=== PATIENT | female | born 1960 | race Caucasian/White ===

== ENCOUNTER → 2018-11-14 | Outpatient (CLI) | payer MEDICARE, SELFPAY ==
[2014-05-18 09:37] VITALS: BMI 26.0
[2018-11-14 17:36] LABS: Erythrocyte Sedimentation Rate 23 mm/hr (0-30)
[2018-11-14 17:40] LABS: Hematocrit 38.8 % (37-47); Hemoglobin 12.6 g/dl (12.0-15.0); Mean Corp Hgb Conc 32.5 g/gl (32-36); Mean Corpuscular Hgb 28.6 pg (27.0-32.0); Mean Platelet Vol. 11.6 fl (6.2-12.0); Platelet Count 171 K/mm3 (150-450); RBC Distribution Width CV 13.4 % (11.6-14.6); RBC Distribution Width SD 41.8 fl (35.1-43.9); Red Blood Count 4.41 M/mm3 (4.2-5.4); White Blood Count 7.2 K/mm3 (4.4-11.0)
[2018-11-14 17:45] LABS: Scan Indicated on CBC? Y/N NO
[2018-11-14 18:01] LABS: Anion Gap 8 (5-15); BUN 15 mg/dL (7-18); BUN/Creat Ratio 14.2 RATIO (10-20); Calcium,Total 8.2 mg/dL (8.5-10.1); Chloride 102 mmol/L (98-107); Creatinine, Serum 1.06 mg/dL (0.55-1.02); EST Glomerular Filtration Rate 56 mL/min (>60); Est Glom Filt Rate - Afr Amer 68 mL/min (>60); Glucose 94 mg/dL (74-106); Magnesium 2.6 mg/dL (1.6-2.6); Potassium 4.4 mmol/L (3.5-5.1); Sodium Level 141 mmol/L (136-145); Thyroid Stim Hormone (TSH) 2.21 uIU/mL (0.358-3.74)
== END | disposition home or self-care (01) ==
PROVIDERS: Family Provider Family Medicine; PCP Family Medicine; Referring Provider Family Medicine; Visit Provider Family Medicine
DX: R51 Headache (principal); E03.9 Hypothyroidism, unspecified; E20.9 Hypoparathyroidism, unspecified; K21.9 Gastro-esophageal reflux disease without esophagitis; G50.0 Trigeminal neuralgia
CPT/HCPCS: 36415; 80048; 82306; 83735; 84443; 85027; 85652; 86140

== ENCOUNTER → 2018-11-26 | Outpatient (CLI) | payer MEDICARE, SELFPAY ==
--- NOTE | 2018-11-26 18:15 | MRI_ITS ---
HISTORY: Tongue deviation, severe left facial pain. EXAM/TECHNIQUE: MR Brain and MR IAC WO/W Contrast: 14 cc Dotarem administered intravenously. Multiplanar, multisequence. 1.5 [place]. COMPARISON: CTA head and neck 03/18/14. MRI brain 04/24/14. FINDINGS: # of images incl. paperwork: 424 MRI brain: No acute infarct, hemorrhage, or mass. Chronic FLAIR/T2 hyperintensities in the cerebral white matter pattern most compatible with chronic microangiopathic changes, more numerous compared to the prior MRI. No abnormal enhancement. Major flow voids preserved. No acute osseous abnormality. Paranasal sinuses patent. No hydrocephalus or midline shift. Brain volume is normal for age. MRI IACs: Similar to the previous studies, is tortuosity of the intracranial vertebral arteries and basilar artery; the right vertebral artery courses to the right of midline, and the left vertebral artery loops up into the left CP angle, mildly displacing cephalad the proximal cisternal segments of the left seventh and eighth cranial nerves. Otherwise the 7th and 8th cranial nerve complexes are unremarkable bilaterally. The visualized portions of the 5th cranial nerves are unremarkable. No mass or abnormal enhancement. Normal signal and contour of the internal auditory canals, cochlea, and vestibular apparatus bilaterally. No fluid in the middle ears or mastoid air cells. External auditory canals unremarkable. IMPRESSION: No acute findings on the MRI brain. Slight interval progression of chronic FLAIR/T2 hyperintensities in the cerebral white matter compared to 04/24/14, most likely sequela of chronic microangiopathic change. No acute findings on the MRI IAC. Tortuosity of the intracranial vertebral arteries and basilar artery, described above, with the left left vertebral artery looping up into the left CP angle, mildly displacing cephalad the proximal cisternal segments of the left seventh and eighth cranial nerves. If the patient has symptoms correlating to the left 7th or 8th cranial nerves this may be the etiology. at 0822 Reported and signed by: Steve Enriquez MD Electronically Signed: Steve Enriquez, at 8:21 EDT Tel , Service support , HISTORY: Tongue deviation, severe left facial pain. EXAM/TECHNIQUE: MR Brain and MR IAC WO/W Contrast: 14 cc Dotarem administered intravenously. Multiplanar, multisequence. 1.5 [place]. COMPARISON: CTA head and neck 03/18/14. MRI brain 04/24/14. FINDINGS: # of images incl. paperwork: 424 MRI brain: No acute infarct, hemorrhage, or mass. Chronic FLAIR/T2 hyperintensities in the cerebral white matter pattern most compatible with chronic microangiopathic changes, more numerous compared to the prior MRI. No abnormal enhancement. Major flow voids preserved. No acute osseous abnormality. Paranasal sinuses patent. No hydrocephalus or midline shift. Brain volume is normal for age. MRI IACs: Similar to the previous studies, is tortuosity of the intracranial vertebral arteries and basilar artery; the right vertebral artery courses to the right of midline, and the left vertebral artery loops up into the left CP angle, mildly displacing cephalad the proximal cisternal segments of the left seventh and eighth cranial nerves. Otherwise the 7th and 8th cranial nerve complexes are unremarkable bilaterally. The visualized portions of the 5th cranial nerves are unremarkable. No mass or abnormal enhancement. Normal signal and contour of the internal auditory canals, cochlea, and vestibular apparatus bilaterally. No fluid in the middle ears or mastoid air cells. External auditory canals unremarkable. MRI/Brain W/WO Contrast
== END | disposition home or self-care (01) ==
LOC: MRI 17:19
PROVIDERS: Family Provider Family Medicine; PCP Family Medicine; Referring Provider Family Medicine; Visit Provider Family Medicine
DX: K14.8 Other diseases of tongue (principal)
CPT/HCPCS: 70553; A9585

== ENCOUNTER → 2018-12-16 16:53 | Outpatient (CLI) | payer MEDICARE, SELFPAY ==
[2014-05-18 09:37] VITALS: BMI 26.0
--- NOTE | 2018-12-16 16:59 | RAD_ITS ---
STUDY: X-RAY - CERVICAL SPINE REASON FOR EXAM: Female, 58 years old. Pain TECHNIQUE: 6 view(s) of the cervical spine were obtained. COMPARISON: None FINDINGS: There is no evidence of fracture or dislocation in the cervical spine. The dens is intact. The vertebral body heights and disc spaces are well-maintained. DISH type osteophytes are present from C1 through C7 with fusion from C4 through C6. The prevertebral soft tissues are unremarkable. There is no radiodense foreign body. RAD/Cerv Spine 4 or 5 Views IMPRESSION: No fracture or dislocation in the cervical spine. [facility]-type osteophytosis described above. Electronically Signed: Gomez Mcknight, at 21:47 EDT Tel , Service support ,
--- NOTE | 2018-12-16 16:59 | RAD_ITS ---
STUDY: X-RAY - LUMBAR SPINE REASON FOR EXAM: Female, 58 years old. Urinary frequency. TECHNIQUE: 5 view(s) of the lumbar spine were obtained including oblique views. COMPARISON: None FINDINGS: Normal lumbar lordosis. There is a mild dextroscoliosis of the lumbar spine. There is a normal alignment of the vertebrae. There is multilevel endplate spondylosis of the lumbar vertebrae. There is multi-level degenerative disc disease with multi-level disc space narrowing. Facet joint osteoarthritis. Phleboliths are seen in the pelvis. RAD/L/S Spine Min 4 Views IMPRESSION: Degenerative changes of the spine, as detailed above. Electronically Signed: Jace Stoner, at 15:49 EDT , Service support ,
[2018-12-16 17:52] LABS: Color, Urine Yellow (Yellow); Glucose, Dipstick Normal (Normal); Ketone-Dipstick Negative (Negative); Leukocyte Esterase-Dipstick Negative /ul (Negative); Nitrite-Dipstick Negative (Negative); Occult Blood-Urine Negative /ul (Negative); Protein-Dipstick Negative (Negative); Specific Gravity, Urine 1.015 (1.002-1.030); Urine Bilirubin Dipstick Negative (Negative); Urine Clarity Clear (Clear); Urine Urobilinogen Normal (Normal)
[2018-12-16 18:08] LABS: Erythrocyte Sedimentation Rate 15 mm/hr (0-30)
[2018-12-16 18:13] LABS: Anion Gap 7 (5-15); BUN 14 mg/dL (7-18); BUN/Creat Ratio 12.7 RATIO (10-20); Calcium,Total 8.4 mg/dL (8.5-10.1); Chloride 104 mmol/L (98-107); EST Glomerular Filtration Rate 54 mL/min (>60); Est Glom Filt Rate - Afr Amer 65 mL/min (>60); Glucose 88 mg/dL (74-106); Potassium 3.9 mmol/L (3.5-5.1); Rheumatoid Factor < 10.0 IU/mL (<15); Sodium Level 142 mmol/L (136-145)
[2018-12-16 18:21] LABS: PTHIN 7.2 pg/mL (18.4-80.1)
[2018-12-16 18:37] LABS: Vitamin B12 409 pg/mL (211-911)
[2018-12-19 14:14] LABS: ANTINUCLEAR ANTIBODIES DIRECT Negative (Negative)
== END ==
PROVIDERS: Family Provider Family Medicine; PCP Family Medicine; Referring Provider Family Medicine; Visit Provider Family Medicine
DX: R79.82 Elevated C-reactive protein (CRP) (principal); N28.9 Disorder of kidney and ureter, unspecified; G50.8 Other disorders of trigeminal nerve; R35.0 Frequency of micturition; E20.9 Hypoparathyroidism, unspecified; M54.2 Cervicalgia
CPT/HCPCS: 72050; 72110; 80048; 81002; 82330; 82607; 83970; 85652; 86038; 86140; 86431

== ENCOUNTER → 2019-01-31 | Outpatient (CLI) | payer MEDICARE, SELFPAY ==
[2014-05-18 09:37] VITALS: BMI 26.0
--- NOTE | 2019-01-31 17:30 | MRI_ITS ---
STUDY: MRI CERVICAL SPINE WITHOUT CONTRAST REASON FOR EXAM: Female, 58 years old. Headache for years TECHNIQUE: Standardized fat and water weighted pulse sequences were obtained in the sagittal and axial planes. COMPARISON: None FINDINGS: There is cerebellar tonsillar ectopia with the tonsils descending 4 mm below the foramen magnum. Craniocervical junction is intact and aligned. There are degenerative changes at the atlantoodontoid articulation. There is grade 1 degenerative anterolisthesis of C6 on C7, less than 2 mm. Marrow is normal with superimposed expected age-related discogenic change. There is multilevel ventral bridging and near bridging osteophyte formation. Paraspinous soft tissues are normal. C2-C3 has patent canal and foramina. C3-C4 has mild spondylotic cord compression. There is severe left foraminal stenosis with patent). C4-C5 has focal left central disc and facet osteophytes with mild canal stenosis without cord compression. Foramina are patent bilaterally. C5-C6 has patent canal and foramina. C6-C7 has mild cord compression secondary to ventral disc endplate osteophyte. There is mild left foraminal stenosis with patent right foramen. C7-T1 has patent canal and foramina. Spinal cord is normal in size and signal with minor flattening at the compressing C6-C7 level. MRI/Spine Cervical (Routine) IMPRESSION: 1. Mild spondylotic C6-C7 cord compression. 2. Cerebellar tonsillar ectopia. Electronically Signed: Meliton Sprague, at 18:30 EDT Tel , Service support ,
== END | disposition home or self-care (01) ==
LOC: MRI 16:43
PROVIDERS: Family Provider Family Medicine; PCP Family Medicine; Referring Provider Family Medicine; Visit Provider Family Medicine
DX: M54.2 Cervicalgia (principal)
CPT/HCPCS: 72141

== ENCOUNTER 2019-02-07 15:30 | Outpatient (RCR) | payer MEDICARE, SELFPAY ==
--- NOTE | 2019-01-22 11:04 | HP.PTEVAL_ITS ---
Patient's Visit Information BHAVNA PATEL is a 58 year old F referred to Physical Therapy by Robson Guido MD with a diagnosis of OA NECK, H/A. Date of Evaluation: 01/22/19 Physical Therapist: Jenny Melgoza PT, Cert MDT - Visit Plan Frequency: 2-3x /Week Duration: 4-6 Weeks Plan: FURTHER ASSESSMENT. CERVICAL ISOMETRICS. MODALITIES NEEDED. POSTURE CORRECTION/STRENGTHENING, INSTRUCTION IN APPROPRIATE BODY MECHANICS AND ACTIVITY MODIFICATIONS. ARABELLA UE ROM, STRETCHING AND STRENGTHENING. HEP INSTRUCTION. - Subjective Findings: Work/Leisure: RETIRED. Disability: HYPOPARATHYROIDISM - HAS TO TAKE HIGH DOSES OF CALCIUM - MUSCLES LOCK UP WHEN CALCIUM GOES LOW. Present symptoms: HEAD PAIN - EITHER RIGHT OR LEFT HEAD PAIN. RINGING IN THE EARS. NO NECK PAIN. PATIENT DENIES ARABELLA UE PAIN, NUMBNESS AND TINGLING. Present since: 2013. THE PAIN GOES AWAY AND THEN COMES BACK. CAME BACK ABOUT 6 MONTHS AGO. GOOD DAYS AND BAD DAYS. Pain Scale: Worst - 9/10 Least - 3/10. Currently: 3/10 ON LEFT SIDE OF HEAD. AWHILE AGO IT WAS ON THE RIGHT. WORSENING. Commenced as a result of: NO APPARENT REASON. Symptoms at onset: RIGHT OR LEFT SIDE OF HEAD. Worse: ? Better: LYING DOWN WITH ICE PACK AND DARK ROOM, HEAT ON NECK HELPS SOMETIMES TOO. MOVING HEAD AROUND AND CRACKING NECK - SOMETIMES. Disturbed sleep: YES. Previous history/Previous treatment: DECEMBER 2018 NEUROLOGY CONSULT, MEDICATION (GABAPENTIN). NO CHIROPRACTOR. DECEMBER 2018 - TWO INJECTIONS IN THE BACK OF HER HEAD - HELPED FOR A COUPLE DAYS. Dizziness: YES - INTERMITTENT - COMES WITH HEADACHES. Tinnitis: YES - CHRONIC FOR YEARS. N ausea: NO. Shortness of Breath: NO. Difficulty Swollowing: YES - CHRONIC FOR YEARS. Gait: NORMAL. Accidents: NO. Unexplained weight loss: NO. Imaging: *NO NECK MRI*. RECENT NECK X-RAY - DISH type osteophytes are present from C1 through C7 with fusion from C4. through C6. RECENT LOW BACK X-RAY: FINDINGS: Normal lumbar lordosis. There is a mild dextroscoliosis of the lumbar. spine. There is a normal alignment of the vertebrae. There is multilevel endplate spondylosis of the lumbar vertebrae. There is. multi-level degenerative disc disease with multi-level disc space. narrowing. Facet joint osteoarthritis. Phleboliths are seen in the pelvis. PMH/Recent major surgery: HYPOPARATHYROIDISM. - Objective Sitting Posture/Standing Posture: POOR. Active Correction of posture: NE. Other Observations: INDEP GAIT INTO PT. INTERMITTENT EPISODES OF SPIKES IN HEAD PAIN WALKING INTO PT, SITTING IN PT AND WITH EXAM. NOT REPRODUCIBLE CONSISTANTLY. Motor deficit: ARABELLA UE'S GROSSLY 4/5 WITH MMT'ING. Sensory deficit: NO. ARABELLA UE LIGHT TOUCH SENSATION INTACT AND SYMMETRICAL. ROM deficit: APPROX 20% DECREASED ARABELLA SHOULDER ELEVATION. OTHERWISE ARABELLA UE ROM WFL. Reflexes: NT. Dural Signs: NEGATIVE. Cervical Mvmt Loss: Flex: MOD. Pro: NIL. Ext: JESUS. Ret: JESUS. RSB: JESUS. LSB: JESUS. R Rot: MOD. L Rot: MOD. Postural strength: POOR. Palpation: INCREASED MUSCLE TONE THROUGHOUT ARABELLA NECK MUSCULATURE. PATIENT IS VERY TENDER WITH VERY LIGHT TOUCH OF THE UPPER CERVICAL SPINE REGION. - Goals Goal 1:: DECREASE C/O HEAD PAIN. Goal Time Frame: 4-6 Weeks Goal 2:: IMPROVE LIFTING, READING, SLEEP, ADL AND RECREATIONAL FUNCTION Goal Time Frame: 4-6 Weeks Goal 3:: INSTRUCT IN PROPHYLAXIS Goal Time Frame: 4-6 Weeks - Rehabilitation Potential Rehabilitation Potential: Fair - Anticipated Interventions Patient/Client Instruction: Educate patient on: Condition, Plan of Care, Risk Factors, Benefits of Fitness Program For the Purpose of:: To improve self management Therapeutic Exercise to Include: Strength training, Body mechanics, Postural training, Flexibilty training, Active ROM, Scapular Strength/Stabilization For the Purpose of:: To decrease pain, To increase ROM, To improve muscle performance and motor function, To increase tolerance to activity/condition/position, To improve ability of physical actions for home/community/work/leisure Manual Therapy Techniques to Include: Soft tissue mobilization For the Purpose of:: To decrease pain, To decrease swelling/inflammation, To improve nutrient delivery to tissue Cryotherapy (ice pack, ice massage): Yes Thermo therapy (hot pack): Yes Ultrasound (thermal/non thermal): Yes For the Purpose of:: To decrease pain, To decrease swelling/inflammation, To improve nutrient delivery to tissue Thank you for the opportunity to evaluate your patient. For Medicare and Medicare HMO plans, please review the plan of care and approve it. It will need to be FAXED BACK to us at [phone] for Medicare purposes. For Medicare only, by signing this I certify the plan of care. Please let me know if there are questions or concerns regarding this plan of care. Physician Signature: Date:
--- NOTE | 2019-02-11 15:01 | HP.PT.NRP ---
HP - Discharge Summary (1) - Patient Information BHAVNA PATEL was seen in my office for initial evaluation on 01/22/19. The following Plan of Care was established for this patient: Initial Frequency: 2-3x /Week Initial Duration: 4-6 Weeks - Anticipated Interventions Patient/Client Instruction: Educate patient on: Condition, Plan of Care, Risk Factors, Benefits of Fitness Program For the Purpose of:: To improve self management Therapeutic Exercise to Include: Strength training, Body mechanics, Postural training, Flexibilty training, Active ROM, Scapular Strength/Stabilization For the Purpose of:: To decrease pain, To increase ROM, To improve muscle performance and motor function, To increase tolerance to activity/condition/position, To improve ability of physical actions for home/community/work/leisure Manual Therapy Techniques to Include: Soft tissue mobilization For the Purpose of:: To decrease pain, To decrease swelling/inflammation, To improve nutrient delivery to tissue Cryotherapy (ice pack, ice massage): Yes Thermo therapy (hot pack): Yes Ultrasound (thermal/non thermal): Yes For the Purpose of:: To decrease pain, To decrease swelling/inflammation, To improve nutrient delivery to tissue This patient was last seen in our office . Pertinent comments regarding their Physical therapy will appear below: DISCHARGE PENDING OUTCOME OF CONSULT AT [facility] PER SISTER'S REQUEST. At this point I will be discontinuing this patient from physical therapy. I would be happy to see this patient again in the future if found appropriate by the physician. Thank you! Jenny Melgoza, PT, Cert MDT
== END 2019-02-07 19:00 | disposition home or self-care (01) ==
LOC: PT 15:30
PROVIDERS: Family Provider Family Medicine; PCP Family Medicine; Visit Provider Family Medicine
DX: M19.90 Unspecified osteoarthritis, unspecified site (principal); R51 Headache
CPT/HCPCS: 97140; 97162; 97530

== ENCOUNTER → 2019-06-05 | Outpatient (CLI) | payer MEDICARE, SELFPAY ==
[2014-05-18 09:37] VITALS: BMI 26.0
== END | disposition home or self-care (01) ==
LOC: LABSPEC 15:47
PROVIDERS: Family Provider Family Medicine; PCP Family Medicine; Referring Provider Otolaryngology Otolaryngology/Facial Plastic Surgery; Visit Provider Otolaryngology Otolaryngology/Facial Plastic Surgery
DX: H92.10 Otorrhea, unspecified ear (principal)
CPT/HCPCS: 87070; 87075; 87205

== ENCOUNTER → 2019-06-26 15:37 | Outpatient (CLI) | payer MEDICARE, SELFPAY ==
[2014-05-18 09:37] VITALS: BMI 26.0
== END ==
PROVIDERS: Family Provider Family Medicine; PCP Family Medicine; Referring Provider Otolaryngology Otolaryngology/Facial Plastic Surgery; Visit Provider Otolaryngology Otolaryngology/Facial Plastic Surgery
DX: H92.10 Otorrhea, unspecified ear (principal)
CPT/HCPCS: 87070; 87075; 87205

== ENCOUNTER → 2019-10-21 11:43 | Outpatient (CLI) | payer MEDICARE, SELFPAY ==
[2014-05-18 09:37] VITALS: BMI 26.0
--- NOTE | 2019-10-21 11:46 | RAD_ITS ---
STUDY: X-RAY - SOFT TISSUE NECK REASON FOR EXAM: Female, 59 years old. BILAT SUPERIOR SHOULDER/DISTAL NECK SWELLING, NO PAIN TECHNIQUE: 2 view(s) of the neck were obtained. COMPARISON: None. FINDINGS: Normal visualized nasopharynx, oropharynx, hypopharynx. Normal epiglottis. Normal visualized subglottic tracheal air column. Normal prevertebral soft tissue structures. Advanced degenerative disease with large osteophyte formation noted throughout the cervical spine. The soft tissue structures are unremarkable. RAD/Neck for Soft Tissue IMPRESSION: Advanced degenerative disease as described. Patent airway with no soft tissue swelling. Electronically Signed: Sera Wright MD at 0:31 EDT , Service support ,
[2019-10-21 15:53] LABS: CRP 5.22 mg/L (0.0-3.0); Thyroid Stim Hormone (TSH) 1.54 uIU/mL (0.358-3.74)
[2019-10-21 15:58] LABS: Absolute Lymphocyte Count 2.35 X10^3/uL (0.83-4.51); Absolute Neutrophil Count 3.9 X10^3/uL (2.0-7.7); Basophil# 0.09 X10^3/uL; Basophil% 1.1 % (0-1); Eosinophil# 0.73 X10^3/uL; Eosinophils% 9.3 % (0-5); Hematocrit 41.9 % (37-47); Hemoglobin 13.3 g/dL (12.0-15.0); Lymphocyte # 2.35 X10^3/ul (4.0); Lymphocyte % 29.9 % (19-41); Mean Corp Hgb Conc 31.7 g/dL (32-36); Mean Corpuscular Hgb 28.9 pg (27.0-32.0); Mean Corpuscular Volume 91.1 fL (81-99); Mean Platelet Vol. 12.4 fl (6.2-12.0); Monocyte# 0.77 X10^3/uL; Monocyte% 9.8 % (0-10); NRBC Flagged by Analyzer 0 % (0-5); Neutrophil # 3.88 X10^3/uL (2.7-7.7); Neutrophil % 49.4 % (47-70); Platelet Count 140 K/mm3 (150-450); RBC Distribution Width CV 13.1 % (11.6-14.6); RBC Distribution Width SD 42.7 fl (35.1-43.9); White Blood Count 7.9 K/mm3 (4.4-11.0)
[2019-10-21 16:01] LABS: Erythrocyte Sedimentation Rate 12 mm/hr (0-30)
== END ==
PROVIDERS: PCP Family Medicine; Referring Provider Family Medicine; Visit Provider Family Medicine
DX: E20.9 Hypoparathyroidism, unspecified (principal); R22.1 Localized swelling, mass and lump, neck
CPT/HCPCS: 36415; 70360; 84443; 85025; 85652; 86140

== ENCOUNTER → 2019-11-13 08:34 | Outpatient (CLI) | payer MEDICARE, SELFPAY ==
--- NOTE | 2019-11-13 08:38 | US_ITS ---
STUDY: SUPERFICIAL ULTRASOUND - CERVICAL REGION BILATERALLY REASON FOR EXAM: Female, 59 years old. BILATERAL NECK SWELLING TECHNIQUE: A superficial ultrasound was performed with real-time and static wick-scale imaging. COMPARISON: None. FINDINGS: There is an 8 mm x 9 mm x 4 mm benign-appearing right cervical lymph node. There is a 7 mm x 10 mm x 5 mm benign-appearing lymph node in the left cervical region. US/Head/Neck Soft Tissue IMPRESSION: Small bilateral benign-appearing cervical lymph nodes. Electronically Signed: Jace Stoner, at 10:47 EDT , Service support ,
== END ==
PROVIDERS: PCP Family Medicine; Referring Provider Family Medicine; Visit Provider Family Medicine
DX: R22.1 Localized swelling, mass and lump, neck (principal)
CPT/HCPCS: 76536

== ENCOUNTER → 2020-01-29 17:27 | Outpatient (CLI) | payer MEDICARE, SELFPAY ==
[2014-05-18 09:37] VITALS: BMI 26.0
== END ==
PROVIDERS: PCP Family Medicine; Referring Provider Family Medicine; Visit Provider Family Medicine
DX: R19.7 Diarrhea, unspecified (principal)
CPT/HCPCS: 82274; 83630; 87177; 87209; 87493

== ENCOUNTER → 2020-02-09 10:37 | Outpatient (CLI) | payer MEDICARE, SELFPAY ==
--- NOTE | 2020-02-09 10:42 | US_ITS ---
STUDY: ABDOMINAL ULTRASOUND - RIGHT UPPER QUADRANT REASON FOR VISIT: Female, 60 years old ELEVATED LFT''S TECHNIQUE: Ultrasound evaluation of the right upper quadrant was performed with real-time and static wick-scale imaging. TECHNICAL QUALITY: Adequate. COMPARISON: None. FINDINGS: Liver: The liver measures 11.9 cm. There is normal echogenicity of the liver. The bile ducts are within normal limits. There is hepatic color flow. The direction of portal flow is hepatopetal. There is no demonstrated mass lesion. Gallbladder: There is evidence of a contracted stone filled gallbladder. The gallbladder wall measures 6.0 mm. There is a negative sonographic Garcia''s sign. There is no pericholecystic fluid. There are no gallstones. Common Bile Duct (C.B.D.): The common bile duct measures 11 mm. Pancreas: Normal size of the head, body and tail of the pancreas. There is increased echogenicity of the pancreas. There is no demonstrated pancreatic mass or cyst. Right Kidney: Normal size of the right kidney. The right kidney measures 9.7 cm x 4.4 cm x 4.0 cm. Normal renal cortex. The right cortex measures 1.1 cm. There is no demonstrated renal mass or cyst. There is no right hydronephrosis. US/Abdomen Limited IMPRESSION: Contracted stone filled gallbladder. Electronically Signed: Jace Stoner, at 13:18 EDT , Service support ,
== END ==
PROVIDERS: PCP Family Medicine; Referring Provider Family Medicine; Visit Provider Family Medicine
DX: R19.7 Diarrhea, unspecified (principal)
CPT/HCPCS: 76705

== ENCOUNTER → 2020-02-12 11:39 | Outpatient (CLI) | payer MEDICARE, SELFPAY ==
[2014-05-18 09:37] VITALS: BMI 26.0
== END ==
PROVIDERS: PCP Family Medicine; Referring Provider Family Medicine; Visit Provider Family Medicine
DX: R19.7 Diarrhea, unspecified (principal)
CPT/HCPCS: 87506

== ENCOUNTER → 2020-02-20 08:13 | Outpatient (CLI) | payer MEDICARE, SELFPAY ==
[2020-02-17 13:37] VITALS: BMI 26.0
--- NOTE | 2020-02-20 08:14 | CT_ITS ---
STUDY: CT ABDOMEN AND PELVIS WITH CONTRAST REASON FOR EXAM: Female, 60 years old. RLQ PAIN . RADIATION DOSAGE (If Supplied By Facility): CTDIvol = ( 12.52 ) mGy, DLP = ( 737.30 ) mGycm TECHNIQUE: Transaxial images were obtained from the dome of the diaphragm to the symphysis pubis with oral contrast. Oral and amp; IV READII-CAT and amp; 100ML ISOVUE 300 was administered. Sagittal and coronal images were reconstructed. Individualized dose optimization techniques were used for this CT. COMPARISON: None. FINDINGS: Calcified granuloma in the lateral peripheral aspect of the right lower lobe. Increased linear markings in the lingular segment of the left upper lobe suggestive of linear atelectasis and/or scarring. Minimal thickening of the posterior aspect of the pericardium. There is decreased attenuation of the liver consistent with steatosis. Scattered small cysts are seen in the liver. The common bile duct measures 1 cm in transverse dimension. Questionable gallstones. Normal spleen. Normal pancreas. Normal bilateral adrenal glands. Normal right kidney. Normal left kidney. There is a small hiatal hernia. Normal small intestine. There is a 1.9 cm x 1.9 cm filling defect in the proximal descending colon. Also evidence of a filling defect in the cecum. This most likely represents fecal material although a mass lesion cannot be excluded. The appendix is visualized and appears normal. Normal abdominal aorta. Normal inferior vena cava. Normal retroperitoneum. Normal urinary bladder. There is a 2.8 cm x 3.6 cm cyst in the right ovary. There is a small umbilical hernia containing fat. There are diffuse degenerative changes of the visualized lumbar spine. Scoliosis. CT/Abdomen/Pelvis WITH Contrast IMPRESSION: 2.8 cm x 3.6 cm cyst in the right ovary. Questionable fecal material in the cecum and ascending colon versus a mass. Correlation with the colonoscopy is recommended. Findings suggestive of small cysts in the right lobe of the liver. Electronically Signed: Jace Stoner, at 12:33 EDT , Service support ,
[2020-02-20 08:36] LABS: CREATININE FINGERSTICK 0.8 mg/dL (0.55-1.02); EGFR FINGERSTICK > 60.0000 mL/min (>60)
== END ==
PROVIDERS: PCP Family Medicine; Referring Provider Surgery; Visit Provider Surgery
DX: R10.9 Unspecified abdominal pain (principal); R19.7 Diarrhea, unspecified
CPT/HCPCS: 74177; 87493; Q9967

== ENCOUNTER → 2020-03-02 09:47 | Outpatient (CLI) | payer MEDICARE, SELFPAY ==
[2020-02-17 13:37] VITALS: BMI 26.0
[2020-03-02 12:16] LABS: Hematocrit 38.5 % (37-47); Mean Corp Hgb Conc 31.2 g/dL (32-36); Mean Corpuscular Hgb 29.6 pg (27.0-32.0); Mean Corpuscular Volume 95.1 fL (81-99); Mean Platelet Vol. 11.9 fl (6.2-12.0); Platelet Count 130 K/mm3 (150-450); RBC Distribution Width CV 13.3 % (11.6-14.6); RBC Distribution Width SD 45.6 fl (35.1-43.9); Red Blood Count 4.05 M/mm3 (4.2-5.4); White Blood Count 6.6 K/mm3 (4.4-11.0)
[2020-03-02 12:33] LABS: Anion Gap 3 (5-15); BUN 19 mg/dL (7-18); BUN/Creat Ratio 18.1 RATIO (10-20); Calcium,Total 8.5 mg/dL (8.5-10.1); Chloride 102 mmol/L (98-107); Creatinine, Serum 1.05 mg/dL (0.55-1.02); EST Glomerular Filtration Rate 57 mL/min (>60); Est Glom Filt Rate - Afr Amer 69 mL/min (>60); Glucose 81 mg/dL (74-106); Potassium 4.5 mmol/L (3.5-5.1); Sodium Level 139 mmol/L (136-145)
== END ==
PROVIDERS: PCP Family Medicine; Referring Provider Family Medicine; Visit Provider Family Medicine
DX: N28.9 Disorder of kidney and ureter, unspecified (principal); D69.6 Thrombocytopenia, unspecified
CPT/HCPCS: 36415; 80048; 85027

== ENCOUNTER 2020-03-05 07:21 | Day surgery (SDC) | payer MEDICARE, SELFPAY ==
[2020-02-17 13:37] VITALS: BMI 26.0
[2020-03-05] VITALS (7 sets, daily range): BP systolic 100–110; BP diastolic 61–73; PULSE 70–90; RESP 16–18; TEMP 36.7–37.2; O2SAT 99–100; BMI 28.8
--- NOTE | 2020-03-05 | COLBX_PTH ---
PATIENT: BHAVNA PATEL I LOC: EN U#:[id number] AGE/SX: 60/F ROOM: RE03/05/[address]: Dr. Cong Bellamy MD : 1960 BED: DIS: 03/05/2020 SPEC #: [id number] RECD: 03/05/20 13:17 STATUS: LEVY NAIMA #: [id number] TRUE: 03/05/20 00:[address]: Cong Bellamy DEPT: SURGICAL PATHOLOGY RECD BY: Aric Koch ENTERED: 03/08/20 08:36 SP TYPE: COLON BX JESSICA DR: Dr. Angelo Guido MD Tissues: COLON BIOPSY Procedures: Surgery Specimen Level IV HEADER OPERATION: Colonoscopy (MAC) PRE-OP DIAGNOSIS: Abnormal CT scan TISSUE SUBMITTED: Random colonic biopsy MICROSCOPIC DIAGNOSIS Colon, random biopsy: Non-specific microscopic colitis with focal crypt abscess. AM:gaye 03/09/20 COMMENT The findings may represent lymphocytic colitis. Trichrome stain with matched control does not contain a thickened basal plate. Case has been reviewed in consultation with Dr. Sweeney who concurs with the above diagnosis. IDC:[email or web address] MICROSCOPIC DESCRIPTION Slides are reviewed. GROSS DESCRIPTION Received in fixative is one container labeled with the patient's name and designated random colon biopsy. The specimen consists of multiple irregular fragments of light willson soft tissue that in aggregate measure 1.5 x 0.5 x 0.1 cm. The specimen is totally submitted in one cassette. / TORO:gaye 03/08/20 TC:3 CPT: 65744,70662
--- NOTE | 2020-03-05 07:24 | H&P.OPEN ---
History of Present Illness Date of Admission: 03/05/20 The patient is a 60 year old F who was originally referred to me due to diarrhea and right abdominal pain. I ordered a CT scan which showed a possible cecal mass. Patient is here for colonoscopy to evaluate this area. Past Medical/Surgical History - Planned Operation Planned Operative Procedure/s: COLONOSCOPY Date of Operative Procedure: 03/05/20 Permit Signed: Yes S.O.S: No Is This Patient Having a Total Joint: No - Previous Hospitalizations/Surgeries HX Hospitalizations: No HX of Surgeries: LEEP Any Problems With Anesthesia: No You/Your Family Experience Fever (Hyperthermia) With Anes: No Cholinesterase deficiency: No - Cardiovascular Hx Chest Pain within Last 2 months: No Hx of Irregular Heartbeat and/or Afib: No Hx Heart Attack: No Hx Congestive Heart Failure: No Hx Rheumatic Fever: No Hx Hypertension: Yes - YRS AGO, NO MEDS PRESENTLY Hx Internal Defibrillator: No Hx Pacemaker: No Hx Cardiac Catheterization: No Hx Cardiac Surgery/Stents/Etc.: No Hx Stress Test: No HX Edema: No Hx Pain in Legs when Walking/Leg Cramps: No - Respiratory Chronic Cough: No HX of Shortness of Breath: No Hoarseness: No Hx Chronic Obstructive Pulmonary Disease (COPD): No Hx Asthma: No Hx Emphysema: No Hx Sleep Apnea: No Hx Oxygen Use at Home: No Hx Respiratory Tract Infection/Cold (presently): No Do You Snore Loudly (louder than talking or can be heard): No Do You Often Feel Tired/ Fatigued/ Sleepy Dring Daytime?: No Has Anyone Observed You Stop Breathing During Sleep?: No Result (for STOP score): Negative Hx Smoking: Yes Smoking Status: Never smoker - Gastrointestinal Hx Gastroesophageal Reflux: Yes Controlled With Meds: No - UNABLE TO TAKE MEDS Hx Gastrointestinal Disorders: No Hx Gastrointestinal Bleed: No Hx Ulcer: No Hx Hiatal Hernia: No Difficulty Chewing/Swallowing: No Recent Onset of Swallowing Problems: No Special diet followed at home: No Hx Unplanned Weight Loss of 20#: No HX Unplanned Weight Gain of 20#: No - Neurological Hx Seizures: No HX Syncope/Blackout Spells/Unconsciousness: No Hx CVA/Stroke: No Hx Transient Ischemic Attacks (TIA): No Hx Multiple Sclerosis: No Hx Parkinson's Disease: No Hx Head/Neck Injury: No Hx Headaches: Yes - SINUS Hx Back Injury/Pain: Yes Recent Onset of Speech Difficulty: No Restless Legs: No Does patient have nerve stimulator: No - Blood Disorder Hx Leukemia: No Bleeding Tendencies: No Hx Deep Vein Thrombosis: No Hx High Cholesterol: No Blood Transmitted Disease: No Hx Hepatitis: No Hx Cirrhosis: No Hx Anemia: No Hx Blood Disorders: No - Reproduction : No Is Patient Lactating: No Hx Hysterectomy: No Hx Tubal Ligation: No Are You Post Menopause: Yes - Genitourinary Hx Renal Disease: No - Musculoskeletal Hx Arthritis: Yes Hx Rheumatoid Arthritis: No Hx Gout: No Recent Onset of an Orthopedic Problem: No - Endocrine Hx Diabetes: No Thyroid Disease: Yes - ON MED Hx Steroid Therapy: No - Psycho/Social Hx Substance Use: No Hx Alcohol Use: No Hx Anxiety: Yes Hx Depression: Yes Mental Illness: No Hx Dementia: No - Miscellaneous Hx Cancer: No Recent Exposure to Contagious Disease: No Active MRSA: No Hx of C-Diff: No Any Loose Teeth: Yes - FULL SET DENTURES Allergies famotidine Allergy (Intermediate, Verified 02/27/20 11:17) depletes calcium omeprazole Allergy (Intermediate, Verified 02/27/20 11:17) diarrhea sulfamethoxazole [From Bactrim] Allergy (Verified 02/27/20 11:17) Rash trimethoprim [From Bactrim] Allergy (Verified 02/27/20 11:17) Rash - Discharge Is Pt Admitted From a [facility], or a [facility]: No Who Could Help: [facility] After D/C, Where Do you Plan to Go: Return Home - Physical Exam Vitals/I&O's: Body Mass Index (BMI) 26.0 General: Alert, Oriented x3 Lungs: Normal air movement Cardiovascular: Regular rate Abdomen: Soft, Non Tender, Non-Distended Laboratory Results 02/27/20 16:30: COVID-19 (DONALD) Not Detected Assessment/Plan 60-year-old female with possible cecal mass on CT scan 1. I explained endoscopy in detail to the patient. I explained the risks including but not limited to stroke or heart attack with anesthesia, perforation of the GI tract, bleeding, infection. I explained that any of these could necessitate further emergency surgery. The patient understands and all questions were answered sufficiently. The patient wishes to proceed with procedure. We discussed the current risks associated with COVID-19. While it is understood that there is a community spread of COVID-19, the risk of stewart COVID-19 while at [facility] ([facility]) is very low; however, the risk cannot be completely mitigated because of the community spread of the disease. We discussed in detail the risk of exposure to and/or potential harm posed by the COVID-19 virus with having a surgery/procedure at this time versus the risk of delaying the surgery/procedure. It is not possible to know either the risk of delaying the surgery or procedure or chance of getting an infection with perfect accuracy, but a joint decision was made to proceed at this time with the scheduled surgery/procedure as indicated on the consent form. Patient was notified that we will need to comply with any screening or testing [facility] wishes to perform or that surgery may be delayed for any positive results. Cong Bellamy MD Pager: [facility] [address] [place] [address] [address] [place] [address] Office: Surgery Risks - Colonoscopy Risks Include but are not Limited To: Risks include but are not limited to: Bleeding, perforation requiring further surgery, inability to complete colonoscopy requiring barium enema.
[2020-03-05] MEDS: Lactated Ringers 1,000 ML 100 ML IV (07:56)
--- NOTE | 2020-03-05 10:02 | OP.CCLET_ITS ---
03/05/2020 Robson Guido [address] [place] [address] Re : Colonoscopy procedure for Loly Fuentes Dear Dr. Guido This procedure was performed on Thursday, March 05, 2020. My impressions and recommendations are as follows: Impressions : - The entire examined colon is normal on direct and retroflexion views. - Biopsies were taken with a cold forceps from the entire colon for evaluation of microscopic colitis. Recommendations : - Discharge patient to home. - Resume previous diet. - Continue present medications. - Await pathology results. - Repeat colonoscopy in 10 years for surveillance based on pathology results. - Return to my office in 1 week. My findings are described in the full procedure note, which is enclosed. If I can be of further assistance, please feel free to contact me at Doctor phone number(s): , Work: . Sincerely, Cong Bellamy MD 03/05/2020 10:02:19 AM This report has been signed electronically.
--- NOTE | 2020-03-05 10:02 | OP.COLON_ITS ---
Patient Name: Loly Fuentes Procedure Date: 03/05/2020 9:10 AM Date of : 1960 Age: 60 Procedure: Colonoscopy Indications: Abnormal CT of the GI tract Providers: Cong Bellamy MD Referring MD: Robson Guido Medicines: Monitored Anesthesia Care Patient Profile: This is a 60 year old female. Refer to note in patient chart for documentation of history and physical. Last Colonoscopy: none. The patient's first colonoscopy is today. Complications: No immediate complications. Estimated blood loss: Minimal. Procedure: Pre-Anesthesia Assessment: - Prior to the procedure, a History and Physical was performed, and patient medications and allergies were reviewed. The patient's tolerance of previous anesthesia was also reviewed. The risks and benefits of the procedure and the sedation options and risks were discussed with the patient. All questions were answered, and informed consent was obtained. Prior Anticoagulants: The patient has taken no previous anticoagulant or antiplatelet agents. After reviewing the risks and benefits, the patient was deemed in satisfactory condition to undergo the procedure. After I obtained informed consent, the scope was passed under direct vision. Throughout the procedure, the patient's blood pressure, pulse, and oxygen saturations were monitored continuously. The colonoscope was introduced through the anus and advanced to the cecum, identified by appendiceal orifice and ileocecal valve. The colonoscopy was performed without difficulty. The patient tolerated the procedure well. The quality of the bowel preparation was good. Scope In: 9:18:26 AM Scope Withdrawal Time 0 hours 11 minutes 32 seconds Scope Out: 9:51:34 AM Total Procedure Duration Time 0 hours 33 minutes 8 seconds Findings: The entire examined colon appeared normal on direct and retroflexion views. Biopsies for histology were taken with a cold forceps from the entire colon for evaluation of microscopic colitis. Impression: - The entire examined colon is normal on direct and retroflexion views. - Biopsies were taken with a cold forceps from the entire colon for evaluation of microscopic colitis. Recommendation: - Discharge patient to home. - Resume previous diet. - Continue present medications. - Await pathology results. - Repeat colonoscopy in 10 years for surveillance based on pathology results. - Return to my office in 1 week. Procedure Code(s): --- Professional --- 55865, Colonoscopy, flexible; with biopsy, single or multiple Diagnosis Code(s): --- Professional --- R93.3, Abnormal findings on diagnostic imaging of other parts of digestive tract CPT copyright 2017 [employer]. All rights reserved. The codes documented in this report are preliminary and upon drill doctor review may be revised to meet current compliance requirements. Cong Bellamy MD 03/05/2020 10:02:19 AM This report has been signed electronically. Number of Addenda: 0 Note Initiated On: 03/05/2020 9:10 AM
== END 2020-03-05 10:45 | disposition home or self-care (01) ==
LOC: EN 07:22 → AC 07:22
PROVIDERS: Anesthesiology; PCP Family Medicine; Referring Provider Family Medicine; Visit Provider Surgery
PROC: 0DJD8ZZ Inspection of Lower Intestinal Tract, Via Natural or Artificial Opening Endoscopic (ICD-10-PCS; CPT 45378; principal; 2020-03-05 08:40)
DX: K52.9 Noninfective gastroenteritis and colitis, unspecified (principal); Z11.59 Encounter for screening for other viral diseases; K21.9 Gastro-esophageal reflux disease without esophagitis; E07.9 Disorder of thyroid, unspecified; F41.9 Anxiety disorder, unspecified; F32.9 Major depressive disorder, single episode, unspecified; Z79.899 Other long term (current) drug therapy; Z79.82 Long term (current) use of aspirin; R94.8 Abnormal results of function studies of other organs and systems
CPT/HCPCS: 45380; 87635; 88305; 94799; J7120; J2405; U0003

== ENCOUNTER → 2020-03-22 16:34 | Outpatient (CLI) | payer MEDICARE, SELFPAY ==
[2020-03-05 07:44] VITALS: BMI 28.8
[2020-03-24 16:08] LABS: Endomysial Antibody IgA Negative (Negative)
[2020-03-24 20:45] LABS: Immunoglobulin A 267 mg/dL (87-352); t-Transglutaminase IgA <2 U/mL (0-3)
== END ==
PROVIDERS: PCP Family Medicine; Referring Provider Family Medicine; Visit Provider Internal Medicine Gastroenterology
DX: R19.7 Diarrhea, unspecified (principal)
CPT/HCPCS: 36415; 82784; 83516; 86140; 86255

== ENCOUNTER → 2020-06-21 12:13 | Outpatient (CLI) | payer MEDICARE, SELFPAY ==
[2020-03-05 07:44] VITALS: BMI 28.8
--- NOTE | 2020-06-21 12:16 | RAD_ITS ---
HISTORY: Allergic rhinitis. 3 views of the face and its paranasal sinuses. Comparison study is a CT scan of the paranasal sinuses from November 13, 2013. Findings: I cannot perceived the right lamina papyracea fracture that is seen on the CT scan from over 6 years ago. There does appear to be less aeration within the left mastoid air cells. This is similar to the CT with sclerosis in the inferior aspect of the left mastoid air cells that was present previously. Previously there is fluid layering dependently within the right maxillary sinus. I cannot identify that disease on the current study. RAD/Sinuses min 3 Views IMPRESSION: No acute disease perceived. at [id number] Reported and signed by: David De La Cruz MD Electronically Signed: David De La Cruz MD at 22:43 EST Tel , Service support ,
== END ==
PROVIDERS: PCP Family Medicine; Referring Provider Family Medicine; Visit Provider Family Medicine
DX: J30.9 Allergic rhinitis, unspecified (principal)
CPT/HCPCS: 70220

== ENCOUNTER → 2020-09-22 15:24 | Outpatient (CLI) | payer MEDICARE, SELFPAY ==
[2020-03-05 07:44] VITALS: BMI 28.8
[2020-09-27 18:04] LABS: HPV Reflexed? NOT INDICATED
== END ==
PROVIDERS: PCP Family Medicine; Visit Provider Nurse Practitioner Adult Health
DX: Z01.419 Encounter for gynecological examination (general) (routine) without abnormal findings (principal)
CPT/HCPCS: 88175; G0145

== ENCOUNTER → 2020-12-22 14:51 | Outpatient (CLI) | payer MEDICARE, SELFPAY ==
[2020-03-05 07:44] VITALS: BMI 28.8
[2020-12-22 17:47] LABS: Hematocrit 37.1 % (37-47); Hemoglobin 11.7 g/dL (12.0-15.0); Mean Corp Hgb Conc 31.5 g/dL (32-36); Mean Corpuscular Hgb 29.4 pg (27.0-32.0); Mean Corpuscular Volume 93.2 fL (81-99); Mean Platelet Vol. 11.6 fl (6.2-12.0); Platelet Count 180 K/mm3 (150-450); RBC Distribution Width SD 47.3 fl (35.1-43.9); Red Blood Count 3.98 M/mm3 (4.2-5.4); White Blood Count 8.3 K/mm3 (4.4-11.0)
[2020-12-22 18:00] LABS: Erythrocyte Sedimentation Rate 15 mm/hr (0-30)
[2020-12-22 18:14] LABS: Vitamin D,25 Hydroxy 62.5 ng/mL
[2020-12-22 18:41] LABS: AST(SGOT) 19 U/L (15-37); Alanine Aminotransfer ALT/SGPT 29 U/L (13-56); Albumin, Serum 3.6 g/dL (3.2-5.0); Alkaline Phosphatase 93 U/L (45-117); Anion Gap 8 (5-15); BUN 17 mg/dL (7-18); BUN/Creat Ratio 13.3 RATIO (10-20); Calcium,Total 8.3 mg/dL (8.5-10.1); Chloride 101 mmol/L (98-107); Cholesterol 289 mg/dL (200); Creatinine, Serum 1.28 mg/dL (0.55-1.02); EST Glomerular Filtration Rate 45 mL/min (>60); Est Glom Filt Rate - Afr Amer 55 mL/min (>60); Globulin 3.6 g/dL (2.2-4.2); Glucose 95 mg/dL (74-106); High Density Lipoprotein 67 mg/dL; Potassium 3.9 mmol/L (3.5-5.1); Protein, Total 7.2 g/dL (6.4-8.2); Sodium Level 139 mmol/L (136-145); Triglycerides 213 mg/dL; Very Low Density Lipoprotein 43 mg/dL (5-40)
== END ==
PROVIDERS: PCP Family Medicine; Referring Provider Family Medicine; Visit Provider Family Medicine
DX: E03.9 Hypothyroidism, unspecified (principal); M79.7 Fibromyalgia; K52.9 Noninfective gastroenteritis and colitis, unspecified; I10 Essential (primary) hypertension; E20.9 Hypoparathyroidism, unspecified
CPT/HCPCS: 36415; 80053; 80061; 82306; 84443; 85027; 85652; 86140

== ENCOUNTER → 2021-02-24 08:33 | Outpatient (CLI) | payer MEDICARE, SELFPAY ==
[2020-03-05 07:44] VITALS: BMI 28.8
[2021-02-24 10:27] LABS: AST(SGOT) 16 U/L (15-37); Alanine Aminotransfer ALT/SGPT 28 U/L (13-56); Albumin, Serum 3.7 g/dL (3.2-5.0); Alkaline Phosphatase 78 U/L (45-117); Anion Gap 3 (5-15); BUN 14 mg/dL (7-18); BUN/Creat Ratio 14.9 RATIO (10-20); Calcium,Total 7.6 mg/dL (8.5-10.1); Chloride 105 mmol/L (98-107); Cholesterol 194 mg/dL (200); Creatinine, Serum 0.94 mg/dL (0.55-1.02); EST Glomerular Filtration Rate 65 mL/min (>60); Est Glom Filt Rate - Afr Amer 78 mL/min (>60); Globulin 3.7 g/dL (2.2-4.2); Glucose 90 mg/dL (74-106); High Density Lipoprotein 75 mg/dL; Potassium 3.7 mmol/L (3.5-5.1); Protein, Total 7.4 g/dL (6.4-8.2); Sodium Level 140 mmol/L (136-145); Triglycerides 108 mg/dL; Very Low Density Lipoprotein 22 mg/dL (5-40)
== END ==
PROVIDERS: PCP Family Medicine; Referring Provider Family Medicine; Visit Provider Family Medicine
DX: E78.5 Hyperlipidemia, unspecified (principal)
CPT/HCPCS: 36415; 80053; 80061

== ENCOUNTER → 2021-03-07 08:35 | Outpatient (CLI) | payer MEDICARE, SELFPAY ==
[2020-03-05 07:44] VITALS: BMI 28.8
[2021-03-07 10:28] LABS: Vitamin D,25 Hydroxy 67.7 ng/mL
[2021-03-07 10:41] LABS: PTHIN 6.9 pg/mL (18.4-80.1)
== END ==
PROVIDERS: PCP Family Medicine; Referring Provider Family Medicine; Visit Provider Family Medicine
DX: E83.51 Hypocalcemia (principal)
CPT/HCPCS: 36415; 82306; 82330; 83970

== ENCOUNTER → 2021-05-26 11:15 | Outpatient (CLI) | payer MEDICARE, SELFPAY ==
--- NOTE | 2021-05-26 11:18 | RAD_ITS ---
STUDY: X-RAY - LUMBAR SPINE REASON FOR EXAM: Female, 61 years old. Radiating low back pain TECHNIQUE: 5 view(s) of the lumbar spine were obtained. COMPARISON: 12/16/2018 FINDINGS: Normal lumbar lordosis. There is a stable mild dextroscoliosis of the lumbar spine. There is a normal alignment of the vertebrae in the lateral view. There is multilevel endplate spondylosis of the lumbar vertebrae. There is multi-level degenerative disc disease with multi-level disc space narrowing. There is no demonstrated fracture. Stable phleboliths in the pelvis RAD/L/S Spine Min 4 Views IMPRESSION: Degenerative changes of the spine, as detailed above. No acute findings or significant interval change, stable dextroscoliosis Electronically Signed: Kristopher Balderrama MD at 10:31 EDT , Service support ,
== END ==
PROVIDERS: PCP Family Medicine; Referring Provider Family Medicine; Visit Provider Family Medicine
DX: M54.9 Dorsalgia, unspecified (principal)
CPT/HCPCS: 72110

== ENCOUNTER → 2021-12-19 | Outpatient (CLI) | payer MEDICARE, SELFPAY ==
--- NOTE | 2021-12-19 12:45 | RAD_ITS ---
STUDY: X-RAY CHEST REASON FOR EXAM: Female, 61 years old. COUGH TECHNIQUE: PA and lateral views of the chest. COMPARISON: None. FINDINGS: Calcified granulomas. There is no demonstrated pleural abnormality. Normal size heart. Normal mediastinum and delio. Normal visualized pulmonary arteries. There is atherosclerotic tortuosity of the aortic arch and descending thoracic aorta. There are degenerative changes of the visualized thoracic spine. Normal visualized ribs, clavicles, and shoulders. There is no demonstrated abnormality of the visualized soft tissue structures of the upper abdomen. RAD/Chest PA and Lateral IMPRESSION: Calcified granulomas. Electronically Signed: Jace Stoner MD at 13:10 EDT ,
== END | disposition home or self-care (01) ==
PROVIDERS: PCP Family Medicine; Referring Provider Family Medicine; Visit Provider Family Medicine
DX: R05.9 Cough, unspecified (principal)
CPT/HCPCS: 71046; 87635; U0003; U0005

== ENCOUNTER 2022-09-19 12:00 | Outpatient (RCR) | payer MEDICARE, SELFPAY ==
--- NOTE | 2022-08-22 13:00 | HP.PTEVAL_ITS ---
Patient's Visit Information BHAVNA PATEL is a 62 year old F referred to Physical Therapy by Dr. Robson Guido MD with a diagnosis of Lumbar DDD, Mild Scoliosis, Pain in left SI Area. Date of Evaluation: 08/22/22 Physical Therapist: Beryl Hermosillo DPT - Visit Plan Frequency: 2x /Week Duration: 4 Weeks Plan: Focus on core strength/stabilization- functional mobility and pain mgmt. HEP Given IE: Posture, scapular retractions, TA contraction, hip adduction with ball sitting - Subjective Patient reports that she has left sided back pain that has been going on for a few months. Insidious onset- The pain is on the left hand side of the lumbar paraspinals. It does not radiate. Describes the pain as constant- and dull/annoying. Nothing changes it- nothing makes it better or worse. Worst: 12/13. She hasn't had any falls and doesn't feel like her legs will buckle. She went to see the MD who told her that he thought it was more muscular than her DDD. He took x-rays last summer and told her that she had the start of DDD. She sits 90% of the time in her recliner and sits sideways. She does all of her own ADL's with the exception of driving. She does the housework and it bothers her she does not cook. She has no N/T in her toes. She takes Naproxen for pain. Sleep: not disturbed all the time- due to being a right side sleeper. She has not had any trauma or back pain previously. No change or loss of bowel/bladder. PMHx: HTN, hypoparathyroidism Meds: Dicyclomine, lisinopril, duloxetine, levothyroxine, - Objective Posture: poor- significant FH, RS- only corrects with tactile cues but does not maintain. Gait: poor posture- good arm swing- little trunk rotation. HR/TR: able with UE A. SLS: weight shift but unable to SLS due to balance deficit. Sensation: WNL to gross touch bilateral. ROM: Lumbar: Flexion: pain with hands to knees extn: neutral Rot and SB: dec by 50% with pain, Hip/Knee/Ankle: WFL Strength: Core: fair minus, Hip: flexion: 4/5, Abd: 4/5 Add: 4/5, IR/ER: 4-/5 all with discomfort, Knee: 4+/5 no pain, Ankle: WFL. Flex: HS: severe, Gastroc: severe - Special Tests L/S Slump test left side: Negative L/S Slump test right side: Negative L/S Left Straight Leg Raise: Positive L/S Right Straight Leg Raise: Positive R Hip MARIBELL - Intraarticular Pathology: Negative R Hip FADDIR - Labrum: Negative L Hip MARIBELL - Intraarticular Pathology: Negative L Hip FADDIR - Labrum: Negative - Balance/Special Test Scores Oswestry Low Back Score: 9 - Goals Goal 1:: Patient will be I with HEP and progression Goal Time Frame: 4-6 Weeks Goal 2:: Patient will maintain proper posture t/o tx session to demo increased core s/s Goal Time Frame: 4-6 Weeks Goal 3:: Patient will report no more than 2/10 pain for 1 week Goal Time Frame: 4-6 Weeks Goal 4:: Patient will report 80% improvement Goal Time Frame: 4-6 Weeks - Rehabilitation Potential Physical Therapy Diagnosis: Patient presents with hypomobility- she has decreased pain free ROM, LE and core strength/stabilization, flex and muscular endurance leading to abnormal gait and increased pain with ADL's. Rehabilitation Potential: Fair - Anticipated Interventions Patient/Client Instruction: Educate patient on: Benefits of Fitness Program Therapeutic Exercise to Include: Strength training, Endurance training, Balance training, Coordination, Agility training, Body mechanics, Postural training, Flexibilty training, Gait and locomotor training, Neuromotor development, Dynamic Lumbar Stabilization, Scapular Strength/Stabilization For the Purpose of:: To improve muscle performance and motor function TENS: Yes Cryotherapy (ice pack, ice massage): Yes Thermo therapy (hot pack): Yes Ultrasound (thermal/non thermal): Yes Thank you for the opportunity to evaluate your patient. For Medicare and Medicare HMO plans, please review the plan of care and approve it. It will need to be FAXED BACK to us at [phone] for Medicare purposes. For Medicare only, by signing this I certify the plan of care. Please let me know if there are questions or concerns regarding this plan of c are. Physician Signature: Date:
--- NOTE | 2022-09-19 12:44 | HP.PTDCSUM ---
It has been my pleasure to treat BHAVNA PATEL referred by Dr. Robson Guido MD, with the diagnosis of Lumbar DDD, Mild Scoliosis, Pain in left SI Area for a total of 7 visit(s). Discharge Date: Please see the following information for a summary of their discharge status. Subjective: Patient reports no pain at all- she is moving more and she is not sitting for long periods of time anymore. l sdhouler Pain Intensity (Out of 10): 0 % Improvement: 100 Objective/Function: Posture: fair throughout. Gait: no deviation noted HR/TR: able with UE A. SLS: 10 sec Sensation: WNL to gross touch bilateral. ROM: Lumbar: WFL in all planes Hip/Knee/Ankle: WFL Strength: Core: fair minus, Hip: flexion: 4+/5, Abd: 4+/5 Add: 4+/5, IR/ER: 4/5, Knee: 4+/5 no pain, Ankle: WFL. Flex: HS: mod, Gastroc: mod Goal 1:: Patient will be I with HEP and progression Goal Progress: Goal Met Goal 2:: Patient will maintain proper posture t/o tx session to demo increased core s/s Goal Progress: Goal Met Goal 3:: Patient will report no more than 2/10 pain for 1 week Goal Progress: Goal Met Goal 4:: Patient will report 80% improvement Goal Progress: Goal Met Plan: 09/19/22: Discharge to I HEP. Focus on core strength/stabilization- functional mobility and pain mgmt If there are questions or concerns regarding this patient's physical therapy, please feel free to call me at [phone]. Thank you for the referral of this patient. Sincerely, Beryl Hermosillo, DPT Balance/Gait/Functional tests - Balance/Special Test Scores Oswestry Low Back Score: 9
== END 2022-09-19 19:00 | disposition home or self-care (01) ==
LOC: PT 12:00
PROVIDERS: PCP Family Medicine; Referring Provider Family Medicine; Visit Provider Family Medicine
DX: M51.36 Other intervertebral disc degeneration, lumbar region (principal); M41.9 Scoliosis, unspecified; M53.3 Sacrococcygeal disorders, not elsewhere classified
CPT/HCPCS: 97110; 97162; 97164

== ENCOUNTER → 2023-06-20 | Outpatient (CLI) | payer MEDICARE, SELFPAY ==
[2023-06-20 12:38] LABS: Absolute Lymphocyte Count 2.03 X10^3/uL (0.83-4.51); Absolute Neutrophil Count 4.6 X10^3/uL (2.0-7.7); Basophil% 1.3 % (0-1); Eosinophil# 0.43 X10^3/uL; Eosinophils% 5.4 % (0-5); Hematocrit 38.1 % (37-47); Hemoglobin 11.8 g/dL (12.0-15.0); Lymphocyte # 2.03 X10^3/ul (0.83-4.51); Lymphocyte % 25.4 % (19-41); Mean Corpuscular Hgb 28.2 pg (27.0-32.0); Mean Corpuscular Volume 90.9 fL (81-99); Monocyte# 0.74 X10^3/uL; Monocyte% 9.3 % (0-10); NRBC Flagged by Analyzer 0 % (0-5); Neutrophil # 4.63 X10^3/uL (2.7-7.7); Platelet Count 179 K/mm3 (150-450); RBC Distribution Width CV 13.8 % (11.6-14.6); RBC Distribution Width SD 45.2 fl (35.1-43.9); Red Blood Count 4.19 M/mm3 (4.2-5.4)
[2023-06-21 14:09] LABS: Deamidated Gliadin IgA 9 units (0-19); Deamidated Gliadin IgG 3 units (0-19); Endomysial Antibody IgA Negative (Negative); Immunoglobulin A 281 mg/dL (87-352); t-Transglutaminase IgA <2 U/mL (0-3)
[2023-06-23 11:08] LABS: Beef 0.29 kU/L (Class 0/I); Chocolate <0.10 kU/L (Class 0); Codfish <0.10 kU/L (Class 0); Corn 0.18 kU/L (Class 0/I); Egg, Whole <0.10 kU/L (Class 0); Milk (Cow) 0.27 kU/L (Class 0/I); Mussels <0.10 kU/L (Class 0); Peanut 0.18 kU/L (Class 0/I); Pork <0.10 kU/L (Class 0); Salmon <0.10 kU/L (Class 0); Shrimp <0.10 kU/L (Class 0); Soybean <0.10 kU/L (Class 0); Tuna <0.10 kU/L (Class 0); Wheat 0.11 kU/L (Class 0/I)
== END | disposition home or self-care (01) ==
LOC: MFPLAB 10:41
PROVIDERS: PCP Family Medicine; Visit Provider Family Medicine
DX: R19.7 Diarrhea, unspecified (principal); J30.9 Allergic rhinitis, unspecified
CPT/HCPCS: 36415; 82784; 83516; 85025; 86003; 86005; 86255

== ENCOUNTER → 2023-06-21 | Outpatient (CLI) | payer MEDICARE, SELFPAY | END | disposition home or self-care (01) | PROVIDERS: PCP Family Medicine; Visit Provider Family Medicine | DX: R19.7 Diarrhea, unspecified (principal) | CPT/HCPCS: 82274; 87177; 87209; 87493 ==

== ENCOUNTER → 2023-07-12 | Outpatient (CLI) | payer MEDICARE, SELFPAY ==
[2023-07-19 21:07] LABS: Pancreatic Elastase, Fecal 183 (>200)
== END | disposition home or self-care (01) ==
LOC: LABSPEC 09:59
PROVIDERS: PCP Family Medicine; Visit Provider Family Medicine
DX: R19.7 Diarrhea, unspecified (principal)
CPT/HCPCS: 82653

== ENCOUNTER → 2023-07-16 | Outpatient (CLI) | payer MEDICARE, SELFPAY ==
[2023-07-16 15:36] LABS: Absolute Lymphocyte Count 2.24 X10^3/uL (0.83-4.51); Absolute Neutrophil Count 4.7 X10^3/uL (2.0-7.7); Basophil# 0.07 X10^3/uL; Basophil% 0.9 % (0-1); Eosinophil# 0.36 X10^3/uL; Eosinophils% 4.4 % (0-5); Hematocrit 37.5 % (37-47); Hemoglobin 11.8 g/dL (12.0-15.0); Lymphocyte # 2.24 X10^3/ul (0.83-4.51); Lymphocyte % 27.7 % (19-41); Mean Corp Hgb Conc 31.5 g/dL (32-36); Mean Corpuscular Hgb 28.3 pg (27.0-32.0); Mean Corpuscular Volume 89.9 fL (81-99); Mean Platelet Vol. 11.9 fl (6.2-12.0); Monocyte# 0.69 X10^3/uL; Monocyte% 8.5 % (0-10); NRBC Flagged by Analyzer 0 % (0-5); Neutrophil % 58.1 % (47-70); Platelet Count 154 K/mm3 (150-450); RBC Distribution Width CV 13.7 % (11.6-14.6); RBC Distribution Width SD 44.9 fl (35.1-43.9); Red Blood Count 4.17 M/mm3 (4.2-5.4); White Blood Count 8.1 K/mm3 (4.4-11.0)
[2023-07-16 16:04] LABS: Vitamin D,25 Hydroxy 69.6 ng/mL
[2023-07-16 16:09] LABS: ALB/GLOB Ratio 1.1 RATIO (0.9-2.4); AST(SGOT) 35 U/L (15-37); Alanine Aminotransfer ALT/SGPT 39 U/L (13-56); Albumin, Serum 3.7 g/dL (3.2-5.0); Alkaline Phosphatase 88 U/L (45-117); Anion Gap 5 (5-15); BUN 19 mg/dL (7-18); BUN/Creat Ratio 12.3 RATIO (10-20); Calcium,Total 12.5 mg/dL (8.5-10.1); Chloride 98 mmol/L (98-107); Creatinine, Serum 1.55 mg/dL (0.55-1.02); EST Glomerular Filtration Rate 36 mL/min (>60); Est Glom Filt Rate - Afr Amer 43 mL/min (>60); Globulin 3.4 g/dL (2.2-4.2); Glucose 107 mg/dL (74-106); Magnesium 1.9 mg/dL (1.6-2.6); Phosphorus 3.6 mg/dL (2.5-4.9); Potassium 3.4 mmol/L (3.5-5.1); Protein, Total 7.1 g/dL (6.4-8.2); Sodium Level 141 mmol/L (136-145); Thyroid Stim Hormone (TSH) 2.38 uIU/mL (0.358-3.74)
== END | disposition home or self-care (01) ==
LOC: MFPLAB 13:37
PROVIDERS: PCP Family Medicine; Visit Provider Family Medicine
DX: R19.7 Diarrhea, unspecified (principal); E83.51 Hypocalcemia
CPT/HCPCS: 36415; 80053; 82306; 83735; 84100; 84443; 85025

== ENCOUNTER 2023-07-17 14:57 | Inpatient (IN) | payer MEDICARE, SELFPAY ==
[2023-07-17 14:58] VITALS: BP 170/99; PULSE 108; RESP 16; TEMP 36; O2SAT 95; BMI 31.2
[2023-07-17 15:34] LABS: Absolute Lymphocyte Count 2.57 X10^3/uL (0.83-4.51); Absolute Neutrophil Count 5.1 X10^3/uL (2.0-7.7); Basophil# 0.06 X10^3/uL; Basophil% 0.7 % (0-1); Eosinophil# 0.39 X10^3/uL; Eosinophils% 4.4 % (0-5); Hematocrit 35.1 % (37-47); Hemoglobin 11.4 g/dL (12.0-15.0); Lymphocyte # 2.57 X10^3/ul (0.83-4.51); Mean Corp Hgb Conc 32.5 g/dL (32-36); Mean Corpuscular Hgb 28.6 pg (27.0-32.0); Mean Platelet Vol. 11.8 fl (6.2-12.0); Monocyte# 0.75 X10^3/uL; Monocyte% 8.5 % (0-10); NRBC Flagged by Analyzer 0 % (0-5); Neutrophil # 5.06 X10^3/uL (2.7-7.7); Neutrophil % 56.9 % (47-70); Platelet Count 150 K/mm3 (150-450); RBC Distribution Width CV 13.3 % (11.6-14.6); RBC Distribution Width SD 43.3 fl (35.1-43.9); Red Blood Count 3.99 M/mm3 (4.2-5.4); White Blood Count 8.9 K/mm3 (4.4-11.0)
[2023-07-17 15:40] LABS: Ionized Calcium 5.82 mg/dL (4.36-5.20)
[2023-07-17 16:03] LABS: AST(SGOT) 71 U/L (15-37); Alanine Aminotransfer ALT/SGPT 105 U/L (13-56); Albumin, Serum 3.6 g/dL (3.2-5.0); Alkaline Phosphatase 105 U/L (45-117); Anion Gap 5 (5-15); BUN 19 mg/dL (7-18); BUN/Creat Ratio 13.8 RATIO (10-20); Calcium,Total 12.2 mg/dL (8.5-10.1); Chloride 96 mmol/L (98-107); Creatinine, Serum 1.38 mg/dL (0.55-1.02); EST Glomerular Filtration Rate 41 mL/min (>60); Est Glom Filt Rate - Afr Amer 50 mL/min (>60); Estimated Creatinine Clearance 29.97 ml/min; Globulin 3.7 g/dL (2.2-4.2); Glucose 97 mg/dL (74-106); Magnesium 1.7 mg/dL (1.6-2.6); Potassium 2.9 mmol/L (3.5-5.1); Protein, Total 7.3 g/dL (6.4-8.2); Sodium Level 139 mmol/L (136-145); Thyroid Stim Hormone (TSH) 2.76 uIU/mL (0.358-3.74)
--- NOTE | 2023-07-17 16:59 | EDS_ITS ---
HPI History of Present Illness Chief Complaint: Abn Labs Informant: patient and family Narrative Narrative: Patient presents with high calcium levels. Most of the history actually comes through her sister who is a much better informant. This patient has been having diarrhea for about 6 months. It is not known why. I find out that she has a history of hypoparathyroidism since childhood. She is normally on calcium supplementation. This was increased a few weeks ago. But she is always had very low calcium levels. Over the last week to 2 weeks she has been getting tingling around her lips numbness and tingling in her extremities some aching in her arms and legs and she feels a little unsteady. This prompted them to see their physician. Blood work was done yesterday that showed high calcium levels. Since she is very symptomatic and has blood levels that are elevated she was referred in here. She has no recent head injury fall or trauma. No bony injuries. No history of cancers or tumors. No prior surgery. No neck surgery. She does have a history related problems also. [facility] Medical History Abdominal pain Arthritis Cholelithiasis Depression with anxiety Diarrhea GERD (gastroesophageal reflux disease) Hypoparathyroidism Home Medications multivitamin with folic acid 400 mcg tablet 1 tab PO DAILY 05/18/14 [History Last Taken Unknown] vitamin E (dl, acetate) 180 mg (400 unit) capsule 400 units PO DAILY 05/18/14 [History Last Taken Unknown] Calcitriol 25 mcg PO BID 02/17/20 [History Last Taken Unknown] duloxetine 30 mg capsule,delayed release sprinkle 30 mg PO DAILY 02/17/20 [History Last Taken 03/05/20 05:30] levothyroxine 75 mcg capsule 75 mcg PO DAILY 02/17/20 [History Last Taken 03/05/20 05:30] magnesium 250 mg tablet 250 mg PO BID 02/17/20 [History Last Taken Unknown] omega-3 fatty acids-fish oil 300 mg-500 mg capsule (Fish Oil) 1 cap PO DAILY 02/17/20 [History Last Taken Unknown] potassium citrate 10 mEq (1,080 mg) tablet,extended release 1,080 mg PO DAILY 02/17/20 [History Last Taken Unknown] calcium carbonate 500 mg-vitamin D3 15 mcg (600 unit) tablet 1 ea PO BID 02/27/20 [History Last Taken Unknown] atorvastatin 20 mg tablet 20 mg PO DAILY 07/17/23 [History Last Taken Unknown] dicyclomine 10 mg capsule 10 mg PO .before meals 07/17/23 [History Last Taken Unknown] duloxetine 30 mg capsule,delayed release 30 mg PO DAILY 07/17/23 [History Last Taken Unknown] duloxetine 60 mg capsule,delayed release 60 mg PO DAILY 07/17/23 [History Last Taken Unknown] magnesium gluconate 12.5 mg magnesium (250 mg) tablet 250 mg PO Q12H 07/17/23 [History Last Taken Unknown] Allergy/AdvReac Type Severity Reaction Status Date / Time famotidine Allergy Intermediate depletes Verified 07/17/23 15:01 calcium omeprazole Allergy Intermediate diarrhea Verified 07/17/23 15:01 sulfamethoxazole Allergy Rash Verified 07/17/23 15:01 [From Bactrim] trimethoprim [From Bactrim] Allergy Rash Verified 07/17/23 15:01 Family History Mother Arthritis Brother Cancer Diabetes Heart disease Father Diabetes Heart disease Hypertension High cholesterol Uncle Diabetes Grandfather Cancer skin cancer Surgical History History Bilateral Cataract Surgery Social History Smoking Status: Never smoker alcohol intake: never substance use type: does not use ROS ROS ED ROS Narrative A complete review of systems was performed and is negative except as documented in the history of present illness. Some specific details below. Constitutional: No recent fevers or chills. No rigors. Patient has not generally felt ill. But she does feel overall weak. EYE: No discharge, visual complaints, or pain. ENT: No difficulty swallowing. No swelling. She does have tingling around her lips. CV: No chest pain, pressure or aching. No palpitations or irregular beats. Patient has not been presyncopal or syncopal. She feels as though she may fall down but this is more due to an overall unsteadiness and not syncope. Respiratory: No trouble breathing. No cough. GI: No abdominal pain. No nausea vomiting but she does have chronic soft diarrhea. No blood in stool. : No frequency dysuria or hematuria. Musculoskeletal: No recent trauma. No pains. No swelling. Skin: No rash. Nondiaphoretic. Neuro: Tingling in both legs and around her lips. And overall sense of weakness and an overall sense of just unsteadiness. She also feels as though her muscles are just weak. Please see history of present illness also. Endocrine: No polyuria or polydipsia. EXAM Physical Exam Narrative Exam Narrative: CONSTITUTIONAL: Patient is nontoxic in appearance. The patient looks comfortable. Work of breathing looks normal. HEENT: No notable trauma. Mucous membranes mildly dry. EYES: No conjunctival injection. No proptosis. No pain with range of motion. No pallor. NECK: No meningismus. No JVD. CARDIOVASCULAR: Regular rate. Regular rhythm. No notable murmur. No JVD. RESPIRATORY: No respiratory distress. Breathing is unlabored. No wheezes. No rales. GASTROINTESTINAL: Not distended. Bowel sounds are normal. No tenderness. No guarding. No rebound. No palpable mass. No bruit. GENITOURINARY: No tenderness over the bladder. No CVA tenderness. MUSCULOSKELETAL: Atraumatic. NEUROLOGICAL: Patient is alert and oriented. No focal deficit noted. NIH stroke scale is 0. Overall strength seems intact. But when I have her move and sit up she just does feel a little bit off balance. But I am not getting any focal deficit. SKIN: No noted rashes. No diaphoresis. No vesicles noted. No notable pallor. PSYCHIATRIC: Patient is calm. Mood is appropriate. Const Vital Signs: 07/17/23 14:58 07/17/23 17:00 Temperature 96.8 F L 98.1 F Temperature Source Temporal Oral Pulse Rate 108 H 93 Respiratory Rate 16 10 L Blood Pressure 170/99 H 154/80 H Blood Pressure Mean 122 104 Pulse Ox 95 94 Oxygen Delivery Method Room Air Room Air MDM MDM MDM Narrative Medical decision making narrative: Patient CBC shows mild anemia at 11.4 which I do not believe is the cause of her symptoms. Electrolytes showed mild elevation of creatinine but it is really at her baseline. But her potassium is low 0.9 and this will be replaced orally. Her calcium is significantly elevated at 12.2. Ionized calcium level was ordered and has just come back elevated 5.8 to Patient's liver function test show no marked abnormalities and her albumin is normal. Patient's TSH is normal at 2.76. Since magnesium is normal at 1.7. With the patient's significant symptoms, sense of weakness tingling and unsteadiness I do think she should come in as this is significantly symptomatic hypercalcemia and hypokalemia. I will initiate IV fluids and potassium replacement at this time. Hospitalist was contacted. Lab Data Attestation: I reviewed the patient's lab results. Labs: Laboratory Results - last 24 hr 07/17/23 07/17/23 15:20 15:36 WBC 8.9 RBC 3.99 L Hgb 11.4 L Hct 35.1 L MCV 88.0 MCH 28.6 MCHC 32.5 RDW Std Deviation 43.3 RDW Coeff of Elsie 13.3 Plt Count 150 MPV 11.8 Immature Gran % (Auto) 0.500 Neut % (Auto) 56.9 Lymph % (Auto) 29.0 [place] % (Auto) 8.5 Eos % (Auto) 4.4 Baso % (Auto) 0.7 Absolute Neuts (auto) 5.1 Absolute Lymphs (auto) 2.57 Nucleated RBC % 0 Sodium 139 Potassium 2.9 L Chloride 96 L Carbon Dioxide 38.0 H Anion Gap 5 BUN 19 H Creatinine 1.38 H Estim Creat Clear Calc 29.97 Est GFR (MDRD) Af Amer 50 L Est GFR (MDRD) Non-Af 41 L BUN/Creatinine Ratio 13.8 Glucose 97 Calcium 12.2 H Ionized Calcium 5.82 H Magnesium 1.7 Total Bilirubin 0.40 AST 71 H ALT 105 H Alkaline Phosphatase 105 Total Protein 7.3 Albumin 3.6 Globulin 3.7 Albumin/Globulin Ratio 1.0 TSH 2.76 Management Discussion w/another healthcare provider: Hospitalist Discharge Plan Triage Chief Complaint: Abn Labs ED Provider: Alan Whittaker Dx/Rx/DC Orders Clinical Impression: Paresthesias, Generalized weakness, Acute hypokalemia, Hypercalcemia Prescriptions: No Action duloxetine 30 mg capsule, delayed rel sprinkle 30 mg PO DAILY levothyroxine 75 mcg capsule 75 mcg capsule 75 mcg PO DAILY omega-3 fatty acids-fish oil 300 mg-500 mg capsule 300-500 mg capsule 1 cap PO DAILY potassium citrate 10 mEq (1,080 mg) tablet extended release 1,080 mg PO DAILY magnesium 250 mg tablet 250 mg PO BID vitamin E (dl, acetate) 400 UNITS capsule 400 units PO DAILY multivitamin with folic acid 1 TABLET tablet 1 tab PO DAILY Calcitriol 25 MCG tablet 25 mcg PO BID calcium carbonate-vitamin D3 1 EACH tablet 1 ea PO BID atorvastatin 20 mg tablet 20 mg PO DAILY dicyclomine 10 mg capsule 10 mg PO .before meals duloxetine 30 mg capsule,delayed release(DR/EC) 30 mg PO DAILY duloxetine 60 mg capsule,delayed release(DR/EC) 60 mg PO DAILY magnesium gluconate 12.5 mg magne- sium (250 mg) tablet 250 mg PO Q12H Patient Comments: TAKE 1 TABLET BY MOUTH TWICE DAILY Primary Care Provider: Robson Guido Referrals: Robson Guido MD [Primary Care Provider] - Disposition Disposition: Acute Care Hospital [facility]
[2023-07-17 17:00] VITALS: BP 154/80; PULSE 93; RESP 10; TEMP 36.7; O2SAT 94
--- NOTE | 2023-07-17 17:17 | NURSING ---
PCU [facility] HYPERCALCEMIA, HYPOKALEMIA
[2023-07-17] MEDS: Potassium Chloride Oral Tablet 20 MEQ 40 MEQ PO (17:21)
[2023-07-17] MEDS: 0.9% Normal Saline (1000mL) 1,000 ML 999 ML IV (17:21)
[2023-07-17 17:22] VITALS: BP 147/74; PULSE 92; RESP 14; TEMP 36.4; O2SAT 98
--- NOTE | 2023-07-17 17:37 | HP.PCM.HOS_ITS ---
HPI - General General Date of Admission: 07/17/23 Date of Service: 07/17/23 Chief Complaint: Worsening weakness and tiredness w/ elevated Ca HPI Narrative BHAVNA PATEL, is a 63 F w/ hx of ?hypoparathyroidism, GERD, depression, hypothyroidism who presented to [facility] 07/17/2023 at the urging of her primary care physician due to elevated calcium. In the ED creatinine 1.38 and was 1.55 yesterday, potassium 2.9, and serum calcium 12.2 down slightly from 12.5 yesterday. Patient had blood pressure 170/99 with heart rate of 108. She has been feeling weak and somewhat unsteady for 1 to 2 weeks prompting her PCP to get the lab work and given that she is symptomatic hospitalist contacted for admission. Patient evaluated bedside with family present. Reportedly patient has been having increasing weakness and unsteadi ness as well as tingling around her lips that started gradually 2 weeks ago and has progressed. She also has been having diarrhea for 6 months and is undergoing outpatient workup for that. Patient has no focal weakness or other focal deficits and reports weakness is bilateral, also feels quite tired. Additionally after she has bowel movements she will have some right-sided abdominal discomfort that will resolve and then recur intermittently after eating but has no other focal complaints. Endorses that her calcium was increased in May by an operations mgr that she sees but was unable to relay the name. Has consistently had hypocalcemia in the past and patient and family very confused as to how she can now have hypercalcemia. [facility] Medical History (Updated 07/17/23 @ 17:[address] Esperanza Kate MD) Abdominal pain Arthritis Cholelithiasis Depression with anxiety Diarrhea GERD (gastroesophageal reflux disease) Hypoparathyroidism Home Medications multivitamin with folic acid 400 mcg tablet 1 tab PO DAILY SUPPLEMENT 05/18/14 [History Last Taken Unknown] vitamin E (dl, acetate) 180 mg (400 unit) capsule 400 units PO DAILY SUPPLEMENT 05/18/14 [History Last Taken Unknown] omega-3 fatty acids-fish oil 300 mg-500 mg capsule (Fish Oil) 1 cap PO DAILY SUPPLEMENT 02/17/20 [History Last Taken Unknown] potassium citrate 10 mEq (1,080 mg) tablet,extended release 1,080 mg PO DAILY SUPPLEMENT 02/17/20 [History Last Taken Unknown] calcium carbonate 500 mg-vitamin D3 15 mcg (600 unit) tablet 1 ea PO BID SUPPLEMENT 02/27/20 [History Last Taken Unknown] atorvastatin 20 mg tablet 20 mg PO DAILY CHOLESTEROL 07/17/23 [History Last Taken Unknown] biotin 10,000 mcg capsule 10,000 mcg PO DAILY SUPPLEMENT 07/17/23 [History Last Taken 07/17/23] calcitriol 0.25 mcg capsule 0.25 mcg PO TID DIARRHEA 07/17/23 [History Last Taken Unknown] dicyclomine 10 mg capsule 10 mg PO TIDCM IRRITABLE BOWELS 07/17/23 [History Last Taken Unknown] diphenoxylate-atropine 2.5 mg-0.025 mg tablet 2 tab PO 4X/DAY DIARRHEA 07/17/23 [History Last Taken Unknown] duloxetine 30 mg capsule,delayed release 30 mg PO DAILY DEPRESSION 07/17/23 [History Last Taken Unknown] duloxetine 60 mg capsule,delayed release 60 mg PO DAILY DEPRESSION 07/17/23 [History Last Taken Unknown] levothyroxine 75 mcg tablet 75 mcg PO DAILY THYROID 07/17/23 [History Last Taken Unknown] levothyroxine 75 mcg tablet 75 mcg PO MOTUWETH THYROID 07/17/23 [History Last Taken 07/17/23] levothyroxine 75 mcg tablet 112.5 mcg PO FRSA THYROID 07/17/23 [History Last Taken 07/14/23] levothyroxine 75 mcg tablet 150 mcg PO WADE THYROID 07/17/23 [History Last Taken 07/15/23] lisinopril 30 mg tablet 30 mg PO DAILY BLOOD PRESSURE 07/17/23 [History Last Taken 07/17/23] magnesium 250 mg tablet 250 mg PO BID SUPPLEMENT 07/17/23 [History Last Taken 07/17/23] magnesium gluconate 12.5 mg magnesium (250 mg) tablet 250 mg PO BID SUPPLEMENT 07/17/23 [History Last Taken Unknown] Allergy/AdvReac Type Severity Reaction Status Date / Time famotidine Allergy Intermediate depletes Verified 07/17/23 15:01 calcium omeprazole Allergy Intermediate diarrhea Verified 07/17/23 15:01 sulfamethoxazole Allergy Rash Verified 07/17/23 15:01 [From Bactrim] trimethoprim [From Bactrim] Allergy Rash Verified 07/17/23 15:01 Family History Mother Arthritis Brother Cancer Diabetes Heart disease Father Diabetes Heart disease Hypertension High cholesterol Uncle Diabetes Grandfather Cancer skin cancer Surgical History History Bilateral Cataract Surgery Social History Smoking Status: Former smoker alcohol intake: never substance use type: does not use ROS ROS Narrative General: Denies fever/chills HENT: Did have headaches but they resolved, denies sore throat, does feel mouth is somewhat dry EYES: Denies changes in vision Resp: Denies cough, denies shortness of breath Cardiac: Denies chest pain GI: Chronic diarrhea without blood in stool, some chronic right-sided abdominal pain : Denies changes in urination Extremity: Denies swelling MSK: Generalized weakness Neuro: Numbness and tingling around mouth Heme: Denies any bleeding or bruising Skin: Denies rashes Psychiatric: No complaints voiced Vital Signs Vital Signs Vital Signs: 07/17/23 14:58 07/17/23 17:00 07/17/23 17:08 Temperature 96.8 F L 98.1 F Temperature Source Temporal Oral Pulse Rate 108 H 93 Respiratory Rate 16 10 L Respiratory Effort Normal Non-Labored Respiratory Pattern Normal Blood Pressure 170/99 H 154/80 H Blood Pressure Mean 122 104 Pulse Ox 95 94 Oxygen Delivery Method Room Air Room Air 07/17/23 17:22 Temperature 97.6 F L Temperature Source Pulse Rate 92 Respiratory Rate 14 Respiratory Effort Respiratory Pattern Blood Pressure 147/74 H Blood Pressure Mean 98 Pulse Ox 98 Oxygen Delivery Method Weight Weight: 72.575 kg Body Mass Index (BMI) 31.2 Physical Exam Narrative General: Alert, no apparent distress HEENT: Atraumatic, normocephalic Eyes: Anicteric, normal conjunctiva, extraocular movements grossly intact Neck: Supple Respiratory: Clear to auscultation bilaterally, normal respiratory effort Cardiovascular: Regular rate and rhythm GI: Soft, nondistended, diffusely mildly tender without rebound, guarding, rigidity Extremities: No edema Musculoskeletal: Moving all extremities Neuro: No overt focal neurological deficits, brisk reflexes, no sustained clonus, strength 5 out of 5 in upper and lower extremities Skin: No rashes appreciated Psych: Cooperative Results Lab / Micro Data 07/17/23 15:20 07/17/23 15:20 Labs: Laboratory Results - last 24 hr 07/17/23 15:20: WBC 8.9, RBC 3.99 L, Hgb 11.4 L, Hct 35.1 L, MCV 88.0, MCH 28.6, MCHC 32.5, RDW Std Deviation 43.3, RDW Coeff of Elsie 13.3, Plt Count 150, MPV 11.8, Immature Gran % (Auto) 0.500, Neut % (Auto) 56.9, Lymph % (Auto) 29.0, Smith % (Auto) 8.5, Eos % (Auto) 4.4, Baso % (Auto) 0.7, Absolute Neuts (auto) 5.1, Absolute Lymphs (auto) 2.57, Nucleated RBC % 0, Sodium 139, Potassium 2.9 L , Chloride 96 L, Carbon Dioxide 38.0 H, Anion Gap 5, BUN 19 H, Creatinine 1.38 H , Estim Creat Clear Calc 29.97, Est GFR (MDRD) Af Amer 50 L, Est GFR (MDRD) Non- Af 41 L, BUN/Creatinine Ratio 13.8, Glucose 97, Calcium 12.2 H, Magnesium 1.7, Total Bilirubin 0.40, AST 71 H, ALT 105 H, Alkaline Phosphatase 105, Total Protein 7.3, Albumin 3.6, Globulin 3.7, Albumin/Globulin Ratio 1.0, TSH 2.76 07/17/23 15:36: Ionized Calcium 5.82 H Assessment & Plan Assessment/Plan (1) Generalized weakness: (2) Hypercalcemia: (3) Paresthesias: (4) Acute hypokalemia: (5) GERD (gastroesophageal reflux disease): (6) Depression with anxiety: (7) Diarrhea: (8) CKD (chronic kidney disease): PLAN: Plan # Hypercalcemia -12.5 yesterday down to 12.2 -Unclear etiology but patient is on calcium supplementation, will hold this -Check PTH and PTHrP -Vitamin D 25 yesterday 69.6, mag 1.7 on the low end of normal, Phos 3.6 y esterday -Will hydrate and recheck and hold supplementation, has chronic history of significant hypocalcemia so hesitant to treat aggressively with bisphosphonate if not necessary however if not coming down adequately we will need to give dose -She has a previous chest x-ray with calcified granulomas, will need to keep sarcoid in differential, will check 1, 25 vitamin D -TSH WNL -Will check urine calcium # Hypokalemia -Will replace and recheck # Chronic diarrhea -Unclear etiology -Reportedly recently occult negative -Is being worked up on outpatient basis with stool studies pending -Will need outpatient colonoscopy as well as patient has never had one -Suspect some of her abd discomfort is related to her hypercalcemia, non toxic appearing with no peritoneal signs -Continue home dicyclomine at this time # CKD stage IIIb -Yesterday 1.55 however down to 1.38 today, no value since 2020 so difficult to assess baseline -Will be getting hydration given her hypercalcemia #GERD -Continue PPI # Elevated liver enzymes -Unclear etiology, were normal yesterday, will trend if not improving will need further workup -Will hold atorvastatin at this time # Depression -Continue Cymbalta # ITMO -Continue CPAP #Hypothyroidism -Continue Synthroid #DVT ppx: Lovenox subcu Esperanza Kate MD Charges/Coding Visit Charges Inpatient E&M: 66149 Init Hosp L2
[2023-07-17 18:33] VITALS: BP 143/93; PULSE 94; RESP 15; O2SAT 93
[2023-07-17 19:24] LABS: PTHIN < 6.3 pg/mL (18.4-80.1)
[2023-07-17 19:50] VITALS: BMI 31.4
[2023-07-17] MEDS: Magnesium Sulfate 2 GM in Dextrose 5%-Water (100mL Bag) 100 ML IV (20:45)
[2023-07-17] MEDS: 0.9% Normal Saline (1000mL) 1,000 ML 75 ML IV (20:45)
[2023-07-17 20:46] VITALS: BP 124/76; PULSE 80; RESP 16; TEMP 36.7; O2SAT 94
[2023-07-17 22:04] LABS: AST(SGOT) 52 U/L (15-37); Alanine Aminotransfer ALT/SGPT 86 U/L (13-56); Albumin, Serum 3.2 g/dL (3.2-5.0); Alkaline Phosphatase 91 U/L (45-117); Anion Gap 2 (5-15); BUN 18 mg/dL (7-18); BUN/Creat Ratio 13.4 RATIO (10-20); Calcium,Total 11.4 mg/dL (8.5-10.1); Chloride 99 mmol/L (98-107); Creatinine, Serum 1.34 mg/dL (0.55-1.02); EST Glomerular Filtration Rate 42 mL/min (>60); Est Glom Filt Rate - Afr Amer 51 mL/min (>60); Estimated Creatinine Clearance 30.87 ml/min; Globulin 3.2 g/dL (2.2-4.2); Glucose 123 mg/dL (74-106); Potassium 2.9 mmol/L (3.5-5.1); Protein, Total 6.4 g/dL (6.4-8.2); Sodium Level 139 mmol/L (136-145)
[2023-07-17 23:28] LABS: Ionized Calcium Order ORDER TUBE
[2023-07-17] MEDS: Potassium Chloride Oral Soln 20 MEQ/15 ML UDC 40 MEQ PO (23:31)
[2023-07-18 03:41] VITALS: BP 126/78; PULSE 88; RESP 15; TEMP 36.6; O2SAT 92
[2023-07-18 04:56] LABS: Urea Nitrogen, Urine 380 mg/dL (NO RANGE EST.); Urine Chloride 23 mmol/L (Not Establ.); Urine Sodium 29 mmol/L (Not Establ.)
[2023-07-18] MEDS: Levothyroxine 75 MCG Tablet PO (05:10)
[2023-07-18 05:48] LABS: Calcium, Urine (Random) > 30.0 mg/dL (Not Estab.)
--- NOTE | 2023-07-18 07:39 | PCM.PN.HOSP ---
Reason for Visit Reason for Visit: Weakness/fatigue/elevated calcium level Subjective Subjective Mrs. Fuentes is a 63-year-old white female who presents emergency department which prehospital on 07/17/2023 at the request of her primary care physician due to hypercalcemia. She evidently had been feeling weak and somewhat unsteady for 1 to 2 weeks prompting her primary care physician to get lab work. She also reported some tingling around her lips that started gradually about 2 weeks ago as well and has slowly progressed. She indicated she been having diarrhea for 6 months and had been undergoing outpatient workup for that. She had no focal weakness or deficits but generalized weakness was noted bilaterally. She also reports considerable fatigue. She did confirm that she had an elevated calcium level in May that was done by an fabric stretcher but she was unsure of her fabric stretcher name. Evidently she had consistently low calcium levels in the past so the finding of hypercalcemia is very unexpected. Vital signs demonstrated mild tachycardia at 108 and elevated BP at 170 however her serum creatinine emergency department was 1.38 down from 1.55 the day previous, her potassium was 2.9 and her serum calcium is 12.2 down slightly from the day previous at which time it was 12.5. Given her significant electrolyte abnormalities she was admitted to the telemetry floor for monitoring and replacement along with further workup. Stating that her legs are still weak. No significant abdominal pain right now. She has had 3 stools since she was admitted that were diarrhea in nature. He does not recall having a colonoscopy earlier being notified that she may have lymphocytic colitis and has never been on any treatment for this. Patient sister reports that recently her fabric stretcher increased her calcium dose to 3 tablets daily. Unclear why. I have no documented history of hypocalcemia on any lab work we have had here. Objective Data Objective Data Vital Signs: Vital Signs Temp Pulse Resp BP Pulse Ox O2 Del Method O2 Flow Rate 97.9 F 88 15 126/78 H 92 Nasal Cannula 2 07/18/23 03:41 07/18/23 03:41 07/18/23 03:41 07/18/23 03:41 07/18/23 03:41 07/18/23 03:42 07/18/23 03:42 Oxygen Flow Rate (L/min) 2 Oxygen Delivery Method Nasal Cannula Weight: 73 kg Body Mass Index (BMI) 31.4 Intake & Output: Intake and Output for Last 24 Hours 07/16/23 07/17/23 07/18/23 23:59 23:59 23:59 Intake Total 1104 / 1104 Balance 1104 / 1104 Lab / Micro Data 07/18/23 07:40 07/18/23 07:40 Labs: Laboratory Results - last 24 hr 07/17/23 15:20: WBC 8.9, RBC 3.99 L, Hgb 11.4 L, Hct 35.1 L, MCV 88.0, MCH 28.6, MCHC 32.5, RDW Std Deviation 43.3, RDW Coeff of Elsie 13.3, Plt Count 150, MPV 11.8, Immature Gran % (Auto) 0.500, Neut % (Auto) 56.9, Lymph % (Auto) 29.0, [place] % (Auto) 8.5, Eos % (Auto) 4.4, Baso % (Auto) 0.7, Absolute Neuts (auto) 5.1, Absolute Lymphs (auto) 2.57, Nucleated RBC % 0, Sodium 139, Potassium 2.9 L, Chloride 96 L, Carbon Dioxide 38.0 H, Anion Gap 5, BUN 19 H, Creatinine 1.38 H, Estim Creat Clear Calc 29.97, Est GFR (MDRD) Af Amer 50 L, Est GFR (MDRD) Non-Af 41 L, BUN/Creatinine Ratio 13.8, Glucose 97, Calcium 12.2 H, Magnesium 1.7, Total Bilirubin 0.40, AST 71 H, ALT 105 H, Alkaline Phosphatase 105, Total Protein 7.3, Albumin 3.6, Globulin 3.7, Albumin/Globulin Ratio 1.0, TSH 2.76, PTH Intact < 6.3 L 07/17/23 15:36: Ionized Calcium 5.82 H 07/17/23 21:30: Sodium 139, Potassium 2.9 L, Chloride 99, Carbon Dioxide 38.0 H, Anion Gap 2 L, BUN 18, Creatinine 1.34 H, Estim Creat Clear Calc 30.87, Est GFR (MDRD) Af Amer 51 L, Est GFR (MDRD) Non-Af 42 L, BUN/Creatinine Ratio 13.4, Glucose 123 H, Calcium 11.4 H, Total Bilirubin 0.30, AST 52 H, ALT 86 H, Alkaline Phosphatase 91, Total Protein 6.4, Albumin 3.2, Globulin 3.2, Albumin/Globulin Ratio 1.0 07/17/23 22:45: Ur Random Sodium 29, Ur Random Calcium > 30.0, Urine Creatinine 65.50, Urine Potassium 18.0, Urine Chloride 23, Urine Urea Nitrogen 380 Physical Exam Const alert, oriented x3, no apparent distress and well nourished Constitutional Narrative: Obese, upper middle-aged, white female, appears older than stated age, sister at bedside HEENT head/scalp atraumatic and moist oral mucous membranes HEENT Narrative: Mallampati is Head and Scalp: normocephalic Resp normal respiratory effort, no retractions, no use of accessory muscles and clear to auscultation bilaterally Auscultation: Negative for rales, rhonchi or wheezes Cardio regular rate, regular rhythm, S1 normal heart sound, S2 normal heart sound, no murmurs, no rub, no gallops and no clicks GI soft to palpation and non-distended GI Narrative: Mild diffuse tenderness, bowel sounds are slightly hyperactive Extremity no clubbing, cyanosis or edema Extremity Narrative: Pedal pulses are 2+ Neuro oriented x3, moves all extremities and no focal motor deficits Psych Psych Narrative: Affect is slightly flat, eye contact is good, mood seems stable Assessment & Plan Assessment/Plan (1) Hypercalcemia: (2) Acute hypokalemia: (3) Generalized weakness: (4) Paresthesias: (5) CKD (chronic kidney disease): PLAN: Plan Hypercalcemia -12.2 on admission and ionized calcium was 5.82--> repeat calcium last evening was down to 11.4 -Calcium has now normalized with cessation of calcium supplementation and IV fluids -Discontinue IV fluids -Intact PTH is appropriately suppressed at less than 6.3 -TSH is within normal limits -Vitamin D25 is 69.6 and vitamin 1, 25 is pending -PTH RP is pending -Urine calcium is unremarkable -Suspect this is iatrogenic -Stop oral calcium carbonate supplementation and calcitriol Hypokalemia -Replaced on admission -Repeat is pending Debility/generalized weakness -PT/OT consult pending -Case management/social work following for discharge planning needs Chronic diarrhea -Etiology is unclear and outpatient workup is ongoing -Patient did have colonoscopy back in 2019 with biopsies consistent with lymphocytic colitis -Will start colestipol 1 g twice daily -check enteric panel -Check lactoferrin -Check C. difficile -Patient reports she recently had an Hemoccult negative stool however on 06/21/2023 her Hemoccult stool was positive -Hemoglobin has dropped 2 g since admission -Consult GI-discussed case with Dr. Aleman -Suspect some of her abdominal discomfort is related to her hypercalcemia as abdominal exam is benign -Continue home dicyclomine -Patient had recent colonoscopy in [address] of the GI tract done by Dr. Bellamy at which time the entire colon was examined and no significant abnormalities were identified on gross examination, no polyps were identified, biopsy was done to rule out microscopic colitis Acute on chronic anemia -Hemoccult positive -Start Protonix IV twice daily -GI consultation -No obvious signs of edel blood loss -Check iron studies -Check reticulocyte count -Transfuse for precipitous drop or hemoglobin less than 7 CKD stage IIIb -Serum creatinine appears to be stable -Discontinue IV fluids -a.m. labs pending GERD -Continue PPI but use IV due to anemia TIMO -Continue home CPAP Hypothyroidism -TSH pending -Continue home Synthroid Depression -Continue home Cymbalta Obesity -BMI 31.4 -Complicates treatment, prognosis, outcomes -Recommend weight loss DVT prophylaxis -Hold subcu Lovenox due to Hemoccult positive stool and drop in hemoglobin -SCDs CODE STATUS -Full code Charges/Coding Visit Charges Inpatient E&M: 95378 [facility] Hosp L3
[2023-07-18 08:10] LABS: Absolute Lymphocyte Count 1.87 X10^3/uL (0.83-4.51); Absolute Neutrophil Count 4.1 X10^3/uL (2.0-7.7); Basophil# 0.06 X10^3/uL; Basophil% 0.8 % (0-1); Eosinophil# 0.46 X10^3/uL; Eosinophils% 6.3 % (0-5); Hematocrit 32.3 % (37-47); Hemoglobin 9.8 g/dL (12.0-15.0); Lymphocyte # 1.87 X10^3/ul (0.83-4.51); Lymphocyte % 25.6 % (19-41); Mean Corp Hgb Conc 30.3 g/dL (32-36); Mean Corpuscular Hgb 27.8 pg (27.0-32.0); Mean Corpuscular Volume 91.8 fL (81-99); Mean Platelet Vol. 12.1 fl (6.2-12.0); Monocyte# 0.78 X10^3/uL; Monocyte% 10.7 % (0-10); NRBC Flagged by Analyzer 0 % (0-5); Neutrophil % 56.2 % (47-70); Platelet Count 124 K/mm3 (150-450); RBC Distribution Width CV 13.6 % (11.6-14.6); RBC Distribution Width SD 45.3 fl (35.1-43.9); Red Blood Count 3.52 M/mm3 (4.2-5.4); White Blood Count 7.3 K/mm3 (4.4-11.0)
[2023-07-18 08:28] LABS: ALB/GLOB Ratio 0.9 RATIO (0.9-2.4); AST(SGOT) 36 U/L (15-37); Alanine Aminotransfer ALT/SGPT 71 U/L (13-56); Albumin, Serum 2.9 g/dL (3.2-5.0); Alkaline Phosphatase 83 U/L (45-117); Anion Gap 1 (5-15); BUN 16 mg/dL (7-18); BUN/Creat Ratio 12.1 RATIO (10-20); Calcium,Total 10.1 mg/dL (8.5-10.1); Chloride 107 mmol/L (98-107); Creatinine, Serum 1.32 mg/dL (0.55-1.02); EST Glomerular Filtration Rate 43 mL/min (>60); Est Glom Filt Rate - Afr Amer 52 mL/min (>60); Estimated Creatinine Clearance 31.33 ml/min; Globulin 3.2 g/dL (2.2-4.2); Glucose 94 mg/dL (74-106); Potassium 3.6 mmol/L (3.5-5.1); Protein, Total 6.1 g/dL (6.4-8.2); Sodium Level 141 mmol/L (136-145)
[2023-07-18 09:15] VITALS: BP 126/93; PULSE 95; RESP 14; TEMP 36.8; O2SAT 98
[2023-07-18] MEDS: 0.9% Normal Saline (1000mL) 1,000 ML 75 ML IV (09:26)
[2023-07-18] MEDS: Dicyclomine 10 MG Capsule PO ×3 (09:26→17:00)
[2023-07-18] MEDS: DULoxetine Hcl 30 MG Capsule PO (09:27)
[2023-07-18] MEDS: DULoxetine Hcl 60 MG Capsule PO (09:27)
[2023-07-18] MEDS: Enoxaparin 40 MG/0.4 ML Syringe SC (09:28)
[2023-07-18] MEDS: Colestipol 1 GM TABLET PO ×2 (09:35→21:03)
[2023-07-18] MEDS: Pantoprazole Sodium 40 MG in 0.9% Normal Saline (100mL MB+) 100 ML 330 MG IV ×2 (12:36→21:04)
--- NOTE | 2023-07-18 12:50 | CASEMGMT ---
RN CM Face to Face with patient for initial transition planning/care coordination assessment. RN CM introduced self and role at [facility]. Patient lying in bed, alert and oriented. Patient willing to participate in assessment and is able to answer all questions appropriately. Care providers, pharmacy, and demographics verified. Patient wishes to discharge home, denies need for home health at this time. Patient states she has no further needs or concerns at this time. CM to follow for discharge planning needs that may arise. PCP: Lata Specialists: none [facility] Insurance: [facility] Prescription Benefit: yes Living Will/HPOA: none LNOK: ARABELLA adams Living Arrangements: Patient lives with sister and ARABELLA in a single story home with 3 steps and railing to enter the home. Patient states she is independent at home. Transportation: , ARABELLA DME/HHC: Patient has raised toilet, cane, walker, and cpap at home. No previous HHC or SNF. Disposition Plan: Patient to discharge home with family support and follow-up plans in place. Samantha TSE, RN, CM
[2023-07-18] MEDS: Acetaminophen 500 MG Tablet 1000 MG PO (15:06)
[2023-07-18 15:09] VITALS: BP 166/99; PULSE 88; RESP 15; TEMP 36.8; O2SAT 98
--- NOTE | 2023-07-18 16:20 | EX.PCM.CON.G ---
HPI Consult Data Date of Consult: 07/18/23 HPI Narrative Reason for Consultation: diarrhea and anemia HPI Narrative: BHAVNA PATEL, is a 63 F who presents for evaluation of hypercalcemia by her PCP. She was discovered to have a calcium level of 11.4. She also has been having diarrhea for about 6 months. 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 Schmitt in 2019. She has never seen a quality control tech. She has never had testing for inflammatory bowel disease. She has a history of hypoparathyroidism since childhood. She is normally on calcium supplementation. This was increased a few weeks ago. But she is always had very low calcium levels. Over the last week to 2 weeks she has been getting tingling around her lips numbness and tingling in her extremities some aching in her arms and legs and she feels a little unsteady. This prompted them to see their physician. Blood work was done yesterday that showed high calcium levels. Since she is very symptomatic and has blood levels that are elevated she was referred in here. She has no recent head injury fall or trauma. No bony injuries. No history of cancers or tumors. No prior surgery. No neck surgery. Her calcium level is down to 10. I was called to see her due to decreasing hemoglobin from 13-10 and history of Hemoccult positive stools. I was also called to see her due to her diarrhea that she has been having on a daily basis. [facility] Medical History (Updated 07/18/23 @ 16:[address] Canales Friend, DO) Abdominal pain Anxiety Arthritis Asthma Chest pain Cholelithiasis CPAP (continuous positive airway pressure) dependence Depression Depression with anxiety Diarrhea Former smoker GERD (gastroesophageal reflux disease) History of claustrophobia Hypertension Hyperthyroidism Hypoparathyroidism Migraines Home Medications multivitamin with folic acid 400 mcg tablet 1 tab PO DAILY SUPPLEMENT 05/18/14 [History Last Taken 07/16/23] vitamin E (dl, acetate) 180 mg (400 unit) capsule 400 units PO DAILY SUPPLEMENT 05/18/14 [History Last Taken 07/16/23] omega-3 fatty acids-fish oil 300 mg-500 mg capsule (Fish Oil) 1 cap PO DAILY SUPPLEMENT 02/17/20 [History Last Taken 07/16/23] potassium citrate 10 mEq (1,080 mg) tablet,extended release 1,080 mg PO DAILY SUPPLEMENT 02/17/20 [History Last Taken Unknown] calcium carbonate 500 mg-vitamin D3 15 mcg (600 unit) tablet 1 ea PO BID SUPPLEMENT 02/27/20 [History Last Taken 07/16/23] atorvastatin 20 mg tablet 20 mg PO DAILY CHOLESTEROL 07/17/23 [History Last Taken 07/16/23] biotin 10,000 mcg capsule 10,000 mcg PO DAILY SUPPLEMENT 07/17/23 [History Last Taken 07/16/23] calcitriol 0.25 mcg capsule 0.25 mcg PO TID DIARRHEA 07/17/23 [History Last Taken 07/16/23] dicyclomine 10 mg capsule 10 mg PO TIDCM IRRITABLE BOWELS 07/17/23 [History Last Taken 07/16/23] diphenoxylate-atropine 2.5 mg-0.025 mg tablet 2 tab PO 4X/DAY DIARRHEA 07/17/23 [History Last Taken Unknown] duloxetine 30 mg capsule,delayed release 30 mg PO DAILY DEPRESSION 07/17/23 [History Last Taken 07/16/23] duloxetine 60 mg capsule,delayed release 60 mg PO DAILY DEPRESSION 07/17/23 [History Last Taken 07/16/23] levothyroxine 75 mcg tablet 75 mcg PO MOTUWETH THYROID 07/17/23 [History Last Taken 07/16/23] levothyroxine 75 mcg tablet 112.5 mcg PO FRSA THYROID 07/17/23 [History Last Taken 07/14/23] levothyroxine 75 mcg tablet 150 mcg PO WADE THYROID 07/17/23 [History Last Taken 07/15/23] lisinopril 30 mg tablet 30 mg PO DAILY BLOOD PRESSURE 07/17/23 [History Last Taken 07/16/23] magnesium 250 mg tablet 250 mg PO BID SUPPLEMENT 07/17/23 [History Last Taken 07/16/23] magnesium gluconate 12.5 mg magnesium (250 mg) tablet 250 mg PO BID SUPPLEMENT 07/17/23 [History Last Taken Unknown] Allergy/AdvReac Type Severity Reaction Status Date / Time famotidine Allergy Intermediate depletes Verified 07/17/23 15:01 calcium omeprazole Allergy Intermediate diarrhea Verified 07/17/23 15:01 sulfamethoxazole Allergy Rash Verified 07/17/23 15:01 [From Bactrim] trimethoprim [From Bactrim] Allergy Rash Verified 07/17/23 15:01 Family History Mother Arthritis Brother Cancer Diabetes Heart disease Father Diabetes Heart disease Hypertension High cholesterol Uncle Diabetes Grandfather Cancer skin cancer Surgical History History Bilateral Cataract Surgery Social History Smoking Status: Former smoker alcohol intake: never substance use type: does not use ROS ROS Narrative General: Denies fever/chills HENT: Did have headaches but they resolved, denies sore throat, does feel mouth is somewhat dry EYES: Denies changes in vision Resp: Denies cough, denies shortness of breath Cardiac: Denies chest pain GI: Chronic diarrhea without blood in stool, some chronic right-sided abdominal pain : Denies changes in urination Extremity: Denies swelling MSK: Generalized weakness Neuro: Numbness and tingling around mouth Heme: Denies any bleeding or bruising Skin: Denies rashes Psychiatric: No complaints voiced Physical Exam Narrative General: Alert, no apparent distress HEENT: Atraumatic, normocephalic Eyes: Anicteric, normal conjunctiva, extraocular movements grossly intact Neck: Supple Respiratory: Clear to auscultation bilaterally, normal respiratory effort Cardiovascular: Regular rate and rhythm GI: Soft, nondistended, diffusely mildly tender without rebound, guarding, rigidity Extremities: No edema Musculoskeletal: Moving all extremities Neuro: No overt focal neurological deficits, brisk reflexes, no sustained clonus, strength 5 out of 5 in upper and lower extremities Skin: No rashes appreciated Psych: Cooperative Lab / Micro Data 07/18/23 16:13 07/18/23 07:40 Labs: Laboratory Results - last 24 hr 07/17/23 15:20: PTH Intact < 6.3 L 07/17/23 21:30: Sodium 139, Potassium 2.9 L, Chloride 99, Carbon Dioxide 38.0 H, Anion Gap 2 L, BUN 18, Creatinine 1.34 H, Estim Creat Clear Calc 30.87, Est GFR (MDRD) Af Amer 51 L, Est GFR (MDRD) Non-Af 42 L, BUN/Creatinine Ratio 13.4, Glucose 123 H, Calcium 11.4 H, Total Bilirubin 0.30, AST 52 H, ALT 86 H, Alkaline Phosphatase 91, Total Protein 6.4, Albumin 3.2, Globulin 3.2, Albumin/Globulin Ratio 1.0 07/17/23 22:45: Ur Random Sodium 29, Ur Random Calcium > 30.0, Urine Creatinine 65.50, Urine Potassium 18.0, Urine Chloride 23, Urine Urea Nitrogen 380 07/18/23 07:40: WBC 7.3, RBC 3.52 L, Hgb 9.8 L, Hct 32.3 L, MCV 91.8, MCH 27.8, MCHC 30.3 L D, RDW Std Deviation 45.3 H, RDW Coeff of Elsie 13.6, Plt Count 124 L, MPV 12.1 H, Immature Gran % (Auto) 0.400, Neut % (Auto) 56.2, Lymph % (Auto) 25.6, [place] % (Auto) 10.7 H, Eos % (Auto) 6.3 H, Baso % (Auto) 0.8, Absolute Neuts (auto) 4.1, Absolute Lymphs (auto) 1.87, Nucleated RBC % 0, Sodium 141, Potassium 3.6, Chloride 107, Carbon Dioxide 33.0 H, Anion Gap 1 L, BUN 16, Creatinine 1.32 H, Estim Creat Clear Calc 31.33, Est GFR (MDRD) Af Amer 52 L, Est GFR (MDRD) Non-Af 43 L, BUN/Creatinine Ratio 12.1, Glucose 94, Calcium 10.1, Total Bilirubin 0.30, AST 36, ALT 71 H, Alkaline Phosphatase 83, Total Protein 6.1 L, Albumin 2.9 L, Globulin 3.2, Albumin/Globulin Ratio 0.9 Micro: Microbiology 07/18/23 15:27 Stool Stool Lactoferrin - Final Assessment & Plan Assessment/Plan (1) Generalized weakness: (2) Hypercalcemia: (3) Paresthesias: (4) Acute hypokalemia: (5) GERD (gastroesophageal reflux disease): QUALIFIERS: Esophagitis presence: without esophagitis Qualified Code(s): K21.9 - Gastro-esophageal reflux disease without esophagitis (6) Depression with anxiety: (7) Diarrhea: QUALIFIERS: Diarrhea type: functional diarrhea Qualified Code(s): K59.1 - Functional diarrhea (8) CKD (chronic kidney disease): QUALIFIERS: Chronic kidney disease stage: stage 2 (mild) Qualified Code(s): N18.2 - Chronic kidney disease, stage 2 (mild) PLAN: Plan 63-year-old presents with paresthesias and intermittent dizziness secondary to symptomatic hypercalcemia. She also has diarrhea and a history of microscopic colitis. Hypercalcemia - calcium is at 10. She is responding very well to hydration -Unclear etiology but likely is secondary to calcium supplementation -PTH and PTHrP is pending -Vitamin D 25 yesterday 69.6, mag 1.7 on the low end of normal, Phos 3.6 yesterday -She has a previous chest x-ray with calcified granulomas, will need to keep sarcoid in differential, 1, 25 vitamin D is pending. Also recommend to check QuantiFERON gold. - urine calcium is pending Hypokalemia -Will replace and recheck Chronic diarrhea -Microscopic colitis with focal cryptitis -She should be evaluated for inflammatory bowel disease. Inflammatory bowel disease-like histologic features such as cryptitis and crypt abscesses are?seen in 30?40% of patients with microscopic colitis.? I will check [facility] IBD panel, ANCA, IVANNA, ESR, CRP, celiac panel , LDH, QuantiFERON gold, acute hepatitis panel for workup for IBD. She should undergo an upper and lower endoscopy to evaluate upper lower GI tract. Elevated liver enzymes -Likely secondary to underlying inflammation associated with hypercalcemia. I will suspect that her CPK would be mildly elevated with the hypercalcemia plus or minus aldolase level. Level also will be secondary to steatohepatitis. Recommend to check IVANNA, antiliver muscle kidney antibody, antimitochondrial antibody, anti-smooth muscle antibody.
[2023-07-18 16:32] LABS: Ferritin 43 ng/mL (8-252); Iron 30 ug/dL (50-170); Iron Binding Capacity,Total 245 ug/dL (250-450); PERCENT IRON SATURATION 12.2 % (15.0-55.0)
[2023-07-18 16:35] LABS: Platelet Count 127 K/mm3 (150-450); RET-HE 33.2 pg (30-35)
[2023-07-18] MEDS: Bisacodyl 5 MG Tablet 20 MG PO (17:00)
[2023-07-18 17:28] LABS: Erythrocyte Sedimentation Rate 18 mm/hr (0-30)
[2023-07-18 17:31] LABS: CPK Total, Creatine Kinase 54 U/L (26-192); CRP 8.33 mg/L (0.0-3.0)
[2023-07-18] MEDS: Polyethylene Glycol 3350 BOWEL PREP PO (18:35)
[2023-07-18 19:36] LABS: Internal QC Validated? YES +Cl - CLEAR BKGD; Pregnancy, Urine Negative Negative
[2023-07-18 20:50] VITALS: BP 146/75; PULSE 72; RESP 16; TEMP 36.4; O2SAT 99
[2023-07-19] VITALS (7 sets, daily range): BP systolic 130–172; BP diastolic 68–99; PULSE 72–89; RESP 16; TEMP 36.1–37.1; O2SAT 94–99; BMI 31.4
[2023-07-19] MEDS: Acetaminophen 325 MG Tablet 650 MG PO (03:33)
--- NOTE | 2023-07-19 05:55 | EKG12_ITS ---
Test Reason : PRE-OP Blood Pressure : / mmHG Vent. Rate : 089 BPM Atrial Rate : 089 BPM P-R Int : 210 ms QRS Dur : 084 ms QT Int : 364 ms P-R-T Axes : 050 007 052 degrees QTc Int : 442 ms Sinus rhythm with 1st degree A-V block Otherwise normal ECG When compared with ECG of 02-SEP-2012 14:58, No significant change was found Confirmed by SUKHJINDER DEL TORO, SHELLY ([id number]), science editor PAN MELGAR ([id number]) on 07/23/2023 12:48:37 PM Referred By: Confirmed By:WILLIAMS SLAUGHTER MD
[2023-07-19 06:37] LABS: Absolute Lymphocyte Count 1.69 X10^3/uL (0.83-4.51); Absolute Neutrophil Count 4.3 X10^3/uL (2.0-7.7); Basophil# 0.05 X10^3/uL; Basophil% 0.7 % (0-1); Eosinophil# 0.44 X10^3/uL; Eosinophils% 6.2 % (0-5); Hematocrit 33.2 % (37-47); Hemoglobin 10.2 g/dL (12.0-15.0); Lymphocyte # 1.69 X10^3/ul (0.83-4.51); Lymphocyte % 23.7 % (19-41); Mean Corp Hgb Conc 30.7 g/dL (32-36); Mean Corpuscular Hgb 28.2 pg (27.0-32.0); Mean Corpuscular Volume 91.7 fL (81-99); Mean Platelet Vol. 12.1 fl (6.2-12.0); Monocyte# 0.61 X10^3/uL; Monocyte% 8.6 % (0-10); NRBC Flagged by Analyzer 0 % (0-5); Neutrophil % 60.4 % (47-70); Platelet Count 128 K/mm3 (150-450); RBC Distribution Width CV 13.6 % (11.6-14.6); RBC Distribution Width SD 45.5 fl (35.1-43.9); Red Blood Count 3.62 M/mm3 (4.2-5.4); White Blood Count 7.1 K/mm3 (4.4-11.0)
[2023-07-19 07:11] LABS: Anion Gap 6 (5-15); BUN 13 mg/dL (7-18); BUN/Creat Ratio 11.2 RATIO (10-20); Chloride 109 mmol/L (98-107); Creatinine, Serum 1.16 mg/dL (0.55-1.02); EST Glomerular Filtration Rate 50 mL/min (>60); Est Glom Filt Rate - Afr Amer 61 mL/min (>60); Estimated Creatinine Clearance 35.66 ml/min; Glucose 86 mg/dL (74-106); Potassium 3.2 mmol/L (3.5-5.1); Sodium Level 143 mmol/L (136-145)
[2023-07-19 07:35] LABS: Thyroid Stim Hormone (TSH) 3.01 uIU/mL (0.358-3.74)
[2023-07-19 07:37] LABS: Ionized Calcium 5.38 mg/dL (4.36-5.20)
[2023-07-19] MEDS: Pantoprazole Sodium 40 MG in 0.9% Normal Saline (100mL MB+) 100 ML 330 MG IV (08:59)
[2023-07-19] MEDS: 0.9% Saline Lock 10 ML Syringe IV (09:03)
[2023-07-19] MEDS: Lactated Ringers 1,000 ML 15 ML IV (11:29)
--- NOTE | 2023-07-19 12:25 | COLBX_PTH ---
PATIENT: BHAVNA PATEL I LOC: [facility] U#:[id number] AGE/SX: 63/F ROOM: [facility] RE07/17/[address]: Dr. Nerissa Nelson DO : 1960 BED: 1 DIS: 07/19/2023 SPEC #: [id number] RECD: 07/19/23 13:29 STATUS: LEVY REEstefany #: [id number] TRUE: 07/19/23 12:[address]: Parker Aleman DEPT: SURGICAL PATHOLOGY RECD BY: Raiza Felder ENTERED: 07/19/23 13:53 SP TYPE: COLON BX OTHR DR: MD Dr. Nerissa Thomas DO Dr. Paige Pierce, MD Tissues: A - Duodenum, NOS B - COLON BIOPSY Procedures: Trichrome (control) Special Stain Group II Surgery Specimen Level IV Comments: @ Ordering doctor for SUIV edited from to @ by VANDANA at 07/19/23 1556 @ Submitting doctor edited from to @ by RGOOD at 07/19/23 1556 HEADER OPERATION: Colonoscopy with biopsy, EGD with biopsy PRE-OP DIAGNOSIS: Chronic diarrhea TISSUE SUBMITTED: A - Duodenum biopsy, B - Random colon biopsy MICROSCOPIC DIAGNOSIS A. Duodenum, biopsy: No pathologic change. B. Colon, random biopsy: Collagenous colitis. See comment. AM:gaye 07/20/2023 COMMENT B. Trichrome stain with matched control was used in the evaluation of this case. MICROSCOPIC DESCRIPTION Slides are reviewed. GROSS DESCRIPTION A - Received in fixative is one container labeled with the patient's name and designated duodenum biopsy. The specimen consists of multiple irregular fragments of light willson soft tissue that in aggregate measure 1.0 x 0.4 x 0.1 cm. The specimen is totally submitted in one cassette. B - Received in fixative is one container labeled with the patient's name and designated random colon biopsy. The specimen consists of multiple irregular fragments of light willson soft tissue that in aggregate measure 1.2 x 0.4 x 0.1 cm. The specimen is totally submitted in one cassette. / TORO:gaye 07/19/2023 TC:3 CPT: 65048 x2, 25087
[2023-07-19] MEDS: Potassium Chloride Oral Tablet 20 MEQ 60 MEQ PO (14:17)
[2023-07-19] MEDS: Dicyclomine 10 MG Capsule PO (14:17)
[2023-07-19] MEDS: DULoxetine Hcl 60 MG Capsule PO (14:18)
[2023-07-19] MEDS: DULoxetine Hcl 30 MG Capsule PO (14:18)
--- NOTE | 2023-07-19 15:28 | PCM.DC.SUM ---
Providers Date of Admission: 07/17/23 Date of Discharge: 07/19/23 Primary Care Physician: Dr. Robson Guido MD Consultations 07/18/23 11:29 Consult: Gastroenterology Routine Consulting Provider: [facility] Reason for Consult: guiac + stool and anemia EMERGENT Consult: No MD Notified: Yes Date Notified: 07/18/23 Time Notified: 11:34 Method of Notification: Text Reason For Visit: HYPERCALCEMIA SYMPTOMATIC Diagnosis Discharge Diagnosis (1) Generalized weakness: Status: Acute Code(s): R53.1 - Weakness (2) Hypercalcemia: Status: Acute Code(s): E83.52 - Hypercalcemia (3) Paresthesias: Status: Acute Code(s): R20.2 - Paresthesia of skin (4) Acute hypokalemia: Status: Acute Code(s): E87.6 - Hypokalemia (5) GERD (gastroesophageal reflux disease): Status: Acute Code(s): K21.9 - Gastro-esophageal reflux disease without esophagitis Qualifiers: Esophagitis presence: without esophagitis Qualified Code(s): K21.9 - Gastro-esophageal reflux disease without esophagitis (6) Depression with anxiety: Status: Acute Code(s): F41.8 - Other specified anxiety disorders (7) Diarrhea: Status: Acute Code(s): R19.7 - Diarrhea, unspecified Qualifiers: Diarrhea type: functional diarrhea Qualified Code(s): K59.1 - Functional diarrhea (8) CKD (chronic kidney disease): Status: Chronic Code(s): N18.9 - Chronic kidney disease, unspecified Qualifiers: Chronic kidney disease stage: stage 2 (mild) Qualified Code(s): N18.2 - Chronic kidney disease, stage 2 (mild) Plan Hypercalcemia -12.2 on admission and ionized calcium was 5.82--> repeat calcium last evening was down to 11.4 -Calcium has now normalized with cessation of calcium supplementation and IV fluids -Discontinue IV fluids -Intact PTH is appropriately suppressed at less than 6.3 -TSH is within normal limits -Vitamin D25 is 69.6 and vitamin 1, 25 is pending -PTH RP is pending -Urine calcium is unremarkable -Suspect this is iatrogenic -Stop oral calcium carbonate supplementation and calcitriol Hypokalemia -Replaced on admission -Repeat is pending Debility/generalized weakness -PT/OT consult pending -Case management/social work following for discharge planning needs Chronic diarrhea -Etiology is unclear and outpatient workup is ongoing -Patient did have colonoscopy back in 2019 with biopsies consistent with lymphocytic colitis -Will start colestipol 1 g twice daily -check enteric panel -Check lactoferrin -Check C. difficile -Patient reports she recently had an Hemoccult negative stool however on 06/21/2023 her Hemoccult stool was positive -Hemoglobin has dropped 2 g since admission -Consult GI-discussed case with Dr. Aleman -Suspect some of her abdominal discomfort is related to her hypercalcemia as abdominal exam is benign -Continue home dicyclomine -Patient had recent colonoscopy in [address] of the GI tract done by Dr. Bellamy at which time the entire colon was examined and no significant abnormalities were identified on gross examination, no polyps were identified, biopsy was done to rule out microscopic colitis Acute on chronic anemia -Hemoccult positive -Start Protonix IV twice daily -GI consultation -No obvious signs of edel blood loss -Check iron studies -Check reticulocyte count -Transfuse for precipitous drop or hemoglobin less than 7 CKD stage IIIb -Serum creatinine appears to be stable -Discontinue IV fluids -a.m. labs pending GERD -Continue PPI but use IV due to anemia TIMO -Continue home CPAP Hypothyroidism -TSH pending -Continue home Synthroid Depression -Continue home Cymbalta Obesity -BMI 31.4 -Complicates treatment, prognosis, outcomes -Recommend weight loss DVT prophylaxis -Hold subcu Lovenox due to Hemoccult positive stool and drop in hemoglobin -SCDs CODE STATUS -Full code Medications at Discharge Home Medications multivitamin with folic acid 400 mcg tablet 1 tab PO DAILY SUPPLEMENT 05/18/14 vitamin E (dl, acetate) 180 mg (400 unit) capsule 400 units PO DAILY SUPPLEMENT 05/18/14 omega-3 fatty acids-fish oil 300 mg-500 mg capsule (Fish Oil) 1 cap PO DAILY SUPPLEMENT 02/17/20 potassium citrate 10 mEq (1,080 mg) tablet,extended release 1,080 mg PO DAILY SUPPLEMENT 02/17/20 calcium carbonate 500 mg-vitamin D3 15 mcg (600 unit) tablet 1 ea PO BID SUPPLEMENT 02/27/20 atorvastatin 20 mg tablet 20 mg PO DAILY CHOLESTEROL 07/17/23 biotin 10,000 mcg capsule 10,000 mcg PO DAILY SUPPLEMENT 07/17/23 dicyclomine 10 mg capsule 10 mg PO TIDCM IRRITABLE BOWELS 07/17/23 diphenoxylate-atropine 2.5 mg-0.025 mg tablet 2 tab PO 4X/DAY DIARRHEA 07/17/23 duloxetine 30 mg capsule,delayed release 30 mg PO DAILY DEPRESSION 07/17/23 duloxetine 60 mg capsule,delayed release 60 mg PO DAILY DEPRESSION 07/17/23 levothyroxine 75 mcg tablet 75 mcg PO MOTUWETH THYROID 07/17/23 levothyroxine 75 mcg tablet 112.5 mcg PO FRSA THYROID 07/17/23 levothyroxine 75 mcg tablet 150 mcg PO WADE THYROID 07/17/23 lisinopril 30 mg tablet 30 mg PO DAILY BLOOD PRESSURE 07/17/23 magnesium 250 mg tablet 250 mg PO BID SUPPLEMENT 07/17/23 magnesium gluconate 12.5 mg magnesium (250 mg) tablet 250 mg PO BID SUPPLEMENT 07/17/23 colestipol 1 gram tablet 1 g PO BID #60 tabs 07/19/23 potassium chloride 20 mEq tablet,extended release 20 meq PO DAILY #30 tabs 07/19/23 Hospital Course Operations None Procedures Colonoscopy and EGD Summary of Care Provided Minutes Spent on Discharge: 38 Hospital Course: Mrs. Fuentes is a 63-year-old white female who presented to the emergency department at [facility] on 07/17/2023 at the request of her primary care physician due to hypercalcemia. She evidently had been feeling weak and somewhat unsteady for 1 to 2 weeks prompting her primary care physician to get lab work. She also reported some tingling around her lips that started gradually about 2 weeks ago as well and has slowly progressed. She indicated she been having diarrhea for 6 months and had been undergoing outpatient workup for that. She had no focal weakness or deficits but generalized weakness was noted bilaterally. She also reports considerable fatigue. She did confirm that she had an elevated calcium level in May that was done by an assistant brand manager but she was unsure of her assistant brand manager name. Evidently, she had consistently low calcium levels in the past so the finding of hypercalcemia is very unexpected. She had been taking trial off for her bowel holes and then 3 tablets of calcium supplementation daily as well as a multivitamin daily. Vital signs demonstrated mild tachycardia at 108 and elevated BP at 170 however her serum creatinine emergency department was 1.38 down from 1.55 the day previous, her potassium was 2.9 and her serum calcium is 12.2 down slightly from the day previous at which time it was 12.5. Given her significant electrolyte abnormalities she was admitted to the telemetry floor for monitoring and replacement along with further workup. For hypercalcemia her home calcium supplementation and calcitriol were held and she was treated with IV hydration. Her elevated calcium levels slowly normalized and her ionized calcium was trending down at the time of discharge. Total calcium level at the time of discharge was 9.0 with a normal albumin. As far as her history of hypocalcemia goes, I reviewed all of our data and I see no low calcium levels or low ionized calcium levels previously and I am unclear at which point she was diagnosed with this however at this time it seems as if her hypercalcemia was likely iatrogenic. I have asked her to hold her calcium supplementation and calcitriol at the time of discharge and to follow-up with her primary care physician for a basic metabolic profile and an ionized calcium level to be performed in the next 5 to 7 days. She was noted to have a 2 g hemoglobin drop during her hospital course and with her ongoing diarrhea stool studies were obtained. She was noted to have a previous positive Gastroccult on 06/21/2023. Stool lactoferrin and C. difficile were negative. She had previous negative enteric panel. I did review her records and she was found of a colonoscopy done in [address] Liz Richardson at which time biopsies were taken and biopsies were suggestive of microscopic colitis. With her recent Hemoccult positive stool and her drop in hemoglobin I consulted gastroenterology and EGD and colonoscopy were performed. Per discussion with Dr. Aelman her scopes were overall unremarkable. Biopsies were taken and he suggested we continue the colestipol that I started the day prior for her ongoing diarrhea and previous biopsy showing microscopic colitis. He will follow-up with her in the next 3 months and she was encouraged to make a phone call tomorrow to set up an appointment for that timeframe. Again I also recommended she follow-up with her primary care physician within the next week and obtain a basic metabolic profile and ionized calcium within the next 5 to 7 days. I discussed this both with her and her sister and [id number] with whom she lives. With regards to her weakness, she was seen by physical and Occupational Therapy and did quite well with no recommendations for further care required. She was discharged home in stable condition on 07/19/2023. A prescription for colestipol 1 g twice daily and potassium 20 mill equivalents daily was sent to local pharmacy. Discharge diagnoses: Hypercalcemia-appears iatrogenic Hypokalemia-acute on chronic Generalized weakness Chronic diarrhea Biopsy previously consistent with microscopic colitis Acute on chronic anemia CKD stage IIIb GERD TIMO Hypothyroidism Depression Obesity Physical Exam Const alert, oriented x3, no apparent distress, healthy appearing and well nourished Constitutional Narrative: Obese, upper middle-aged, white female, appears older than stated age, sister and [id number] at the bedside, patient has just returned from endoscopy suite and waiting for food General Appearance: cooperative, comfortable, well kempt and well developed Orientation / Consciousness: awake, oriented to person, oriented to place and oriented to time Exam Limitations: no limitations Nutritional Appearance: obese HEENT normocephalic, head/scalp atraumatic, hearing grossly normal bilaterally and moist oral mucous membranes HEENT Narrative: Mallampati 3, no thrush Eyes PERRL and EOMs intact bilaterally Eyes Narrative: Very mild conjunctiva pallor, no scleral icterus Neck no lymphadenopathy and supple Neck Narrative: Trachea midline, no thigh regiment Resp normal respiratory effort, no retractions, no use of accessory muscles and clear to auscultation bilaterally Auscultation: Negative for rales, rhonchi or wheezes Cardio regular rate, regular rhythm, S1 normal heart sound, S2 normal heart sound, no murmurs, no rub, no gallops and no clicks GI normal to inspection, nondistended, normoactive bowel sounds and soft to palpation GI Narrative: Mild diffuse tenderness status post colonoscopy with no edel pain or peritoneal signs Extremity no clubbing, cyanosis or edema Extremity Narrative: Pedal pulses are 2+ Skin no rashes or lesions noted, no wounds, skin turgor normal and no jaundice Neuro oriented x3, CN's II-XII intact bilaterally, moves all extremities and no focal motor deficits Neuro Narrative: Patient ambulated 500 feet with physical therapy showing no issues Speech: speech normal Psych affect normal Psych Narrative: Eye contact is good, mood is stable Weight / BMI Weight Weight: 73 kg Body Mass Index (BMI) 31.4 ABG / Lab / Microbiology Data 07/19/23 05:45 07/19/23 05:45 Laboratory: Laboratory Results - last 24 hr 07/17/23 22:45: Urine Test Negative 07/18/23 07:40: Iron 30 L, TIBC 245 L, Iron Saturation 12.2 L, Ferritin 43, Total Creatine Kinase 54, C-React Prot Ext Range 8.33 H 07/18/23 16:13: Hgb 10.0 L, ESR 18, Retic Count 1.90 H, Immature Retic Fraction 15.10, Retic Hgb Equivalent 33.2 07/19/23 05:45: WBC 7.1, RBC 3.62 L, Hgb 10.2 L, Hct 33.2 L, MCV 91.7, MCH 28.2, MCHC 30.7 L, RDW Std Deviation 45.5 H, RDW Coeff of Elsie 13.6, Plt Count 128 L, MPV 12.1 H, Immature Gran % (Auto) 0.400, Neut % (Auto) 60.4, Lymph % (Auto) 23.7, [place] % (Auto) 8.6, Eos % (Auto) 6.2 H, Baso % (Auto) 0.7, Absolute Neuts (auto) 4.3, Absolute Lymphs (auto) 1.69, Nucleated RBC % 0, Sodium 143, Potassium 3.2 L, Chloride 109 H, Carbon Dioxide 28.0, Anion Gap 6, BUN 13, Creatinine 1.16 H, Estim Creat Clear Calc 35.66, Est GFR (MDRD) Af Amer 61, Est GFR (MDRD) Non-Af 50 L, BUN/Creatinine Ratio 11.2, Glucose 86, Calcium 9.0, TSH 3.01 07/19/23 07:34: Ionized Calcium 5.38 H Microbiology: Microbiology 07/18/23 15:27 Stool Stool Lactoferrin - Final 07/18/23 15:27 Stool C. difficile DNA Amplification - Final D/C Instructions Discharge Diet: Low fat / Low cholesterol Discharge Activity: Return to Normal Activity Meaningful Use Info Meaningful Use Diagnoses (Choose all that apply): None applicable Discharge Plan Admission Admit Date/Time: 07/17/23 17:37 Primary Reason for Your Visit: Generalized weakness Attending Provider: Nerissa Nelson Primary Care Provider: Robson Guido Consulting Providers: Esperanza Kate Instructions Additional Instructions / Restrictions: 1. Please call your primary care office and request that a basic metabolic profile and ionized calcium be done in 5 to 7 days to recheck your potassium and calcium level 2. Hold calcitriol and calcium supplement until you hear from your primary care doctor 3. Please call Dr. Aleman's office from gastroenterology to schedule a follow-up appointment to be seen within the next 3 months as hospital follow-up for your diarrhea. Biopsies were taken during your colonoscopy and EGD while you were hospitalized. Discharge Orders/Prescriptions Prescriptions: New colestipol 1 gram Tablet 1 g PO BID Qty: 60 3RF potassium chloride 20 mEq tablet extended release 20 meq PO DAILY Qty: 30 0RF Continued omega-3 fatty acids-fish oil 300 mg-500 mg capsule 300-500 mg capsule 1 cap PO DAILY potassium citrate 10 mEq (1,080 mg) tablet extended release 1,080 mg PO DAILY Patient Comments: PT IS SUPPOSED TO BE ON THIS BUT HAS NOT BEEN TAKING ( OF 07-17-23) vitamin E (dl, acetate) 400 UNITS capsule 400 units PO DAILY multivitamin with folic acid 1 TABLET tablet 1 tab PO DAILY atorvastatin 20 mg tablet 20 mg PO DAILY dicyclomine 10 mg capsule 10 mg PO TIDCM duloxetine 30 mg capsule,delayed release(DR/EC) 30 mg PO DAILY Patient Comments: TAKE ONE 30MG CAPSULE AND ONE 60MG CAPSULE TOGETHER ONCE DAILY FOR A TOTAL DAILY DOSE OF 90MG duloxetine 60 mg capsule,delayed release(DR/EC) 60 mg PO DAILY Patient Comments: TAKE ONE 30MG CAPSULE AND ONE 60MG CAPSULE TOGETHER ONCE DAILY FOR A TOTAL DAILY DOSE OF 90MG magnesium gluconate 12.5 mg magne- sium (250 mg) tablet 250 mg PO BID diphenoxylate-atropine 2.5-0.025 mg tablet 2 tab PO 4X/DAY biotin 10,000 mcg capsule 10,000 mcg PO DAILY lisinopril 30 mg tablet 30 mg PO DAILY levothyroxine 75 mcg tablet 75 mcg PO MOTUWETH levothyroxine 75 mcg tablet 112.5 mcg PO FRSA levothyroxine 75 mcg tablet 150 mcg PO WADE magnesium 250 mg tablet 250 mg PO BID Held calcium carbonate-vitamin D3 1 EACH tablet 1 ea PO BID Hold Instructions: Hold until instructed to reinitiate by one of your doctors Discontinued calcitriol 0.25 mcg capsule 0.25 mcg PO TID Referrals / Follow Up: Robson Guido MD [Primary Care Provider] - Within 1 Week Parker Aleman DO [Med Staff - Active Staff] - See Referral Note (Call tomorrow to schedule an appointment to be seen in 3 months for hospital follow-up) Disposition Disposition (needs filled in before D/C Order can be placed): Home, Self Care Charges/Coding Visit Charges Inpatient E&M: 64168 Disch Hosp >30min
--- NOTE | 2023-07-19 16:09 | CASEMGMT ---
Patient has order for discharge. RN CM in to discuss needs at discharge. Patient denies needs at discharge. Patient had no further questions or concerns at this time.
--- NOTE | 2023-07-19 16:46 | OP.EGD_ITS ---
Patient Name: Loly Fuentes Procedure Date: 07/19/2023 12:39 PM Date of : 1960 Age: 63 Procedure: Upper GI endoscopy Indications: Epigastric abdominal pain, Iron deficiency anemia Providers: Parker Aleman DO Medicines: Monitored Anesthesia Care Patient Profile: This is a 63 year old female. Refer to note in patient chart for documentation of history and physical. Patient has symptoms. Complications: No immediate complications. Procedure: Pre-Anesthesia Assessment: - Prior to the procedure, a History and Physical was performed, and patient medications and allergies were reviewed. The patient is competent. The risks and benefits of the procedure and the sedation options and risks were discussed with the patient. All questions were answered and informed consent was obtained. Patient identification and proposed procedure were verified by the physician in the pre-procedure area. Mental Status Examination: alert and oriented. Airway Examination: normal oropharyngeal airway and neck mobility. Respiratory Examination: clear to auscultation. CV Examination: normal. Prophylactic Antibiotics: The patient does not require prophylactic antibiotics. Prior Anticoagulants: The patient has taken no anticoagulant or antiplatelet agents. ASA Grade Assessment: III - A patient with severe systemic disease. After reviewing the risks and benefits, the patient was deemed in satisfactory condition to undergo the procedure. The anesthesia plan was to use monitored anesthesia care (MAC). Immediately prior to administration of medications, the patient was re-assessed for adequacy to receive sedatives. The heart rate, respiratory rate, oxygen saturations, blood pressure, adequacy of pulmonary ventilation, and response to care were monitored throughout the procedure. The physical status of the patient was re-assessed after the procedure. After obtaining informed consent, the endoscope was passed under direct vision. Throughout the procedure, the patient's blood pressure, pulse, and oxygen saturations were monitored continuously. The pediatric colonoscope was introduced through the mouth, and advanced to the second part of duodenum. The upper GI endoscopy was accomplished without difficulty. The patient tolerated the procedure well. Scope In: 12:48:31 PM Scope Out: 12:52:19 PM Total Procedure Duration Time 0 hours 3 minutes 48 seconds Findings: The examined esophagus was normal. A hiatal hernia was present. Patchy moderately erythematous mucosa without bleeding was found in the gastric body. Biopsies were taken with a cold forceps for histology. Verification of patient identification for the specimen was done. Biopsies were taken with a cold forceps for Helicobacter pylori testing. Verification of patient identification for the specimen was done. Estimated blood loss was minimal. No gross lesions were noted in the first portion of the duodenum. Biopsies were taken with a cold forceps for histology. No biopsies or other specimens were collected for this exam. Impression: - Normal esophagus. - Hiatal hernia. - Erythematous mucosa in the gastric body. Biopsied. - No gross lesions in the first portion of the duodenum. Biopsied. No specimens collected. Recommendation: - Return patient to [facility] for [facility] care. - Advance diet as tolerated. - Continue present medications. - Await pathology results. Procedure Code(s): --- Professional --- 06235, Esophagogastroduodenoscopy, flexible, transoral; with biopsy, single or multiple CPT copyright 2021 [employer]. All rights reserved. The codes documented in this report are preliminary and upon radiology supervisor review may be revised to meet current compliance requirements. Parker Aleman DO 07/19/2023 4:46:08 PM This report has been signed electronically. Number of Addenda: 0 Note Initiated On: 07/19/2023 12:39 PM
--- NOTE | 2023-07-19 16:46 | OP.CCLET_ITS ---
07/19/2023 Robson Guido [address] [place] [address] Re : Upper GI endoscopy procedure for Loly Fuentes Dear Dr. Guido This procedure was performed on July. My impressions and recommendations are as follows: Impressions : - Normal esophagus. - Hiatal hernia. - Erythematous mucosa in the gastric body. Biopsied. - No gross lesions in the first portion of the duodenum. Biopsied. No specimens collected. Recommendations : - Return patient to [facility] for ongoing care. - Advance diet as tolerated. - Continue present medications. - Await pathology results. My findings are described in the full procedure note, which is enclosed. If I can be of further assistance, please feel free to contact me at . Sincerely, Parker Aleman, 07/19/2023 4:46:08 PM This report has been signed electronically.
--- NOTE | 2023-07-19 16:50 | OP.COLON_ITS ---
Patient Name: Loly Fuentes Procedure Date: 07/19/2023 12:52 PM Date of : 1960 Age: 63 Procedure: Colonoscopy Indications: Clinically significant diarrhea of unexplained origin, Iron deficiency anemia Providers: Parker Aleman DO Medicines: Monitored Anesthesia Care Patient Profile: This is a 63 year old female. Refer to note in patient chart for documentation of history and physical. Patient has symptoms. Her most recent colonoscopy for biopsy was within the past five years. Last Colonoscopy: date unknown. Unable to locate last colonoscopy report. Complications: No immediate complications. Procedure: Pre-Anesthesia Assessment: - Prior to the procedure, a History and Physical was performed, and patient medications and allergies were reviewed. The patient is competent. The risks and benefits of the procedure and the sedation options and risks were discussed with the patient. All questions were answered and informed consent was obtained. Patient identification and proposed procedure were verified by the physician in the pre-procedure area. Mental Status Examination: alert and oriented. Airway Examination: normal oropharyngeal airway and neck mobility. Respiratory Examination: clear to auscultation. CV Examination: normal. Prophylactic Antibiotics: The patient does not require prophylactic antibiotics. Prior Anticoagulants: The patient has taken no anticoagulant or antiplatelet agents. ASA Grade Assessment: III - A patient with severe systemic disease. After reviewing the risks and benefits, the patient was deemed in satisfactory condition to undergo the procedure. The anesthesia plan was to use monitored anesthesia care (MAC). Immediately prior to administration of medications, the patient was re-assessed for adequacy to receive sedatives. The heart rate, respiratory rate, oxygen saturations, blood pressure, adequacy of pulmonary ventilation, and response to care were monitored throughout the procedure. The physical status of the patient was re-assessed after the procedure. After I obtained informed consent, the scope was passed under direct vision. Throughout the procedure, the patient's blood pressure, pulse, and oxygen saturations were monitored continuously. The pediatric colonoscope was introduced through the anus and advanced to the terminal ileum. The colonoscopy was performed without difficulty. The patient tolerated the procedure well. The quality of the bowel preparation was fair. Scope In: 12:55:25 PM Scope Withdrawal Time 0 hours 4 minutes 32 seconds Scope Out: 1:06:49 PM Total Procedure Duration Time 0 hours 11 minutes 24 seconds Findings: The perianal and digital rectal examinations were normal. Multiple small-mouthed diverticula were found in the left colon. An area of mildly congested mucosa was found in the sigmoid colon, in the transverse colon and in the ascending colon. Biopsies were taken with a cold forceps for histology. Verification of patient identification for the specimen was done. Estimated blood loss was minimal. Impression: - Preparation of the colon was fair. - Diverticulosis in the left colon. - Congested mucosa in the sigmoid colon, in the transverse colon and in the ascending colon. Biopsied. Recommendation: - [facility] patient to [facility] for [facility] care. - Advance diet as tolerated. - Continue present medications. - Await pathology results. - No repeat colonoscopy. Procedure Code(s): --- Professional --- 97238, Colonoscopy, flexible; with biopsy, single or multiple CPT copyright 2021 [employer]. All rights reserved. The codes documented in this report are preliminary and upon braille coder review may be revised to meet current compliance requirements. Parker Aleman DO 07/19/2023 4:49:49 PM This report has been signed electronically. Number of Addenda: 0 Note Initiated On: 07/19/2023 12:52 PM
--- NOTE | 2023-07-19 16:50 | OP.CCLET_ITS ---
07/19/2023 Robson Guido [address] [place] [address] Re : Colonoscopy procedure for Loly Fuentes Dear Dr. Guido This procedure was performed on July. My impressions and recommendations are as follows: Impressions : - Preparation of the colon was fair. - Diverticulosis in the left colon. - Congested mucosa in the sigmoid colon, in the transverse colon and in the ascending colon. Biopsied. Recommendations : - Return patient to [facility] for ongoing care. - Advance diet as tolerated. - Continue present medications. - Await pathology results. - No repeat colonoscopy. My findings are described in the full procedure note, which is enclosed. If I can be of further assistance, please feel free to contact me at . Sincerely, Parker Aleman, 07/19/2023 4:49:49 PM This report has been signed electronically.
[2023-07-20 13:07] LABS: Vitamin D 1,25-Dihydroxy 44.7 pg/mL (24.8-81.5)
[2023-07-20 15:08] LABS: Anti-Centromere B Ab <0.2 AI (0.0-0.9); Anti-Chromatin <0.2 AI (0.0-0.9); Anti-Jo <0.2 AI (0.0-0.9); Anti-Mitochondrial AB <20.0 Units (0.0-20.0); Anti-Scleroderma-70 AB <0.2 AI (0.0-0.9); Anti-dsDNA Ab <1 IU/mL (0-9); RNP Ab <0.2 AI (0.0-0.9); SJOGREN'S Anti-SS-A test < 0.2 AI (0.0-0.9); SJOGREN'S Anti-SS-B test < 0.2 AI (0.0-0.9); Smith Ab <0.2 AI (0.0-0.9)
[2023-07-23 00:06] LABS: Aldolase 6.9 U/L (3.3-10.3); Angiotensin Convert Enzyme 15 U/L (14-82); Anti-Smooth Muscle ABS 4 Units (0-19); Cytoplasmic Ab (C-ANCA) <1:20 titer (Neg:<1:20); HEPATITIS B SURFACE AG Negative (Negative); Hep C Antibodies Non Reactive (Non Reactive); Hepatitis A IgM Antibody Negative (Negative); Hepatitis B Core AB IgM Negative (Negative); IgG, Quant 711 mg/dL (586-1602); Immunoglobulin A 235 mg/dL (87-352); Immunoglobulin E 26 IU/mL (6-495); Immunoglobulin G, Subclass 1 437 mg/dL (248-810); Immunoglobulin G, Subclass 2 195 mg/dL (130-555); Immunoglobulin G, Subclass 3 66 mg/dL (15-102); Immunoglobulin G, Subclass 4 < 1 mg/dL (2-96); Immunoglobulin M 24 mg/dL (26-217); Perinuclear Ab (P-ANCA) <1:20 titer (Neg:<1:20)
== END 2023-07-19 16:24 | disposition home or self-care (01) | DRG 392 ==
LOC: ED 17:13 → PCU 17:49
PROVIDERS: Internal Medicine Gastroenterology; Admitting Provider Internal Medicine; Emergency Provider Emergency Medicine; PCP Family Medicine; Visit Provider Internal Medicine
PROC: 0DJD8ZZ Inspection of Lower Intestinal Tract, Via Natural or Artificial Opening Endoscopic (ICD-10-PCS; CPT 45378; principal; 2023-07-19 12:20)
DX: K52.831 Collagenous colitis (principal); D63.1 Anemia in chronic kidney disease; N18.32 Chronic kidney disease, stage 3b; E03.9 Hypothyroidism, unspecified; I12.9 Hypertensive chronic kidney disease with stage 1 through stage 4 chronic kidney disease, or unspecified chronic kidney disease; F32.A Depression, unspecified; E83.52 Hypercalcemia; K57.30 Diverticulosis of large intestine without perforation or abscess without bleeding; D50.9 Iron deficiency anemia, unspecified; E87.6 Hypokalemia; K21.9 Gastro-esophageal reflux disease without esophagitis; G47.33 Obstructive sleep apnea (adult) (pediatric); K44.9 Diaphragmatic hernia without obstruction or gangrene; E66.9 Obesity, unspecified; Z68.31 Body mass index [BMI] 31.0-31.9, adult; Z79.899 Other long term (current) drug therapy; Z87.891 Personal history of nicotine dependence
CPT/HCPCS: 36415; 80048; 80053; 80074; 81025; 82085; 82164; 82306; 82330; 82340; 82436; 82550; 82570; 82652; 82728; 82784; 82785; 82787; 83516; 83540; 83550; 83630; 83735; 83970; 84100; 84133; 84300; 84443; 84540; 85018; 85025; 85045; 85652; 86140; 86225; 86235; 86256; 87493; 88305; 88313; 93005; 97162; 97165; 97802; 99284; J7030; J7120; A4216; J2405

== ENCOUNTER → 2023-07-31 | Outpatient (CLI) | payer MEDICARE, SELFPAY ==
[2023-07-31 17:38] LABS: Absolute Lymphocyte Count 2.35 X10^3/uL (0.83-4.51); Absolute Neutrophil Count 4.7 X10^3/uL (2.0-7.7); Basophil# 0.06 X10^3/uL; Basophil% 0.7 % (0-1); Eosinophil# 0.43 X10^3/uL; Hematocrit 33.9 % (37-47); Hemoglobin 10.6 g/dL (12.0-15.0); Lymphocyte # 2.35 X10^3/ul (0.83-4.51); Lymphocyte % 27.4 % (19-41); Mean Corp Hgb Conc 31.3 g/dL (32-36); Mean Corpuscular Hgb 28.3 pg (27.0-32.0); Mean Corpuscular Volume 90.6 fL (81-99); Mean Platelet Vol. 11.3 fl (6.2-12.0); Monocyte# 0.91 X10^3/uL; Monocyte% 10.6 % (0-10); NRBC Flagged by Analyzer 0 % (0-5); Neutrophil # 4.74 X10^3/uL (2.7-7.7); Neutrophil % 55.4 % (47-70); Platelet Count 181 K/mm3 (150-450); RBC Distribution Width CV 14.6 % (11.6-14.6); RBC Distribution Width SD 48.2 fl (35.1-43.9); Red Blood Count 3.74 M/mm3 (4.2-5.4); White Blood Count 8.6 K/mm3 (4.4-11.0)
[2023-07-31 17:42] LABS: Vitamin D,25 Hydroxy 67.6 ng/mL
[2023-07-31 18:00] LABS: Calcium,Total 6.5 mg/dL (8.5-10.1)
[2023-07-31 18:02] LABS: ALB/GLOB Ratio 0.9 RATIO (0.9-2.4); AST(SGOT) 16 U/L (15-37); Alanine Aminotransfer ALT/SGPT 25 U/L (13-56); Albumin, Serum 3.4 g/dL (3.2-5.0); Alkaline Phosphatase 81 U/L (45-117); Anion Gap 4 (5-15); BUN 15 mg/dL (7-18); BUN/Creat Ratio 13.2 RATIO (10-20); Chloride 110 mmol/L (98-107); Creatinine, Serum 1.14 mg/dL (0.55-1.02); EST Glomerular Filtration Rate 51 mL/min (>60); Est Glom Filt Rate - Afr Amer 62 mL/min (>60); Globulin 3.6 g/dL (2.2-4.2); Glucose 97 mg/dL (74-106); Magnesium 1.9 mg/dL (1.6-2.6); Phosphorus 3.7 mg/dL (2.5-4.9); Potassium 3.9 mmol/L (3.5-5.1); Sodium Level 144 mmol/L (136-145); Thyroid Stim Hormone (TSH) 0.21 uIU/mL (0.358-3.74)
[2023-08-01 13:06] LABS: PTHIN < 6.3 pg/mL (18.4-80.1)
== END | disposition home or self-care (01) ==
LOC: MFPLAB 15:49
PROVIDERS: PCP Family Medicine; Visit Provider Family Medicine
DX: E83.51 Hypocalcemia (principal); K92.2 Gastrointestinal hemorrhage, unspecified
CPT/HCPCS: 36415; 80053; 82306; 83735; 83970; 84100; 84443; 85025

== ENCOUNTER 2023-08-01 09:34 | Emergency (ER) | payer MEDICARE, SELFPAY ==
[2023-08-01 09:35] VITALS: BP 169/80; PULSE 94; RESP 16; TEMP 36.6; O2SAT 99; BMI 31.7
--- NOTE | 2023-08-01 10:22 | EX.ED.DYSGE1 ---
HPI History of Present Illness Chief Complaint: Abn Labs Narrative Narrative: Patient is a 63-year-old female who is presenting To the ER with chief complaint of abnormal lab works with low calcium. Patient has a history of nonreactive parathyroid gland. Patient does have an cmo & president that family is displeased with and will be looking for another cmo & president. Reason is patient has been having her potassium and calcium supplements changed various different times for not clear reasons to the patient and her sister. Sister And [id number] are at bedside, patient's sister is the main historian and also main caregiver for patient at home and helps patient with all her medications. Patient has chronic numbness and tingling is chronic and occurs in the left cheek when her calcium levels are low and high, these are not new or acute today. Patient is having intermittent leg spasms, otherwise no other acute complaints. [facility] Medical History (Updated 08/01/23 @ 12:[address] Gomez Mendiola, DO) Abdominal pain Anxiety Arthritis Asthma Chest pain Cholelithiasis CKD (chronic kidney disease) CPAP (continuous positive airway pressure) dependence Depression Depression with anxiety Diarrhea Former smoker GERD (gastroesophageal reflux disease) History of claustrophobia Hypertension Hyperthyroidism Hypoparathyroidism Migraines Home Medications multivitamin with folic acid 400 mcg tablet 1 tab PO DAILY SUPPLEMENT 05/18/14 [History Last Taken 07/16/23] vitamin E (dl, acetate) 180 mg (400 unit) capsule 400 units PO DAILY SUPPLEMENT 05/18/14 [History Last Taken 07/16/23] omega-3 fatty acids-fish oil 300 mg-500 mg capsule (Fish Oil) 1 cap PO DAILY SUPPLEMENT 02/17/20 [History Last Taken 07/16/23] potassium citrate 10 mEq (1,080 mg) tablet,extended release 1,080 mg PO DAILY SUPPLEMENT 02/17/20 [History Last Taken Unknown] calcium carbonate 500 mg-vitamin D3 15 mcg (600 unit) tablet 1 ea PO BID SUPPLEMENT 02/27/20 [History Last Taken 07/16/23] atorvastatin 20 mg tablet 20 mg PO DAILY CHOLESTEROL 07/17/23 [History Last Taken 07/16/23] biotin 10,000 mcg capsule 10,000 mcg PO DAILY SUPPLEMENT 07/17/23 [History Last Taken 07/16/23] dicyclomine 10 mg capsule 10 mg PO TIDCM IRRITABLE BOWELS 07/17/23 [History Last Taken 07/16/23] diphenoxylate-atropine 2.5 mg-0.025 mg tablet 2 tab PO 4X/DAY DIARRHEA 07/17/23 [History Last Taken Unknown] duloxetine 30 mg capsule,delayed release 30 mg PO DAILY DEPRESSION 07/17/23 [History Last Taken 07/16/23] duloxetine 60 mg capsule,delayed release 60 mg PO DAILY DEPRESSION 07/17/23 [History Last Taken 07/16/23] levothyroxine 75 mcg tablet 75 mcg PO MOTUWETH THYROID 07/17/23 [History Last Taken 07/16/23] levothyroxine 75 mcg tablet 112.5 mcg PO FRSA THYROID 07/17/23 [History Last Taken 07/14/23] levothyroxine 75 mcg tablet 150 mcg PO WADE THYROID 07/17/23 [History Last Taken 07/15/23] lisinopril 30 mg tablet 30 mg PO DAILY BLOOD PRESSURE 07/17/23 [History Last Taken 07/16/23] magnesium 250 mg tablet 250 mg PO BID SUPPLEMENT 07/17/23 [History Last Taken 07/16/23] magnesium gluconate 12.5 mg magnesium (250 mg) tablet 250 mg PO BID SUPPLEMENT 07/17/23 [History Last Taken Unknown] colestipol 1 gram tablet 1 g PO BID #60 tabs 07/19/23 [Rx Last Taken Unknown] potassium chloride 20 mEq tablet,extended release 20 meq PO DAILY #30 tabs 07/19/23 [Rx Last Taken Unknown] Allergy/AdvReac Type Severity Reaction Status Date / Time famotidine Allergy Intermediate depletes Verified 08/01/23 09:35 calcium omeprazole Allergy Intermediate diarrhea Verified 08/01/23 09:35 sulfamethoxazole Allergy Rash Verified 08/01/23 09:35 [From Bactrim] trimethoprim [From Bactrim] Allergy Rash Verified 08/01/23 09:35 Family History Mother Arthritis Brother Cancer Diabetes Heart disease Father Diabetes Heart disease Hypertension High cholesterol Uncle Diabetes Grandfather Cancer skin cancer Surgical History History Bilateral Cataract Surgery Social History Smoking Status: Former smoker alcohol intake: never substance use type: does not use ROS ROS ED ROS Narrative REVIEW OF SYSTEMS: Unless otherwise stated in this report the patient's positive and negative responses for review of systems for constitutional, eyes, ENT, cardiovascular, respiratory, gastrointestinal, neurological, , musculoskeletal, and integument systems and related systems to the presenting problem are either stated in the history of present illness or were not pertinent or were negative for the symptoms and/or complaints related to the presenting medical problem. EXAM Physical Exam Narrative Exam Narrative: Vital signs reviewed and patient is not hypoxic. General: The patient appears well and in no apparent distress. Patient is resting comfortably on cart. Not toxic, lethargic, or listless. Skin: Warm, dry, no pallor noted. There is no rash noted. Head: Normocephalic, atraumatic, Negative Chovstek sign Eye: Normal conjunctiva, no drainage, EOMI. PERRL. Ears, Nose, Mouth, and Throat: oral mucosa is moist. Nares patent. Mouth without vesicles. Cardiovascular: Regular Rate and Rhythm, no murmurs, gallops, or rubs Respiratory: Patient is in no distress, no accessory muscle use, lungs are clear to auscultation, no wheezing, rales or rhonchi Back: non-tender, no CVA tenderness bilaterally to percussion. NO CTLS midline or paraspinal tenderness to palpation. GI: Soft, no tenderness to palpation, no masses appreciated. No rebound, guarding, or rigidity noted. Musculoskeletal: The patient has full range of motion of all extremities and joints with no difficulty. Patient has no motor, no sensory deficits. Neurological: A&O x4, normal speech, no focal neurological deficits. Psychiatric: Cooperative Const Vital Signs: 08/01/23 09:35 08/01/23 10:14 Temperature 97.8 F Temperature Source Temporal Pulse Rate 94 Respiratory Rate 16 Respiratory Pattern Normal Blood Pressure 169/80 H Blood Pressure Mean 109 Pulse Ox 99 Oxygen Delivery Method Room Air MDM MDM MDM Narrative Medical decision making narrative: Patient's calcium level was 6.5, repeat shows 7.9. Patient was given 2 g of IV calcium gluconate. Patient has not been taking her calcium tablets for the past month as recommended by her cmo & president. Patient will start taking one calcium tablet a day until further recommendation from PCP. Family is going to be looking to find a new cmo & president. Patient has had her calcium and potassium supplements changed multiple times in the past 6 months. Patient is currently not taking any calcium tablets daily but will start again taking one calcium tablet for the next week and follow-up with physicians next week. Patient and family agree with this, no questions at discharge. Lab Data Attestation: I reviewed the patient's lab results. Labs: Laboratory Results - last 24 hr 08/01/23 08/01/23 10:10 11:05 WBC 8.2 RBC 3.94 L Hgb 11.1 L Hct 35.9 L MCV 91.1 MCH 28.2 MCHC 30.9 L RDW Std Deviation 48.0 H RDW Coeff of Elsie 14.6 Plt Count 185 MPV 11.3 Immature Gran % (Auto) 1.200 H Neut % (Auto) 54.3 Lymph % (Auto) 28.5 [place] % (Auto) 9.5 Eos % (Auto) 5.5 H Baso % (Auto) 1.0 Absolute Neuts (auto) 4.5 Absolute Lymphs (auto) 2.34 Nucleated RBC % 0 Sodium 141 Potassium 3.6 Chloride 106 Carbon Dioxide 33.0 H Anion Gap 2 L BUN 13 Creatinine 1.09 H Estim Creat Clear Calc 59.43 Est GFR (MDRD) Af Amer 65 Est GFR (MDRD) Non-Af 54 L BUN/Creatinine Ratio 11.9 Glucose 91 Calcium 7.9 L Phosphorus 4.4 Total Bilirubin 0.30 AST 15 ALT 24 Alkaline Phosphatase 79 Total Protein 7.2 Albumin 3.4 Globulin 3.8 Albumin/Globulin Ratio 0.9 Lipase 40 Urine Color Yellow Urine Clarity Cloudy Urine pH 8.0 Ur Specific Floyd 1.010 Urine Protein Negative Urine Glucose (UA) Normal Urine Ketones 5 H Urine Occult Blood Negative Urine Nitrite Negative Urine Bilirubin Negative Urine Urobilinogen Normal Ur Leukocyte Esterase Negative Urine RBC 0 SEEN Urine WBC 0 SEEN Ur Squamous Epith Cells 0 SEEN Urine Bacteria 0 SEEN Urine Mucus 0 SEEN EKG Initial EKG: Attestation: I personally reviewed and interpreted this EKG as follows: Comments: EKG interpretation. Normal sinus rhythm 89 beats a minute. Normal axis deviation. No acute ST elevation, no acute ectopy. QTc of 457 Discharge Plan Triage Chief Complaint: Abn Labs ED Provider: Gomez Mendiola Dx/Rx/DC Orders Clinical Impression: Dehydration, mild, Hypocalcemia Instructions: ED Hypocalcemia (Adult) Prescriptions: No Action omega-3 fatty acids-fish oil 300 mg-500 mg capsule 300-500 mg capsule 1 cap PO DAILY potassium citrate 10 mEq (1,080 mg) tablet extended release 1,080 mg PO DAILY Patient Comments: PT IS SUPPOSED TO BE ON THIS BUT HAS NOT BEEN TAKING ( OF 07-17-23) vitamin E (dl, acetate) 400 UNITS capsule 400 units PO DAILY multivitamin with folic acid 1 TABLET tablet 1 tab PO DAILY calcium carbonate-vitamin D3 1 EACH tablet 1 ea PO BID Hold Instructions: Hold until instructed to reinitiate by one of your doctors atorvastatin 20 mg tablet 20 mg PO DAILY dicyclomine 10 mg capsule 10 mg PO TIDCM duloxetine 30 mg capsule,delayed release(DR/EC) 30 mg PO DAILY Patient Comments: TAKE ONE 30MG CAPSULE AND ONE 60MG CAPSULE TOGETHER ONCE DAILY FOR A TOTAL DAILY DOSE OF 90MG duloxetine 60 mg capsule,delayed release(DR/EC) 60 mg PO DAILY Patient Comments: TAKE ONE 30MG CAPSULE AND ONE 60MG CAPSULE TOGETHER ONCE DAILY FOR A TOTAL DAILY DOSE OF 90MG magnesium gluconate 12.5 mg magne- sium (250 mg) tablet 250 mg PO BID diphenoxylate-atropine 2.5-0.025 mg tablet 2 tab PO 4X/DAY biotin 10,000 mcg capsule 10,000 mcg PO DAILY lisinopril 30 mg tablet 30 mg PO DAILY levothyroxine 75 mcg tablet 75 mcg PO MOTUWETH levothyroxine 75 mcg tablet 112.5 mcg PO FRSA levothyroxine 75 mcg tablet 150 mcg PO WADE magnesium 250 mg tablet 250 mg PO BID colestipol 1 gram Tablet 1 g PO BID Qty: 60 3RF potassium chloride 20 mEq tablet extended release 20 meq PO DAILY Qty: 30 0RF Primary Care Provider: Robson Guido Referrals: Robson Guido MD [Primary Care Provider] - Activity Restrictions/Additional Instructions: Take 1 tablet of your calcium supplement starting tomorrow daily until next Sunday when hopefully you will have followed up with your PCP. You were given 2 g of IV calcium in the ER today, YOU will need repeat outpatient lab testing next week of your calcium and electrolytes along with your kidney function panel. Call today to make an appointment with follow-up with your PCP for repeat lab testing and reevaluation of potassium, calcium blood levels and medication regimen. Disposition Disposition: Home, Self Care Discharge Date/Time: 08/01/23 17:41
[2023-08-01 10:41] LABS: Absolute Lymphocyte Count 2.34 X10^3/uL (0.83-4.51); Absolute Neutrophil Count 4.5 X10^3/uL (2.0-7.7); Basophil# 0.08 X10^3/uL; Eosinophil# 0.45 X10^3/uL; Eosinophils% 5.5 % (0-5); Hematocrit 35.9 % (37-47); Hemoglobin 11.1 g/dL (12.0-15.0); Lymphocyte # 2.34 X10^3/ul (0.83-4.51); Lymphocyte % 28.5 % (19-41); Mean Corp Hgb Conc 30.9 g/dL (32-36); Mean Corpuscular Hgb 28.2 pg (27.0-32.0); Mean Corpuscular Volume 91.1 fL (81-99); Mean Platelet Vol. 11.3 fl (6.2-12.0); Monocyte# 0.78 X10^3/uL; Monocyte% 9.5 % (0-10); NRBC Flagged by Analyzer 0 % (0-5); Neutrophil # 4.46 X10^3/uL (2.7-7.7); Neutrophil % 54.3 % (47-70); Platelet Count 185 K/mm3 (150-450); RBC Distribution Width CV 14.6 % (11.6-14.6); Red Blood Count 3.94 M/mm3 (4.2-5.4); White Blood Count 8.2 K/mm3 (4.4-11.0)
[2023-08-01] MEDS: 0.9% Normal Saline (1000mL) 1,000 ML 1000 ML IV (10:53)
[2023-08-01 10:59] LABS: ALB/GLOB Ratio 0.9 RATIO (0.9-2.4); AST(SGOT) 15 U/L (15-37); Alanine Aminotransfer ALT/SGPT 24 U/L (13-56); Albumin, Serum 3.4 g/dL (3.2-5.0); Alkaline Phosphatase 79 U/L (45-117); Anion Gap 2 (5-15); BUN 13 mg/dL (7-18); BUN/Creat Ratio 11.9 RATIO (10-20); Calcium,Total 7.9 mg/dL (8.5-10.1); Chloride 106 mmol/L (98-107); Creatinine, Serum 1.09 mg/dL (0.55-1.02); EST Glomerular Filtration Rate 54 mL/min (>60); Est Glom Filt Rate - Afr Amer 65 mL/min (>60); Estimated Creatinine Clearance 59.43 ml/min; Globulin 3.8 g/dL (2.2-4.2); Glucose 91 mg/dL (74-106); Lipase 40 U/L (13-75); Phosphorus 4.4 mg/dL (2.5-4.9); Potassium 3.6 mmol/L (3.5-5.1); Protein, Total 7.2 g/dL (6.4-8.2); Sodium Level 141 mmol/L (136-145)
[2023-08-01 11:12] LABS: Bacteria 0 SEEN /hpf (None Seen); Mucous, Urine 0 SEEN /hpf (<or=2+); Red Blood Cells-Urine 0 SEEN /hpf (0-5); Squamous Epithelial Cells - UA 0 SEEN /hpf (5-10); White Blood Cells 0 SEEN /hpf (0-5)
[2023-08-01 11:17] LABS: Glucose, Dipstick Normal (Normal); Ketone-Dipstick 5 mg/dl (Negative); Leukocyte Esterase-Dipstick Negative /ul (Negative); Nitrite-Dipstick Negative (Negative); Occult Blood-Urine Negative /ul (Negative); Protein-Dipstick Negative (Negative); Urine Bilirubin Dipstick Negative (Negative); Urine Urobilinogen Normal (Normal)
[2023-08-01 11:23] LABS: Color, Urine Yellow (Yellow); Urine Clarity Cloudy (Clear)
[2023-08-01] MEDS: Calcium Gluconate IV 2 GM in 0.9% Normal Saline (100mL Bag) 100 ML IV (13:30)
[2023-08-01 13:32] VITALS: BP 134/79; PULSE 87; RESP 18; O2SAT 93
[2023-08-01 17:40] VITALS: BP 139/85; PULSE 78; RESP 19; O2SAT 96
== END 2023-08-01 17:41 | disposition home or self-care (01) ==
PROVIDERS: Emergency Provider Emergency Medicine; PCP Family Medicine; Referring Provider Emergency Medicine; Visit Provider Emergency Medicine
DX: E86.0 Dehydration (principal); E83.51 Hypocalcemia; N18.9 Chronic kidney disease, unspecified; Z87.891 Personal history of nicotine dependence
CPT/HCPCS: 80053; 81001; 83690; 84100; 85025; 93005; 96365; 96366; 99283; A4216; J0612

== ENCOUNTER → 2023-08-03 | Outpatient (CLI) | payer MEDICARE, SELFPAY ==
--- OUTSIDE RECORDS SUMMARY | 2023-08-03 08:55 | XMS RPT_ITS | CCD ---
Author Name Unknown Address [address] [place] [address] Organization [facility] Care Team Providers Care Microbiology Lab Technician Name Role Phone PHYSICIAN, NONE Primary Care Physician Bekah Lion MD, DR SIFUENTES Primary Care Physician KENDELL DEL TORO, KAITLIN Attending Frank TRUJILLO MD, DR SIFUENTSE Primary Care Wilma RDZ MD, KAITLIN Attending Frank TRUJILLO MD, DR SIFUENTES Primary Care Wilma RDZ MD, KAITLIN Attending Frank TRUJILLO MD, DR SIFUENTES Primary Care Wilma haney Allergies Allergy Classification Reported Allergen(s) Allergy Type Date of Onset Reaction(s) Facility (3 sources) Budesonide; Translations: [budesonide] Drug Allergy Hypertensive disorder, systemic arterial (disorder) [facility] (3 sources) Famotidine; Translations: [famotidine] Drug Allergy Unknown (qualifier value) [facility] (3 sources) Latex Allergy to substance Unknown (qualifier value) [facility] (3 sources) Omeprazole; Translations: [omeprazole] Drug Allergy Unknown (qualifier value) [facility] (3 sources) Sulfamethoxazole / Trimethoprim; Translations: [sulfamethoxazole-t rimethoprim] Drug Allergy Unknown (qualifier value) [facility] Medications Current Medications Medication Drug Class(es) Dates Sig (Normalized) Sig (Original) atorvastatin 20 mg oral tablet (3 sources) HMG-CoA Reductase Inhibitor Start: 02-15-2023 take 1 tablet by mouth once daily atorvastatin 20 mg oral tablet TAKE 1 TABLET BY MOUTH ONCE DAILY Start Date: 02/15/23 Status: Ordered Problems Problem Classification Problem Date Documented Da te Episodic/Chronic Chronic kidney disease (1 source) Chronic kidney disease 08-10-2022 Chronic Esophageal disorders (3 sources) Gastroesophageal reflux disease 04-04-2022 Chronic Essential hypertension (3 sources) Hypertensive disorder 04-04-2022 Chronic Nutritional deficiencies (3 sources) Vitamin D deficiency 04-04-2022 Chronic Other endocrine disorders (3 sources) Hypoparathyroidism 04-04-2022 Chronic Other nutritional; endocrine; and metabolic disorders (3 sources) Hypomagnesemia 04-04-2022 Chronic Thyroid disorders (6 sources) Hypothyroidism; Translations: [Simple goiter] 04-04-2022 Chronic Unclassified (3 sources) Patient encounter status 04-04-2022 Results Test Name Value Interpretation Reference Range Facil ity Encounters Encounter Date Encounter Type Care Provider Facility Start: 05-07-2023 End: 05-08-2023 ambulatory KAITLIN RDZ MD Facility:B Start: 05-07-2023 End: 05-07-2023 Patient encounter procedure KAITLIN RDZ MD [facility] Start: 02-01-2023 End: 02-02-2023 ambulatory KAITLIN RDZ MD Facility:[facility] Start: 08-21-2022 End: 08-22-2022 ambulatory KAITLIN RDZ MD Facility:[facility] Start: 04-12-2022 End: 04-12-2022 Patient encounter procedure KAITLIN RDZ MD [facility] Start: 04-06-2022 End: 04-06-2022 Patient encounter procedure KAITLIN RDZ MD [facility] Start: 08-19-2021 End: 08-19-2021 Patient encounter procedure NENA BENAVIDEZ DO [facility] Payers Date Payer Category Payer Medicare [id number] 1960 Unknown [id number] 1960 Unknown [id number] 1960 Unknown [id number] Social History Date Type Detail Facility Start: 04-04-2022 Tobacco smoking status Ex-smoker (fi nding) [facility] [place] Sex Assigned At Sex [facility] Evaluation + Plan note Note Date & Type Note Facility Evaluation + Plan note No data available for this section [facility] Evaluation + Plan note Radiology Note Date & Type Note Facility Evaluation + Plan note Future Appointments Appointment Date:04/12/2022 08:30:00 AM Scheduled Provider: Location:[facility] Appointment Type:US Thyroid Appointment Date:04/27/2022 10:00:00 AM Scheduled Provider: Location:[facility] Appointment Type:ENDO Nurse Diagnostic Tests PendingVitamin D Level 04/06/22Calcium Random Urine 04/06/22Vitamin D, 1,25-Dihydroxy 04/06/22 Future Scheduled TestsUS Thyroid 04/12/22 [facility] Evaluation + Plan note Laboratory Note Date & Type Note Facility Evaluation + Plan note Future Appointments Appointment Date:05/17/2023 10:15:00 AM Scheduled Provider:KAITLIN RDZ MD Location:[facility] Appointment Type:ENDO OV Appointment Date:10/18/2023 10:00:00 AM Scheduled Provider:KAITLIN RDZ MD Location:[facility] Appointment Type:ENDO OV Future Scheduled TestsMagnesium Level 10/17/23Thyroid Stimulating Hormone 10/17/23Thyroid Stimulating Hormone 06/02/22Free T4 10/17/23Free T4 06/02/22A1C Hemoglobin 10/17/23Calcium Random Urine 10/17/23Creatinine Random Urine 10/17/23Free T3 10/17/23Free T3 06/02/22Vitamin D Level 10/17/23Complete Metabolic Panel 10/17/23Complete Metabolic Panel 06/02/22 [facility] Hospital Discharge instructions Note Date & Type Note Facility Hospital Discharge instructions No data available for this section [facility] Progress note Note Date & Type Note Facility Progress note No data available for this section [facility] Summary Purpose Family History No Family History Records Found No data available for this section No Family History Records Found Advance Directives No Advanced Directives Records FoundNo Advanced Directives Records Found Additional Source Comments INFORMATION SOURCE (unrecogn ized section and content) DATE CREATED AUTHOR AUTHOR'S ORGANIZ ATION 05/11/2023 [facility] ([place]) Care Team (unrecognized sect ion and content) Care Team Personnel Name: BEAR TRUJILLO MD Member Role: Primary Care Physician Address: Address: [address] [place] [address] Care Team Related Persons Name: RADHA TRUJILLO Care Team Personnel Name: BEAR TRUJILLO MD Member Role: Primary Care Physician Address: Address: [address] [place] [address] Care Team Related Persons Name: RADHA TRUJILLO Patient Care team informatio n (unrecognized section and content) Care Team Personnel Name: BEAR TRUJILLO MD Member Role: Primary Care Physician Address: Address: [address] [place] [address] Care Team Related Persons Name: RADHA TRUJILLO FOR RECORDS PERTAINING TO PATIENTS WHO ARE OR HAVE BEEN ENROLLED IN A CHEMICAL DEPENDENCY/SUBSTANCEABUSE PROGRAM, SOME INFORMATION MAY BE OMITTED. This clinical summary was aggregated from multiple sources. Caution should be exercised in using it in the provision of clinical care. This summary normalizes information from multiple sources, and as a consequence, information in this document may materially change the coding, format and clinical context of patient data. In addition, data may be omitted in some cases. CLINICAL DECISIONS SHOULD BE BASED ON THE PRIMARY CLINICAL RECORDS. [facility] [employer] [facility]. provides no warranty or guarantee of the accuracy or completeness of information in this document.
[2023-08-03 12:31] LABS: Ionized Calcium 4.39 mg/dL (4.36-5.20)
[2023-08-03 12:47] LABS: Anion Gap 5 (5-15); BUN 15 mg/dL (7-18); BUN/Creat Ratio 14.7 RATIO (10-20); Chloride 103 mmol/L (98-107); Creatinine, Serum 1.02 mg/dL (0.55-1.02); EST Glomerular Filtration Rate 58 mL/min (>60); Est Glom Filt Rate - Afr Amer 70 mL/min (>60); Glucose 65 mg/dL (74-106); Magnesium 2.2 mg/dL (1.6-2.6); Phosphorus 4.3 mg/dL (2.5-4.9); Sodium Level 140 mmol/L (136-145); Thyroid Stim Hormone (TSH) 0.26 uIU/mL (0.358-3.74)
== END | disposition home or self-care (01) ==
LOC: MFPLAB 08:32
PROVIDERS: PCP Family Medicine; Visit Provider Family Medicine
DX: E83.51 Hypocalcemia (principal)
CPT/HCPCS: 36415; 80048; 82330; 83735; 84100; 84443

== ENCOUNTER → 2023-08-13 | Outpatient (CLI) | payer MEDICARE, SELFPAY ==
[2023-08-13 10:59] LABS: Vitamin D,25 Hydroxy 68.3 ng/mL
[2023-08-13 11:09] LABS: Anion Gap 6 (5-15); BUN 17 mg/dL (7-18); BUN/Creat Ratio 16.3 RATIO (10-20); Chloride 103 mmol/L (98-107); Creatinine, Serum 1.04 mg/dL (0.55-1.02); EST Glomerular Filtration Rate 57 mL/min (>60); Est Glom Filt Rate - Afr Amer 69 mL/min (>60); Glucose 100 mg/dL (74-106); Potassium 3.8 mmol/L (3.5-5.1); Sodium Level 141 mmol/L (136-145)
== END | disposition home or self-care (01) ==
LOC: MFPLAB 08:13
PROVIDERS: PCP Family Medicine; Visit Provider Family Medicine
DX: E55.9 Vitamin D deficiency, unspecified (principal)
CPT/HCPCS: 36415; 80048; 82306

== ENCOUNTER → 2023-09-10 | Outpatient (CLI) | payer MEDICARE, SELFPAY ==
--- OUTSIDE RECORDS SUMMARY | 2023-09-10 09:54 | XMS RPT_ITS | CCD ---
Author Name Unknown Address [address] [place] [address] Organization [facility] Care Team Providers Care Line Dancer Name Role Phone PHYSICIAN, NONE Primary Care Physician eBkah Lion MD, DR SIFUENTES Primary Care Physician KENDELL DEL TORO, KAITLIN Attending Frank TRUJILLO MD, DR SIFUENTES Primary Care Wilma RDZ MD, KAITLIN Attending Frank TRUJILLO MD, DR SIFUENTES Primary Care Wilma RDZ MD, KAITLIN Attending Frank TRUJILLO MD, DR SIFUENTES Primary Care Wilma haney Allergies Allergy Classification Reported Allergen(s) Allergy Type Date of Onset Reaction(s) Facility (3 sources) Budesonide; Translations: [budesonide] Drug Allergy Hypertensive disorder, systemic arterial (disorder) [facility] (3 sources) Famotidine; Translations: [famotidine] Drug Allergy Unknown (qualifier value) [facility] (3 sources) Latex Allergy to substance Unknown (qualifier value) [facility] (3 sources) Omeprazole; Translations: [omeprazole] Drug Allergy Unknown (qualifier value) [facility] (3 sources) Sulfamethoxazole / Trimethoprim; Translations: [sulfamethoxazole-t rimethoprim] Drug Allergy Unknown (qualifier value) [facility] Medications Current Medications Medication Drug Class(es) Dates [...] 05-07-2023 Patient encounter procedure KAITLIN RDZ MD [facility] Start: 02-01-2023 End: 02-02-2023 ambulatory KAITLIN RDZ MD Facility:B Start: 08-21-2022 End: 08-22-2022 ambulatory KAITLIN RDZ MD Facility:[facility] Start: 04-12-2022 End: 04-12-2022 Patient encounter procedure KAITLIN RDZ MD [facility] Start: 04-06-2022 End: 04-06-2022 Patient encounter procedure KAITLIN RDZ MD [facility] Start: 08-19-2021 End: 08-19-2021 Patient encounter procedure NENA BENAVIDEZ DO [facility] Payers Date Payer Category Payer Medicare [id number] 1960 Unknown [id number] 1960 Unknown [id number] 1960 Unknown [id number] Social History Date Type Detail Facility Start: 04-04-2022 Tobacco smoking status Ex-smoker (fi nding) [facility] [place] Sex Assigned At Sex [facility] Evaluation + Plan note Note Date & Type Note Facility Evaluation + Plan note No data available for this section [facility] Evaluation + Plan note Radiology Note Date & Type Note Facility Evaluation + Plan note Future Appointments Appointment Date:04/12/2022 08:30:00 AM Scheduled Provider: Location:RAD Appointment Type:US Thyroid Appointment Date:04/27/2022 10:00:00 AM Scheduled Provider: Location:ENDO [facility]UBON Appointment Type:ENDO Nurse Diagnostic Tests PendingVitamin D Level 04/06/22Calcium Random Urine 04/06/22Vitamin D, 1,25-Dihydroxy 04/06/22 Future Scheduled TestsUS Thyroid 04/12/22 [facility] Evaluation + Plan note Laboratory Note Date [...] 10/17/23Complete Metabolic Panel 10/17/23Complete Metabolic Panel 06/02/22 [facility] Hospital Discharge instructions Note Date & Type Note Facility Hospital Discharge instructions No data available for this section [facility] Progress note Note Date & Type Note Facility Progress note No data available for this section [facility] Summary Purpose Family History No Family History Records Found No data available for this section No Family History Records Found Advance Directives No Advanced Directives Records FoundNo Advanced Directives Records Found Additional Source Comments INFORMATION SOURCE (unrecogn ized section and content) DATE CREATED AUTHOR AUTHOR'S ORGANIZ ATION 05/11/2023 [facility] ([place] Care Team (unrecognized sect ion and content) Care Team Personnel Name: BEAR TRUJILLO MD Member Role: Primary Care Physician Address: Address: [address] [place] [address] Care Team Related Persons Name: RADHA TRUJILLO Care Team Personnel Name: BEAR TRUJILLO MD Member Role: Primary Care Physician Address: Address: [address] [place] [address] Care Team Related Persons Name: RADHA TRUJILLO Patient Care team informatio n (unrecognized section and content) Care Team Personnel Name: BEAR TRUJILLO MD Member Role: Primary Care Physician Address: Address: [address] [place] [address] Care Team Related Persons Name: RADHA TRUJILLO [...] BE BASED ON THE PRIMARY CLINICAL RECORDS. [facility] [employer] [facility]. provides no warranty or guarantee of the accuracy or completeness of information in this document.
[2023-09-10 10:43] LABS: Anion Gap 5 (5-15); BUN 19 mg/dL (7-18); BUN/Creat Ratio 18.3 RATIO (10-20); Calcium,Total 8.7 mg/dL (8.5-10.1); Chloride 101 mmol/L (98-107); Creatinine, Serum 1.04 mg/dL (0.55-1.02); EST Glomerular Filtration Rate 57 mL/min (>60); Est Glom Filt Rate - Afr Amer 69 mL/min (>60); Glucose 103 mg/dL (74-106); Magnesium 2.1 mg/dL (1.6-2.6); Potassium 4.1 mmol/L (3.5-5.1); Sodium Level 137 mmol/L (136-145); T4 Free Direct 1.26 ng/dL (0.76-1.46)
[2023-09-10 11:11] LABS: PTHIN < 6.3 pg/mL (18.4-80.1)
== END | disposition home or self-care (01) ==
LOC: MFPLAB 09:06
PROVIDERS: PCP Family Medicine; Visit Provider Family Medicine
DX: K21.9 Gastro-esophageal reflux disease without esophagitis (principal); E03.9 Hypothyroidism, unspecified
CPT/HCPCS: 36415; 80048; 83735; 83970; 84439; 84443

== ENCOUNTER → 2023-09-18 | Outpatient (CLI) | payer MEDICARE, SELFPAY ==
[2023-09-18 16:08] LABS: Hematocrit 36.9 % (37-47); Hemoglobin 11.6 g/dL (12.0-15.0)
== END | disposition home or self-care (01) ==
LOC: LAB 14:32
PROVIDERS: PCP Family Medicine; Referring Provider Internal Medicine Gastroenterology; Visit Provider Internal Medicine Gastroenterology
DX: E87.6 Hypokalemia (principal); D64.9 Anemia, unspecified
CPT/HCPCS: 36415; 85014; 85018

== ENCOUNTER → 2023-12-05 | Outpatient (CLI) | payer MEDICARE, SELFPAY ==
[2023-12-05 10:08] LABS: Ionized Calcium 4.94 mg/dL (4.36-5.20)
[2023-12-05 10:24] LABS: AST(SGOT) 19 U/L (15-37); Alanine Aminotransfer ALT/SGPT 29 U/L (13-56); Albumin, Serum 3.8 g/dL (3.2-5.0); Alkaline Phosphatase 80 U/L (45-117); Anion Gap 1 (5-15); BUN 26 mg/dL (7-18); BUN/Creat Ratio 19.7 RATIO (10-20); Calcium,Total 9.1 mg/dL (8.5-10.1); Chloride 102 mmol/L (98-107); Creatinine, Serum 1.32 mg/dL (0.55-1.02); EST Glomerular Filtration Rate 43 mL/min (>60); Est Glom Filt Rate - Afr Amer 52 mL/min (>60); Globulin 3.9 g/dL (2.2-4.2); Glucose 106 mg/dL (74-106); Protein, Total 7.7 g/dL (6.4-8.2); Sodium Level 136 mmol/L (136-145); Thyroid Stim Hormone (TSH) 1.32 uIU/mL (0.358-3.74)
== END | disposition home or self-care (01) ==
LOC: LAB 09:06
PROVIDERS: PCP Family Medicine; Referring Provider Internal Medicine Endocrinology, Diabetes & Metabolism; Visit Provider Internal Medicine Endocrinology, Diabetes & Metabolism
DX: D64.9 Anemia, unspecified (principal); E03.8 Other specified hypothyroidism; E06.3 Autoimmune thyroiditis
CPT/HCPCS: 36415; 80053; 82330; 84443

== ENCOUNTER → 2023-12-06 | Outpatient (CLI) | payer MEDICARE, SELFPAY ==
[2023-12-06 10:34] LABS: Cholesterol 191 mg/dL (200); High Density Lipoprotein 75 mg/dL; Triglycerides 72 mg/dL; Very Low Density Lipoprotein 14 mg/dL (5-40)
== END | disposition home or self-care (01) ==
LOC: MFPLAB 08:21
PROVIDERS: PCP Family Medicine; Visit Provider Family Medicine
DX: E03.9 Hypothyroidism, unspecified (principal); R73.01 Impaired fasting glucose
CPT/HCPCS: 36415; 80061

== ENCOUNTER → 2023-12-10 | Outpatient (CLI) | payer MEDICARE, SELFPAY ==
--- NOTE | 2023-12-10 10:41 | ART_ITS ---
Reason For Study: BLE Pain Procedure A bilateral lower extremity continuous wave Doppler with analog waveform analysis,segmental pressures,and ankle brachial indexes without exercise. Left Segmental Pressures Left brachial= 119mmHg. Left posterior tibial artery = 190mmHg. Left dorsalis pedis artery = 177mmHg. Left digit = 131 mmHg. The left posterior tibial artery waveforms are triphasic. The left dorsalis pedis waveforms are triphasic. Right Segmental Pressures Right brachial= 106mmHg. Right posterior tibial artery = 199mmHg. Right dorsalis pedis artery = 174mmHg. Right digit = 130 mmHg. The right posterior tibial artery waveforms are triphasic. The right dorsalis pedis waveforms are triphasic. Indices The right ankle brachial index by the posterior tibial artery is 1.67. The right ankle brachial index by the dorsalis pedis is 1.46. The right digital-brachial index is 1.09. The left ankle brachial index by the posterior tibial artery is 1.60. The left ankle brachial index by the dorsalis pedis is 1.49. The left digital-brachial index is 1.10. VL/Lower Ext Art Exam w/o Exercis Interpretation Summary Right SADIQ 1.67, artificially elevated. TBI and Doppler/PVR waveforms of the rig ht leg normal at rest. Left SADIQ 1.6, artificially elevated. TBI and Doppler/PVR waveforms of the left leg normal at rest. Ordering Physician: Gomez Fry Referring Physician: Angelo Guido MD Performed By: Josiah Villalpando RVT
== END | disposition home or self-care (01) ==
PROVIDERS: PCP Family Medicine; Referring Provider Podiatrist; Visit Provider Podiatrist
DX: M79.671 Pain in right foot (principal); I70.223 Atherosclerosis of native arteries of extremities with rest pain, bilateral legs; M79.672 Pain in left foot; I73.89 Other specified peripheral vascular diseases
CPT/HCPCS: 93923

== ENCOUNTER → 2024-01-07 | Outpatient (CLI) | payer MEDICARE, SELFPAY | END | disposition home or self-care (01) | PROVIDERS: PCP Family Medicine; Referring Provider Family Medicine; Visit Provider Family Medicine | DX: R30.0 Dysuria (principal) | CPT/HCPCS: 87086; 87088 ==

== ENCOUNTER → 2024-01-08 | Outpatient (CLI) | payer MEDICARE, SELFPAY ==
[2024-01-08 12:18] LABS: Absolute Neutrophil Count 6.4 X10^3/uL (2.0-7.7); Basophil# 0.11 X10^3/uL; Eosinophil# 0.59 X10^3/uL; Eosinophils% 5.5 % (0-5); Hematocrit 37.3 % (37-47); Hemoglobin 11.6 g/dL (12.0-15.0); Lymphocyte % 23.3 % (19-41); Mean Corp Hgb Conc 31.1 g/dL (32-36); Mean Corpuscular Hgb 27.9 pg (27.0-32.0); Mean Corpuscular Volume 89.7 fL (81-99); Mean Platelet Vol. 11.8 fl (6.2-12.0); Monocyte# 1.01 X10^3/uL; Monocyte% 9.4 % (0-10); NRBC Flagged by Analyzer 0 % (0-5); Neutrophil # 6.43 X10^3/uL (2.7-7.7); Neutrophil % 60.1 % (47-70); Platelet Count 197 K/mm3 (150-450); RBC Distribution Width CV 14.7 % (11.6-14.6); RBC Distribution Width SD 47.8 fl (35.1-43.9); Red Blood Count 4.16 M/mm3 (4.2-5.4); White Blood Count 10.7 K/mm3 (4.4-11.0)
[2024-01-08 12:35] LABS: Vitamin D,25 Hydroxy 56.1 ng/mL
[2024-01-08 13:04] LABS: AST(SGOT) 16 U/L (15-37); Alanine Aminotransfer ALT/SGPT 31 U/L (13-56); Albumin, Serum 3.6 g/dL (3.2-5.0); Alkaline Phosphatase 93 U/L (45-117); Anion Gap 9 (5-15); BUN 15 mg/dL (7-18); BUN/Creat Ratio 14.2 RATIO (10-20); Calcium,Total 8.6 mg/dL (8.5-10.1); Chloride 105 mmol/L (98-107); Creatinine, Serum 1.06 mg/dL (0.55-1.02); EST Glomerular Filtration Rate 56 mL/min (>60); Est Glom Filt Rate - Afr Amer 67 mL/min (>60); Globulin 3.6 g/dL (2.2-4.2); Glucose 95 mg/dL (74-106); Potassium 4.5 mmol/L (3.5-5.1); Protein, Total 7.2 g/dL (6.4-8.2); Sodium Level 139 mmol/L (136-145); Thyroid Stim Hormone (TSH) 1.25 uIU/mL (0.358-3.74)
== END | disposition home or self-care (01) ==
LOC: MTLAB 09:17
PROVIDERS: PCP Family Medicine; Referring Provider Family Medicine; Visit Provider Family Medicine
DX: Z01.818 Encounter for other preprocedural examination (principal); E55.9 Vitamin D deficiency, unspecified; E03.9 Hypothyroidism, unspecified; R30.0 Dysuria
CPT/HCPCS: 36415; 80053; 82306; 84443; 85025

== ENCOUNTER 2024-01-11 11:12 | Observation (INO) | payer MEDICARE, SELFPAY ==
[2024-01-11] VITALS (15 sets, daily range): BP systolic 96–137; BP diastolic 53–78; PULSE 87–109; RESP 16–18; TEMP 36.1–37.7; O2SAT 89–100; BMI 23.5; BMI 34.6
--- NOTE | 2024-01-11 | BUN_PTH ---
PATIENT: BHAVNA PATEL I LOC: MS3 U#:[id number] AGE/SX: 63/F ROOM: TN319 RE01/11/[address]: Dr. Gomez Fry DPM : 1960 BED: 1 DIS: 01/14/2024 SPEC #: [id number] RECD: 01/11/24 11:56 STATUS: LEVY NAIMA #: [id number] TRUE: 01/11/24 00:[address]: Gomez Fry DEPT: SURGICAL PATHOLOGY RECD BY: Kayy Moncada ENTERED: 01/11/24 13:18 SP TYPE: BUNION OTHR DR: MD Dr. Roberto Thomas MD Tissues: Bony tissue, NOS Procedures: Decalcification bone/plaque HEADER OPERATION: Resection of 1st, 2nd, 3rd, 4th, and 5th metatarsal heads PRE-OP DIAGNOSIS: Right foot bunions TISSUE SUBMITTED: Metatarsal heads from 1-5, bone from 2-5, right foot MICROSCOPIC DIAGNOSIS Metatarsal heads, 1-5 and bone from 2-5 right foot, excision: Pieces of bone with reactive and degenerative changes, clinically right foot bunions. [facility] 01/16/2024 MICROSCOPIC DESCRIPTION Slides are reviewed. GROSS DESCRIPTION Received in fixative is one container labeled with the patient's name and designated Metatarsal head 1-5 right bone from toes 2-5, right. The specimen consists of five pieces of bone consistent with metatarsal head measuring in aggregate 4.0 x 4.5 x 2.0cm and 1.0 to 2.5cm in greatest dimension. Also present in the container are multiple pieces of bone measuring in aggregate 4.0 x 4.0 x 1.0cm. Dining Room Maid sections are submitted in four cassettes as follows; 1-2- pieces of bone from toes, 3-4- pieces of bone from metatarsal head after decalcification. [facility] 01/11/2024 TC:5 CPT: 84841,38975
[2024-01-11] MEDS: Lactated Ringers 1,000 ML 15 ML IV (06:55)
--- NOTE | 2024-01-11 07:00 | RAD_ITS ---
PROCEDURE: Resection of the first, second, third, fourth and fifth metacarpal heads. DATE OF EXAMINATION: January 11, 2024. INDICATION: Female, 63 years old. Pain. FLUOROSCOPY TIME (if supplied): (64 seconds) minutes/seconds. 0.37 mCi RAD/Foot 2 Views IMPRESSION: Intraoperative imaging provided for resection of the first through fifth metatarsal heads with fixation. Electronically Signed: Jace Stoner MD at 8:25 EDT ,
--- NOTE | 2024-01-11 08:06 | HP.PCM_ITS ---
HPI - General General Date of Admission: 01/11/24 Chief Complaint: Right foot pain HPI Narrative BHAVNA PATEL, is a 63 F who presents with chronic right foot pain due to severe deformities. She underwent surgical intervention of patel metatarsal head resection and correction of 2-5 hammer toes right foot today. Surgery went well, no complications, she has many medical problems, and is being admitted for observation, pain management, and post operative nursing fascility placement. [facility] Medical History (Updated 01/11/24 @ 11:[address] 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 History of claustrophobia Anxiety Depression Hyperthyroidism Former smoker CPAP (continuous positive airway pressure) dependence Asthma Chest pain Hypertension Migraines CKD (chronic kidney disease) GERD (gastroesophageal reflux disease) Depression with anxiety Arthritis Hypoparathyroidism Diarrhea Abdominal pain Cholelithiasis Home Medications ?Medication ?Instructions ?Recorded ?Last Taken ?Type multivitamin with folic acid 400 1 tab PO DAILY SUPPLEMENT 05/18/14 01/10/24 History mcg tablet vitamin E (dl, acetate) 180 mg 400 units PO DAILY SUPPLEMENT 05/18/14 01/10/24 History (400 unit) capsule omega-3 fatty acids-fish oil 300 1 cap PO DAILY SUPPLEMENT 02/17/20 01/10/24 History mg-500 mg capsule (Fish Oil) calcium carbonate 500 mg-vitamin 1 ea PO BID SUPPLEMENT 02/27/20 01/10/24 History D3 15 mcg (600 unit) tablet atorvastatin 20 mg tablet 20 mg PO DAILY CHOLESTEROL 07/17/23 01/10/24 History biotin 10,000 mcg capsule 10,000 mcg PO DAILY SUPPLEMENT 07/17/23 01/10/24 History duloxetine 30 mg capsule,delayed 30 mg PO DAILY DEPRESSION 07/17/23 01/10/24 History release duloxetine 60 mg capsule,delayed 60 mg PO DAILY DEPRESSION 07/17/23 01/10/24 History release famotidine 20 mg tablet 20 mg PO BID #60 tabs 09/18/23 01/11/24 Rx lisinopril 40 mg tablet 40 mg PO DAILY 09/18/23 01/11/24 History potassium chloride 10 mEq 10 meq PO BID 09/18/23 01/10/24 History capsule,extended release ropinirole 0.25 mg tablet 0.5 mg PO QHS 09/18/23 01/10/24 History colestipol 1 gram tablet 1 g PO BID #90 tabs 11/05/23 01/10/24 Rx calcitriol 0.25 mcg capsule 0.25 mcg PO BID 11/12/23 01/10/24 History levothyroxine 75 mcg tablet 75 mcg PO .COMPLEX THYROID 11/12/23 01/10/24 History pantoprazole 20 mg tablet,delayed 20 mg PO DAILY 01/07/24 01/11/24 History release Allergy/AdvReac Type Severity Reaction Status Date / Time budesonide Allergy Severe Other Verified 01/11/24 06:48 omeprazole Allergy Intermediate diarrhea Verified 01/11/24 06:48 sulfamethoxazole (From Allergy Rash Verified 01/11/24 06:48 Bactrim) trimethoprim (From Bactrim) Allergy Rash Verified 01/11/24 06:48 Family History Mother Arthritis Brother Cancer Diabetes Heart disease Father Diabetes Heart disease Hypertension High cholesterol Uncle Diabetes Grandfather Cancer skin cancer Surgical History Hx of bilateral cataract extraction Hx of colonoscopy History Bilateral Cataract Surgery Social History Smoking Status: Former smoker alcohol intake: never substance use type: does not use Vital Signs Vital Signs Vital Signs: 01/11/24 06:50 01/11/24 06:50 Temperature 99.8 F H Temperature Source Temporal Pulse Rate 87 Respiratory Rate 18 Respiratory Pattern Normal Blood Pressure 137/77 H Blood Pressure Mean 97 Blood Pressure Source Monitor Blood Pressure Position Semi-Fowlers Blood Pressure Location Left Arm Pulse Ox 100 Oxygen Delivery Method Room Air Weight Weight: 70.1 kg Body Mass Index (BMI) 23.5 Physical Exam Const alert, oriented x3 and no apparent distress Constitutional Narrative: Dressing right foot is clean, dry and intact. CFT < 2 seconds to all toes right foot. Assessment & Plan Assessment/Plan (1) Pain of right foot: (2) Hallux valgus of right foot: (3) Hammer toe of right foot: PLAN: Plan s/p right foot patel metatarsal head resection and hammer toe correction 2-5 toes right foot on 01/11/24 - she has been admitted for pain management, obervation and post op nursing facility placement. No weightbearing right foot, keep right foot elevated. Keep dressing right foot clean, dry and intact. Pain management: Acetaminophen, Oxyir, and Dilaudid DVT Prophylaxis: Lovenox subc starting tomorrow. Chronic medical problems - Hospital Medicine consulted. Case Management also consulted. PT/OT consulted for tomorrow.
[2024-01-11] MEDS: Cefazolin 2 GM in 0.9% Normal Saline (100mL Bag) 100 ML IV (08:09)
[2024-01-11] MEDS: Bupivacaine Mpf 0.5% 30 ML VIAL (08:25)
--- NOTE | 2024-01-11 11:18 | RAD_ITS ---
STUDY: X-RAY - RIGHT FOOT CLINICAL: Female, 63 years old. Post op TECHNIQUE: 3 view(s) of the foot. COMPARISON: None. FINDINGS: The patient is status post resection of the distal portions of the first second third fourth and fifth metatarsals with pinning at the metatarsal phalangeal joints. Postoperative soft tissue changes. Calcaneal spur. RAD/Foot min 3 Views IMPRESSION: Status post resection of the distal portions of the first second third fourth and fifth metatarsals with pinning at the metatarsophalangeal joints. Postoperative soft tissue changes. Electronically Signed: Jace Stoner MD at 12:47 EDT ,
--- NOTE | 2024-01-11 11:26 | OP.PCM_ITS ---
Report of Operation Date of Procedure: 01/11/24 Pre-Operative Diagnosis: Hallux valgus right foot, hammer toes 2-5 right foot, pain and deformity right foot Post-Operative Diagnosis: Same Surgery/Procedure Performed:: Patel metatarsal head resection right foot, correction of 2-5 hammer toes right foot Surgeon: Gomez Fry wood cabinetmaker: Leroy Type of Anesthesia: General and Local Specimen's removed: 1-5 metatarsal heads and bone from 2-5 toes right foot - sent to pathology Estimated Blood Loss (mL): < 30mL Description of Procedure: Indication: 63 year old female with chronic right foot pain despite nonsurgical treatment. She has pain with ambulation and great difficulty with shoegear. She has elected to undergo surgical intervention - paetl metatarsal heal resection and correction of hammer toes. Reviewed procedure with her, the possible benefits vs risks, goals, expectations and estimated healing time. Reviewed alternative options. She elected to proceed with surgical intervention. The consent forms were reviewed with her and she has freely signed them. No guarantees were given nor implied. No warranties were given. Operative procedure: The patient was brought back to the operating room and was placed on the operating room table in the supine position. The patient was secured to the operating room table with a safety belt around her waist. The patient received general anesthesia per the anesthesia team. A well padded pneumatic tourniquet was applied around her right ankle. She received 2g of Ancef IV for antibiotic prophylaxis. A time out was performed and the patient was properly identified and the surgical plan was confirmed. 20mL of 0.5% Bupivacaine plain was given as a local block to the 1st ray, 2nd, 3rd, 4th and 5th rays of the right foot after the overlying skin was cleansed with 70% Isopropyl alcohol. Her right foot was scrubbed, prepped and draped in the usual aseptic fashion. Further attention was directed to the patient's right foot - there was significant deformity of the forefoot - significant contracture (rigid) of all toes, with hallux valgus and hammer toes 2-5. All metatarsal phalangeal joints were deformed and out of place. Her right foot was elevated for 3 minutes and the right ankle tourniquet was inflated to 250mmHg. Patel Metatarsal Head Resection: Using a #15 scalpel blade and longitudinal skin incision was made medial distal 1st metatarsal and 1st metatarsal phalangeal joint. Careful dissection was completed down to the first metatarsal and first metatarsophalangeal joint. The capsule of the first metatarsophalangeal joint was incised as well as the periosteum of the distal first metatarsal using a #15 scalpel blade. There was significant contracture laterally, the adductor hallucis was contracted and the conjoined tendon was released along with the lateral sesamoid, excising the lateral sesamoid as there were significant degenerative changes. The head of the 1st metatarsal was also resected using a power sagittal saw. There was noted to be significant contracture of the extensor hallucis longus tendon and it was bowstrung causing the hallux to deviate laterally as well so a Z lengthening tenotomy was complated - it was repaired with 4-0 Vicryl. An incision was made to the dorsal 2nd intermetatarsal space, then incision was made overlying the 2nd metatarsal head, the head was freed of all attachments and the 2nd metatarsal head was resected. An incision was made overlying the 3rd metatarsal head, the head was freed of all attac hments and the 3rd metatarsal head was resected. An incision was made to the dorsal 4th intermetatarsal space, then incision was made overlying the 4th metatarsal head, the head was freed of all attachments and the 4th metatarsal head was resected. An incision was made overlying the 5th metatarsal head, the head was freed of all attachments and the 5th metatarsal head was resected. It was noted there were degenerative changes to the cartilage of the metatarsal heads. A 0.062in kwire was placed through the 1st toe and through the 1st metatarsal with the 1st toe in rectus position. All resected bone was sent to pathology as specimen. Also of note the metatarsal heads were resected in fashion to preserve the normal parabola. The subcutaneous tissue layer was carefully reapproximated using 3-0 Vicryl. The skin was carefully reapproximated using 3-0 Nylon. 2nd digit hammer toe correction: Attention was directed to the toe. A dorsal linear longitudinal incision was made over the proximal interphalangeal joint (PIPJ) of the toe. A transverse incision was made to the extensor digitorum longus tendon which reflected off of the head of the proximal phalanx with a 15 blade. The dorsal PIPJ joint capsule was incised with a 15 blade. The head the proximal phalanx was resected using a powered sagittal saw. The resected bone was sent to pathology. The site was flushed out with copious amounts of normal saline solution. A 0.062 in kwire was placed through the phalanges of the toe to the 2nd metatarsal holding the toe in rectus position. This was confirmed with intra operative fluoroscopy. The site was again flushed out with copious amounts of normal saline solution. The extensor tendon was reapproximated using 3-0 Vicryl and the skin was reapproximated using 3-0 Nylon. The kwire was trimmed externally. 3rd digit hammer toe correction: Attention was directed to the toe. A dorsal linear longitudinal incision was made over the proximal interphalangeal joint (PIPJ) of the toe. A transverse incision was made to the extensor digitorum longus tendon which reflected off of the head of the proximal phalanx with a 15 blade. The dorsal PIPJ joint capsule was incised with a 15 blade. The head the proximal phalanx was resected using a powered sagittal saw. The resected bone was sent to pathology. The site was flushed out with copious amounts of normal saline solution. A 0.062 in kwire was placed through the phalanges of the toe to the 3rd metatarsal holding the toe in rectus position. This was confirmed with intra operative fluoroscopy. The site was again flushed out with copious amounts of normal saline solution. The extensor tendon was reapproximated using 3-0 Vicryl and the skin was reapproximated using 3-0 Nylon. The kwire was trimmed externally. 4th digit hammer toe correction: Attention was directed to the toe. A dorsal linear longitudinal incision was made over the proximal interphalangeal joint (PIPJ) of the toe. A transverse incision was made to the extensor digitorum longus tendon which reflected off of the head of the proximal phalanx with a 15 blade. The dorsal PIPJ joint capsule was incised with a 15 blade. The head the proximal phalanx was resected using a powered sagittal saw. The resected bone was sent to pathology. The site was flushed out with copious amounts of normal saline solution. A 0.062 in kwire was placed through the phalanges of the toe to the 4th metatarsal holding the toe in rectus position. This was confirmed with intra operative fluoroscopy. The site was again flushed out with copious amounts of normal saline solution. The extensor tendon was reapproximated using 3-0 Vicryl and the skin was reapproximated using 3-0 Nylon. The kwire was trimmed externally. 5th digit hammer toe correction: Attention was directed to the toe. A dorsal linear longitudinal incision was made over the proximal interphalangeal joint (PIPJ) of the toe. A transverse incision was made to the extensor digitorum longus tendon which reflected off of the head of the proximal phalanx with a 15 blade. The dorsal PIPJ joint capsule was incised with a 15 blade. The head the proximal phalanx was resected using a powered sagittal saw. The resected bone was sent to pathology. The site was flushed out with copious amounts of normal saline solution. A 0.062 in kwire was placed through the phalanges of the toe to the 5th metatarsal holding the toe in rectus position. This was confirmed with intra operative fluoroscopy. The site was again flushed out with copious amounts of normal saline solution. The extensor tendon was reapproximated using 3-0 Vicr yl and the skin was reapproximated using 3-0 Nylon. The kwire was trimmed externally. The pneumatic tourniquet was deflated (total time was 120 minutes). There was immediate return of warmth and perfusion to the foot with CFT < 2 seconds to all toes. All vital structures including all vital neurovascular and tendon structures were properly identified, and protected as necessary for the procedures above. Intraoperative fluoroscopy was used for the above as needed. The patient tolerated the above procedure well and anesthesia well with no complications. The patient was transported from the operative room to the recovery room with vital signs stable and in good condition. Post operative orders were placed, and post operative instructions were reviewed with the patient and his family. No weightbearing right foot, keep the dressing clean, dry and intact. Keep foot elevated for at least 50 minutes of every hour. Patient was admitted. Grafts/Implants Used: 5 x 0.062in kwires Complications None
--- NOTE | 2024-01-11 14:00 | PCM.PN.HOSP ---
Subjective Subjective Doing well, pain is controlled Objective Data Objective Data Vital Signs: Vital Signs Temp Pulse Resp BP Pulse Ox O2 Del Method O2 Flow Rate 97.3 F L 89 16 128/53 H 100 Nasal Cannula 2 01/11/24 13:15 01/11/24 13:15 01/11/24 13:15 01/11/24 13:15 01/11/24 13:15 01/11/24 13:15 01/11/24 13:15 Oxygen Flow Rate (L/min) 2 Oxygen Delivery Method Nasal Cannula Weight: 154 lb 8.705 oz Body Mass Index (BMI) 34.6 Intake & Output: Intake and Output for Last 24 Hours 01/10/24 01/11/24 01/12/24 03:59 03:59 03:59 Intake Total 110 / 110 Balance 110 / 110 Radiography Diagnostic Testing: Radiology Impression Foot X-Ray 01/11/24 11:18 IMPRESSION: Status post resection of the distal portions of the first second third fourth and fifth metatarsals with pinning at the metatarsophalangeal joints. Postoperative soft tissue changes. Electronically Signed: Jace Stoner MD at 12:47 EDT , Physical Exam Narrative General: Alert, Oriented x3, Cooperative, No apparent distress HEENT: Atraumatic, PERRLA, EOMI, Normocephalic Oral: Moist Mucosa Neck: Supple, No JVD Lungs: Clear to auscultation, Normal air movement, No rhonchi, No wheeze, No rales Cardiovascular: Regular rate, Regular Rhythm, Normal S1, Normal S2, No murmurs Abdomen: Soft, Non Tender, Non-Distended, No Hepato-splenomegaly Extremities: No edema, Capillary Refill Less than 3 Seconds Skin: No rashes, No breakdown, right foot dressing is intact Musculoskeletal: No Tenderness to Palpation of Joints or Extremities Neurological: No focal neurological deficits, Motor Exam 5/5 strength throughout, Sensory exam intact to light touch and pain Psych/Mental Status: Normal Affect, Appropriate Assessment & Plan Assessment/Plan (1) Hammer toe of right foot: (2) Hallux valgus of right foot: PLAN: Plan 1. Status post patel metatarsal head resection of right foot with correction of 2 through 5 hammertoes on the right foot on 01/11/2024 ? Pain management per primary ? PT/OT ? Will likely need SNF placement as she is nonweightbearing 2. Essential HTN/HLD ? Stable ? Will recheck Creatinine in the morning ? Blood pressure stable ? Can resume her home blood pressure medication ? Continue with Lipitor 3. Hypothyroidism/hypoparathyroidism ? Stable ? Continue with Synthroid ? Continue with calcium supplementation 4. GERD ? Stable ? Continue with PPI 5. Anxiety/depression ? Stable ? Continue Cymbalta DVT: Per primary Charges/Coding Visit Charges Office Visits / Consults: 30801 OV L3 New 30min
[2024-01-11] MEDS: Acetaminophen 325 MG Tablet 650 MG PO ×2 (14:12→20:12)
[2024-01-11] MEDS: oxyCODONE 5 MG Tablet PO ×2 (14:13→20:12)
[2024-01-11] MEDS: 0.9% Saline Lock 10 ML Syringe IV ×2 (14:20→22:32)
[2024-01-11] MEDS: Cefazolin 1 GM/50 ML BAG IV ×2 (14:22→22:32)
--- NOTE | 2024-01-11 15:51 | CASEMGMT ---
Social Work SW?to room to meet with patient and pt's sister for initial transition planning/care coordination?assessment.?SW?introduced self and role at [facility].? Pt voices understanding and consents to?assessment.? Pt is A/Ox4 and answers all questions appropriately.?? Care providers, pharmacy, and demographics verified. PCP: [facility] Specialists: Dr. Henson - endocrinology, Dr. Fry - podiatry, Dr. Carvalho - pulmonology [facility] Insurance: MMO [facility] Prescription Benefit:?yes Living Will/HPOA:?Pt's sister Jyoti Long is HCPOA, pt has not completed living will LNOK: pt sister Jyoti Long Living Arrangements: Pt lives with her sister and brother in law in a 1 story home with 2 steps to enter. Pt was independent with all care needs. Transportation:?pt does not drive, pt sister provides needed transport DME: ?knee scooter obtained for use after surgery PLAN: Pt feels she will need short term rehab prior to returning home. A list of SNF providers including quality and resource use data and consistent with the patient?s preferred geographic region, medical needs, and insurance network were provided from the [employer] Guide. Pt preferred providers are 1. [facility]. [facility]. [facility]. Referral to TCU made. Pt and sister notified precert will be needed prior to dc to SNF and pt will be here through the weekend and SW will follow up on Sunday. YOSELIN Hebert
[2024-01-11] MEDS: Calcium Carb/Vitamin D 1 TABLET Tablet PO (17:19)
[2024-01-11] MEDS: Potassium Chloride Oral Tablet 10 MEQ PO (17:19)
[2024-01-11] MEDS: Colestipol 1 GM TABLET PO (17:19)
[2024-01-11] MEDS: Atorvastatin Calcium 20 MG Tablet PO (22:32)
[2024-01-11] MEDS: Pramipexole Di-HCl 0.25 MG Tablet PO (22:32)
[2024-01-11] MEDS: Famotidine 20 MG Tablet PO (22:32)
[2024-01-11] MEDS: Calcitriol 0.25 MCG Capsule PO (22:32)
[2024-01-12 00:10] VITALS: BP 121/62; PULSE 88; RESP 18; TEMP 36.4; O2SAT 99
[2024-01-12] MEDS: oxyCODONE 5 MG Tablet PO ×5 (00:26→22:17)
[2024-01-12 00:30] VITALS: BMI 34.6
[2024-01-12 04:41] VITALS: BP 112/61; PULSE 81; RESP 16; TEMP 36.4; O2SAT 99
[2024-01-12] MEDS: Acetaminophen 325 MG Tablet 650 MG PO ×2 (04:45→12:16)
[2024-01-12] MEDS: Cefazolin 1 GM/50 ML BAG IV (05:05)
[2024-01-12] MEDS: Levothyroxine 75 MCG Tablet PO (05:05)
[2024-01-12 05:14] VITALS: BMI 34.6
[2024-01-12 05:57] LABS: Absolute Lymphocyte Count 1.58 X10^3/uL (0.83-4.51); Absolute Neutrophil Count 8.4 X10^3/uL (2.0-7.7); Basophil# 0.04 X10^3/uL; Basophil% 0.4 % (0-1); Eosinophil# 0.05 X10^3/uL; Eosinophils% 0.4 % (0-5); Hematocrit 32.5 % (37-47); Hemoglobin 10.2 g/dL (12.0-15.0); Lymphocyte # 1.58 X10^3/ul (0.83-4.51); Lymphocyte % 14.1 % (19-41); Mean Corp Hgb Conc 31.4 g/dL (32-36); Mean Corpuscular Hgb 28.2 pg (27.0-32.0); Mean Corpuscular Volume 89.8 fL (81-99); Mean Platelet Vol. 11.1 fl (6.2-12.0); Monocyte# 1.07 X10^3/uL; Monocyte% 9.6 % (0-10); NRBC Flagged by Analyzer 0 % (0-5); Neutrophil % 75.1 % (47-70); Platelet Count 179 K/mm3 (150-450); RBC Distribution Width CV 14.4 % (11.6-14.6); Red Blood Count 3.62 M/mm3 (4.2-5.4); White Blood Count 11.2 K/mm3 (4.4-11.0)
[2024-01-12 06:42] LABS: Anion Gap 4 (5-15); BUN 15 mg/dL (7-18); BUN/Creat Ratio 16.3 RATIO (10-20); Calcium,Total 8.2 mg/dL (8.5-10.1); Chloride 99 mmol/L (98-107); Creatinine, Serum 0.92 mg/dL (0.55-1.02); EST Glomerular Filtration Rate 66 mL/min (>60); Est Glom Filt Rate - Afr Amer 79 mL/min (>60); Estimated Creatinine Clearance 54.68 ml/min; Glucose 118 mg/dL (74-106); Potassium 4.2 mmol/L (3.5-5.1); Sodium Level 133 mmol/L (136-145)
[2024-01-12 07:43] VITALS: O2SAT 96
[2024-01-12 07:52] VITALS: BP 134/70; PULSE 82; RESP 18; TEMP 37.2; O2SAT 95
--- NOTE | 2024-01-12 09:41 | PN.HOSP_ITS ---
Subjective Subjective No issues overnight Objective Data Objective Data Vital Signs: Vital Signs Temp Pulse Resp BP Pulse Ox O2 Del Method O2 Flow Rate 98.9 F 82 18 134/70 H 95 Room Air 2 01/12/24 07:52 01/12/24 07:52 01/12/24 07:52 01/12/24 07:52 01/12/24 07:52 01/12/24 07:52 01/12/24 04:41 Oxygen Flow Rate (L/min) 2 Oxygen Delivery Method Room Air Weight: 154 lb 8.705 oz Body Mass Index (BMI) 34.6 Intake & Output: Intake and Output for Last 24 Hours 01/11/24 01/12/24 01/13/24 03:59 03:59 03:59 Intake Total 2410 / 2410 750 / 750 Output Total 600 / 600 Balance 1810 / 1810 750 / 750 Lab / Micro Data 01/12/24 05:15 01/12/24 05:15 Labs: Laboratory Results - last 24 hr 01/12/24 05:15: WBC 11.2 H, RBC 3.62 L, Hgb 10.2 L, Hct 32.5 L, MCV 89.8, MCH 28.2, MCHC 31.4 L, RDW Std Deviation 47.0 H, RDW Coeff of Elsie 14.4, Plt Count 179, MPV 11.1, Immature Gran % (Auto) 0.400, Neut % (Auto) 75.1 H, Lymph % (Auto) 14.1 L, [place] % (Auto) 9.6, Eos % (Auto) 0.4, Baso % (Auto) 0.4, Absolute Neuts (auto) 8.4 H, Absolute Lymphs (auto) 1.58, Nucleated RBC % 0, Sodium 133 L , Potassium 4.2, Chloride 99, Carbon Dioxide 30.0, Anion Gap 4 L, BUN 15, Creatinine 0.92, Estim Creat Clear Calc 54.68, Est GFR (MDRD) Af Amer 79, Est GFR (MDRD) Non-Af 66, BUN/Creatinine Ratio 16.3, Glucose 118 H, Calcium 8.2 L Radiography Diagnostic Testing: Radiology Impression Foot X-Ray 01/11/24 11:18 IMPRESSION: Status post resection of the distal portions of the first second third fourth and fifth metatarsals with pinning at the metatarsophalangeal joints. Postoperative soft tissue changes. Electronically Signed: Jace Stoner MD at 12:47 EDT , Physical Exam Narrative General: Alert, Oriented x3, Cooperative, No apparent distress HEENT: Atraumatic, PERRLA, EOMI, Normocephalic Oral: Moist Mucosa Neck: Supple, No JVD Lungs: Clear to auscultation, Normal air movement, No rhonchi, No wheeze, No rales Cardiovascular: Regular rate, Regular Rhythm, Normal S1, Normal S2, No murmurs Abdomen: Soft, Non Tender, Non-Distended, No Hepato-splenomegaly Extremities: No edema, Capillary Refill Less than 3 Seconds Skin: No rashes, No breakdown, right foot dressing is intact and wrapped Musculoskeletal: No Tenderness to Palpation of Joints or Extremities Neurological: No focal neurological deficits, Motor Exam 5/5 strength throughout, Sensory exam intact to light touch and pain Psych/Mental Status: Normal Affect, Appropriate Assessment & Plan Assessment/Plan (1) Hammer toe of right foot: (2) Hallux valgus of right foot: PLAN: Plan 1. Status post patel metatarsal head resection of right foot with correction of 2 through 5 hammertoes on the right foot on 01/11/2024 ? Pain management per primary ? PT/OT ? Will likely need SNF placement as she is nonweightbearing 2. Essential HTN/HLD ? Renal function is stable ? Blood pressure stable, will monitor make adjustments as necessary ? Can resume her home blood pressure medication ? Continue with Lipitor 3. Hypothyroidism/hypoparathyroidism ? Stable ? Continue with Synthroid ? Continue with calcium supplementation 4. GERD ? Stable ? Continue with PPI 5. Anxiety/depression ? Stable ? Continue Cymbalta DVT: Per primary Charges/Coding Visit Charges Inpatient E&M: 50086 Subs Hosp L2
--- NOTE | 2024-01-12 09:45 | PCM.PROGNOTE ---
Subjective Subjective Patient was seen this morning for follow up right foot. She is sitting up in chair with foot up. She just finished breakfast, she relates there is pain in foot but appears controlled. Ho f/c/n/v/calf pain. Objective Data Objective Data Vital Signs: Vital Signs Temp Pulse Resp BP Pulse Ox O2 Del Method O2 Flow Rate 98.9 F 82 18 134/70 H 95 Room Air 2 01/12/24 07:52 01/12/24 07:52 01/12/24 07:52 01/12/24 07:52 01/12/24 07:52 01/12/24 07:52 01/12/24 04:41 Oxygen Flow Rate (L/min) 2 Oxygen Delivery Method Room Air Weight: 70.1 kg Body Mass Index (BMI) 34.6 Intake & Output: Intake and Output for Last 24 Hours 01/10/24 01/11/24 01/12/24 23:59 23:59 23:59 Intake Total 210 / 2410 2950 / 2950 Output Total 600 / 600 Balance 210 / 2310 2350 / 2350 Lab / Micro Data 01/12/24 05:15 01/12/24 05:15 Labs: Laboratory Results - last 24 hr 01/12/24 05:15: WBC 11.2 H, RBC 3.62 L, Hgb 10.2 L, Hct 32.5 L, MCV 89.8, MCH 28.2, MCHC 31.4 L, RDW Std Deviation 47.0 H, RDW Coeff of Elsie 14.4, Plt Count 179, MPV 11.1, Immature Gran % (Auto) 0.400, Neut % (Auto) 75.1 H, Lymph % (Auto) 14.1 L, [place] % (Auto) 9.6, Eos % (Auto) 0.4, Baso % (Auto) 0.4, Absolute Neuts (auto) 8.4 H, Absolute Lymphs (auto) 1.58, Nucleated RBC % 0, Sodium 133 L, Potassium 4.2, Chloride 99, Carbon Dioxide 30.0, Anion Gap 4 L, BUN 15, Creatinine 0.92, Estim Creat Clear Calc 54.68, Est GFR (MDRD) Af Amer 79, Est GFR (MDRD) Non-Af 66, BUN/Creatinine Ratio 16.3, Glucose 118 H, Calcium 8.2 L Radiography Diagnostic Testing: Radiology Impression Foot X-Ray 01/11/24 11:18 IMPRESSION: Status post resection of the distal portions of the first second third fourth and fifth metatarsals with pinning at the metatarsophalangeal joints. Postoperative soft tissue changes. Electronically Signed: Jace Stoner MD at 12:47 EDT , Physical Exam Const alert, oriented x3 and no apparent distress Constitutional Narrative: Dressing right foot is clean, dry and intact. CFT < 2 seconds to all toes right foot. Assessment & Plan Assessment/Plan (1) Pain of right foot: (2) Hallux valgus of right foot: (3) Hammer toe of right foot: PLAN: Plan s/p right foot patel metatarsal head resection and hammer toe correction 2-5 toes right foot on 01/11/24 - she has been admitted for pain management, obervation and post op nursing facility placement No weightbearing right foot, keep right foot elevated Keep dressing right foot clean, dry and intact Pain management: Acetaminophen, Oxyir, and Dilaudid DVT Prophylaxis: Lovenox 40mg subc daily Chronic medical problems - Hospital Medicine consulted - appreciate assistance Case Management also consulted. Nursing facility placement pending PT/OT consulted
[2024-01-12] MEDS: DULoxetine Hcl 60 MG Capsule PO (09:53)
[2024-01-12] MEDS: Calcium Carb/Vitamin D 1 TABLET Tablet PO ×2 (09:53→14:26)
[2024-01-12] MEDS: Potassium Chloride Oral Tablet 10 MEQ PO ×2 (09:53→14:26)
[2024-01-12] MEDS: DULoxetine Hcl 30 MG Capsule PO (09:54)
[2024-01-12] MEDS: Calcitriol 0.25 MCG Capsule PO ×2 (09:54→22:20)
[2024-01-12] MEDS: Famotidine 20 MG Tablet PO ×2 (09:54→22:18)
[2024-01-12] MEDS: Pantoprazole Sodium 20 MG Tablet PO (09:54)
[2024-01-12] MEDS: Lisinopril 40 MG Tablet PO (09:55)
--- NOTE | 2024-01-12 11:34 | NURSING ---
@ 1000 access to lovenox not available in [facility]
[2024-01-12] MEDS: Colestipol 1 GM TABLET PO ×2 (12:11→16:36)
--- NOTE | 2024-01-12 12:19 | NURSING ---
unable to access lovenox from [facility], has not been sent from Rx
[2024-01-12 13:14] VITALS: BP 129/67; PULSE 82; RESP 18; TEMP 37; O2SAT 95; BMI 34.6
[2024-01-12] MEDS: Enoxaparin 40 MG/0.4 ML Syringe SC (14:25)
--- NOTE | 2024-01-12 15:37 | CASEMGMT ---
SEDA DE LA FUENTE in to complete GOLDEN form. RN LEISA explained GOLDEN form to patient, patient voiced understanding. Patient signed GOLDEN form and filed in chart. Patient provided with copy of signed GOLDEN form. Signed copy placed in chart. Patient had no further questions or concerns.
[2024-01-12 17:14] VITALS: BMI 34.6
[2024-01-12 20:00] VITALS: BP 134/68; PULSE 92; RESP 18; TEMP 36.6; O2SAT 94
[2024-01-12] MEDS: Atorvastatin Calcium 20 MG Tablet PO (22:18)
[2024-01-12] MEDS: Pramipexole Di-HCl 0.25 MG Tablet PO (22:18)
[2024-01-13] MEDS: Levothyroxine 150 MCG Tablet PO (06:16)
[2024-01-13 06:19] VITALS: BP 148/82; PULSE 101; RESP 18; TEMP 37; O2SAT 94
[2024-01-13 08:21] VITALS: BP 117/78; PULSE 114; RESP 18; TEMP 37; O2SAT 96
[2024-01-13] MEDS: Acetaminophen 325 MG Tablet 650 MG PO ×2 (08:28→14:32)
[2024-01-13] MEDS: DULoxetine Hcl 30 MG Capsule PO (08:29)
[2024-01-13] MEDS: Enoxaparin 40 MG/0.4 ML Syringe SC (08:29)
[2024-01-13] MEDS: Potassium Chloride Oral Tablet 10 MEQ PO ×2 (08:29→17:36)
[2024-01-13] MEDS: DULoxetine Hcl 60 MG Capsule PO (08:30)
[2024-01-13] MEDS: Famotidine 20 MG Tablet PO ×2 (08:30→22:21)
[2024-01-13] MEDS: Calcium Carb/Vitamin D 1 TABLET Tablet PO ×2 (08:30→17:35)
[2024-01-13] MEDS: Calcitriol 0.25 MCG Capsule PO ×2 (08:30→22:21)
[2024-01-13] MEDS: Lisinopril 40 MG Tablet PO (08:31)
[2024-01-13] MEDS: Pantoprazole Sodium 20 MG Tablet PO (08:31)
--- NOTE | 2024-01-13 09:07 | PCM.PN.HOSP ---
Subjective Subjective Doing well, no issues overnight. Pain is controlled Objective Data Objective Data Vital Signs: Vital Signs Temp Pulse Resp BP Pulse Ox O2 Del Method O2 Flow Rate 98.6 F 114 H 18 117/78 96 Room Air 2 01/13/24 08:21 01/13/24 08:21 01/13/24 08:21 01/13/24 08:21 01/13/24 08:21 01/13/24 08:21 01/12/24 04:41 Oxygen Flow Rate (L/min) 2 Oxygen Delivery Method Room Air Weight: 154 lb 8.705 oz Body Mass Index (BMI) 34.6 Intake & Output: Intake and Output for Last 24 Hours 01/12/24 01/13/24 01/14/24 03:59 03:59 03:59 Intake Total 2410 / 2410 2450 / 2450 1093.75 / 1093.75 Output Total 600 / 600 1200 / 1200 950 / 950 Balance 1810 / 1810 1250 / 1250 143.75 / 143.75 Lab / Micro Data 01/13/24 09:10 01/13/24 09:10 Physical Exam Narrative General: Alert, Oriented x3, Cooperative, No apparent distress HEENT: Atraumatic, PERRLA, EOMI, Normocephalic Oral: Moist Mucosa Neck: Supple, No JVD Lungs: Clear to auscultation, Normal air movement, No rhonchi, No wheeze, No rales Cardiovascular: Regular rate, Regular Rhythm, Normal S1, Normal S2, No murmurs Abdomen: Soft, Non Tender, Non-Distended, No Hepato-splenomegaly Extremities: No edema, Capillary Refill Less than 3 Seconds Skin: No rashes, No breakdown, right foot dressing is intact and wrapped Musculoskeletal: No Tenderness to Palpation of Joints or Extremities Neurological: No focal neurological deficits, Motor Exam 5/5 strength throughout, Sensory exam intact to light touch and pain Psych/Mental Status: Normal Affect, Appropriate Assessment & Plan Assessment/Plan (1) Hammer toe of right foot: (2) Hallux valgus of right foot: PLAN: Plan 1. Status post patel metatarsal head resection of right foot with correction of 2 through 5 hammertoes on the right foot on 01/11/2024 ? Pain management per primary ? PT/OT ? Will likely need SNF placement as she is nonweightbearing ? Will add a stool softener ? Leukocytosis is likely reactive to surgery no signs of acute infection 2. Essential HTN/HLD ? Renal function is stable ? Blood pressure stable, will monitor make adjustments as necessary ? Can resume her home blood pressure medication ? Continue with Lipitor 3. Hypothyroidism/hypoparathyroidism ? Stable ? Continue with Synthroid ? Continue with calcium supplementation 4. GERD ? Stable ? Continue with PPI 5. Anxiety/depression ? Stable ? Continue Cymbalta DVT: Per primary All of her medical problems are stable and she does not have any medications that require titration or active monitoring therefore we will sign off, please call with questions Charges/Coding Visit Charges Office Visits / Consults: [id number] OV L3 Est 20min
[2024-01-13 09:34] LABS: Absolute Lymphocyte Count 1.68 X10^3/uL (0.83-4.51); Basophil# 0.08 X10^3/uL; Basophil% 0.7 % (0-1); Eosinophil# 0.25 X10^3/uL; Hematocrit 34.4 % (37-47); Hemoglobin 10.7 g/dL (12.0-15.0); Lymphocyte # 1.68 X10^3/ul (0.83-4.51); Lymphocyte % 13.7 % (19-41); Mean Corp Hgb Conc 31.1 g/dL (32-36); Mean Corpuscular Hgb 28.1 pg (27.0-32.0); Mean Corpuscular Volume 90.3 fL (81-99); Mean Platelet Vol. 11.2 fl (6.2-12.0); Monocyte# 1.14 X10^3/uL; Monocyte% 9.3 % (0-10); NRBC Flagged by Analyzer 0 % (0-5); Neutrophil # 9.02 X10^3/uL (2.7-7.7); Neutrophil % 73.9 % (47-70); Platelet Count 178 K/mm3 (150-450); RBC Distribution Width CV 14.6 % (11.6-14.6); RBC Distribution Width SD 47.8 fl (35.1-43.9); Red Blood Count 3.81 M/mm3 (4.2-5.4); White Blood Count 12.2 K/mm3 (4.4-11.0)
[2024-01-13 09:50] LABS: Anion Gap 4 (5-15); BUN 12 mg/dL (7-18); BUN/Creat Ratio 13.4 RATIO (10-20); Calcium,Total 8.2 mg/dL (8.5-10.1); Chloride 101 mmol/L (98-107); Creatinine, Serum 0.89 mg/dL (0.55-1.02); EST Glomerular Filtration Rate 68 mL/min (>60); Est Glom Filt Rate - Afr Amer 82 mL/min (>60); Estimated Creatinine Clearance 56.52 ml/min; Glucose 132 mg/dL (74-106); Potassium 4.1 mmol/L (3.5-5.1); Sodium Level 133 mmol/L (136-145)
[2024-01-13] MEDS: Polyethylene Glycol 3350 17 GM PACKET PO (11:54)
[2024-01-13] MEDS: 0.9% Saline Lock 10 ML Syringe IV (11:58)
[2024-01-13] MEDS: Colestipol 1 GM TABLET PO ×2 (11:58→17:36)
--- NOTE | 2024-01-13 12:53 | PN_ITS ---
Subjective Subjective Patient was seen today for follow up right foot. She is resting in bed. No complaints of f/c/n/v/calf pain Objective Data Objective Data Vital Signs: Vital Signs Temp Pulse Resp BP Pulse Ox O2 Del Method O2 Flow Rate 98.6 F 114 H 18 117/78 96 Room Air 2 01/13/24 08:21 01/13/24 08:21 01/13/24 08:21 01/13/24 08:21 01/13/24 08:21 01/13/24 08:21 01/12/24 04:41 Oxygen Flow Rate (L/min) 2 Oxygen Delivery Method Room Air Weight: 70.1 kg Body Mass Index (BMI) 34.6 Intake & Output: Intake and Output for Last 24 Hours 01/11/24 01/12/24 01/13/24 23:59 23:59 23:59 Intake Total 210 / 2410 4400 / 4650 1943.75 / 1943.75 Output Total 1500 / 1800 1550 / 1550 Balance 210 / 2310 2900 / 2850 393.75 / 393.75 Lab / Micro Data 01/13/24 09:10 01/13/24 09:10 Labs: Laboratory Results - last 24 hr 01/13/24 09:10: WBC 12.2 H, RBC 3.81 L, Hgb 10.7 L, Hct 34.4 L, MCV 90.3, MCH 28.1, MCHC 31.1 L, RDW Std Deviation 47.8 H, RDW Coeff of Elsie 14.6, Plt Count 178, MPV 11.2, Immature Gran % (Auto) 0.400, Neut % (Auto) 73.9 H, Lymph % (Auto) 13.7 L, [place] % (Auto) 9.3, Eos % (Auto) 2.0, Baso % (Auto) 0.7, Absolute Neuts (auto) 9.0 H, Absolute Lymphs (auto) 1.68, Nucleated RBC % 0, Sodium 133 L , Potassium 4.1, Chloride 101, Carbon Dioxide 28.0, Anion Gap 4 L, BUN 12, Creatinine 0.89, Estim Creat Clear Calc 56.52, Est GFR (MDRD) Af Amer 82, Est GFR (MDRD) Non-Af 68, BUN/Creatinine Ratio 13.4, Glucose 132 H, Calcium 8.2 L Physical Exam Const alert, oriented x3 and no apparent distress Constitutional Narrative: Dressing right foot is clean, dry and intact. Removed dressing - incisions well coapted, no dehiscence, no drainage, no cellulitis, no visible abscess, no necrosis, CFT < 2 seconds to all toes right foot, normal temperature, kwires intact 1st toe pin cap with pin sticking through c/w her bumping foot - toes in rectus position, no evidence of compartment syndrome, no hypersensitivity present. Calf soft and supple bilateral with no pain with calf squeeze bilateral. Assessment & Plan Assessment/Plan (1) Pain of right foot: (2) Hallux valgus of right foot: (3) Hammer toe of right foot: PLAN: Plan s/p right foot patel metatarsal head resection and hammer toe correction 2-5 toes right foot on 01/11/24 - she has been admitted for pain management, obervation and post op nursing facility placement - foot with no evidence of infection, no evidence of DVT. No weightbearing right foot, keep right foot elevated Keep dressing right foot clean, dry and intact Pain management: Acetaminophen, Oxyir, and Dilaudid DVT Prophylaxis: Lovenox 40mg subc daily Chronic medical problems - Hospital Medicine consulted - appreciate assistance Case Management also consulted. Nursing facility placement pending PT/OT consulted
[2024-01-13 14:20] VITALS: BP 129/69; PULSE 111; RESP 16; TEMP 37.1; O2SAT 94
[2024-01-13] MEDS: oxyCODONE 5 MG Tablet PO (17:39)
[2024-01-13 20:25] VITALS: BP 119/72; PULSE 91; RESP 16; TEMP 36.9; O2SAT 94
[2024-01-13] MEDS: Pramipexole Di-HCl 0.25 MG Tablet PO (22:21)
[2024-01-13] MEDS: Atorvastatin Calcium 20 MG Tablet PO (22:22)
[2024-01-14 02:30] VITALS: BP 135/80; PULSE 55; RESP 16; TEMP 36.9; O2SAT 100
[2024-01-14 05:51] LABS: Absolute Lymphocyte Count 1.82 X10^3/uL (0.83-4.51); Absolute Neutrophil Count 5.3 X10^3/uL (2.0-7.7); Basophil# 0.03 X10^3/uL; Basophil% 0.4 % (0-1); Eosinophil# 0.28 X10^3/uL; Eosinophils% 3.4 % (0-5); Hematocrit 31.5 % (37-47); Lymphocyte # 1.82 X10^3/ul (0.83-4.51); Mean Corp Hgb Conc 31.7 g/dL (32-36); Mean Corpuscular Hgb 28.5 pg (27.0-32.0); Mean Corpuscular Volume 89.7 fL (81-99); Mean Platelet Vol. 11.2 fl (6.2-12.0); Monocyte# 0.85 X10^3/uL; Monocyte% 10.3 % (0-10); NRBC Flagged by Analyzer 0 % (0-5); Neutrophil # 5.27 X10^3/uL (2.7-7.7); Neutrophil % 63.4 % (47-70); Platelet Count 145 K/mm3 (150-450); RBC Distribution Width CV 14.6 % (11.6-14.6); RBC Distribution Width SD 47.7 fl (35.1-43.9); Red Blood Count 3.51 M/mm3 (4.2-5.4); White Blood Count 8.3 K/mm3 (4.4-11.0)
[2024-01-14] MEDS: Acetaminophen 325 MG Tablet 650 MG PO (06:01)
[2024-01-14] MEDS: Levothyroxine 75 MCG Tablet PO (06:01)
[2024-01-14 06:56] LABS: Anion Gap 6 (5-15); BUN 10 mg/dL (7-18); BUN/Creat Ratio 11.4 RATIO (10-20); Calcium,Total 8.2 mg/dL (8.5-10.1); Chloride 101 mmol/L (98-107); Creatinine, Serum 0.88 mg/dL (0.55-1.02); EST Glomerular Filtration Rate 69 mL/min (>60); Est Glom Filt Rate - Afr Amer 84 mL/min (>60); Estimated Creatinine Clearance 57.17 ml/min; Glucose 106 mg/dL (74-106); Potassium 3.9 mmol/L (3.5-5.1); Sodium Level 136 mmol/L (136-145)
[2024-01-14] MEDS: Enoxaparin 40 MG/0.4 ML Syringe SC (07:56)
[2024-01-14] MEDS: DULoxetine Hcl 30 MG Capsule PO (07:57)
[2024-01-14] MEDS: Lisinopril 40 MG Tablet PO (07:57)
[2024-01-14] MEDS: Calcium Carb/Vitamin D 1 TABLET Tablet PO ×2 (07:57→17:13)
[2024-01-14] MEDS: Calcitriol 0.25 MCG Capsule PO (07:57)
[2024-01-14] MEDS: Pantoprazole Sodium 20 MG Tablet PO (07:58)
[2024-01-14] MEDS: DULoxetine Hcl 60 MG Capsule PO (07:58)
[2024-01-14] MEDS: Famotidine 20 MG Tablet PO (07:59)
[2024-01-14] MEDS: Potassium Chloride Oral Tablet 10 MEQ PO ×2 (08:03→17:13)
[2024-01-14 08:30] VITALS: BP 128/65; PULSE 95; RESP 16; TEMP 37.2; O2SAT 97
--- NOTE | 2024-01-14 09:05 | CASEMGMT ---
Social Work- Pt has HCPOA paperwork in chart naming Jyoti Long and Alessio Long as agents. YOSELIN Worrell
[2024-01-14] MEDS: oxyCODONE 5 MG Tablet PO ×2 (10:22→18:07)
--- NOTE | 2024-01-14 11:03 | CASEMGMT ---
Social Work- SW advised that pt was accepted at TCU and we are awaiting precert. Pt is agreeable to plans to d/c to TCU upon precert. YOSELIN Guzman
[2024-01-14] MEDS: Colestipol 1 GM TABLET PO ×2 (12:04→18:07)
--- NOTE | 2024-01-14 14:26 | CASEMGMT ---
Addendum entered by Tess Baires 01/14/24 15:33: Social Work SW called Dr. Fry's office also, message left. SW spoke w/pt, let her know we do have the insurance authorization, and we are just waiting to hear back from the doctor. Pt states understanding, agreeable to go to TCU today. Should SW not hear back from physician prior to leaving today, a green sheet will be left on the chart. KOMAL Elizabeth Original Note: Social Work Pt was approved by insurance to go to TCU today. BRYANT sent a message to Dr. Fry, awaiting a response. KOMAL Elizabeth
[2024-01-14 14:30] VITALS: BP 132/60; PULSE 83; RESP 16; TEMP 36.8; O2SAT 98
--- NOTE | 2024-01-14 16:06 | CASEMGMT ---
Social Work Dr. Fry did respond to SW that pt is ready today. SW let pt know she is approved and physician has confirmed she is ready, so will go to TCU today. SW also called pt's sister Jyoti and let her know pt is going to TCU today. Green sheet was placed on chart in anticipation of discharge yet today once SW has left; insulation cupola charger is aware. No further needs, pt to TCU today, skilled. KOMAL Elizabeth
--- NOTE | 2024-01-14 17:55 | TREXTCAR_ITS ---
Diet Diet Order/Speech Therapy: 01/11/24 13:58 Diet: Regular - General Is pt able to select menu?: Yes Wound(s) RIGHT FOOT: Wound Type: Surgical Incision Dressing Change: Keep dressing right foot clean, dry and intact lft urena: Wound Type: Abrasion Therapies Weight Bearing: Non weight bearing (No weightbearing right foot) Extremity Affected:: Right Lower Physical Therapy: Eval and Treat Occupational Therapy: Eval and Treat Problem/Diagnosis (1) Pain of right foot: Status: Acute Code(s): M79.671 - Pain in right foot (2) Hallux valgus of right foot: Status: Acute Code(s): M20.11 - Hallux valgus (acquired), right foot (3) Hammer toe of right foot: Status: Acute Code(s): M20.41 - Other hammer toe(s) (acquired), right foot Plan s/p right foot patel metatarsal head resection and hammer toe correction 2-5 toes right foot on 01/11/24 - she has been admitted for pain management, obervation and post op nursing facility placement - foot with no evidence of infection, no evidence of DVT. No weightbearing right foot, keep right foot elevated Keep dressing right foot clean, dry and intact - was changed yesterday - applied betadine soln to incision sites and kwire tips, applied gauze, kerlix and brandi dressing. Pain management: Acetaminophen, Oxyir, and Dilaudid DVT Prophylaxis: Lovenox 40mg subc daily Chronic medical problems - Hospital Medicine consulted - appreciate assistance Case Management also consulted. Nursing facility placement pending PT/OT consulted Allergies/Procedures Done in Hospital Allergies budesonide Allergy (Severe, Verified 01/11/24 06:48) Other CAUSES HIGH BP omeprazole Allergy (Intermediate, Verified 01/11/24 06:48) diarrhea sulfamethoxazole (From Bactrim) Allergy (Verified 01/11/24 06:48) Rash trimethoprim (From Bactrim) Allergy (Verified 01/11/24 06:48) Rash Type of Care/Length of Stay Estimated LOS: Convalescent Care Less Than 30 days Type of Care Needed: Skilled Rehab Potential: Good Prognosis: Good Additional Orders/Day of Discharge Day of Discharge: 01/14/24 Follow Up Care Please Follow Up With: Gomez Fry DPM When: will follow up in TCU Discharge Plan Admission Admit Date/Time: 01/11/24 11:12 Attending Provider: Gomez Fry Primary Care Provider: Angelo Guido Consulting Providers: Roberto Montes Discharge Orders/Prescriptions Prescriptions: New hydrocodone-acetaminophen 5-300 mg tablet 1 - 2 tab PO Q6H PRN (Reason: pain) 7 Days Qty: 30 0RF enoxaparin [Lovenox] 40 mg/0.4 mL syringe 40 mg subcut DAILY Qty: 8 0RF Continued Fish Oil 300-500 mg capsule 1 cap PO DAILY famotidine 20 mg tablet 20 mg PO BID Qty: 60 5RF potassium chloride 10 mEq capsule, extended release 10 meq PO BID lisinopril 40 mg tablet 40 mg PO DAILY ropinirole 0.25 mg tablet 0.5 mg PO QHS calcitriol 0.25 mcg capsule 0.25 mcg PO BID vitamin E (dl, acetate) 400 UNITS capsule 400 units PO DAILY multivitamin with folic acid 1 TABLET tablet 1 tab PO DAILY calcium carbonate-vitamin D3 1 EACH tablet 1 ea PO BID atorvastatin 20 mg tablet 20 mg PO DAILY duloxetine 30 mg capsule,delayed release(DR/EC) 30 mg PO DAILY Patient Comments: TAKE ONE 30MG CAPSULE AND ONE 60MG CAPSULE TOGETHER ONCE DAILY FOR A TOTAL DAILY DOSE OF 90MG duloxetine 60 mg capsule,delayed release(DR/EC) 60 mg PO DAILY Patient Comments: TAKE ONE 30MG CAPSULE AND ONE 60MG CAPSULE TOGETHER ONCE DAILY FOR A TOTAL DAILY DOSE OF 90MG biotin 10,000 mcg capsule 10,000 mcg PO DAILY levothyroxine 75 mcg tablet 75 mcg PO .COMPLEX Rx Instructions: 75 mcg orally Mon-Sat two tabs on Sun; pantoprazole 20 mg tablet,delayed release (DR/EC) 20 mg PO DAILY colestipol 1 gram tablet 1 g PO BID Qty: 90 3RF Referrals / Follow Up: Angelo Guido MD [Primary Care Provider] - Disposition Disposition (needs filled in before D/C Order can be placed): [facility]-Way Facility
--- NOTE | 2024-01-14 17:56 | DS.PCM_ITS ---
Providers Date of Admission: 01/11/24 Primary Care Physician: Dr. Angelo Guido MD Consultations 01/11/24 11:18 Consult: Hospitalist Routine Consulting Provider: Roberto Montes Reason for Consult: chronic medical problems EMERGENT Consult: No MD Notified: Yes Date Notified: 01/11/24 Time Notified: 11:18 Method of Notification: Verbal Reason For Visit: Resection of 1st, 2nd, 3rd, 4th, & Diagnosis Discharge Diagnosis (1) Pain of right foot: Status: Acute Code(s): M79.671 - Pain in right foot (2) Hallux valgus of right foot: Status: Acute Code(s): M20.11 - Hallux valgus (acquired), right foot (3) Hammer toe of right foot: Status: Acute Code(s): M20.41 - Other hammer toe(s) (acquired), right foot Plan s/p right foot patel metatarsal head resection and hammer toe correction 2-5 toes right foot on 01/11/24 - she has been admitted for pain management, obervation and post op nursing facility placement - foot with no evidence of infection, no evidence of DVT. No weightbearing right foot, keep right foot elevated Keep dressing right foot clean, dry and intact - was changed yesterday - applied betadine soln to incision sites and kwire tips, applied gauze, kerlix and brandi dressing. Pain management: Acetaminophen, Oxyir, and Dilaudid DVT Prophylaxis: Lovenox 40mg subc daily Chronic medical problems - Hospital Medicine consulted - appreciate assistance Case Management also consulted. Nursing facility placement pending PT/OT consulted Medications at Discharge Home Medications multivitamin with folic acid 400 mcg tablet 1 tab PO DAILY SUPPLEMENT 05/18/14 vitamin E (dl, acetate) 180 mg (400 unit) capsule 400 units PO DAILY SUPPLEMENT 05/18/14 omega-3 fatty acids-fish oil 300 mg-500 mg capsule (Fish Oil) 1 cap PO DAILY SUPPLEMENT 02/17/20 calcium carbonate 500 mg-vitamin D3 15 mcg (600 unit) tablet 1 ea PO BID SUPPLEMENT 02/27/20 atorvastatin 20 mg tablet 20 mg PO DAILY CHOLESTEROL 07/17/23 biotin 10,000 mcg capsule 10,000 mcg PO DAILY SUPPLEMENT 07/17/23 duloxetine 30 mg capsule,delayed release 30 mg PO DAILY DEPRESSION 07/17/23 duloxetine 60 mg capsule,delayed release 60 mg PO DAILY DEPRESSION 07/17/23 famotidine 20 mg tablet 20 mg PO BID #60 tabs 09/18/23 lisinopril 40 mg tablet 40 mg PO DAILY 09/18/23 potassium chloride 10 mEq capsule,extended release 10 meq PO BID 09/18/23 ropinirole 0.25 mg tablet 0.5 mg PO QHS 09/18/23 colestipol 1 gram tablet 1 g PO BID #90 tabs 11/05/23 calcitriol 0.25 mcg capsule 0.25 mcg PO BID 11/12/23 levothyroxine 75 mcg tablet 75 mcg PO .COMPLEX THYROID 11/12/23 pantoprazole 20 mg tablet,delayed release 20 mg PO DAILY 01/07/24 enoxaparin 40 mg/0.4 mL subcutaneous syringe (Lovenox) 40 mg (0.4 mL) subcut DAILY #8 mL 01/14/24 hydrocodone 5 mg-acetaminophen 300 mg tablet 1 - 2 tab PO Q6H PRN pain 7 days #30 tabs 01/14/24 Physical Exam Const alert, oriented x3 and no apparent distress Constitutional Narrative: Right foot dressing is clean, dry and intact, CFT < 2 seconds to all toes, calf soft and supple bilateral, no evidence of heel skin break down bilateral. Weight / BMI Weight Weight: 70.1 kg Body Mass Index (BMI) 34.6 ABG / Lab / Microbiology Data 01/14/24 05:27 01/14/24 05:27 Laboratory: Laboratory Results - last 24 hr 01/14/24 05:27: WBC 8.3, RBC 3.51 L, Hgb 10.0 L, Hct 31.5 L, MCV 89.7, MCH 28.5, MCHC 31.7 L, RDW Std Deviation 47.7 H, RDW Coeff of Elsie 14.6, Plt Count 145 L, MPV 11.2, Immature Gran % (Auto) 0.500, Neut % (Auto) 63.4, Lymph % (Auto) 22.0, Pickett % (Auto) 10.3 H, Eos % (Auto) 3.4, Baso % (Auto) 0.4, Absolute Neuts (auto) 5.3, Absolute Lymphs (auto) 1.82, Nucleated RBC % 0, Sodium 136, Potassium 3.9, Chloride 101, Carbon Dioxide 29.0, Anion Gap 6, BUN 10, Creatinine 0.88, Estim Creat Clear Calc 57.17, Est GFR (MDRD) Af Amer 84, Est GFR (MDRD) Non-Af 69, BUN/Creatinine Ratio 11.4, Glucose 106, Calcium 8.2 L Radiography Diagnostic Testing: Radiology Impression Foot X-Ray 01/11/24 07:00 IMPRESSION: Intraoperative imaging provided for resection of the first through fifth metatarsal heads with fixation. Electronically Signed: Jace Stoner MD at 8:25 EDT , Foot X-Ray 01/11/24 11:18 IMPRESSION: Status post resection of the distal portions of the first second third fourth and fifth metatarsals with pinning at the metatarsophalangeal joints. Postoperative soft tissue changes. Electronically Signed: Jace Stoner MD at 12:47 EDT , D/C Instructions Please Follow Up With: Gomez Fry DPM Meaningful Use Info Meaningful Use Meaningful Use Diagnoses (Choose all that apply): None applicable Ischemic Stroke Statin Dosing Therapy Reference: STATIN DOSE THERAPY REFERENCE: * Patients > 75 years receive moderate or high dose statin therapy. * Patients 75 years or YOUNGER should receive HIGH intensity statin dose unless contraindicated. You will be required to document reason for non-treatment if statin daily dose does not meet guidelines. HIGH DOSE STATIN THERAPY DAILY Atorvastatin > than or = to 40 mg Rosuvastatin > than or = to 20 mg Amlodipine + Atorvastatin > than or = to 2.5/40 mg Ezetimibe + Simvastatin 10/80 mg Simvastatin 80mg Discharge Plan Admission Admit Date/Time: 01/11/24 11:12 Attending Provider: Gomez Fry Primary Care Provider: Angelo Guido Consulting Providers: Roberto Montes Discharge Orders/Prescriptions Prescriptions: New hydrocodone-acetaminophen 5-300 mg tablet 1 - 2 tab PO Q6H PRN (Reason: pain) 7 Days Qty: 30 0RF enoxaparin [Lovenox] 40 mg/0.4 mL syringe 40 mg subcut DAILY Qty: 8 0RF Continued Fish Oil 300-500 mg capsule 1 cap PO DAILY famotidine 20 mg tablet 20 mg PO BID Qty: 60 5RF potassium chloride 10 mEq capsule, extended release 10 meq PO BID lisinopril 40 mg tablet 40 mg PO DAILY ropinirole 0.25 mg tablet 0.5 mg PO QHS calcitriol 0.25 mcg capsule 0.25 mcg PO BID vitamin E (dl, acetate) 400 UNITS capsule 400 units PO DAILY multivitamin with folic acid 1 TABLET tablet 1 tab PO DAILY calcium carbonate-vitamin D3 1 EACH tablet 1 ea PO BID atorvastatin 20 mg tablet 20 mg PO DAILY duloxetine 30 mg capsule,delayed release(DR/EC) 30 mg PO DAILY Patient Comments: TAKE ONE 30MG CAPSULE AND ONE 60MG CAPSULE TOGETHER ONCE DAILY FOR A TOTAL DAILY DOSE OF 90MG duloxetine 60 mg capsule,delayed release(DR/EC) 60 mg PO DAILY Patient Comments: TAKE ONE 30MG CAPSULE AND ONE 60MG CAPSULE TOGETHER ONCE DAILY FOR A TOTAL DAILY DOSE OF 90MG biotin 10,000 mcg capsule 10,000 mcg PO DAILY levothyroxine 75 mcg tablet 75 mcg PO .COMPLEX Rx Instructions: 75 mcg orally Mon-Sat two tabs on Sun; pantoprazole 20 mg tablet,delayed release (DR/EC) 20 mg PO DAILY colestipol 1 gram tablet 1 g PO BID Qty: 90 3RF Referrals / Follow Up: Angelo Guido MD [Primary Care Provider] - Disposition Disposition (needs filled in before D/C Order can be placed): Shelter Facility
== END 2024-01-14 18:30 | disposition skilled nursing facility (03) ==
LOC: SDC 11:20 → MS3 11:21
PROVIDERS: Family Medicine; Admitting Provider Podiatrist; PCP Family Medicine; Referring Provider Podiatrist; Visit Provider Podiatrist
PROC: (CPT 28292; principal; 2024-01-11 07:45)
DX: M20.41 Other hammer toe(s) (acquired), right foot (principal); E78.00 Pure hypercholesterolemia, unspecified; Z87.891 Personal history of nicotine dependence; N18.9 Chronic kidney disease, unspecified; E06.3 Autoimmune thyroiditis; I12.9 Hypertensive chronic kidney disease with stage 1 through stage 4 chronic kidney disease, or unspecified chronic kidney disease; F41.8 Other specified anxiety disorders; M20.11 Hallux valgus (acquired), right foot; Z79.899 Other long term (current) drug therapy; Z79.890 Hormone replacement therapy; K21.9 Gastro-esophageal reflux disease without esophagitis
CPT/HCPCS: 28292; 28285 ×4; 01480; 36415; 73620; 73630; 76000; 80048; 85025; 88311; 96365; 96366; 96372; 97110; 97116; 97162; 97166; 97530; 97535; 99221; J7040; J7120; A4216; G0378; J2405

== ENCOUNTER 2024-01-14 18:38 | Inpatient (IN) | payer MEDICARE, SELFPAY ==
[2024-01-14 18:59] VITALS: BP 140/93; PULSE 101; RESP 18; TEMP 37.3; O2SAT 97
--- NOTE | 2024-01-14 20:59 | HP.PCM_ITS ---
HPI - General General Date of Admission: 01/14/24 Date of Service: 01/15/24 Chief Complaint: Here for rehabilitation. HPI Narrative BHAVNA PATEL, is a 63 Female who presents with followin01/11/[address] [facility]. 01/11/2024 Dr. Fry performed patel metatarsal head resection right foot, correction 2-5 hammer toes right foot. 01/11/2024 Doing well, pain controlled. PT/OT SNF, [facility] RLE, lives alone. 01/12/2024 No overnight issues. Renal function stable, blood pressure stable. 01/12/2024 Sitting in chair, right foot elevated. Pain controlled with Tylenol, Oxycodone, Dilaudid. Lovenox 40mg sc daily for DVT prophylaxis. 01/13/2024 Doing well. PT/OT SNF, Add stool softener. Elevated WBC reactive. 01/13/2024 [facility] RLE. 01/14/2024 Admit to TCU with debility, here for rehabilitation, strengthening, prior to discharge home alone. [facility] Medical History (Updated 01/14/24 @ 21:[address] 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 History of claustrophobia Anxiety Depression Hyperthyroidism Former smoker CPAP (continuous positive airway pressure) dependence Asthma Chest pain Hypertension Migraines CKD (chronic kidney disease) GERD (gastroesophageal reflux disease) Depression with anxiety Arthritis Hypoparathyroidism Diarrhea Abdominal pain Cholelithiasis Home Medications ?Medication ?Instructions ?Recorded ?Last Taken ?Type multivitamin with folic acid 400 1 tab PO DAILY SUPPLEMENT 05/18/14 01/10/24 History mcg tablet vitamin E (dl, acetate) 180 mg 400 units PO DAILY SUPPLEMENT 05/18/14 01/10/24 History (400 unit) capsule omega-3 fatty acids-fish oil 300 1 cap PO DAILY SUPPLEMENT 02/17/20 01/10/24 History mg-500 mg capsule (Fish Oil) calcium carbonate 500 mg-vitamin 1 ea PO BID SUPPLEMENT 02/27/20 01/10/24 History D3 15 mcg (600 unit) tablet atorvastatin 20 mg tablet 20 mg PO DAILY CHOLESTEROL 07/17/23 01/10/24 History biotin 10,000 mcg capsule 10,000 mcg PO DAILY SUPPLEMENT 07/17/23 01/10/24 History duloxetine 30 mg capsule,delayed 30 mg PO DAILY DEPRESSION 07/17/23 01/10/24 History release duloxetine 60 mg capsule,delayed 60 mg PO DAILY DEPRESSION 07/17/23 01/10/24 History release famotidine 20 mg tablet 20 mg PO BID stomach #60 tabs 09/18/23 01/11/24 Rx lisinopril 40 mg tablet 40 mg PO DAILY BP 09/18/23 01/11/24 History potassium chloride 10 mEq 10 meq PO BID supplement 09/18/23 01/10/24 History capsule,extended release ropinirole 0.25 mg tablet 0.5 mg PO QHS restless legs 09/18/23 01/10/24 History colestipol 1 gram tablet 1 g PO BID cholesterol #90 tabs 11/05/23 01/10/24 Rx calcitriol 0.25 mcg capsule 0.25 mcg PO BID bones 11/12/23 01/10/24 History levothyroxine 75 mcg tablet 75 mcg PO .COMPLEX THYROID 11/12/23 01/10/24 History pantoprazole 20 mg tablet,delayed 20 mg PO DAILY stomach 01/07/24 01/11/24 History release enoxaparin 40 mg/0.4 mL 40 mg (0.4 mL) subcut DAILY 01/14/24 Unknown Rx subcutaneous syringe (Lovenox) prevent clots #8 mL hydrocodone 5 mg-acetaminophen 300 1 - 2 tab PO Q6H PRN pain 7 days 01/14/24 Unknown Rx mg tablet #30 tabs Allergy/AdvReac Type Severity Reaction Status Date / Time budesonide Allergy Severe Other Verified 01/11/24 06:48 omeprazole Allergy Intermediate diarrhea Verified 01/11/24 06:48 sulfamethoxazole (From Allergy Rash Verified 01/11/24 06:48 Bactrim) trimethoprim (From Bactrim) Allergy Rash Verified 01/11/24 06:48 Family History Mother Arthritis Brother Cancer Diabetes Heart disease Father Diabetes Heart disease Hypertension High cholesterol Uncle Diabetes Grandfather Cancer skin cancer Surgical History (Updated 01/14/24 @ 21:[address] Anil Abdul MD) History of foot surgery Hx of bilateral cataract extraction Hx of colonoscopy History Bilateral Cataract Surgery Social History (Updated 01/14/24 @ 21:[address] Anil Abdul MD) household members: none Smoking Status: Former smoker alcohol intake: never substance use type: does not use ROS Constitutional Constitutional: Denies chills, fever(s) or weight gain ENT HEENT: Denies headache(s), nasal congestion or nasal discharge Cardiovascular Cardiovascular: Denies chest pain or palpitations Respiratory/Chest Respiratory/Chest: Denies cough, excessive phlegm production or shortness of breath with exertion Gastrointestinal Gastrointestinal: Denies abdominal pain, nausea or vomiting Genitourinary Genitourinary: Denies dysuria Musculoskeletal Musculoskeletal: Denies joint pain or joint swelling Integumentary Integumentary: Denies rash or wounds Neurologic Neurologic: Denies focal weakness, numbness or tingling Psychiatric Psychiatric: Denies anxiety, auditory hallucinations, depression, homicidal ideation or suicidal ideation Vital Signs Vital Signs Vital Signs: 01/14/24 18:59 Temperature 99.1 F Temperature Source Oral Pulse Rate 101 H Respiratory Rate 18 Blood Pressure 140/93 H Blood Pressure Mean 108 Blood Pressure Source Monitor Blood Pressure Position Supine Blood Pressure Location Right Arm Pulse Ox 97 Oxygen Delivery Method Room Air Physical Exam Const alert General Appearance: cooperative HEENT normocephalic Eyes PERRL and EOMs intact bilaterally Neck supple, no JVD and no carotid bruits Resp normal respiratory effort, normal air movement and clear to auscultation bilaterally Cardio regular rate and regular rhythm GI normal to inspection, nondistended, normoactive bowel sounds, non-tender and non-distended Extremity normal capillary refill Extremity Narrative: Right foot dressed. General Extremity: Negative for edema Skin no rashes or lesions noted General Skin Exam: no breakdown Psych affect normal Appearance: appropriate Results Lab / Micro Data 01/15/24 05:15 01/15/24 05:15 Assessment & Plan Assessment/Plan (1) Debility: (2) Pain of right foot: (3) Hallux valgus of right foot: (4) Hammer toe of right foot: (5) Hyperlipidemia: (6) GERD with apnea: (7) Depression: (8) Essential (primary) hypertension: (9) Hypokalemia: (10) Restless legs: (11) Hypothyroidism: (12) Hyperparathyroidism: PLAN: Plan 63 year old female with below past medical history underwent patel metatarsal head resection right foot, correction 2-5 hammer toes right foot 01/11/[address] Fry, post operative course uncomplicated, admitted to TCU with debility, here for rehabilitation, strengthening, prior to discharge home alone. * Debility - PT/OT * Pain - [place] 5/325mg 1-2 tablet q6 prn pain. * Bowel - Senna/colace 1 tablet bid prn, Colestipol 1 tablet bid. * Adult immunization - Administer pneumonia vaccine, covid vaccine, flu vaccine as appropriate. * DVT prophylaxis - Lovenox 40mg sc daily. * Hyperlipidemia - Atorvastatin 20mg qhs, Goehner 3 1 tablet daily. * Hyperparathyroidism - Calcitriol 0.25mcg bid. * Calcium deficiency - Calcium D 1 tablet bidcm. * Depression - Duloxetine 90mg daily, stable chronic intermediate use, GDR not recommended. * GERD - Pantoprazole 20mg daily, Famotidine 20mg bid. * Hypothyroidism - Levothyroxine 75mcg daily, 150mcg 1 daily per week. * Hypertension - Lisinopril 40mg daily. * Nutrition - MVI 1 tablet daily. * Hypokalemia - KCL 10meq bid. * Restless leg syndrome - Mirapex 0.25mg qhs. * Fatty liver - Vitamin E 400iu daily. * s/p right foot surgery - Consult Dr. Fry to follow.
[2024-01-14] MEDS: Pramipexole Di-HCl 0.25 MG Tablet PO (21:18)
[2024-01-14] MEDS: Colestipol 1 GM TABLET PO (21:18)
[2024-01-14] MEDS: Calcitriol 0.25 MCG Capsule PO (21:18)
[2024-01-14] MEDS: Potassium Chloride Oral Tablet 10 MEQ PO (21:18)
[2024-01-14] MEDS: Atorvastatin Calcium 20 MG Tablet PO (21:19)
[2024-01-14] MEDS: Famotidine 20 MG Tablet PO (21:19)
[2024-01-14 22:00] VITALS: BMI 34.9
[2024-01-14 23:34] VITALS: PULSE 100; RESP 16; O2SAT 98
[2024-01-15] MEDS: HYDROcodone Bitartrate/Apap 5/325 Tablet PO ×4 (00:30→21:53)
[2024-01-15] MEDS: Levothyroxine 75 MCG Tablet PO (05:18)
[2024-01-15 05:40] LABS: Absolute Lymphocyte Count 2.18 X10^3/uL (0.83-4.51); Absolute Neutrophil Count 5.8 X10^3/uL (2.0-7.7); Basophil# 0.05 X10^3/uL; Basophil% 0.5 % (0-1); Eosinophil# 0.47 X10^3/uL; Eosinophils% 4.9 % (0-5); Hematocrit 30.4 % (37-47); Hemoglobin 9.7 g/dL (12.0-15.0); Lymphocyte # 2.18 X10^3/ul (0.83-4.51); Lymphocyte % 22.8 % (19-41); Mean Corp Hgb Conc 31.9 g/dL (32-36); Mean Corpuscular Hgb 28.3 pg (27.0-32.0); Mean Corpuscular Volume 88.6 fL (81-99); Mean Platelet Vol. 11.5 fl (6.2-12.0); Monocyte# 0.97 X10^3/uL; Monocyte% 10.2 % (0-10); NRBC Flagged by Analyzer 0 % (0-5); Neutrophil # 5.81 X10^3/uL (2.7-7.7); Neutrophil % 60.9 % (47-70); Platelet Count 176 K/mm3 (150-450); RBC Distribution Width CV 14.6 % (11.6-14.6); RBC Distribution Width SD 47.3 fl (35.1-43.9); Red Blood Count 3.43 M/mm3 (4.2-5.4); White Blood Count 9.6 K/mm3 (4.4-11.0)
[2024-01-15 06:41] LABS: Anion Gap 3 (5-15); BUN 11 mg/dL (7-18); BUN/Creat Ratio 13.2 RATIO (10-20); Calcium,Total 8.1 mg/dL (8.5-10.1); Chloride 102 mmol/L (98-107); Creatinine, Serum 0.84 mg/dL (0.55-1.02); EST Glomerular Filtration Rate 73 mL/min (>60); Est Glom Filt Rate - Afr Amer 88 mL/min (>60); Estimated Creatinine Clearance 60.05 ml/min; Glucose 114 mg/dL (74-106); Sodium Level 134 mmol/L (136-145)
[2024-01-15] MEDS: Enoxaparin 40 MG/0.4 ML Syringe SC (08:38)
[2024-01-15] MEDS: Colestipol 1 GM TABLET PO ×2 (08:38→20:26)
[2024-01-15] MEDS: Pantoprazole Sodium 20 MG Tablet PO (08:39)
[2024-01-15] MEDS: Famotidine 20 MG Tablet PO ×2 (08:39→20:27)
[2024-01-15] MEDS: Calcium Carb/Vitamin D 1 TABLET Tablet PO ×2 (08:39→15:50)
[2024-01-15] MEDS: Lisinopril 40 MG Tablet PO (08:39)
[2024-01-15] MEDS: Omega-3 Acid Ethyl Esters 1 GM Capsule PO (08:39)
[2024-01-15] MEDS: Multivitamins,Therapeutic Tablet 1 TABLET PO (08:39)
[2024-01-15] MEDS: Potassium Chloride Oral Tablet 10 MEQ PO ×2 (08:39→20:26)
[2024-01-15] MEDS: DULoxetine Hcl 60 MG Capsule PO (08:39)
[2024-01-15] MEDS: DULoxetine Hcl 30 MG Capsule PO (08:39)
[2024-01-15] MEDS: Vitamin E 400 UNITS Capsule PO (08:39)
[2024-01-15] MEDS: Calcitriol 0.25 MCG Capsule PO ×2 (08:40→20:27)
[2024-01-15] MEDS: Tuberculin,Purif.prot.deriv. 50 TU/ML Vial 0.1 ML ID (08:40)
[2024-01-15 08:55] VITALS: BP 110/59; PULSE 110
[2024-01-15] MEDS: Nystatin Powder 15gm Bottle 1 APPLIC TOPICAL ×2 (10:57→20:28)
--- NOTE | 2024-01-15 12:13 | NURSING ---
Pt and family updated on positive covid pt.
--- NOTE | 2024-01-15 12:36 | PCM.PN.DRR ---
Documented by User: Aixa Harding 01/15/24 13:12 TCU RX Drug Regimen Review Subjective/Objective Subjective/Objective: Subjective: TCU Admission. 63 YOF underwent patel metatarsal head resection right foot, correction 2-5 hammer toes right foot 01/11/[address] Fry, post operative course uncomplicated. Admitted to TCU with debility for strengthening and rehabilitation. Objective: Allergies budesonide Allergy (Severe, Verified 01/11/24 06:48) Other CAUSES HIGH BP omeprazole Allergy (Intermediate, Verified 01/11/24 06:48) diarrhea sulfamethoxazole (From Bactrim) Allergy (Verified 01/11/24 06:48) Rash trimethoprim (From Bactrim) Allergy (Verified 01/11/24 06:48) Rash Current Medications Generic Name Dose Route Start Last Admin Trade Name Freq PRN Reason Stop Dose Admin Hydrocodone Bitart/Acetaminophen 1 - 2 tablet 01/14/24 19:28 01/15/24 08:53 Hydrocodone Bitartrate/Apap 5/325 Tablet PO 1 tablet Q6H PRN Administration pain 1-10 Atorvastatin Calcium 20 mg 01/14/24 22:00 01/14/24 21:19 Atorvastatin Calcium 20 Mg Tablet PO 20 mg QHS AYAN Administration Calcitriol 0.25 mcg 01/14/24 22:00 01/15/24 08:40 Calcitriol 0.25 Mcg Capsule PO 0.25 mcg BID AYAN Administration Calcium/Vitamin D 1 tablet 01/15/24 08:00 01/15/24 08:39 Calcium Carb/Vitamin D 1 Tablet Tablet PO 1 tablet BIDCM AYAN Administration Colestipol HCl 1 gm 01/14/24 22:00 01/15/24 08:38 Colestipol 1 Gm Tablet PO 1 gm BID AYAN Administration Duloxetine HCl 30 mg 01/15/24 10:00 01/15/24 08:39 Duloxetine Hcl 30 Mg Capsule PO 30 mg DAILY AYAN Administration Duloxetine HCl 60 mg 01/15/24 10:00 01/15/24 08:39 Duloxetine Hcl 60 Mg Capsule PO 60 mg DAILY AYAN Administration Enoxaparin Sodium 40 mg 01/15/24 10:00 01/15/24 08:38 Enoxaparin 40 Mg/0.4 Ml Syringe SC 40 mg DAILY AYAN Administration Famotidine 20 mg 01/14/24 22:00 01/15/24 08:39 Famotidine 20 Mg Tablet PO 20 mg BID AYAN Administration Levothyroxine Sodium 75 mcg 01/15/24 06:00 01/15/24 05:18 Levothyroxine 75 Mcg Tablet PO 75 mcg [id number] [facility] Administration Levothyroxine Sodium 150 mcg 01/20/24 06:00 Levothyroxine 75 Mcg Tablet PO De Los Santos@0600 [facility] Lisinopril 40 mg 01/15/24 10:00 01/15/24 08:39 Lisinopril 40 Mg Tablet PO 40 mg DAILY AYAN Administration Protocol Multivitamins 1 tablet 01/15/24 08:00 01/15/24 08:39 Multivitamins,Therapeutic Tablet PO 1 tablet DAILYCM [facility] Administration Nystatin 1 applic 01/15/24 10:00 01/15/24 10:57 Nystatin Powder 15gm Bottle TOPICAL 1 applic BID [facility] Administration Protocol Dqeep-2-Eqbp Ethyl Esters 1 gm 01/15/24 10:00 01/15/24 08:39 [place]-3 Acid Ethyl Esters 1 Gm Capsule PO 1 gm DAILY AYAN Administration Pantoprazole Sodium 20 mg 01/15/24 10:00 01/15/24 08:39 Pantoprazole Sodium 20 Mg Tablet PO 20 mg DAILY AYAN Administration Potassium Chloride 10 meq 01/14/24 22:00 01/15/24 08:39 Potassium Chloride Oral Tablet 10 Meq PO 10 meq BID AYAN Administration Pramipexole Dihydrochloride 0.25 mg 01/14/24 22:00 01/14/24 21:18 Pramipexole Di-Hcl 0.25 Mg Tablet PO 0.25 mg QHS [facility] Administration Senna/Docusate Sodium 1 tablet 01/14/24 21:13 Senna/Docusate Sodium 1 Tablet PO BID PRN PRN Constipation Sodium Chloride 10 - 40 ml 01/14/24 20:29 0.9% Saline Lock 10 Ml Syringe IV UD PRN SALINE FLUSH Tuberculin PPD 0.1 ml 01/22/24 10:00 Tuberculin,Purif.Prot.Deriv. 50 Tu/Ml Vial ID 01/22/24 10:01 X1 ONE Vitamin E 400 units 01/15/24 10:00 01/15/24 08:39 Vitamin E 400 Units Capsule PO 400 units DAILY AYAN Administration Problem List Hyperparathyroidism (Acute) Hypothyroidism (Acute) Restless legs (Acute) Hypokalemia (Acute) Essential (primary) hypertension (Acute) GERD with apnea (Acute) Depression (Acute) Hyperlipidemia (Acute) Debility (Acute) Hammer toe of right foot (Acute) Hallux valgus of right foot (Acute) Pain of right foot (Acute) Vital Signs Temp Pulse Resp BP Pulse Ox O2 Del Method 99.1 F 110 H 16 110/59 L 98 Room Air 01/14/24 18:59 01/15/24 08:55 01/14/24 23:34 01/15/24 08:55 01/14/24 23:34 01/14/24 23:34 Oxygen Delivery Method Room Air Weight: 70.477 kg Body Mass Index (BMI) 34.9 Sodium 134 mmol/L (136-145) L 01/15/24 05:15 Potassium 4.0 mmol/L (3.5-5.1) 01/15/24 05:15 Chloride 102 mmol/L (98-107) 01/15/24 05:15 Carbon Dioxide 29.0 mmol/L (21.0-32.0) 01/15/24 05:15 Anion Gap 3 (5-15) L 01/15/24 05:15 BUN 11 mg/dL (7-18) 01/15/24 05:15 Creatinine 0.84 mg/dL (0.55-1.02) 01/15/24 05:15 Est GFR (MDRD) Af Amer 88 mL/min (>60) 01/15/24 05:15 Est GFR (MDRD) Non-Af 73 mL/min (>60) 01/15/24 05:15 BUN/Creatinine Ratio 13.2 RATIO (10-20) 01/15/24 05:15 Glucose 114 mg/dL (74-106) H 01/15/24 05:15 Assessment/Plan: 1. Pain: [place] 5/325 1-2T PO Q6H PRN pain (1 tablet 1-5, 2 tabs 6-10). Please monitor for S/S of increased pain, PRN usage, constipation, respiratory depression and excessive sedation. Resident has had 2 doses so far for pain scores of 3 and 8 in the foot. 2. Bowel: senna/docusate 1T PO BID PRN constipation and colestipol 1T PO BID. To date, no senna/docusate has been given. Please monitor for s/s of constipation/ diarrhea and PRN usage. Last documented bowel movement was 01/12 3. DVT prophylaxis: enoxaparin 40mg SC daily. Please monitor CrCl (last 60 ml/min), s/s of anemia (Hgb 9.7 g/dL, Hct 30.4%), platelets (last 176,000) and s/s of bleeding/DVT. Please consider adding supplemental iron as the patient has a low RBC, Hct, and Hgb. 4. Hyperlipidemia: atorvastatin 20mg PO QHS, [place] 3 1T PO BID. Please monitor annual lipid panel (in range 12/06/23), LFTs (last 01/08/24) and symptoms of myalgia and myopathy. 5. Hyperparathyroidism/hypothyroidism: calcitriol 0.25 mcg PO BID and levothyroxine 150 mcg PO Sundays and 75mcg all other days. Please monitor TSH levels (last 01/08/24), T4 (last 09/10/23), hypercalcemia, hypercalciuria, and s/s of worsening hypothyroidism. 6. Hypertension: lisinopril 40mg PO daily. Please monitor BP (last 110/59), SCr (last 0.84mg/dL), cough and potassium levels for hyperkalemia. 7. Hypokalemia: potassium chloride 10 mEq PO BID. Please monitor for s/s of hyperkalemia (K- 4.0 01/14). 8. GERD: pantoprazole 20mg PO daily, famotidine 20mg PO BID. Please monitor for S/S of GERD, diarrhea (C. Diff, BEERs medication), headache, renal function, agitation, and confusion. 9. Restless leg syndrome: pramipexole 0.25mg PO QHS. Please monitor for dyskinesia, insomnia, confusion, and orthostatic hypotension. 10. Fatty liver: Vitamin E 400 units PO daily. Please continue to monitor. 11. Calcium deficiency/nutrition: calcium carbonate 500mg/vitamin D3 15mcg tablet PO BID and multivitamin 1T PO daily. Please monitor calcium levels (8.1 mg/dL 01/14) and vitamin D (last 01/06/24 WNL). Assessment/Plan for indications treated with psychotropic medications: 1. Depression: duloxetine 90mg PO daily. Please monitor for s/s of worsening depression, suicidal ideations (Black box), sodium (last 134mmol/L), drowsiness, and fatigue. Please see providers note regarding GDR. Medical chart and medication regimen reviewed. The following medication irregularities or issues were identified: None Date Date of Note:: 01/15/24 Documented by User: Dr. Anil Abdul MD 01/15/24 13:16 TCU RX Drug Regimen Review Provider Comments Provider responsibility Provider Comments to Recommendations by Pharmacy: Agree
[2024-01-15 14:36] VITALS: BP 140/65; PULSE 99; RESP 22; TEMP 37.2; O2SAT 94
[2024-01-15 15:10] VITALS: BMI 35.7
[2024-01-15] MEDS: Pramipexole Di-HCl 0.25 MG Tablet PO (20:26)
[2024-01-15] MEDS: Atorvastatin Calcium 20 MG Tablet PO (20:27)
[2024-01-15 20:34] VITALS: RESP 16
[2024-01-16] MEDS: Levothyroxine 75 MCG Tablet PO (05:46)
[2024-01-16] MEDS: Potassium Chloride Oral Tablet 10 MEQ PO ×2 (08:04→08:05)
[2024-01-16] MEDS: Calcium Carb/Vitamin D 1 TABLET Tablet PO ×2 (08:04→17:02)
[2024-01-16] MEDS: Multivitamins,Therapeutic Tablet 1 TABLET PO (08:04)
[2024-01-16] MEDS: Pantoprazole Sodium 20 MG Tablet PO (08:05)
[2024-01-16] MEDS: DULoxetine Hcl 60 MG Capsule PO (08:05)
[2024-01-16] MEDS: DULoxetine Hcl 30 MG Capsule PO (08:05)
[2024-01-16] MEDS: Vitamin E 400 UNITS Capsule PO (08:05)
[2024-01-16] MEDS: Lisinopril 40 MG Tablet PO (08:05)
[2024-01-16] MEDS: Calcitriol 0.25 MCG Capsule PO ×2 (08:05→21:09)
[2024-01-16] MEDS: Famotidine 20 MG Tablet PO ×2 (08:05→21:09)
[2024-01-16] MEDS: Enoxaparin 40 MG/0.4 ML Syringe SC (08:05)
[2024-01-16] MEDS: Omega-3 Acid Ethyl Esters 1 GM Capsule PO (08:06)
[2024-01-16] MEDS: Colestipol 1 GM TABLET PO ×2 (08:10→21:09)
[2024-01-16] MEDS: Nystatin Powder 15gm Bottle 1 APPLIC TOPICAL ×2 (08:10→21:10)
[2024-01-16 09:26] VITALS: BP 125/68; PULSE 64
[2024-01-16] MEDS: HYDROcodone Bitartrate/Apap 5/325 Tablet PO ×4 (09:40→23:35)
[2024-01-16 10:01] VITALS: PULSE 96; RESP 16; TEMP 36.6; O2SAT 98
[2024-01-16] MEDS: Senna/Docusate Sodium 1 Tablet PO (11:20)
--- NOTE | 2024-01-16 11:58 | NURSING ---
Cad Designer Note; Activity Asset: Jimmie Salcido is independent in her choice of daily activities. She has needle pint at home she has asked her sister to bring in along w/books to read. She will work on word search and other trivial puzzles along w/watching tv and family visits. Loly welcomes visit from the assembler surgical garment and therapy dog when available. Staff will encourage group activities, remind her of weekly activities and respect her right to say no.
--- NOTE | 2024-01-16 16:45 | NURSING ---
Pt called out and stated I don't feel right I think my sugar is low. Blood Sugar checked and was 78. Pt requested Sprite and Lornadones. Per pet she is a Pre Diabetic.
[2024-01-16 17:02] LABS: Bedside Glucose 78 mg/dL (74-106)
[2024-01-16 18:54] VITALS: BP 137/69; PULSE 107; O2SAT 94
[2024-01-16 19:30] LABS: Bedside Glucose 92 mg/dL (74-106)
[2024-01-16] MEDS: Pramipexole Di-HCl 0.25 MG Tablet PO (21:09)
[2024-01-16] MEDS: Atorvastatin Calcium 20 MG Tablet PO (21:09)
[2024-01-16] MEDS: Menthol/Lanolin/Calamine/Znox 113 GM Tube 1 APPLIC TOPICAL (21:10)
[2024-01-17] MEDS: HYDROcodone Bitartrate/Apap 5/325 Tablet PO ×3 (05:39→21:08)
[2024-01-17] MEDS: Levothyroxine 75 MCG Tablet PO (05:42)
[2024-01-17 08:58] VITALS: BP 108/72; PULSE 92; RESP 16; TEMP 36.9; O2SAT 94
[2024-01-17] MEDS: Multivitamins,Therapeutic Tablet 1 TABLET PO (09:02)
[2024-01-17] MEDS: Calcium Carb/Vitamin D 1 TABLET Tablet PO ×2 (09:02→18:36)
[2024-01-17] MEDS: Menthol/Lanolin/Calamine/Znox 113 GM Tube 1 APPLIC TOPICAL ×2 (09:02→21:08)
[2024-01-17] MEDS: DULoxetine Hcl 30 MG Capsule PO (09:03)
[2024-01-17] MEDS: Colestipol 1 GM TABLET PO ×2 (09:03→21:09)
[2024-01-17] MEDS: Enoxaparin 40 MG/0.4 ML Syringe SC (09:04)
[2024-01-17] MEDS: Nystatin Powder 15gm Bottle 1 APPLIC TOPICAL ×2 (09:04→21:10)
[2024-01-17] MEDS: DULoxetine Hcl 60 MG Capsule PO (09:04)
[2024-01-17] MEDS: Calcitriol 0.25 MCG Capsule PO ×2 (09:04→21:10)
[2024-01-17] MEDS: Potassium Chloride Oral Tablet 10 MEQ PO ×2 (09:04→21:09)
[2024-01-17] MEDS: Pantoprazole Sodium 20 MG Tablet PO (09:04)
[2024-01-17] MEDS: Omega-3 Acid Ethyl Esters 1 GM Capsule PO (09:04)
[2024-01-17] MEDS: Famotidine 20 MG Tablet PO ×2 (09:05→21:10)
[2024-01-17] MEDS: Lisinopril 40 MG Tablet PO (09:05)
[2024-01-17] MEDS: Vitamin E 400 UNITS Capsule PO (09:05)
[2024-01-17 11:55] LABS: Bedside Glucose 82 mg/dL (74-106)
--- NOTE | 2024-01-17 15:23 | CASEMGMT ---
Social Work SW met with patient, sisterJyoti, and brother in [place] at bedside to complete initial intake assessment. SW introduced self and role. Patient and sisterJyoti confirmed demographics and contact information. Prior to hospitalization, the patient was living with her sisterJyoti and brother in [place]. Patient informed SW that she was independent to complete personal care. Patient's sisterJyoti assist with medication management, finances, and transportation support. Patient confirmed code status as full code. The patient and family was educated on [facility] Medicare benefits and coverage; next review date is 01/21/2024. SW informed patient and family that continued coverage is not guaranteed. Patient informed SW that her goal is to return home with family. SW inquired about home health and outpatient therapy; patient informed SW that she is unsure about either services at this time. SW will continue to follow to support discharge planning. JANUARY Turcios
[2024-01-17 19:51] VITALS: PULSE 87; RESP 16; O2SAT 94
[2024-01-17] MEDS: Atorvastatin Calcium 20 MG Tablet PO (21:09)
[2024-01-17] MEDS: Pramipexole Di-HCl 0.25 MG Tablet PO (21:10)
[2024-01-18] MEDS: Levothyroxine 75 MCG Tablet PO (05:10)
[2024-01-18] MEDS: HYDROcodone Bitartrate/Apap 5/325 Tablet PO ×3 (08:23→21:03)
[2024-01-18] MEDS: Calcium Carb/Vitamin D 1 TABLET Tablet PO ×2 (09:23→17:13)
[2024-01-18] MEDS: DULoxetine Hcl 60 MG Capsule PO (09:23)
[2024-01-18] MEDS: Omega-3 Acid Ethyl Esters 1 GM Capsule PO (09:23)
[2024-01-18] MEDS: Pantoprazole Sodium 20 MG Tablet PO (09:23)
[2024-01-18] MEDS: Colestipol 1 GM TABLET PO ×2 (09:23→21:03)
[2024-01-18] MEDS: Multivitamins,Therapeutic Tablet 1 TABLET PO (09:23)
[2024-01-18] MEDS: Vitamin E 400 UNITS Capsule PO (09:23)
[2024-01-18] MEDS: Calcitriol 0.25 MCG Capsule PO ×2 (09:23→21:02)
[2024-01-18] MEDS: DULoxetine Hcl 30 MG Capsule PO (09:23)
[2024-01-18] MEDS: Potassium Chloride Oral Tablet 10 MEQ PO ×2 (09:23→21:02)
[2024-01-18] MEDS: Lisinopril 40 MG Tablet PO (09:23)
[2024-01-18] MEDS: Menthol/Lanolin/Calamine/Znox 113 GM Tube 1 APPLIC TOPICAL ×2 (09:24→21:04)
[2024-01-18] MEDS: Nystatin Powder 15gm Bottle 1 APPLIC TOPICAL ×2 (09:24→21:02)
[2024-01-18] MEDS: Famotidine 20 MG Tablet PO ×2 (09:24→21:02)
[2024-01-18] MEDS: Enoxaparin 40 MG/0.4 ML Syringe SC (09:24)
[2024-01-18 09:34] VITALS: BP 122/80; PULSE 103
[2024-01-18 14:28] VITALS: BP 137/72; PULSE 93; RESP 17; TEMP 37.1; O2SAT 100
[2024-01-18] MEDS: Pramipexole Di-HCl 0.25 MG Tablet PO (21:02)
[2024-01-18] MEDS: Atorvastatin Calcium 20 MG Tablet PO (21:02)
[2024-01-18] MEDS: Senna/Docusate Sodium 1 Tablet PO (21:02)
[2024-01-19] MEDS: Levothyroxine 75 MCG Tablet PO (06:07)
[2024-01-19] MEDS: HYDROcodone Bitartrate/Apap 5/325 Tablet PO ×3 (06:51→21:27)
[2024-01-19] MEDS: Calcium Carb/Vitamin D 1 TABLET Tablet PO ×2 (09:03→17:43)
[2024-01-19] MEDS: Multivitamins,Therapeutic Tablet 1 TABLET PO (09:03)
[2024-01-19] MEDS: DULoxetine Hcl 30 MG Capsule PO (09:04)
[2024-01-19] MEDS: Colestipol 1 GM TABLET PO ×2 (09:04→20:02)
[2024-01-19] MEDS: Potassium Chloride Oral Tablet 10 MEQ PO ×2 (09:04→20:02)
[2024-01-19] MEDS: DULoxetine Hcl 60 MG Capsule PO (09:04)
[2024-01-19] MEDS: Omega-3 Acid Ethyl Esters 1 GM Capsule PO (09:05)
[2024-01-19] MEDS: Pantoprazole Sodium 20 MG Tablet PO (09:05)
[2024-01-19] MEDS: Famotidine 20 MG Tablet PO ×2 (09:05→20:03)
[2024-01-19] MEDS: Enoxaparin 40 MG/0.4 ML Syringe SC (09:05)
[2024-01-19] MEDS: Lisinopril 40 MG Tablet PO (09:06)
[2024-01-19] MEDS: Vitamin E 400 UNITS Capsule PO (09:06)
[2024-01-19] MEDS: Calcitriol 0.25 MCG Capsule PO ×2 (09:06→20:03)
[2024-01-19] MEDS: Nystatin Powder 15gm Bottle 1 APPLIC TOPICAL ×2 (09:08→19:53)
[2024-01-19] MEDS: Menthol/Lanolin/Calamine/Znox 113 GM Tube 1 APPLIC TOPICAL ×2 (09:09→19:52)
[2024-01-19 14:11] VITALS: BP 139/73; PULSE 82; RESP 16; TEMP 37.1; O2SAT 100
--- NOTE | 2024-01-19 15:39 | NURSING ---
pt c/o burning with urination, increased incontinence & strong odor. dr berry notified, new order for UA C/S
[2024-01-19 16:18] LABS: Mucous, Urine 0 SEEN /hpf (<or=2+); Squamous Epithelial Cells - UA 0 SEEN /hpf (5-10)
[2024-01-19 16:33] LABS: Color, Urine Yellow (Yellow); Glucose, Dipstick Normal (Normal); Ketone-Dipstick Negative (Negative); Leukocyte Esterase-Dipstick 500 /ul (Negative); Nitrite-Dipstick Positive (Negative); Occult Blood-Urine 25 /ul (Negative); Protein-Dipstick 30 mg/dl (Negative); Specific Gravity, Urine 1.005 (1.002-1.030); Urine Bilirubin Dipstick Negative (Negative); Urine Clarity Sl. Cloudy (Clear); Urine Urobilinogen Normal (Normal)
--- NOTE | 2024-01-19 16:44 | NURSING ---
C/O burning with urination and increased incontinence today. Dr. Abdul made aware and NO for UA C&S. Collected via strait catheter.
[2024-01-19 16:45] LABS: Bacteria 2+ /hpf (None Seen); Red Blood Cells-Urine 0-5 SEEN /hpf (0-5); White Blood Cells 10-25 SEEN /hpf (0-5)
--- NOTE | 2024-01-19 19:03 | NURSING ---
Urinalysis positive for UTI. Dr. Abdul made aware and NO for Cefdinir BID x 7 days.
[2024-01-19] MEDS: Cefdinir 300 MG Capsule PO (19:50)
[2024-01-19] MEDS: Atorvastatin Calcium 20 MG Tablet PO (20:02)
[2024-01-19] MEDS: Pramipexole Di-HCl 0.25 MG Tablet PO (20:03)
[2024-01-20] MEDS: Levothyroxine 75 MCG Tablet 150 MCG PO (06:29)
[2024-01-20 09:32] VITALS: BP 128/63; PULSE 96; RESP 16; TEMP 37.2; O2SAT 100
[2024-01-20] MEDS: Lisinopril 40 MG Tablet PO (09:41)
[2024-01-20] MEDS: Calcium Carb/Vitamin D 1 TABLET Tablet PO ×2 (09:42→17:44)
[2024-01-20] MEDS: Vitamin E 400 UNITS Capsule PO (09:42)
[2024-01-20] MEDS: Enoxaparin 40 MG/0.4 ML Syringe SC (09:42)
[2024-01-20] MEDS: Famotidine 20 MG Tablet PO ×2 (09:42→20:13)
[2024-01-20] MEDS: Omega-3 Acid Ethyl Esters 1 GM Capsule PO (09:42)
[2024-01-20] MEDS: Calcitriol 0.25 MCG Capsule PO ×2 (09:42→20:13)
[2024-01-20] MEDS: DULoxetine Hcl 60 MG Capsule PO (09:42)
[2024-01-20] MEDS: Colestipol 1 GM TABLET PO ×2 (09:42→20:13)
[2024-01-20] MEDS: Potassium Chloride Oral Tablet 10 MEQ PO ×2 (09:42→20:14)
[2024-01-20] MEDS: Multivitamins,Therapeutic Tablet 1 TABLET PO (09:42)
[2024-01-20] MEDS: DULoxetine Hcl 30 MG Capsule PO (09:42)
[2024-01-20] MEDS: Pantoprazole Sodium 20 MG Tablet PO (09:42)
[2024-01-20] MEDS: Menthol/Lanolin/Calamine/Znox 113 GM Tube 1 APPLIC TOPICAL ×2 (09:43→20:12)
[2024-01-20] MEDS: Cefdinir 300 MG Capsule PO ×2 (09:43→20:13)
[2024-01-20] MEDS: Nystatin Powder 15gm Bottle 1 APPLIC TOPICAL ×2 (09:44→20:12)
[2024-01-20 09:57] VITALS: O2SAT 100
[2024-01-20] MEDS: HYDROcodone Bitartrate/Apap 5/325 Tablet PO ×2 (13:25→20:32)
[2024-01-20 13:51] VITALS: BP 139/74; PULSE 122; RESP 16; TEMP 37.1; O2SAT 96
--- NOTE | 2024-01-20 13:56 | EKG12_ITS ---
Test Reason : CP Blood Pressure : / mmHG Vent. Rate : 126 BPM Atrial Rate : 126 BPM P-R Int : 168 ms QRS Dur : 078 ms QT Int : 290 ms P-R-T Axes : 043 -12 054 degrees QTc Int : 420 ms Sinus tachycardia Inferior infarct , age undetermined Abnormal ECG When compared with ECG of 01-AUG-2023 11:07, Inferior infarct is now Present Confirmed by IVONE DEL TORO, COURT ([id number]), primer expeditor and drier PAN MELGAR ([id number]) on 01/22/2024 9:26:06 AM Referred By: MEJIA Confirmed By:COURT WISEMAN MD
[2024-01-20 16:00] VITALS: BP 139/59; PULSE 109
[2024-01-20] MEDS: Metoprolol Tartrate 25 MG Tablet PO (16:00)
[2024-01-20 16:19] LABS: Absolute Lymphocyte Count 3.01 X10^3/uL (0.83-4.51); Absolute Neutrophil Count 11.2 X10^3/uL (2.0-7.7); Basophil# 0.08 X10^3/uL; Basophil% 0.5 % (0-1); Eosinophil# 0.65 X10^3/uL; Eosinophils% 3.9 % (0-5); Hematocrit 34.8 % (37-47); Hemoglobin 11.1 g/dL (12.0-15.0); Lymphocyte # 3.01 X10^3/ul (0.83-4.51); Lymphocyte % 18.3 % (19-41); Mean Corp Hgb Conc 31.9 g/dL (32-36); Mean Corpuscular Hgb 28.5 pg (27.0-32.0); Mean Corpuscular Volume 89.2 fL (81-99); Mean Platelet Vol. 10.5 fl (6.2-12.0); Monocyte# 1.42 X10^3/uL; Monocyte% 8.6 % (0-10); NRBC Flagged by Analyzer 0 % (0-5); Neutrophil # 11.18 X10^3/uL (2.7-7.7); Neutrophil % 67.9 % (47-70); Platelet Count 257 K/mm3 (150-450); RBC Distribution Width CV 14.6 % (11.6-14.6); RBC Distribution Width SD 47.1 fl (35.1-43.9); White Blood Count 16.5 K/mm3 (4.4-11.0)
[2024-01-20 16:34] LABS: Anion Gap 7 (5-15); BUN 15 mg/dL (7-18); BUN/Creat Ratio 15.9 RATIO (10-20); Calcium,Total 8.9 mg/dL (8.5-10.1); Chloride 97 mmol/L (98-107); Creatinine, Serum 0.94 mg/dL (0.55-1.02); EST Glomerular Filtration Rate 64 mL/min (>60); Est Glom Filt Rate - Afr Amer 77 mL/min (>60); Glucose 104 mg/dL (74-106); Potassium 4.5 mmol/L (3.5-5.1); Sodium Level 132 mmol/L (136-145)
[2024-01-20 16:37] VITALS: PULSE 66
--- NOTE | 2024-01-20 17:28 | MDS.RN ---
pt c/o heart palpitations HR 120's regular, tachy. STAT EKG obtained. dr berry updated, new orders to check labs, administer metoprolol 25mg x1. pt resting in bed, HR now 60's. denies palpitations. labs checked. pt updated on all.
[2024-01-20] MEDS: Atorvastatin Calcium 20 MG Tablet PO (20:13)
[2024-01-20] MEDS: Pramipexole Di-HCl 0.25 MG Tablet PO (20:14)
[2024-01-20 20:20] VITALS: RESP 16
[2024-01-21] MEDS: Levothyroxine 75 MCG Tablet PO (05:04)
[2024-01-21 07:08] VITALS: O2SAT 94
--- NOTE | 2024-01-21 08:31 | NURSING ---
Space Operations Note; MDS for 01/21/2024 Complete
[2024-01-21] MEDS: Lisinopril 40 MG Tablet PO (08:55)
[2024-01-21] MEDS: DULoxetine Hcl 30 MG Capsule PO (08:55)
[2024-01-21] MEDS: Colestipol 1 GM TABLET PO ×2 (08:55→22:18)
[2024-01-21] MEDS: Potassium Chloride Oral Tablet 10 MEQ PO ×2 (08:55→22:19)
[2024-01-21] MEDS: DULoxetine Hcl 60 MG Capsule PO (08:55)
[2024-01-21] MEDS: Famotidine 20 MG Tablet PO ×2 (08:55→22:20)
[2024-01-21] MEDS: Cefdinir 300 MG Capsule PO ×2 (08:55→22:18)
[2024-01-21] MEDS: Omega-3 Acid Ethyl Esters 1 GM Capsule PO (08:55)
[2024-01-21] MEDS: Multivitamins,Therapeutic Tablet 1 TABLET PO (08:55)
[2024-01-21] MEDS: Calcium Carb/Vitamin D 1 TABLET Tablet PO ×2 (08:55→15:59)
[2024-01-21] MEDS: Pantoprazole Sodium 20 MG Tablet PO (08:55)
[2024-01-21] MEDS: Calcitriol 0.25 MCG Capsule PO ×2 (08:56→22:19)
[2024-01-21] MEDS: Enoxaparin 40 MG/0.4 ML Syringe SC (08:56)
[2024-01-21] MEDS: Nystatin Powder 15gm Bottle 1 APPLIC TOPICAL ×2 (08:56→22:18)
[2024-01-21] MEDS: Vitamin E 400 UNITS Capsule PO (08:56)
[2024-01-21] MEDS: Menthol/Lanolin/Calamine/Znox 113 GM Tube 1 APPLIC TOPICAL ×2 (09:03→22:18)
[2024-01-21] MEDS: HYDROcodone Bitartrate/Apap 5/325 Tablet PO ×3 (09:04→22:22)
[2024-01-21 09:11] VITALS: BP 134/62; PULSE 88
--- NOTE | 2024-01-21 10:21 | NURSING ---
Offered covid vaccine, VIS provided. Patient refuses at this time.
--- NOTE | 2024-01-21 10:26 | CASEMGMT ---
SW met with pt and completed PHQ9 () and BIMS () interviews on this date for MDS assessment. YOSELIN Hebert
--- NOTE | 2024-01-21 14:45 | PCM.PROGNOTE ---
Subjective Subjective Patient was seen today for follow up on right foot. She is sitting up in chair with foot up, she relates pain is controlled - no complaints of f/c/n/v or calf pain at this time. Objective Data Objective Data Vital Signs: Vital Signs Temp Pulse Resp BP Pulse Ox O2 Del Method O2 Flow Rate 98.7 F 88 16 134/62 H 94 Room Air 3 01/20/24 13:51 01/21/24 09:11 01/20/24 20:20 01/21/24 09:11 01/21/24 07:08 01/21/24 07:08 01/19/24 09:53 Oxygen Flow Rate (L/min) 3 Oxygen Delivery Method Room Air Weight: 72.121 kg Body Mass Index (BMI) 35.7 Intake & Output: Intake and Output for Last 24 Hours 01/19/24 01/20/24 01/21/24 23:59 23:59 23:59 Intake Total 600 / 600 600 / 600 460 / 460 Balance 600 / 600 600 / 600 460 / 460 Lab / Micro Data 01/20/24 16:05 01/20/24 16:05 Labs: Laboratory Results - last 24 hr 01/20/24 16:05: WBC 16.5 H, RBC 3.90 L, Hgb 11.1 L, Hct 34.8 L, MCV 89.2, MCH 28.5, MCHC 31.9 L, RDW Std Deviation 47.1 H, RDW Coeff of Elsie 14.6, Plt Count 257, MPV 10.5, Immature Gran % (Auto) 0.800, Neut % (Auto) 67.9, Lymph % (Auto) 18.3 L, [place] % (Auto) 8.6, Eos % (Auto) 3.9, Baso % (Auto) 0.5, Absolute Neuts (auto) 11.2 H, Absolute Lymphs (auto) 3.01, Nucleated RBC % 0, Sodium 132 L, Potassium 4.5, Chloride 97 L, Carbon Dioxide 28.0, Anion Gap 7, BUN 15, Creatinine 0.94, Estim Creat Clear Calc 54.30, Est GFR (MDRD) Af Amer 77, Est GFR (MDRD) Non-Af 64, BUN/Creatinine Ratio 15.9, Glucose 104, Calcium 8.9 Micro: Microbiology 01/19/24 16:05 Urine, Catheterized Urine Culture - Preliminary Pseudomonas aeruginosa GPC Poss Enterococcus sp 01/18/24 05:15 Nasal Secretion SARS-CoV-2 Antigen (Rapid) - Final Physical Exam Const alert, oriented x3 and no apparent distress Constitutional Narrative: Removed dressing - incisions well coapted, sutures intact - healing well, no dehiscence, no drainage, no cellulitis, no visible abscess, no necrosis, CFT < 2 seconds to all toes right foot, normal temperature, kwires intact 1st toe pin cap with pin sticking through c/w her bumping foot - stable - toes in rectus position, no evidence of compartment syndrome, no hypersensitivity present. Calf soft and supple bilateral with no pain with calf squeeze bilateral. Assessment & Plan Assessment/Plan (1) Pain of right foot: PLAN: Plan s/p right foot patel metatarsal head resection and hammer toe correction 2-5 toes right foot on 01/11/24 - foot with no evidence of infection, no evidence of DVT. No weightbearing right foot, keep right foot elevated Keep dressing right foot clean, dry and intact - dressing was changed today - kwires were cleansed with 70% Isopropyl alcohol, applied dry gauze, kerlix and brandi dressing. Pain management - Hydrocodone/acetaminophen - ween off DVT Prophylaxis: Lovenox 40mg subc daily Will follow up in 1 week - sooner if needed.
[2024-01-21 15:05] VITALS: BP 154/73; PULSE 101; RESP 16; TEMP 36.4; O2SAT 99
[2024-01-21] MEDS: Atorvastatin Calcium 20 MG Tablet PO (22:19)
[2024-01-21] MEDS: Pramipexole Di-HCl 0.25 MG Tablet PO (22:24)
[2024-01-22 05:35] LABS: Absolute Lymphocyte Count 2.41 X10^3/uL (0.83-4.51); Absolute Neutrophil Count 7.3 X10^3/uL (2.0-7.7); Basophil% 0.8 % (0-1); Eosinophil# 0.68 X10^3/uL; Eosinophils% 5.7 % (0-5); Hematocrit 33.2 % (37-47); Hemoglobin 10.4 g/dL (12.0-15.0); Lymphocyte # 2.41 X10^3/ul (0.83-4.51); Lymphocyte % 20.3 % (19-41); Mean Corp Hgb Conc 31.3 g/dL (32-36); Mean Corpuscular Hgb 27.8 pg (27.0-32.0); Mean Corpuscular Volume 88.8 fL (81-99); Mean Platelet Vol. 10.5 fl (6.2-12.0); Monocyte# 1.17 X10^3/uL; Monocyte% 9.8 % (0-10); NRBC Flagged by Analyzer 0 % (0-5); Neutrophil # 7.31 X10^3/uL (2.7-7.7); Neutrophil % 61.5 % (47-70); Platelet Count 225 K/mm3 (150-450); RBC Distribution Width CV 14.2 % (11.6-14.6); RBC Distribution Width SD 45.6 fl (35.1-43.9); Red Blood Count 3.74 M/mm3 (4.2-5.4); White Blood Count 11.9 K/mm3 (4.4-11.0)
[2024-01-22] MEDS: Levothyroxine 75 MCG Tablet PO (05:36)
[2024-01-22] MEDS: HYDROcodone Bitartrate/Apap 5/325 Tablet PO ×3 (05:36→18:07)
[2024-01-22 06:20] LABS: Anion Gap 7 (5-15); BUN 15 mg/dL (7-18); BUN/Creat Ratio 15.5 RATIO (10-20); Calcium,Total 8.6 mg/dL (8.5-10.1); Chloride 101 mmol/L (98-107); Creatinine, Serum 0.97 mg/dL (0.55-1.02); EST Glomerular Filtration Rate 62 mL/min (>60); Est Glom Filt Rate - Afr Amer 75 mL/min (>60); Estimated Creatinine Clearance 52.62 ml/min; Glucose 105 mg/dL (74-106); Potassium 4.4 mmol/L (3.5-5.1); Sodium Level 134 mmol/L (136-145)
[2024-01-22 07:48] VITALS: O2SAT 91
[2024-01-22] MEDS: DULoxetine Hcl 60 MG Capsule PO (08:01)
[2024-01-22] MEDS: Colestipol 1 GM TABLET PO ×2 (08:01→22:00)
[2024-01-22] MEDS: DULoxetine Hcl 30 MG Capsule PO (08:01)
[2024-01-22] MEDS: Multivitamins,Therapeutic Tablet 1 TABLET PO (08:01)
[2024-01-22] MEDS: Calcium Carb/Vitamin D 1 TABLET Tablet PO ×2 (08:01→17:38)
[2024-01-22] MEDS: Potassium Chloride Oral Tablet 10 MEQ PO ×2 (08:01→22:00)
[2024-01-22] MEDS: Omega-3 Acid Ethyl Esters 1 GM Capsule PO (08:02)
[2024-01-22] MEDS: Enoxaparin 40 MG/0.4 ML Syringe SC (08:02)
[2024-01-22] MEDS: Pantoprazole Sodium 20 MG Tablet PO (08:02)
[2024-01-22] MEDS: Famotidine 20 MG Tablet PO ×2 (08:02→22:01)
[2024-01-22] MEDS: Cefdinir 300 MG Capsule PO ×2 (08:02→22:01)
[2024-01-22] MEDS: Lisinopril 40 MG Tablet PO (08:03)
[2024-01-22] MEDS: Calcitriol 0.25 MCG Capsule PO ×2 (08:03→22:01)
[2024-01-22] MEDS: Vitamin E 400 UNITS Capsule PO (08:03)
[2024-01-22] MEDS: Menthol/Lanolin/Calamine/Znox 113 GM Tube 1 APPLIC TOPICAL ×2 (08:06→22:02)
[2024-01-22] MEDS: Nystatin Powder 15gm Bottle 1 APPLIC TOPICAL ×2 (08:07→22:02)
[2024-01-22 10:03] VITALS: BMI 34.2
[2024-01-22] MEDS: Tuberculin,Purif.prot.deriv. 50 TU/ML Vial 0.1 ML ID (11:38)
[2024-01-22 14:34] VITALS: BP 128/63; PULSE 68; RESP 16; TEMP 36.3; O2SAT 96
[2024-01-22] MEDS: Atorvastatin Calcium 20 MG Tablet PO (22:00)
[2024-01-22] MEDS: Pramipexole Di-HCl 0.25 MG Tablet PO (22:01)
[2024-01-22 22:10] VITALS: RESP 16
[2024-01-23] MEDS: HYDROcodone Bitartrate/Apap 5/325 Tablet PO ×4 (02:43→22:36)
[2024-01-23] MEDS: Levothyroxine 75 MCG Tablet PO (05:52)
[2024-01-23] MEDS: Omega-3 Acid Ethyl Esters 1 GM Capsule PO (08:51)
[2024-01-23] MEDS: DULoxetine Hcl 60 MG Capsule PO (08:51)
[2024-01-23] MEDS: Multivitamins,Therapeutic Tablet 1 TABLET PO (08:51)
[2024-01-23] MEDS: Pantoprazole Sodium 20 MG Tablet PO (08:51)
[2024-01-23] MEDS: DULoxetine Hcl 30 MG Capsule PO (08:51)
[2024-01-23] MEDS: Cefdinir 300 MG Capsule PO ×2 (08:52→21:36)
[2024-01-23] MEDS: Nystatin Powder 15gm Bottle 1 APPLIC TOPICAL ×2 (08:52→21:35)
[2024-01-23] MEDS: Lisinopril 40 MG Tablet PO (08:52)
[2024-01-23] MEDS: Famotidine 20 MG Tablet PO ×2 (08:52→21:36)
[2024-01-23] MEDS: Vitamin E 400 UNITS Capsule PO (08:52)
[2024-01-23] MEDS: Enoxaparin 40 MG/0.4 ML Syringe SC (08:52)
[2024-01-23] MEDS: Calcium Carb/Vitamin D 1 TABLET Tablet PO ×2 (08:52→16:33)
[2024-01-23] MEDS: Potassium Chloride Oral Tablet 10 MEQ PO ×2 (08:52→21:35)
[2024-01-23] MEDS: Calcitriol 0.25 MCG Capsule PO ×2 (08:53→21:36)
[2024-01-23 09:08] VITALS: O2SAT 98
--- NOTE | 2024-01-23 10:45 | CASEMGMT ---
Plan of care meeting held on this date with pt, pt's sister Jyoti and Brother in Law Alessio present. PT/OT/nutrition updated pt and family on pt's current status in TCU. Pt is participating well with therapy and making good progress. SW informed pt and family that NRD with insurance is Wednesday 01/24 and it is possible insurance will issue a NOMNC at that time due to pt improved functional ability. Pt lives with sister and ARABELLA and plans to return there upon discharge from TCU. Pt has knee scooter and is able to maintain NWB status appropriately. Pt has 2 steps into home and family has a ramp pt can use. BRYANT will continue to follow for dc planning and support. YOSELIN Hebert
[2024-01-23 14:02] VITALS: BP 121/57; PULSE 102; RESP 16; TEMP 36.5; O2SAT 98
[2024-01-23] MEDS: Ensure Plus High Protein 120 ML LIQUID PO ×2 (16:33→21:46)
[2024-01-23] MEDS: Atorvastatin Calcium 20 MG Tablet PO (21:35)
[2024-01-23] MEDS: Pramipexole Di-HCl 0.25 MG Tablet PO (21:35)
[2024-01-23] MEDS: Menthol/Lanolin/Calamine/Znox 113 GM Tube 1 APPLIC TOPICAL (21:37)
[2024-01-24] MEDS: Levothyroxine 75 MCG Tablet PO (05:40)
[2024-01-24] MEDS: HYDROcodone Bitartrate/Apap 5/325 Tablet PO ×2 (05:40→13:21)
[2024-01-24] MEDS: Famotidine 20 MG Tablet PO ×2 (08:50→20:26)
[2024-01-24] MEDS: Enoxaparin 40 MG/0.4 ML Syringe SC (08:50)
[2024-01-24] MEDS: Cefdinir 300 MG Capsule PO ×2 (08:51→20:26)
[2024-01-24] MEDS: Lisinopril 40 MG Tablet PO (08:51)
[2024-01-24] MEDS: Omega-3 Acid Ethyl Esters 1 GM Capsule PO (08:52)
[2024-01-24] MEDS: Multivitamins,Therapeutic Tablet 1 TABLET PO (08:52)
[2024-01-24] MEDS: Vitamin E 400 UNITS Capsule PO (08:52)
[2024-01-24] MEDS: DULoxetine Hcl 30 MG Capsule PO (08:52)
[2024-01-24] MEDS: Calcitriol 0.25 MCG Capsule PO ×2 (08:52→20:27)
[2024-01-24] MEDS: DULoxetine Hcl 60 MG Capsule PO (08:52)
[2024-01-24] MEDS: Potassium Chloride Oral Tablet 10 MEQ PO ×2 (08:53→20:27)
[2024-01-24] MEDS: Calcium Carb/Vitamin D 1 TABLET Tablet PO ×2 (08:53→17:11)
[2024-01-24] MEDS: Pantoprazole Sodium 20 MG Tablet PO (08:53)
[2024-01-24] MEDS: Menthol/Lanolin/Calamine/Znox 113 GM Tube 1 APPLIC TOPICAL ×2 (08:56→20:30)
[2024-01-24] MEDS: Nystatin Powder 15gm Bottle 1 APPLIC TOPICAL ×2 (08:56→20:29)
[2024-01-24] MEDS: Ensure Plus High Protein 120 ML LIQUID PO ×3 (12:33→20:27)
[2024-01-24 16:00] VITALS: PULSE 100; RESP 18
[2024-01-24 17:13] VITALS: PULSE 85; RESP 16
--- NOTE | 2024-01-24 18:04 | NURSING ---
Pt complains I woke up and my heart felt like it was beating out of my chest this afternoon. HR 100, regular. No other symptoms. HS shift reported similar episode, heart rate returned to 80s. Pt has also been anxious and calling out repeatedly throughout shift for small tasks; anxiety and depression in PMH. Updated Dr. Abdul, who entered following orders: -Ativan 0.5mg q4hrs PRN -Metoprolol 25mg BID.
[2024-01-24 20:26] VITALS: BP 126/63; PULSE 102
[2024-01-24] MEDS: Metoprolol Tartrate 25 MG Tablet PO (20:26)
[2024-01-24] MEDS: Pramipexole Di-HCl 0.25 MG Tablet PO (20:27)
[2024-01-24] MEDS: Atorvastatin Calcium 20 MG Tablet PO (20:27)
[2024-01-24 20:39] VITALS: PULSE 102; RESP 16; O2SAT 97
[2024-01-25] MEDS: Levothyroxine 75 MCG Tablet PO (05:27)
[2024-01-25] MEDS: Ensure Plus High Protein 120 ML LIQUID PO ×4 (05:27→22:03)
--- NOTE | 2024-01-25 06:45 | MDS.RN ---
Information for the MDS was obtained from review of the clinical record, interview of resident, staff, and direct observation of resident?s care.
[2024-01-25] MEDS: HYDROcodone Bitartrate/Apap 5/325 Tablet PO ×2 (08:57→18:43)
[2024-01-25 09:30] VITALS: BP 126/48; PULSE 85; RESP 17; TEMP 36.8; O2SAT 98
[2024-01-25] MEDS: Multivitamins,Therapeutic Tablet 1 TABLET PO (09:33)
[2024-01-25] MEDS: Calcium Carb/Vitamin D 1 TABLET Tablet PO ×2 (09:33→16:16)
[2024-01-25] MEDS: DULoxetine Hcl 30 MG Capsule PO (09:34)
[2024-01-25] MEDS: DULoxetine Hcl 60 MG Capsule PO (09:34)
[2024-01-25] MEDS: Potassium Chloride Oral Tablet 10 MEQ PO ×2 (09:34→22:00)
[2024-01-25 09:35] VITALS: PULSE 85
[2024-01-25] MEDS: Nystatin Powder 15gm Bottle 1 APPLIC TOPICAL ×2 (09:35→22:01)
[2024-01-25] MEDS: Omega-3 Acid Ethyl Esters 1 GM Capsule PO (09:35)
[2024-01-25] MEDS: Cefdinir 300 MG Capsule PO (09:35)
[2024-01-25] MEDS: Metoprolol Tartrate 25 MG Tablet PO ×2 (09:35→22:00)
[2024-01-25] MEDS: Enoxaparin 40 MG/0.4 ML Syringe SC (09:35)
[2024-01-25] MEDS: Pantoprazole Sodium 20 MG Tablet PO (09:36)
[2024-01-25] MEDS: Vitamin E 400 UNITS Capsule PO (09:36)
[2024-01-25] MEDS: Famotidine 20 MG Tablet PO ×2 (09:36→22:00)
[2024-01-25] MEDS: Lisinopril 40 MG Tablet PO (09:36)
[2024-01-25] MEDS: Calcitriol 0.25 MCG Capsule PO ×2 (09:36→22:00)
--- NOTE | 2024-01-25 12:41 | CASEMGMT ---
[employer] issued a Notice of Non Coverage with last covered day 01/26 and discharge 01/27. SW met with pt and presented information and NOMNC. Pt placed call to her sister and SW and pt spoke with sister and explained NOMNC. Pt's sister feels pt is ready to return home at this time and is agreeable to recommended home health. Once pt spoke with her sister, she was agreeable to dc on 01/27. Pt lives with her sister and brother in law and will be returning to their house on Sunday. Sister to provide transportation. Therapy is recommending home health PT and SN. Pt is agreeable. A list of Home Health Care providers including quality and resource use data and consistent with the patient?s preferred geographic region, medical needs, and insurance network were provided from the [employer] Guide. Pt's preferred provider is [facility]. Referral made, SW will await determination of acceptance. Pt has all needed DME. Discharge Date: 01/27 Disposition: Home with sister, Home Health Services PT/SN YOSELIN Hebert
--- NOTE | 2024-01-25 15:04 | PCM.DC.SUM ---
Providers Date of Admission: 01/14/24 Primary Care Physician: Dr. Angelo Guido MD Consultations 01/14/24 21:13 Consult: Podiatry Routine Consulting Provider: Gomez Fry Reason for Consult: s/p right foot surgery. EMERGENT Consult: No MD Notified: Yes Date Notified: 01/15/24 Time Notified: 08:19 Method of Notification: Text Reason For Visit: RT FOOT METATARSAL HEAD RESECT HAMMER TOE THAD 2-5 Diagnosis Discharge Diagnosis (1) Pain of right foot: Status: Acute Code(s): M79.671 - Pain in right foot Plan 63 year old female with below past medical history underwent patel metatarsal head resection right foot, correction 2-5 hammer toes right foot 01/11/[address] Fry, post operative course uncomplicated, admitted to TCU with debility, here for rehabilitation, strengthening, prior to discharge home alone. Debility - PT/OT Pain - Lawrence 5/325mg 1-2 tablet q6 prn pain. Bowel - Senna/colace 1 tablet bid prn, Colestipol 1 tablet bid. Adult immunization - Administer pneumonia vaccine, covid vaccine, flu vaccine as appropriate. DVT prophylaxis - Lovenox 40mg sc daily. Hyperlipidemia - Atorvastatin 20mg qhs, [place] 3 1 tablet daily. Hyperparathyroidism - Calcitriol 0.25mcg bid. Calcium deficiency - Calcium D 1 tablet bidcm. 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 GERD - Pantoprazole 20mg daily, Famotidine 20mg bid. Hypothyroidism - Levothyroxine 75mcg daily, 150mcg 1 daily per week. Hypertension - Lisinopril 40mg daily. Nutrition - MVI 1 tablet daily. Hypokalemia - KCL 10meq bid. Restless leg syndrome - Mirapex 0.25mg qhs. Fatty liver - Vitamin E 400iu daily. s/p right foot surgery - Consult Dr. Fry to follow. Medications at Discharge Home Medications multivitamin with folic acid 400 mcg tablet 1 tab PO DAILY SUPPLEMENT 05/18/14 vitamin E (dl, acetate) 180 mg (400 unit) capsule 400 units PO DAILY SUPPLEMENT 05/18/14 omega-3 fatty acids-fish oil 300 mg-500 mg capsule (Fish Oil) 1 cap PO DAILY SUPPLEMENT 02/17/20 calcium carbonate 500 mg-vitamin D3 15 mcg (600 unit) tablet 1 ea PO BID SUPPLEMENT 02/27/20 atorvastatin 20 mg tablet 20 mg PO DAILY CHOLESTEROL 07/17/23 biotin 10,000 mcg capsule 10,000 mcg PO DAILY SUPPLEMENT 07/17/23 duloxetine 30 mg capsule,delayed release 30 mg PO DAILY DEPRESSION 07/17/23 duloxetine 60 mg capsule,delayed release 60 mg PO DAILY DEPRESSION 07/17/23 famotidine 20 mg tablet 20 mg PO BID stomach #60 tabs 09/18/23 lisinopril 40 mg tablet 40 mg PO DAILY BP 09/18/23 potassium chloride 10 mEq capsule,extended release 10 meq PO BID supplement 09/18/23 ropinirole 0.25 mg tablet 0.5 mg PO QHS restless legs 09/18/23 calcitriol 0.25 mcg capsule 0.25 mcg PO BID bones 11/12/23 levothyroxine 75 mcg tablet 75 mcg PO .COMPLEX THYROID 11/12/23 pantoprazole 20 mg tablet,delayed release 20 mg PO DAILY stomach 01/07/24 hydrocodone-acetaminophen 5-325mg 5mg-325mg 1 - 2 tab PO Q6H PRN pain 1-10 7 days #28 tabs 01/25/24 levothyroxine 75 mcg tablet 150 mcg (2 x 75 mcg) PO De Los Santos@0600 #0 tabs 01/25/24 metoprolol tartrate 25 mg tablet 25 mg PO BID 30 days #60 tabs 01/25/24 tolterodine 2 mg capsule,extended release 24 hr 2 mg PO DAILY 30 days #30 caps 01/25/24 Hospital Course Operations - (See below.) Procedures None Summary of Care Provided Minutes Spent on Discharge: 35 Hospital Course: 63 year old female with below past medical history underwent patel metatarsal head resection right foot, correction 2-5 hammer toes right foot 01/11/[address] Fry, post operative course uncomplicated, admitted to TCU with debility, here for rehabilitation, strengthening, prior to discharge home alone. 01/19/2024 UTI (pseudomonas, enterococcus) treated with Cefdinir 300mg bid x 7 days. She c/o overactive bladder, treat with Tolterodine 2mg qhs. Discharge home with sister 01/28/2024, [facility] PT/SN. Physical Exam Const alert General Appearance: cooperative HEENT normocephalic Eyes PERRL and EOMs intact bilaterally Neck supple, no JVD and no carotid bruits Resp normal respiratory effort, normal air movement and clear to auscultation bilaterally Cardio regular rate and regular rhythm GI normal to inspection, nondistended, normoactive bowel sounds, non-tender and non-distended Extremity normal capillary refill Extremity Narrative: Right foot dressed. General Extremity: Negative for edema Skin no rashes or lesions noted General Skin Exam: no breakdown Psych affect normal Appearance: appropriate Medical Records Data Medical Nutrition Assessment Dietitian: Malnutrition Criteria Met Start: 01/23/24 13:38 Freq: Status: Active Protocol: Document 01/23/24 13:39 SLA (Rec: 01/23/24 13:39 SLA [id number]) Nutrition Malnutrition Evidence of Malnutrition Exists Yes Malnutrition (severe): Acute Illness/Injury Evidenced By Suboptimal Energy Intake ( Severe),Weight Loss (Severe) Intake Problem None at this time Status Inactive Problem Clinical Problem Acute Disease or Injury Related Malnutrition Etiology related to inadequate energy intake Signs/Symptoms as evidenced by 4.3% unintended wt loss and po intake meeting <50% of est nutritional needs x 1 wk Status Active Problem Recommendation Dietitian Recommendations/Changes Continue liberal regular diet per res request Add 4 oz ensure plus high protein 4x/day w/ medpass for increased nutrition if consumed. Weight / BMI Weight Weight: 69.037 kg Body Mass Index (BMI) 34.2 ABG / Lab / Microbiology Data 01/22/24 05:25 01/22/24 05:25 Microbiology: Microbiology 01/25/24 05:24 Nasal Secretion SARS-CoV-2 Antigen (Rapid) - Final 01/19/24 16:05 Urine, Catheterized Urine Culture - Final Pseudomonas aeruginosa Enterococcus faecalis 01/18/24 05:15 Nasal Secretion SARS-CoV-2 Antigen (Rapid) - Final D/C Instructions Discharge Diet: No restrictions Discharge Activity: Return to Normal Activity, May Shower and Use Walker Weight Bearing Status: No weight bearing (Right lower extremity.) Call your doctor if you observe: Fever of 101 or Higher, Inability to urinate, Inability to have a bowel movement, Shortness of breath, Dizziness, Fainting spells, Swelling in the ankles, Chest pain and Uncontrolled pain Additional Instructions: Discharge home with sister 01/28/2024, [facility] PT/SN. Please Follow Up With: Gomez Fry DPM When: 01/28/2024. Meaningful Use Info Meaningful Use Meaningful Use Diagnoses (Choose all that apply): None applicable Ischemic Stroke Statin Dosing Therapy Reference: STATIN DOSE THERAPY REFERENCE: * Patients > 75 years receive moderate or high dose statin therapy. * Patients 75 years or YOUNGER should receive HIGH intensity statin dose unless contraindicated. You will be required to document reason for non-treatment if statin daily dose does not meet guidelines. HIGH DOSE STATIN THERAPY DAILY Atorvastatin > than or = to 40 mg Rosuvastatin > than or = to 20 mg Amlodipine + Atorvastatin > than or = to 2.5/40 mg Ezetimibe + Simvastatin 10/80 mg Simvastatin 80mg Discharge Plan Admission Admit Date/Time: 01/14/24 18:38 Primary Reason for Your Visit: Debility. Attending Provider: Anil Abdul Chi Primary Care Provider: Angelo Guido Consulting Providers: Gomez Fry Instructions Additional Instructions / Restrictions: Discharge home with sister 01/28/2024, [facility] PT/SN. Discharge Orders/Prescriptions Prescriptions: New tolterodine 2 mg Capsule,Extended Release 24hr 2 mg PO DAILY 30 Days Qty: 30 0RF hydrocodone-acetaminophen 5-325 mg Tablet 1 - 2 tab PO Q6H PRN (Reason: pain 1-10) 7 Days Qty: 28 0RF levothyroxine 75 mcg Tablet 150 mcg PO De Los Santos@0600 Qty: 0 0RF metoprolol tartrate 25 mg Tablet 25 mg PO BID 30 Days Qty: 60 0RF Continued Fish Oil 300-500 mg capsule 1 cap PO DAILY famotidine 20 mg tablet 20 mg PO BID Qty: 60 5RF potassium chloride 10 mEq capsule, extended release 10 meq PO BID lisinopril 40 mg tablet 40 mg PO DAILY ropinirole 0.25 mg tablet 0.5 mg PO QHS calcitriol 0.25 mcg capsule 0.25 mcg PO BID vitamin E (dl, acetate) 400 UNITS capsule 400 units PO DAILY multivitamin with folic acid 1 TABLET tablet 1 tab PO DAILY calcium carbonate-vitamin D3 1 EACH tablet 1 ea PO BID atorvastatin 20 mg tablet 20 mg PO DAILY duloxetine 30 mg capsule,delayed release(DR/EC) 30 mg PO DAILY Patient Comments: TAKE ONE 30MG CAPSULE AND ONE 60MG CAPSULE TOGETHER ONCE DAILY FOR A TOTAL DAILY DOSE OF 90MG duloxetine 60 mg capsule,delayed release(DR/EC) 60 mg PO DAILY Patient Comments: TAKE ONE 30MG CAPSULE AND ONE 60MG CAPSULE TOGETHER ONCE DAILY FOR A TOTAL DAILY DOSE OF 90MG biotin 10,000 mcg capsule 10,000 mcg PO DAILY levothyroxine 75 mcg tablet 75 mcg PO .COMPLEX Rx Instructions: 75 mcg orally Mon-Sat two tabs on Sun; pantoprazole 20 mg tablet,delayed release (DR/EC) 20 mg PO DAILY Discontinued hydrocodone-acetaminophen 5-300 mg tablet 1 - 2 tab PO Q6H PRN (Reason: pain) 7 Days Qty: 30 0RF enoxaparin [Lovenox] 40 mg/0.4 mL syringe 40 mg subcut DAILY Qty: 8 0RF colestipol 1 gram tablet 1 g PO BID Qty: 90 3RF Referrals / Follow Up: Angelo Guido MD [Primary Care Provider] - Disposition Disposition (needs filled in before D/C Order can be placed): Home Health Service
[2024-01-25] MEDS: Tolterodine Tartrate 2 MG CAP.SA PO (16:16)
[2024-01-25] MEDS: LORazepam 0.5 MG Tablet PO (18:43)
[2024-01-25 22:00] VITALS: PULSE 77
[2024-01-25] MEDS: Atorvastatin Calcium 20 MG Tablet PO (22:00)
[2024-01-25] MEDS: Senna/Docusate Sodium 1 Tablet 2 TABLET PO (22:00)
[2024-01-25] MEDS: Pramipexole Di-HCl 0.25 MG Tablet PO (22:00)
[2024-01-26] MEDS: Ensure Plus High Protein 120 ML LIQUID PO ×3 (06:01→16:54)
[2024-01-26] MEDS: Levothyroxine 75 MCG Tablet PO (06:01)
[2024-01-26 08:38] VITALS: BP 120/45; PULSE 77
[2024-01-26] MEDS: Multivitamins,Therapeutic Tablet 1 TABLET PO (08:38)
[2024-01-26] MEDS: Calcitriol 0.25 MCG Capsule PO ×2 (08:38→20:12)
[2024-01-26] MEDS: Metoprolol Tartrate 25 MG Tablet PO ×2 (08:38→20:13)
[2024-01-26] MEDS: Vitamin E 400 UNITS Capsule PO (08:38)
[2024-01-26] MEDS: Senna/Docusate Sodium 1 Tablet 2 TABLET PO (08:38)
[2024-01-26] MEDS: Famotidine 20 MG Tablet PO ×2 (08:38→20:12)
[2024-01-26] MEDS: Tolterodine Tartrate 2 MG CAP.SA PO (08:39)
[2024-01-26] MEDS: DULoxetine Hcl 60 MG Capsule PO (08:39)
[2024-01-26] MEDS: DULoxetine Hcl 30 MG Capsule PO (08:39)
[2024-01-26] MEDS: Potassium Chloride Oral Tablet 10 MEQ PO ×2 (08:39→20:12)
[2024-01-26] MEDS: Calcium Carb/Vitamin D 1 TABLET Tablet PO ×2 (08:39→16:54)
[2024-01-26] MEDS: HYDROcodone Bitartrate/Apap 5/325 Tablet PO ×2 (08:39→20:23)
[2024-01-26] MEDS: Pantoprazole Sodium 20 MG Tablet PO (08:39)
[2024-01-26] MEDS: Omega-3 Acid Ethyl Esters 1 GM Capsule PO (08:40)
[2024-01-26] MEDS: Nystatin Powder 15gm Bottle 1 APPLIC TOPICAL ×2 (08:40→20:13)
[2024-01-26] MEDS: Lisinopril 40 MG Tablet PO (08:45)
[2024-01-26 14:58] VITALS: BP 129/51; PULSE 74; RESP 16; TEMP 36.9; O2SAT 99
[2024-01-26] MEDS: Atorvastatin Calcium 20 MG Tablet PO (20:12)
[2024-01-26] MEDS: Pramipexole Di-HCl 0.25 MG Tablet PO (20:12)
[2024-01-26 20:13] VITALS: BP 125/57; PULSE 79
[2024-01-27] MEDS: Levothyroxine 75 MCG Tablet 150 MCG PO (05:27)
[2024-01-27] MEDS: HYDROcodone Bitartrate/Apap 5/325 Tablet PO ×3 (05:30→23:14)
[2024-01-27] MEDS: Calcium Carb/Vitamin D 1 TABLET Tablet PO ×2 (08:57→17:11)
[2024-01-27] MEDS: Multivitamins,Therapeutic Tablet 1 TABLET PO (08:57)
[2024-01-27] MEDS: DULoxetine Hcl 60 MG Capsule PO (08:57)
[2024-01-27] MEDS: DULoxetine Hcl 30 MG Capsule PO (08:57)
[2024-01-27] MEDS: Tolterodine Tartrate 2 MG CAP.SA PO (08:58)
[2024-01-27] MEDS: Vitamin E 400 UNITS Capsule PO (09:00)
[2024-01-27] MEDS: Calcitriol 0.25 MCG Capsule PO ×2 (09:00→21:27)
[2024-01-27] MEDS: Potassium Chloride Oral Tablet 10 MEQ PO ×2 (09:00→21:28)
[2024-01-27] MEDS: Omega-3 Acid Ethyl Esters 1 GM Capsule PO (09:00)
[2024-01-27] MEDS: Famotidine 20 MG Tablet PO ×2 (09:01→21:36)
[2024-01-27] MEDS: Pantoprazole Sodium 20 MG Tablet PO (09:01)
[2024-01-27] MEDS: Nystatin Powder 15gm Bottle 1 APPLIC TOPICAL (09:02)
[2024-01-27 11:02] VITALS: BP 111/49; PULSE 72
[2024-01-27] MEDS: Lisinopril 40 MG Tablet PO (11:02)
[2024-01-27] MEDS: Metoprolol Tartrate 25 MG Tablet PO ×2 (11:02→21:39)
[2024-01-27 13:36] VITALS: BP 114/60; PULSE 67; RESP 18; TEMP 36.6; O2SAT 96
[2024-01-27] MEDS: Pramipexole Di-HCl 0.25 MG Tablet PO (21:38)
[2024-01-27] MEDS: Atorvastatin Calcium 20 MG Tablet PO (21:38)
[2024-01-27 21:39] VITALS: BP 121/54; PULSE 71
[2024-01-28] MEDS: Levothyroxine 75 MCG Tablet PO (05:32)
[2024-01-28] MEDS: HYDROcodone Bitartrate/Apap 5/325 Tablet PO (05:35)
--- NOTE | 2024-01-28 08:45 | CASEMGMT ---
Social Work Follow up call to [facility] who state they are able to accept pt with start of care on Sunday or Sunday. Pt notified and agreeable to dc plan. Plan: Discharge home with sister today. [facility] PT/. YOSELIN Hebert
[2024-01-28 08:49] VITALS: BP 107/45; PULSE 76; RESP 18; TEMP 36.5; O2SAT 99
[2024-01-28 08:51] VITALS: PULSE 76
[2024-01-28] MEDS: Metoprolol Tartrate 25 MG Tablet PO (08:51)
[2024-01-28] MEDS: DULoxetine Hcl 60 MG Capsule PO (08:52)
[2024-01-28] MEDS: Multivitamins,Therapeutic Tablet 1 TABLET PO (08:52)
[2024-01-28] MEDS: Omega-3 Acid Ethyl Esters 1 GM Capsule PO (08:53)
[2024-01-28] MEDS: Tolterodine Tartrate 2 MG CAP.SA PO (08:53)
[2024-01-28] MEDS: Calcitriol 0.25 MCG Capsule PO (08:54)
[2024-01-28] MEDS: Famotidine 20 MG Tablet PO (08:54)
[2024-01-28] MEDS: Calcium Carb/Vitamin D 1 TABLET Tablet PO (08:54)
[2024-01-28] MEDS: DULoxetine Hcl 30 MG Capsule PO (08:54)
[2024-01-28] MEDS: Pantoprazole Sodium 20 MG Tablet PO (08:54)
[2024-01-28] MEDS: Lisinopril 40 MG Tablet PO (08:55)
[2024-01-28] MEDS: Vitamin E 400 UNITS Capsule PO (08:55)
[2024-01-28] MEDS: Potassium Chloride Oral Tablet 10 MEQ PO (08:55)
--- NOTE | 2024-01-28 10:07 | NURSING ---
DR OVERTON WAS NOT IN THIS MORNING TO CHANGE DRESSING PRIOR TO DISCHARGE. CALLED OFFICE AND SPOKE WITH GABBIE. SHE NOTIFIED DR OVERTON OF R' DISCHARGING TODAY. HE STATED FOR HER TO F/U THIS WEEK. APPT [facility] FOR 01/30 AT 0830. R' AND SISTER NOTIFIED PRIOR TO DISCHARGE. R' AWARE SHE IS TO SCHEDULE F/U WITH DR TRUJILLO.
== END 2024-01-28 09:55 | disposition home health service (06) | DRG 560 ==
PROVIDERS: Admitting Provider Family Medicine Geriatric Medicine; PCP Family Medicine; Visit Provider Family Medicine Geriatric Medicine
DX: Z47.89 Encounter for other orthopedic aftercare (principal); N39.0 Urinary tract infection, site not specified; E44.1 Mild protein-calorie malnutrition; K76.0 Fatty (change of) liver, not elsewhere classified; R06.81 Apnea, not elsewhere classified; I12.9 Hypertensive chronic kidney disease with stage 1 through stage 4 chronic kidney disease, or unspecified chronic kidney disease; N18.9 Chronic kidney disease, unspecified; G25.81 Restless legs syndrome; E06.3 Autoimmune thyroiditis; E87.6 Hypokalemia; F41.8 Other specified anxiety disorders; E21.3 Hyperparathyroidism, unspecified; K21.9 Gastro-esophageal reflux disease without esophagitis; M20.11 Hallux valgus (acquired), right foot; E78.00 Pure hypercholesterolemia, unspecified; M20.41 Other hammer toe(s) (acquired), right foot; Z68.34 Body mass index [BMI] 34.0-34.9, adult; Z79.01 Long term (current) use of anticoagulants; Z87.891 Personal history of nicotine dependence; Z79.899 Other long term (current) drug therapy; Z79.890 Hormone replacement therapy; B96.5 Pseudomonas (aeruginosa) (mallei) (pseudomallei) as the cause of diseases classified elsewhere; B95.2 Enterococcus as the cause of diseases classified elsewhere; N32.81 Overactive bladder
CPT/HCPCS: 36415; 80048; 81001; 82962; 85025; 87077; 87086; 87088; 87184; 87186; 87811; 92610; 93005; 97110; 97116; 97162; 97166; 97530; 97535; 97802

== ENCOUNTER → 2024-03-18 | Outpatient (CLI) | payer MEDICARE, SELFPAY ==
[2024-03-18 12:25] LABS: AST(SGOT) 17 U/L (15-37); Alanine Aminotransfer ALT/SGPT 25 U/L (13-56); Albumin, Serum 3.6 g/dL (3.2-5.0); Alkaline Phosphatase 82 U/L (45-117); Anion Gap 5 (5-15); BUN 19 mg/dL (7-18); BUN/Creat Ratio 17.3 RATIO (10-20); Calcium,Total 8.7 mg/dL (8.5-10.1); Chloride 103 mmol/L (98-107); EST Glomerular Filtration Rate 53 mL/min (>60); Est Glom Filt Rate - Afr Amer 64 mL/min (>60); Globulin 3.6 g/dL (2.2-4.2); Glucose 98 mg/dL (74-106); Potassium 4.5 mmol/L (3.5-5.1); Protein, Total 7.2 g/dL (6.4-8.2); Sodium Level 139 mmol/L (136-145)
== END | disposition home or self-care (01) ==
LOC: MTLAB 10:22
PROVIDERS: PCP Family Medicine; Referring Provider Internal Medicine Endocrinology, Diabetes & Metabolism; Visit Provider Internal Medicine Endocrinology, Diabetes & Metabolism
DX: E20.819 Hypoparathyroidism due to impaired parathyroid hormone secretion, unspecified (principal)
CPT/HCPCS: 36415; 80053

== ENCOUNTER → 2024-05-20 | Outpatient (CLI) | payer MEDICARE, SELFPAY ==
[2024-05-20 10:56] LABS: Bacteria 0 SEEN /hpf (None Seen); Mucous, Urine 0 SEEN /hpf (<or=2+); Red Blood Cells-Urine 0 SEEN /hpf (0-5)
[2024-05-20 11:37] LABS: Color, Urine Yellow (Yellow); Glucose, Dipstick Normal (Normal); Ketone-Dipstick Negative (Negative); Leukocyte Esterase-Dipstick 100 /ul (Negative); Nitrite-Dipstick Negative (Negative); Occult Blood-Urine Negative /ul (Negative); Protein-Dipstick Negative (Negative); Specific Gravity, Urine 1.005 (1.002-1.030); Urine Bilirubin Dipstick Negative (Negative); Urine Clarity Clear (Clear); Urine Urobilinogen Normal (Normal)
[2024-05-20 11:47] LABS: Squamous Epithelial Cells - UA 0-5 SEEN /hpf (5-10); White Blood Cells 0-5 SEEN /hpf (0-5)
[2024-05-20 12:12] LABS: AST(SGOT) 19 U/L (15-37); Alanine Aminotransfer ALT/SGPT 26 U/L (13-56); Albumin, Serum 3.8 g/dL (3.2-5.0); Alkaline Phosphatase 91 U/L (45-117); Anion Gap 4 (5-15); BUN 20 mg/dL (7-18); BUN/Creat Ratio 18.7 RATIO (10-20); Chloride 101 mmol/L (98-107); Creatinine, Serum 1.07 mg/dL (0.55-1.02); EST Glomerular Filtration Rate 55 mL/min (>60); Est Glom Filt Rate - Afr Amer 66 mL/min (>60); Globulin 3.8 g/dL (2.2-4.2); Glucose 85 mg/dL (74-106); Microalbumin,Random Urine 7.6 mg/L (NO RANGE EST.); Microalbumin:Creatinine Ratio 22.5 mg/g CRE (<30 mg/g CRE); Protein, Total 7.6 g/dL (6.4-8.2); Sodium Level 136 mmol/L (136-145)
== END | disposition home or self-care (01) ==
LOC: LAB 10:51
PROVIDERS: PCP Family Medicine; Referring Provider Internal Medicine Endocrinology, Diabetes & Metabolism; Visit Provider Internal Medicine Endocrinology, Diabetes & Metabolism
DX: R35.0 Frequency of micturition (principal)
CPT/HCPCS: 36415; 80053; 81001; 82043; 82570; 87086; 87088

== ENCOUNTER → 2024-06-24 | Outpatient (CLI) | payer MEDICARE, SELFPAY ==
[2024-06-24 15:17] LABS: Vitamin D,25 Hydroxy 59.9 ng/mL
[2024-06-24 15:54] LABS: Anion Gap 5 (5-15); BUN 17 mg/dL (7-18); Calcium,Total 8.7 mg/dL (8.5-10.1); Chloride 105 mmol/L (98-107); EST Glomerular Filtration Rate 59 mL/min (>60); Est Glom Filt Rate - Afr Amer 72 mL/min (>60); Glucose 83 mg/dL (74-106); Potassium 4.6 mmol/L (3.5-5.1); Sodium Level 138 mmol/L (136-145); T4 Free Direct 1.04 ng/dL (0.76-1.46)
== END | disposition home or self-care (01) ==
LOC: MTLAB 11:13
PROVIDERS: PCP Family Medicine; Referring Provider Family Medicine; Visit Provider Family Medicine
DX: E20.9 Hypoparathyroidism, unspecified (principal); E03.9 Hypothyroidism, unspecified
CPT/HCPCS: 36415; 80048; 82306; 84439; 84443

== ENCOUNTER → 2024-11-06 | Outpatient (CLI) | payer MEDICARE, SELFPAY ==
[2024-11-06 12:22] LABS: Absolute Lymphocyte Count 2.32 X10^3/uL (0.83-4.51); Absolute Neutrophil Count 4.7 X10^3/uL (2.0-7.7); Basophil# 0.09 X10^3/uL; Eosinophil# 0.81 X10^3/uL; Hematocrit 37.3 % (37-47); Hemoglobin 11.9 g/dL (12.0-15.0); Lymphocyte # 2.32 X10^3/ul (0.83-4.51); Lymphocyte % 25.7 % (19-41); Mean Corp Hgb Conc 31.9 g/dL (32-36); Mean Platelet Vol. 12.2 fl (6.2-12.0); Monocyte# 1.04 X10^3/uL; Monocyte% 11.5 % (0-10); NRBC Flagged by Analyzer 0 % (0-5); Neutrophil # 4.68 X10^3/uL (2.7-7.7); Neutrophil % 51.8 % (47-70); Platelet Count 179 K/mm3 (150-450); RBC Distribution Width CV 13.4 % (11.6-14.6); RBC Distribution Width SD 44.4 fl (35.1-43.9)
[2024-11-06 14:07] LABS: ALB/GLOB Ratio 1.5 RATIO (0.9-2.4); AST(SGOT) 20 U/L (<=31); Alanine Aminotransfer ALT/SGPT 19 U/L (<=34); Albumin, Serum 4.1 g/dL (3.4-4.8); Alkaline Phosphatase 83 U/L (35-104); Anion Gap 12 (5-15); BUN 18 mg/dL (4-19); BUN/Creat Ratio 14.6 RATIO (10-20); Calcium,Total 8.5 mg/dL (7.6-11.0); Carbon Dioxide 25.7 mmol/L (21.0-32.0); Chloride 100 mmol/L (98-108); Cholesterol 200 mg/dL (<=200); Creatinine, Serum 1.21 mg/dL (0.70-1.20); EST Glomerular Filtration Rate 50 (>60); Globulin 2.7 g/dL (2.2-4.2); Glucose 88 mg/dL (70-99); High Density Lipoprotein 56 mg/dL; Low Density Lipoprotein Calc. 110 mg/dL; Potassium 4.4 mmol/L (3.3-5.1); Protein, Total 6.8 g/dL (5.9-8.4); Sodium Level 138 mmol/L (133-145); Total Bilirubin 0.29 mg/dL (0.00-1.30); Triglycerides 171 mg/dL; Very Low Density Lipoprotein 34 mg/dL (5-40); Vitamin D,25 Hydroxy 52.8 ng/mL (30-100)
[2024-11-06 16:17] LABS: PTHIN 7 pg/mL (11-61)
== END | disposition home or self-care (01) ==
LOC: MFPLAB 09:50
PROVIDERS: PCP Family Medicine; Referring Provider Family Medicine; Visit Provider Family Medicine
DX: Z01.818 Encounter for other preprocedural examination (principal); E20.9 Hypoparathyroidism, unspecified; I10 Essential (primary) hypertension
CPT/HCPCS: 36415; 80053; 80061; 82306; 83970; 84443; 85025

== ENCOUNTER 2024-12-05 11:23 | Inpatient (IN) | payer MEDICARE, SELFPAY ==
--- NOTE | 2024-11-20 15:31 | PAT.ANESEVAL ---
Pre-Assessment Diagnosis/Proposed Procedure Planned Operative Procedure(s): ROBLERO METATARSAL HEAD RESECTION OF THE FIRST,SECOND THIRD FOURTH FIFTH LEFT FOOT WITH ARTHROPLASTY Anesthesia History Anesthesia History - human resources analyst: Anesthesia History - human resources analyst Hx Hospitalization No 11/20/24 09:15 Any Problems With Anesthesia No 11/20/24 09:15 Cholinesterase deficiency No 11/20/24 09:15 You/Your Family Experience No 11/20/24 09:15 fever (hyperthermia) with Relationship Recent Exposure to Contagious No 01/11/24 06:50 Disease Does patient have nerve No 11/20/24 09:15 stimulator Patient instructed to have device shut off --Does patient have Pacemaker or ICD? When Was Last Pacemaker Check QUESTION #4 FULL TEXT: You/Your Family Experience fever (hyperthermia) with Anesthesia Last Oral Intake Last Oral intake: Last Oral Intake NPO since Meds taken in AM with sips of water? Meds patient instructed to take am of surgery PONV PONV - human resources analyst: PONV - human resources analyst Female Yes 11/20/24 09:15 HX of Motion Sickness No 11/20/24 09:15 HX of N/V After Surgery No 11/20/24 09:15 Non-Smoker Yes 11/20/24 09:15 Duration of Surgery greater Yes 11/20/24 09:15 than 60 minutes Number of Risk Factors 3 11/20/24 09:15 PONV Score Moderate Risk 11/20/24 09:15 Height & Weight Height & Weight: Anesthesia: Height & Weight Height 4 ft 7 in 05/20/24 10:18 Respiratory Assessment Respiratory Assessment - human resources analyst: Respiratory Tract Infection Hx - human resources analyst Hx Respiratory Tract Infection No 11/20/24 09:15 STOP Sleep Apnea STOP Sleep Apnea - human resources analyst: STOP Sleep Apnea - human resources analyst Hx Hypertension Yes: CONTROLLED WITH MED 11/20/24 09:15 Hx Sleep Apnea Yes 11/20/24 09:15 CPAP Yes 11/20/24 09:15 BIPAP No 11/20/24 09:15 Do you snore loudly (louder than talking or can be heard Do you often feel tired/ fatigued/ sleepy during daytime? Has anyone observed you stop breathing during sleep? STOP Results Positive 11/20/24 09:15 QUESTION #5 FULL TEXT : Do you snore loudly (louder than talking or can be heard through closed doors)? 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 Specify any problems Hx of Preganancy in last 3 No 11/20/24 09:15 Months Nurse Filling Out Transfusion DSCHRIBER 11/20/24 09:15 & Questions: Date: 11/20/24 11/20/24 09:15 Time: 09:16 11/20/24 09:15 Patient unable to answer at this time (ie. confused, unrespo /Reproduction History /Reproductive History - human resources analyst: /Reproductive Hx- human resources analyst Hx Now No 11/20/24 09:15 Gestational Age (in weeks): EDC: Hx Hx Para Hx Section SAB No 11/20/24 09:15 PFSH Medical History (Updated 11/20/24 @ 09:22 by Jaclyn Butler) Bladder disease Stage 3a chronic kidney disease (CKD) Urinary frequency Wears hearing aid Wears dentures Wears glasses Post-menopausal Thyroid disease High cholesterol DVT (deep venous thrombosis) Restless legs Difficulty swallowing History of IBS Gastric reflux Non-smoker Shortness of breath on exertion Hx of LEEP (loop electrosurgical excision procedure) of cervix complicating History of claustrophobia Anxiety Depression CPAP (continuous positive airway pressure) dependence Hypertension Migraines CKD (chronic kidney disease) Arthritis Diarrhea Home Medications ?Medication ?Instructions ?Recorded ?Last Taken ?Type multivitamin with folic acid 400 1 tab PO DAILY SUPPLEMENT 05/18/14 01/10/24 History mcg tablet vitamin E (dl, acetate) 180 mg 400 units PO QHS SUPPLEMENT 05/18/14 01/10/24 History (400 unit) capsule omega-3 fatty acids-fish oil 300 1 cap PO DAILY SUPPLEMENT 02/17/20 01/10/24 History mg-500 mg capsule (Fish Oil) calcium 500 mg (as 1 ea PO BID SUPPLEMENT 02/27/20 01/10/24 History carbonate)-vitamin D3 15 mcg (600 unit) tablet atorvastatin 20 mg tablet 20 mg PO DAILY CHOLESTEROL 07/17/23 01/10/24 History biotin 10,000 mcg capsule 10,000 mcg PO DAILY SUPPLEMENT 07/17/23 01/10/24 History duloxetine 30 mg capsule,delayed 30 mg PO DAILY DEPRESSION 07/17/23 01/10/24 History release duloxetine 60 mg capsule,delayed 60 mg PO DAILY DEPRESSION 07/17/23 01/10/24 History release lisinopril 40 mg tablet 40 mg PO DAILY BP 09/18/23 01/11/24 History potassium chloride 10 mEq 10 meq PO BID supplement 09/18/23 01/10/24 History capsule,extended release ropinirole 0.25 mg tablet 0.5 mg PO QHS restless legs 09/18/23 01/10/24 History levothyroxine 75 mcg tablet 75 mcg PO MOTUWETHFRSA THYROID 11/12/23 01/10/24 History metoprolol tartrate 25 mg tablet 25 mg PO BID 30 days #60 tabs 01/25/24 Unknown Rx calcitriol 0.25 mcg capsule 0.25 mcg PO BID bones #180 caps 06/30/24 Unknown Rx famotidine 20 mg tablet 20 mg PO BID stomach #180 tabs 09/22/24 Unknown Rx tolterodine 2 mg capsule,extended 2 mg PO DAILY 30 days #90 caps 10/03/24 Unknown Rx release 24 hr fluticasone propionate 50 1 spray intranasal DAILY PRN 11/20/24 Unknown History mcg/actuation nasal allergy symptoms spray,suspension (Flonase Allergy Relief) levothyroxine 75 mcg tablet 150 mcg PO WADE 11/20/24 Unknown History Allergy/AdvReac Type Severity Reaction Status Date / Time budesonide Allergy Severe Other Verified 11/20/24 09:08 omeprazole Allergy Intermediate diarrhea Verified 11/20/24 09:08 sulfamethoxazole (From Allergy Rash Verified 11/20/24 09:08 Bactrim) trimethoprim (From Bactrim) Allergy Rash Verified 11/20/24 09:08 Family History Mother Arthritis Brother Cancer Diabetes Heart disease Father Diabetes Heart disease Hypertension High cholesterol Uncle Diabetes Grandfather Cancer skin cancer Surgical History (Updated 11/20/24 @ 09:22 by Jaclyn Butler) History of foot surgery Hx of bilateral cataract extraction Hx of colonoscopy Social History household members: none Smoking Status: Never smoker alcohol intake: never substance use type: does not use Audit: Pertinent Findings Pertinent Findings EKG Perinent findings: January 20, 2024. Sinus tachycardia at 126 beats per minute. Inferior infarct, age undetermined noted in lead III and aVF is slightly worse than August 01, 2023. Recommendation Anesthesia Recommendation Anesthesia recommendation: OPTIMIZED for anesthesia
[2024-12-05] VITALS (13 sets, daily range): BP systolic 109–135; BP diastolic 44–72; PULSE 64–99; RESP 15–18; TEMP 36.4–37; O2SAT 95–100; BMI 32.0
--- NOTE | 2024-12-05 06:30 | RAD_ITS ---
EXAM: Foot two views CLINICAL HISTORY: Pain metatarsal head resection of 1st 2nd 3rd 4th and 5th left foot TECHNIQUE: Fluoroscopy with 5 spot images left foot FINDINGS: Fluoroscopy time 2 minutes and 22 seconds Total dose 0.81 mGy Images show appearance of resection of the distal aspect of the 1st through 5th metatarsals and distal aspect of the proximal phalanges with placement of K-wires across the phalanges through the metatarsals of each ray. RAD/Foot 2 Views IMPRESSION: Fluoroscopy with spot images as above. May correlate with operative report for further detail. Reading Location: [id number]
[2024-12-05] MEDS: Lactated Ringers 1,000 ML 15 ML IV (06:36)
--- NOTE | 2024-12-05 06:45 | PRE.ANES_ITS ---
ASA Classification* ASA Classification ASA Classification: 2 Assessment & Plan Anesthesia* Anesthesia Assessment Anesthesia Assessment: Discussed sedation and/or anesthesia options, risks, benefits, and alternatives with patient/parents/legal guardian/POA. Questions invited. The patient/parents/legal guardian/POA seems to understand and agrees to proceed with anesthesia plan. Reviewed the physical assessment, medical history, allergy history and patient home medications list prior to surgery/procedure/anesthetic and documented any changes. Performed airway and anesthesia risk assessments. Anesthesia Type Anesthesia Type: General Anesthesia Focused Assessment* Temperature: 98.0 F Pulse Rate: 66 Blood Pressure: 132/72 Respiratory Rate: 16 Pulse Ox: 99 Airway Assessment Mouth opens: >3 cm Mallampati Score: II Focused Labs Anesthesia Preop lab: CBC WBC 9.0 K/mm3 (4.4-11.0) 11/06/24 09:54 11/06/24 RBC 4.10 M/mm3 (4.2-5.4) L 11/06/24 09:54 11/06/24 Hgb 11.9 g/dL (12.0-15.0) L 11/06/24 09:54 5 Hct 37.3 % (37-47) 11/06/24 09:54 11/06/24 Plt Count 179 K/mm3 (150-450) 11/06/24 09:54 11/06/24 CHEMISTRY Potassium 4.4 mmol/L (3.3-5.1) 11/06/24 09:54 11/06/24 Sodium 138 mmol/L (133-145) 11/06/24 09:54 11/06/24 Magnesium 2.1 mg/dL (1.6-2.6) 09/10/23 09:06 09/10/23 Phosphorus 4.3 mg/dL (2.5-4.9) 08/03/23 09:36 08/03/23 BUN 18 mg/dL (4-19) 11/06/24 09:54 11/06/24 Creatinine 1.21 mg/dL (0.70-1.20) H 11/06/24 09:54 Glucose 88 mg/dL (70-99) 11/06/24 09:54 11/06/24 POC Glucose 82 mg/dL (74-106) 01/17/24 11:38 01/17/24 TSH 2.570 uIU/mL (0.300-4.200) 11/06/24 09:54 04/10/28 COAG PT 12.8 SECONDS (11.7-14.9) 05/18/14 08:48 Urine Test Negative Negative 07/17/23 22:45 07/17/23 Pre-Assessment Diagnosis/Proposed Procedure Planned Operative Procedure(s): ROBLERO METATARSAL HEAD RESECTION OF THE FIRST,SECOND THIRD FOURTH FIFTH LEFT FOOT WITH ARTHROPLASTY Anesthesia History Anesthesia History - recorder helper gravity prospecting: Anesthesia History - recorder helper gravity prospecting Hx Hospitalization No 11/20/24 09:15 Any Problems With Anesthesia No 11/20/24 09:15 Cholinesterase deficiency No 11/20/24 09:15 You/Your Family Experience No 11/20/24 09:15 fever (hyperthermia) with Relationship Recent Exposure to Contagious No 12/05/24 06:34 Disease Does patient have nerve No 11/20/24 09:15 stimulator Patient instructed to have device shut off --Does patient have Pacemaker No 12/05/24 06:37 or ICD? When Was Last Pacemaker Check QUESTION #4 FULL TEXT: You/Your Family Experience fever (hyperthermia) with Anesthesia Last Oral Intake Last Oral intake: Last Oral Intake NPO since 00:00 12/05/24 06:37 Meds taken in AM with sips of Yes 12/05/24 06:37 water? Meds patient instructed to duloxetine 12/05/24 06:37 take am of surgery famotadine metoprolol PONV PONV - recorder helper gravity prospecting: PONV - recorder helper gravity prospecting Female Yes 11/20/24 09:15 HX of Motion Sickness No 11/20/24 09:15 HX of N/V After Surgery No 11/20/24 09:15 Non-Smoker Yes 11/20/24 09:15 Duration of Surgery greater Yes 11/20/24 09:15 than 60 minutes Number of Risk Factors 3 11/20/24 09:15 PONV Score Moderate Risk 11/20/24 09:15 Height & Weight Height & Weight: Anesthesia: Height & Weight Height 4 ft 11 in 12/05/24 06:37 Weight: 72 kg 12/05/24 06:37 Body Mass Index (BMI) 32.0 12/05/24 06:37 Respiratory Assessment Respiratory Assessment - recorder helper gravity prospecting: Respiratory Tract Infection Hx - recorder helper gravity prospecting Hx Respiratory Tract Infection No 11/20/24 09:15 STOP Sleep Apnea STOP Sleep Apnea - recorder helper gravity prospecting: STOP Sleep Apnea - recorder helper gravity prospecting Hx Hypertension Yes: CONTROLLED WITH MED 11/20/24 09:15 Hx Sleep Apnea Yes 11/20/24 09:15 CPAP Yes 11/20/24 09:15 BIPAP No 11/20/24 09:15 Do you snore loudly (louder than talking or can be heard Do you often feel tired/ fatigued/ sleepy during daytime? Has anyone observed you stop breathing during sleep? STOP Results Positive 11/20/24 09:15 QUESTION #5 FULL TEXT : Do you snore loudly (louder than talking or can be heard through closed doors)? 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 Specify any problems Hx of Preganancy in last 3 No 11/20/24 09:15 Months Nurse Filling Out Transfusion DSCHRIBER 11/20/24 09:15 & Questions: Date: 11/20/24 11/20/24 09:15 Time: 09:16 11/20/24 09:15 Patient unable to answer at this time (ie. confused, unrespo /Reproduction History /Reproductive History - recorder helper gravity prospecting: /Reproductive Hx- recorder helper gravity prospecting Hx Now No 11/20/24 09:15 Gestational Age (in weeks): EDC: Hx Hx Para Hx Section SAB No 11/20/24 09:15 Active Medications Active Medications: Current Medications Generic Name Dose Route Start Last Admin Trade Name Freq PRN Reason Stop Dose Admin Cefazolin Sodium 2 gm/ Sodium 110 mls @ 150 mls/hr 12/05/24 07:30 Chloride IV 12/05/24 08:13 INTRAOP ONE Lactated Ringer's 1,000 mls @ 15 mls/hr 12/05/24 06:00 12/05/24 06:36 IV 15 mls/hr .Q48H AYAN Administration PFSH Medical History Bladder disease Stage 3a chronic kidney disease (CKD) Urinary frequency Wears hearing aid Wears dentures Wears glasses Post-menopausal Thyroid disease High cholesterol DVT (deep venous thrombosis) Restless legs Difficulty swallowing History of IBS Gastric reflux Non-smoker Shortness of breath on exertion Hx of LEEP (loop electrosurgical excision procedure) of cervix complicating History of claustrophobia Anxiety Depression CPAP (continuous positive airway pressure) dependence Hypertension Migraines CKD (chronic kidney disease) Arthritis Diarrhea Home Medications ?Medication ?Instructions ?Recorded ?Last Taken ?Type multivitamin with folic acid 400 1 tab PO DAILY SUPPLE MENT 05/18/14 12/04/24 History mcg tablet vitamin E (dl, acetate) 180 mg 400 units PO QHS SUPPLE MENT 05/18/14 12/04/24 History (400 unit) capsule omega-3 fatty acids-fish oil 300 1 cap PO DAILY SUPPLE MENT 02/17/20 12/04/24 History mg-500 mg capsule (Fish Oil) calcium 500 mg (as 1 ea PO BID SUPPLEMENT 02/2612/04/24 History carbonate)-vitamin D3 15 mcg (600 unit) tablet atorvastatin 20 mg tablet 20 mg PO DAILY CHOLESTEROL 1 09/17/22 12/04/24 History biotin 10,000 mcg capsule 10,000 mcg PO DAILY SUPPLEME NT 07/17/23 12/04/24 History duloxetine 30 mg capsule,delayed 30 mg PO DAILY DEPRES KEMAL 07/17/23 12/05/24 History release duloxetine 60 mg capsule,delayed 60 mg PO DAILY DEPRES KEMAL 07/17/23 12/05/24 History release lisinopril 40 mg tablet 40 mg PO DAILY BP 09/18/23 0 12/04/24 History potassium chloride 10 mEq 10 meq PO BID supplement 12/04/24 History capsule,extended release ropinirole 0.25 mg tablet 0.5 mg PO QHS restless legs 09/18/23 12/04/24 History levothyroxine 75 mcg tablet 75 mcg PO MOTUWETHFRSA THY ROID 11/12/23 12/04/24 History metoprolol tartrate 25 mg tablet 25 mg PO BID 30 days #60 tabs 01/25/24 12/05/24 Rx calcitriol 0.25 mcg capsule 0.25 mcg PO BID bones #180 caps 06/30/24 12/04/24 Rx famotidine 20 mg tablet 20 mg PO BID stomach #180 ta bs 09/22/24 12/05/24 Rx tolterodine 2 mg capsule,extended 2 mg PO DAILY 30 day s #90 caps 10/03/24 12/04/24 Rx release 24 hr fluticasone propionate 50 1 spray intranasal DAILY PRN 11/20/24 12/04/24 History mcg/actuation nasal allergy symptoms spray,suspension (Flonase Allergy Relief) levothyroxine 75 mcg tablet 150 mcg PO WADE 11/20/24 History Allergy/AdvReac Type Severity Reaction Status Date / Time budesonide Allergy Severe Other Verified 11/20/24 09:08 omeprazole Allergy Intermediate diarrhea Verified 11/20/24 09:08 sulfamethoxazole (From Allergy Rash Verified 11/20/24 09:08 Bactrim) trimethoprim (From Bactrim) Allergy Rash Verified 11/20/24 09:08 Family History Mother Arthritis Brother Cancer Diabetes Heart disease Father Diabetes Heart disease Hypertension High cholesterol Uncle Diabetes Grandfather Cancer skin cancer Surgical History History of foot surgery Hx of bilateral cataract extraction Hx of colonoscopy Social History household members: none Smoking Status: Former smoker alcohol intake: never substance use type: does not use Review of Systems (Anesthesia) ROS Narrative System reviewed and no additional complaints, except as documented.
--- NOTE | 2024-12-05 07:30 | AMP_PTH ---
PATIENT: BHAVNA PATEL I LOC: MS3 U#:[id number] AGE/SX: 64/F ROOM: [facility] [place]12/05/[address]: Dr. Gomez Fry DPM : 1960 BED: 1 DIS: 12/12/2024 SPEC #: [id number] RECD: 12/05/24 12:49 STATUS: LEVY NAIMA #: [id number] TRUE: 12/05/24 07:[address]: Gomez Fry DEPT: SURGICAL PATHOLOGY RECD BY: Jono Scott ENTERED: 12/05/24 13:50 SP TYPE: Amputation OTHR DR: MD Dr. Dylan Thomas MD Tissues: A - Toe, NOS Procedures: Decalcification bone/plaque Surgery Specimen Level III HEADER OPERATION: Schuler metatarsal head resection of first, second and third toes PRE-OP DIAGNOSIS: Hallux valgus, bunion, deformity 2nd, 3rd, 4th, 5th metatarsals, hammer toes 2nd, 3rd, 4th, 5th toes TISSUE SUBMITTED: A- Resected bone - 1-5 metatarsals and 1-5 toes- left foot MICROSCOPIC DIAGNOSIS A. Left foot, bone, 1-5 metatarsals, 1-5 toes, amputation: * Bone and cartilage with degenerative changes * Bone with fatty marrow and focal marrow fibrosis MICROSCOPIC DESCRIPTION Slides are reviewed. GROSS DESCRIPTION A. Received in formalin in a container labeled with the patient's name, date of , and resected bone 1, 2, 3, 4, 5 metatarsals and 1, 2, 3, 4, 5 toes, left foot are multiple willson-pink, firm, and irregular fragments of bone measuring 6.0 x 5.5 x 1.5 cm in aggregate. Some exhibit smooth and firm resection margins. Multiple fragments exhibit possible disarticulated surfaces with smooth and glistening joints. Sectioning reveals uniform and firm surfaces. R D Internship sections are submitted in A1-2 following decalcification. [facility] 12-05-2024 CPT:47110,15959
[2024-12-05] MEDS: Cefazolin 2 GM in 0.9% Normal Saline (100mL Bag) 100 ML IV (07:45)
[2024-12-05] MEDS: Bupivacaine Mpf 0.5% 30 ML VIAL (07:55)
--- NOTE | 2024-12-05 11:27 | PCM.OPRPT ---
Operative Report (Standard) Operative Information Date of Procedure: 12/05/24 Pre-Operative Diagnosis: Hammer toes 2,3,4,5 left Hallux valgus left foot Painful left foot Post-Operative Diagnosis: Same Surgery/Procedure Performed: Patel metatarsal head resection 1,2,3,4,5 metatarsal heads left foot Arthroplasy 1,2,3,4,5 toes left foot hog cutter: Yes Formation Fracturing Operator: Huan Tasks completed by assistant head cashier: Opening & closing, Removing tissue and Retracting Type of Anesthesia: General and Local RN Documented Start/Stop Times: Operation Date: 12/05/24 07:30 Case Time Into Pre-Op 12/05/24 05:58 Out of Pre-Op 12/05/24 07:28 Anesthesia Start 12/05/24 07:30 Into Room 12/05/24 07:30 Procedure Start 12/05/24 07:58 Procedure End 12/05/24 11:20 Anesthesia End 12/05/24 11:26 Out of Room 12/05/24 11:26 Into Recovery 12/05/24 11:28 Out of Recovery 12/05/24 12:04 Procedure Start Time: 07:58 Procedure Stop Time: 11:20 Select all DRAINS/GRAFTS/IMPLANTS that apply: Implanted device Implanted device details: 3 x 2.0mm Steinmann pins, 2 x 1.6mm kwires Estimated Blood Loss: 10mL Specimen collected: Yes Description of specimen(s) removed: Bone from 1,2,3,4,5 metatarsals and 1,2,3,4,5 toes left foot Description of surgery: Indications: 64 year old female with chronic left foot pain despite nonsurgical treatment. She had same issue on right foot and surgical intervention really helped last year. With her left foot she has pain with ambulation and great difficulty with shoegear due to the pain and significant deformities. She has elected to undergo surgical intervention - patel metatarsal heal resection and correction of hammer toes. Reviewed procedure with her, the possible benefits vs risks, goals, expectations and estimated healing time. Reviewed alternative options. She elected to proceed with surgical intervention. The consent forms were reviewed with her and she has freely signed them. No guarantees were given nor implied. No warranties were given nor implied. Operative procedure: The patient was brought back to the operating room and was placed on the operating room table in the supine position. The patient was secured to the operating room table with a safety belt around her waist. The patient received general anesthesia per the anesthesia team. A well padded pneumatic tourniquet was applied around her left ankle. She received 2g of Ancef IV for antibiotic prophylaxis. A time out was performed and the patient was properly identified and the surgical plan was confirmed. Her left foot was scrubbed, prepped and draped in the usual aseptic fashion. Further attention was directed to the patient's left foot - there was significant deformity of the forefoot - significant contracture (rigid) of all toes, with hallux valgus and hammer toes 2,3,4,5. All metatarsal phalangeal joints were deformed and out of place. Her left foot was elevated for 3 minutes and the ankle tourniquet was inflated to 250mmHg. 16mL of 0.5% Bupivacaine plain was given as a local block to the 1st ray, 2nd, 3rd, 4th and 5th rays of the left foot. Patel Metatarsal Head Resection: Using a #15 scalpel blade and longitudinal skin incision was made medial distal 1st metatarsal and 1st metatarsal phalangeal joint. Careful dissection was completed down to the first metatarsal and first metatarsophalangeal joint. The capsule of the first metatarsophalangeal joint was incised as well as the periosteum of the distal first metatarsal using a #15 scalpel blade. There was significant contracture laterally, the adductor hallucis was contracted and the conjoined tendon was released along with the lateral sesamoid, excising the lateral sesamoid as there were significant degenerative changes. The head of the 1st metatarsal was also resected using a power sagittal saw. There was noted to be significant contracture of the extensor hallucis longus tendon and it was bowstrung causing the hallux to deviate laterally as well so a Z lengthening tenotomy was completed - it was repaired with 3-0 Vicryl. It was also noted further limitation of complete deformity correction was due to 1st toe interphalangeal joint. A dorsal linear longitudinal incision was made over the interphalangeal joint (IPJ) of the 1st toe. The extensor digitorum longus tendon which reflected off of the head of the proximal phalanx with a 15 blade. The dorsal IPJ joint capsule was incised with a 15 blade. The head the proximal phalanx was resected using a powered sagittal saw. The resected bone was sent to pathology. The site was flushed out with copious amounts of normal saline solution. The 1st toe was not able to be reduced into good alignment and position. An incision was made to the dorsal 2nd intermetatarsal space, then incision was made overlying the 2nd metatarsal head, the head was freed of all attachments and the 2nd metatarsal head was resected. An incision was made overlying the 3rd metatarsal head, the head was freed of all attachments and the 3rd metatarsal head was resected. An incision was made to the dorsal 4th intermetatarsal space, then incision was made overlying the 4th metatarsal head, the head was freed of all attachments and the 4th metatarsal head was resected. An incision was made overlying the 5th metatarsal head, the head was freed of all attachments and the 5th metatarsal head was resected. It was noted there were degenerative changes to the cartilage of the metatarsal heads. A 2mm Domitila pin was placed through the 1st toe and through the 1st metatarsal with the 1st toe in rectus position. All resected bone was sent to pathology as specimen. Also of note the metatarsal heads were resected in fashion to preserve the normal parabola. The subcutaneous tissue layer was carefully reapproximated using 3-0 Vicryl. The skin was carefully reapproximated using 3-0 Monocryl. 2nd digit hammer toe correction: Attention was directed to the toe. A dorsal linear longitudinal incision was made over the proximal interphalangeal joint (PIPJ) of the toe. A transverse incision was made to the extensor digitorum longus tendon which reflected off of the head of the proximal phalanx with a 15 blade. The dorsal PIPJ joint capsule was incised with a 15 blade. The head the proximal phalanx was resected using a powered sagittal saw. The resected bone was sent to pathology. The site was flushed out with copious amounts of normal saline solution. A 2mm Domitila pin was placed through the phalanges of the toe to the 2nd metatarsal holding the toe in rectus position. This was confirmed with intra operative fluoroscopy. The site was again flushed out with copious amounts of normal saline solution. The extensor tendon was reapproximated using 3-0 Vicryl and the skin was reapproximated using 3-0 Nylon. The kwire was trimmed externally. 3rd digit hammer toe correction: Attention was directed to the toe. A dorsal linear longitudinal incision was made over the proximal interphalangeal joint (PIPJ) of the toe. A transverse incision was made to the extensor digitorum longus tendon which reflected off of the head of the proximal phalanx with a 15 blade. The dorsal PIPJ joint capsule was incised with a 15 blade. The head the proximal phalanx was resected using a powered sagittal saw. The resected bone was sent to pathology. The site was flushed out with copious amounts of normal saline solution. A 2mm Domitila pin was placed through the phalanges of the toe to the 3rd metatarsal holding the toe in rectus position. This was confirmed with intra operative fluoroscopy. The site was again flushed out with copious amounts of normal saline solution. The extensor tendon was reapproximated using 3-0 Vicryl and the skin was reapproximated using 3-0 Nylon. The kwire was trimmed externally. 4th digit hammer toe correction: Attention was directed to the toe. A dorsal linear longitudinal incision was made over the proximal interphalangeal joint (PIPJ) of the toe. A transverse incision was made to the extensor digitorum longus tendon which reflected off of the head of the proximal phalanx with a 15 blade. The dorsal PIPJ joint capsule was incised with a 15 blade. The head the proximal phalanx was resected using a powered sagittal saw. The resected bone was sent to pathology. The site was flushed out with copious amounts of normal saline solution. A 1.6mm kwire was placed through the phalanges of the toe to the 4th metatarsal holding the toe in rectus position. This was confirmed with intra operative fluoroscopy. The site was again flushed out with copious amounts of normal saline solution. The extensor tendon was reapproximated using 3-0 Vicryl and the skin was reapproximated using 3-0 Nylon. The kwire was trimmed externally. 5th digit hammer toe correction: Attention was directed to the toe. A dorsal linear longitudinal incision was made over the proximal interphalangeal joint (PIPJ) of the toe. A transverse incision was made to the extensor digitorum longus tendon which reflected off of the head of the proximal phalanx with a 15 blade. The dorsal PIPJ joint capsule was incised with a 15 blade. The head the proximal phalanx was resected using a powered sagittal saw. The resected bone was sent to pathology. The site was flushed out with copious amounts of normal saline solution. A 1.6mm kwire was placed through the phalanges of the toe to the 5th metatarsal holding the toe in rectus position. This was confirmed with intra operative fluoroscopy. The site was again flushed out with copious amounts of normal saline solution. The extensor tendon was reapproximated using 3-0 Vicryl and the skin was reapproximated using 3-0 Nylon. The kwire was trimmed externally. The pneumatic tourniquet was deflated (total time was 90 minutes). There was immediate return of warmth and perfusion to the foot with CFT < 2 seconds to all toes. All vital structures including all vital neurovascular and tendon structures were properly identified, and protected as necessary for the procedures above. Intraoperative fluoroscopy was used for the above as needed. The patient tolerated the above procedure well and anesthesia well with no complications. The patient was transported from the operative room to the recovery room with vital signs stable and in good condition. Post operative orders were placed, and post operative instructions were reviewed with the patient and her family. No weightbearing left foot, keep the dressing clean, dry and intact. Keep foot elevated for at least 50 minutes of every hour. Patient was admitted. Surgical Findings: As noted above Complications Complications: No
--- NOTE | 2024-12-05 11:34 | PCM.POST.ANE ---
Anesthesia: Postop Eval I Current Vital Signs Temperature: 97.5 F Pulse Rate: 75 Blood Pressure: 121/68 Respiratory Rate: 16 Pulse Ox: 99 Oxygen Delivery Method: Nasal Cannula Oxygen Flow Rate (L/min): 2 Assessment Airway patent: Yes Spontaneous unlabored respirations: Yes Mental status: Awake and Calm nausea: No Vomiting: No Anesthesia Complication: No Fluid Hydration Crystalloid volume administer (ml): 1,700 Total IV fluid infused: 1,700 Progress Note Anesthesia document: Postop Eval 1 completed: Yes
--- NOTE | 2024-12-05 11:45 | RAD_ITS ---
PROCEDURE: FOOT MIN 3 VIEWS (RADFO), 12/05/2024 REASON FOR EXAM: POST OP TECHNIQUE: AP, cross-table lateral, and oblique views of the LEFT foot were obtained. COMPARISON: Fluoroscopic exposures 12/05/2024 and prior FINDINGS: Resection of the 1st through 5th metatarsal heads with traversing K-wires potentially reflecting arthrodesis. The proximal aspect of the K-wire along the 1st ray probably minimally extends into the soft tissues medially along the medial aspect of the medial cuneiform. Circumferential soft tissue swelling tissue swelling may be postoperative. Small plantar and Achilles insertional calcaneal enthesophytes. Mild hallux valgus. RAD/Foot min 3 Views IMPRESSION: Recent operative changes an additional description as above. Reading Location: [id number]
--- NOTE | 2024-12-05 11:53 | POSTOPAN2_ITS ---
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 Spontaneous unlabored Yes 12/05/24 11:35 CONSUMER SALES REPRESENTATIVE.[email or web address] respirations Mental status Awake,Calm 12/05/24 11:35 CONSUMER SALES REPRESENTATIVE.[email or web address] nausea No 12/05/24 11:35 CONSUMER SALES REPRESENTATIVE.[email or web address] Vomiting No 12/05/24 11:35 CONSUMER SALES REPRESENTATIVE.[email or web address] Anesthesia Postop Eval I: Fluid Summary Crystalloid volume administer 1,700 12/05/24 11:35 CONSUMER SALES REPRESENTATIVE.[email or web address] (ml) Colloids volume administered ( ml) Blood Product volume administered (ml) Total IV fluid infused 1,700 12/05/24 11:35 CONSUMER SALES REPRESENTATIVE.[email or web address] Anesthesia Postop Eval I: Summary Notes Anesthesia Complication No 12/05/24 11:35 CONSUMER SALES REPRESENTATIVE.[email or web address] Anesthesia Complication Comment: Post-operative progress note Anesthesia: Postop Eval II Evaluation Mental status: Awake Pain Level: 0 nausea: No Vomiting: No
--- NOTE | 2024-12-05 11:53 | PCM.POSTANE2 ---
Anesthesia Postop Eval I Sum Postop Eval Completion status Anesthesia document: Postop Eval 1 completed: Yes Anesthesia Postop Eval I Summary Anesthesia Postop Eval I Summary: Anesthesia Postop Eval I: Assessment Summary Airway patent Yes 12/05/24 11:35 CLINICAL [email or web address] Spontaneous unlabored Yes 12/05/24 11:35 CLINICAL [email or web address] respirations Mental status Awake,Calm 12/05/24 11:35 CLINICAL [email or web address] nausea No 12/05/24 11:35 CLINICAL [email or web address] Vomiting No 12/05/24 11:35 CLINICAL [email or web address] Anesthesia Postop Eval I: Fluid Summary Crystalloid volume administer 1,700 12/05/24 11:35 CLINICAL [email or web address] (ml) Colloids volume administered ( ml) Blood Product volume administered (ml) Total IV fluid infused 1,700 12/05/24 11:35 CLINICAL [email or web address] Anesthesia Postop Eval I: Summary Notes Anesthesia Complication No 12/05/24 11:35 CLINICAL [email or web address] Anesthesia Complication Comment: Post-operative progress note Anesthesia: Postop Eval II Evaluation Mental status: Awake Pain Level: 0 nausea: No Vomiting: No
--- NOTE | 2024-12-05 12:36 | PCM.HP.STD ---
HPI - General General Date of Admission: 12/05/24 Date of Service: 12/05/24 Chief Complaint: Left foot pain s/p surgical intervention HPI Narrative BHAVNA PATEL, is a 64 F who presents with chronic left foot pain due to severe deformities. She underwent surgical intervention of patel metatarsal head resection and correction of hammer toes left foot today without complications. She has many medical problems, and is being admitted for observation, pain management, and post operative nursing facility placement. [facility] Medical History Bladder disease Stage 3a chronic kidney disease (CKD) Urinary frequency Wears hearing aid Wears dentures Wears glasses Post-menopausal Thyroid disease High cholesterol DVT (deep venous thrombosis) Restless legs Difficulty swallowing History of IBS Gastric reflux Non-smoker Shortness of breath on exertion Hx of LEEP (loop electrosurgical excision procedure) of cervix complicating History of claustrophobia Anxiety Depression CPAP (continuous positive airway pressure) dependence Hypertension Migraines CKD (chronic kidney disease) Arthritis Diarrhea Home Medications ?Medication ?Instructions ?Recorded ?Last Taken ?Type multivitamin with folic acid 400 1 tab PO DAILY SUPPLEMENT 05/18/14 12/04/24 History mcg tablet vitamin E (dl, acetate) 180 mg 400 units PO QHS SUPPLEMENT 05/18/14 12/04/24 History (400 unit) capsule omega-3 fatty acids-fish oil 300 1 cap PO DAILY SUPPLEMENT 02/17/20 12/04/24 History mg-500 mg capsule (Fish Oil) calcium 500 mg (as 1 ea PO BID SUPPLEMENT 02/27/20 12/04/24 History carbonate)-vitamin D3 15 mcg (600 unit) tablet atorvastatin 20 mg tablet 20 mg PO DAILY CHOLESTEROL 07/17/23 12/04/24 History biotin 10,000 mcg capsule 10,000 mcg PO DAILY SUPPLEMENT 07/17/23 12/04/24 History duloxetine 30 mg capsule,delayed 30 mg PO DAILY DEPRESSION 07/17/23 12/05/24 History release duloxetine 60 mg capsule,delayed 60 mg PO DAILY DEPRESSION 07/17/23 12/05/24 History release lisinopril 40 mg tablet 40 mg PO DAILY BP 09/18/23 12/04/24 History potassium chloride 10 mEq 10 meq PO BID supplement 09/18/23 12/04/24 History capsule,extended release ropinirole 0.25 mg tablet 0.5 mg PO QHS restless legs 09/18/23 12/04/24 History levothyroxine 75 mcg tablet 75 mcg PO MOTUWETHFRSA THYROID 11/12/23 12/04/24 History metoprolol tartrate 25 mg tablet 25 mg PO BID 30 days #60 tabs 01/25/24 12/05/24 Rx calcitriol 0.25 mcg capsule 0.25 mcg PO BID bones #180 caps 06/30/24 12/04/24 Rx famotidine 20 mg tablet 20 mg PO BID stomach #180 tabs 09/22/24 12/05/24 Rx tolterodine 2 mg capsule,extended 2 mg PO DAILY 30 days #90 caps 10/03/24 12/04/24 Rx release 24 hr fluticasone propionate 50 1 spray intranasal DAILY PRN 11/20/24 12/04/24 History mcg/actuation nasal allergy symptoms spray,suspension (Flonase Allergy Relief) levothyroxine 75 mcg tablet 150 mcg PO WADE 11/20/24 11/30/24 History Allergy/AdvReac Type Severity Reaction Status Date / Time budesonide Allergy Severe Other Verified 11/20/24 09:08 omeprazole Allergy Intermediate diarrhea Verified 11/20/24 09:08 sulfamethoxazole (From Allergy Rash Verified 11/20/24 09:08 Bactrim) trimethoprim (From Bactrim) Allergy Rash Verified 11/20/24 09:08 Family History Mother Arthritis Brother Cancer Diabetes Heart disease Father Diabetes Heart disease Hypertension High cholesterol Uncle Diabetes Grandfather Cancer skin cancer Surgical History History of foot surgery Hx of bilateral cataract extraction Hx of colonoscopy Social History household members: none Smoking Status: Former smoker alcohol intake: never substance use type: does not use Vital Signs Vital Signs Vital Signs: 12/05/24 06:34 12/05/24 06:37 12/05/24 06:46 Temperature 98.0 F 98.0 F Temperature Source Temporal Pulse Rate 66 66 Pulse Strength Respiratory Rate 16 16 Respiratory Effort Respiratory Depth Respiratory Pattern Normal Blood Pressure 132/72 H 132/72 H Blood Pressure Mean 92 Blood Pressure Source Monitor Blood Pressure Position Sitting Blood Pressure Location Left Arm Baseline BP Pulse Ox 99 99 Oxygen Delivery Method Room Air Oxygen Flow Rate (L/min) 12/05/24 11:30 12/05/24 11:35 12/05/24 11:35 Temperature 97.5 F L Temperature Source Temporal Temporal Pulse Rate 74 66 Pulse Strength Normal (2+) Respiratory Rate 15 16 Respiratory Effort Respiratory Depth Respiratory Pattern Normal Blood Pressure 121/68 H 135/68 H Blood Pressure Mean 85 90 Blood Pressure Source Monitor Monitor Blood Pressure Position Semi-Fowlers Semi-Fowlers Blood Pressure Location Left Arm Left Arm Baseline BP 132/72 132/72 Pulse Ox 98 97 Oxygen Delivery Method Nasal Cannula Airvo Oxygen Flow Rate (L/min) 3 12/05/24 11:35 12/05/24 11:40 12/05/24 11:45 Temperature 97.5 F L Temperature Source Pulse Rate 75 64 64 Pulse Strength Respiratory Rate 16 16 16 Respiratory Effort Respiratory Depth Respiratory Pattern Blood Pressure 121/68 H 130/67 H 118/62 Blood Pressure Mean 88 80 Blood Pressure Source Monitor Monitor Blood Pressure Position Semi-Fowlers Semi-Fowlers Blood Pressure Location Left Arm Left Arm Baseline BP 132/72 132/72 Pulse Ox 99 97 98 Oxygen Delivery Method Nasal Cannula Room Air Nasal Cannula Oxygen Flow Rate (L/min) 2 2 12/05/24 12:00 12/05/24 12:12 12/05/24 12:25 Temperature 97.5 F L 97.9 F Temperature Source Temporal Oral Pulse Rate 80 70 Pulse Strength Respiratory Rate 15 18 Respiratory Effort Normal Respiratory Depth Normal Respiratory Pattern Normal Blood Pressure 116/44 L 116/70 Blood Pressure Mean 68 85 Blood Pressure Source Monitor Monitor Blood Pressure Position Semi-Fowlers Semi-Fowlers Blood Pressure Location Left Arm Left Arm Baseline BP 132/72 Pulse Ox 99 100 Oxygen Delivery Method Nasal Cannula Nasal Cannula Nasal Cannula Oxygen Flow Rate (L/min) 2 2 2 Weight Weight: 72 kg Body Mass Index (BMI) 32.0 Physical Exam Const alert, oriented x3 and no apparent distress Constitutional Narrative: Left foot dressing is clean, dry and intact. Results Imaging Radiology Impression Foot X-Ray 12/05/24 11:45 IMPRESSION: Recent operative changes an additional description as above. Reading Location: [facility] Assessment & Plan Assessment/Plan (1) Pain in left foot: (2) Hallux valgus of left foot: (3) Hammer toe of left foot: PLAN: Plan s/p left foot patel metatarsal head resection and hammer toe correction 2,3,4,5 toes right foot on 12/05/2024 - she has been admitted for pain management, observation and post op nursing facility placement. No weightbearing left foot, keep left foot elevated. Keep dressing left foot clean, dry and intact. Pain management: Acetaminophen, Oxyir, and Dilaudid DVT Prophylaxis: Lovenox subc starting tomorrow. Chronic medical problems - Hospital Medicine consulted. Case Management also consulted. PT/OT consulted for tomorrow.
--- NOTE | 2024-12-05 12:57 | PCM.PN.HOSP ---
Reason for Visit Reason for Visit: Diagnoses Hallux valgus (acquired), left foot (12/05/24) Other hammer toe(s) (acquired), left foot (12/05/24) Pain in left foot (12/05/24) Subjective Subjective Patient is a 64-year-old who underwent Schuler metatarsal head resection 1,2,3,4,5 metatarsal heads left foot Arthroplasy 1,2,3,4,5 toes left foot on account of Hammer toes 2,3,4,5 left Hallux valgus left foot Painful left foot by Dr. Fry on 12/05/2024. The hospitalist service was consulted to assist with management of patient medical comorbidities Objective Data Objective Data Vital Signs: Vital Signs Temp Pulse Resp BP Pulse Ox O2 Del Method O2 Flow Rate 97.9 F 70 18 116/70 100 Nasal Cannula 2 12/05/24 12:12 12/05/24 12:12 12/05/24 12:12 12/05/24 12:12 12/05/24 12:12 12/05/24 12:25 12/05/24 12:25 Oxygen Flow Rate (L/min) 2 Oxygen Delivery Method Nasal Cannula Weight: 72 kg Body Mass Index (BMI) 32.0 Intake & Output: Intake and Output for Last 24 Hours 12/03/24 12/04/24 12/05/24 23:59 23:59 23:59 Intake Total 1000 / 1000 Balance 1000 / 1000 Radiography Diagnostic Testing: Radiology Impression Foot X-Ray 12/05/24 11:45 IMPRESSION: Recent operative changes an additional description as above. Reading Location: [facility] Physical Exam Narrative GENERAL: cooperative HEENT: Atraumatic; normocephalic EYES; Anicteric, Normal Conjunctiva NECK; supple, normal thyroid, RESPIRATORY: Diminished to auscultation CARDIOVASCULAR: Regular S1 S2, GI: soft, normoactive bowel sounds, : No Renal angle tenderness; EXTREMITIES: Left foot in surgical dressing MUSCULOSKELETAL: no muscle wasting NEURO: Awake; no lateralizing signs. SKIN: No Rash PSYCH; Flat affect Assessment & Plan Assessment/Plan (1) Hammer toe of left foot: (2) Essential (primary) hypertension: PLAN: Plan Patient is a 64-year-old who underwent Schuler metatarsal head resection 1,2,3,4,5 metatarsal heads left foot Arthroplasy 1,2,3,4,5 toes left foot on account of Hammer toes 2,3,4,5 left Hallux valgus left foot Painful left foot by Dr. Fry on 12/05/2024. The hospitalist service was consulted to assist with management of patient medical comorbidities 1. Status post Schuler metatarsal head resection 1,2,3,4,5 metatarsal heads left foot Arthroplasy 1,2,3,4,5 toes left foot -on account of Hammer toes 2,3,4,5 left Hallux valgus left foot Painful left foot by Dr. Fry on 12/05/2024. Patient postoperative orders regarding pain management, PT OT and DVT prophylaxis deferred to primary service 2. Dyslipidemia ?Patient is on statin therapy, continued at home dose 3. Hypertension ? Blood pressure controlled, home medications continued with dose adjustment as needed 4. Depression ? Patient is on duloxetine discontinued 5. Allergic rhinitis ? Patient is on fluticasone did continue 6. Hypothyroidism ? Patient is on levothyroxine home dose continued 7. Class I obesity with BMI of 32.1 ? Weight loss advised 8. Anemia ? Secondary to chronic disorder monitoring H&H and transfuse if patient becomes symptomatic or hemoglobin falls below 7 9. Chronic kidney disease stage IIIa ? Patient kidney function at baseline monitoring with daily BMPs 10. DVT prophylaxis ? On enoxaparin Charges/Coding Visit Charges Inpatient E&M: 07412 Subs Hosp L2
[2024-12-05] MEDS: Cefazolin 1 GM/50 ML BAG IV ×2 (14:17→21:05)
[2024-12-05] MEDS: Potassium Chloride Oral Tablet 10 MEQ PO (16:45)
[2024-12-05] MEDS: oxyCODONE 5 MG Tablet PO (18:49)
[2024-12-05] MEDS: Atorvastatin Calcium 20 MG Tablet PO (20:27)
[2024-12-05] MEDS: Calcitriol 0.25 MCG Capsule PO (20:28)
[2024-12-05] MEDS: Metoprolol Tartrate 25 MG Tablet PO (20:28)
[2024-12-05] MEDS: Pramipexole Di-HCl 0.25 MG Tablet PO (20:29)
[2024-12-05] MEDS: Famotidine 20 MG Tablet PO (20:29)
[2024-12-05] MEDS: 0.9% Saline Lock 10 ML Syringe IV (21:19)
[2024-12-05] MEDS: HYDROmorphone 1 MG/ML Syringe IV (21:19)
[2024-12-05 22:34] LABS: ALB/GLOB Ratio 1.5 RATIO (0.9-2.4); AST(SGOT) 88 U/L (<=31); Alanine Aminotransfer ALT/SGPT 87 U/L (<=34); Albumin, Serum 3.9 g/dL (3.4-4.8); Alkaline Phosphatase 79 U/L (35-104); Anion Gap 14 (5-15); BUN 17 mg/dL (4-19); Calcium,Total 8.1 mg/dL (7.6-11.0); Carbon Dioxide 22.9 mmol/L (21.0-32.0); Chloride 101 mmol/L (98-108); Creatinine, Serum 1.03 mg/dL (0.70-1.20); EST Glomerular Filtration Rate 61 (>60); Estimated Creatinine Clearance 48.87 ml/min (50-250); Globulin 2.6 g/dL (2.2-4.2); Glucose 147 mg/dL (70-99); Potassium 4.3 mmol/L (3.3-5.1); Protein, Total 6.5 g/dL (5.9-8.4); Sodium Level 137 mmol/L (133-145); Total Bilirubin 0.21 mg/dL (0.00-1.30)
[2024-12-06] VITALS (9 sets, daily range): BP systolic 98–125; BP diastolic 52–72; PULSE 82–100; RESP 16–18; TEMP 36.6–37.3; O2SAT 93–98
[2024-12-06] MEDS: oxyCODONE 5 MG Tablet PO ×3 (03:20→20:07)
[2024-12-06] MEDS: Cefazolin 1 GM/50 ML BAG IV ×3 (06:42→22:27)
[2024-12-06] MEDS: Levothyroxine 75 MCG Tablet PO (06:45)
[2024-12-06] MEDS: 0.9% Saline Lock 10 ML Syringe IV ×4 (06:51→22:36)
[2024-12-06] MEDS: Ondansetron 4 MG/2 ML Vial IV (06:52)
[2024-12-06 07:21] LABS: Hematocrit 31.8 % (37-47); Hemoglobin 10.4 g/dL (12.0-15.0); Mean Corp Hgb Conc 32.7 g/dL (32-36); Mean Corpuscular Hgb 29.5 pg (27.0-32.0); Mean Corpuscular Volume 90.1 fL (81-99); Mean Platelet Vol. 11.5 fl (6.2-12.0); Platelet Count 175 K/mm3 (150-450); RBC Distribution Width CV 14.1 % (11.6-14.6); Red Blood Count 3.53 M/mm3 (4.2-5.4); White Blood Count 14.8 K/mm3 (4.4-11.0)
--- NOTE | 2024-12-06 07:28 | PN.HOSP_ITS ---
Reason for Visit Reason for Visit: Diagnoses Essential (primary) hypertension (12/05/24) Hallux valgus (acquired), left foot (12/05/24) Other hammer toe(s) (acquired), left foot (12/05/24) Pain in left foot (12/05/24) Subjective Subjective Postoperative day 1. Patient complains of significant pain. Objective Data Objective Data Vital Signs: Vital Signs Temp Pulse Resp BP Pulse Ox O2 Del Method O2 Flow Rate 98.2 F 87 18 125/52 H 95 Room Air 2 12/06/24 06:41 12/06/24 06:41 12/06/24 06:41 12/06/24 06:41 12/06/24 06:41 12/06/24 06:41 12/05/24 13:09 Oxygen Flow Rate (L/min) 2 Oxygen Delivery Method Room Air Weight: 72 kg Body Mass Index (BMI) 32.0 Intake & Output: Intake and Output for Last 24 Hours 12/04/24 12/05/24 12/06/24 23:59 23:59 23:59 Intake Total 1100 / 1500 400 / 400 Output Total 200 / 200 Balance 900 / 1300 400 / 400 Lab / Micro Data 12/06/24 06:38 12/05/24 21:20 Labs: Laboratory Results - last 24 hr 12/05/24 21:20: Sodium 137, Potassium 4.3, Chloride 101, Carbon Dioxide 22.9, Anion Gap 14, BUN 17, Creatinine 1.03, Estim Creat Clear Calc 48.87 L, Est GFR (MDRD) Non-Af 61, BUN/Creatinine Ratio 16.0, Glucose 147 H, Calcium 8.1, Total Bilirubin 0.21, AST 88 H, ALT 87 H, Alkaline Phosphatase 79, Total Protein 6.5, Albumin 3.9, Globulin 2.6, Albumin/Globulin Ratio 1.5 12/06/24 06:38: WBC 14.8 H, RBC 3.53 L, Hgb 10.4 L, Hct 31.8 L, MCV 90.1, MCH 29.5, MCHC 32.7, RDW Std Deviation 46.0 H, RDW Coeff of Elsie 14.1, Plt Count 175, MPV 11.5 Radiography Diagnostic Testing: Radiology Impression Foot X-Ray 12/05/24 06:30 IMPRESSION: Fluoroscopy with spot images as above. May correlate with operative report for further detail. Reading Location: [facility] Foot X-Ray 12/05/24 11:45 IMPRESSION: Recent operative changes an additional description as above. Reading Location: [facility] Physical Exam Narrative GENERAL: cooperative HEENT: Atraumatic; normocephalic EYES; Anicteric, Normal Conjunctiva NECK; supple, normal thyroid, RESPIRATORY: Diminished to auscultation CARDIOVASCULAR: Regular S1 S2, GI: soft, normoactive bowel sounds, : No Renal angle tenderness; EXTREMITIES: Left foot in surgical dressing MUSCULOSKELETAL: no muscle wasting NEURO: Awake; no lateralizing signs. SKIN: No Rash PSYCH; Flat affect Assessment & Plan Assessment/Plan (1) Hammer toe of left foot: (2) Essential (primary) hypertension: PLAN: Plan Patient is a 64-year-old who underwent Schuler metatarsal head resection 1,2,3,4,5 metatarsal heads left foot Arthroplasy 1,2,3,4,5 toes left foot on account of Hammer toes 2,3,4,5 left Hallux valgus left foot Painful left foot by Dr. Fry on 12/05/2024. The hospitalist service was consulted to assist with management of patient medical comorbidities 1. Status post Schuler metatarsal head resection 1,2,3,4,5 metatarsal heads left foot Arthroplasy 1,2,3,4,5 toes left foot -on account of Hammer toes 2,3,4,5 left Hallux valgus left foot Painful left foot by Dr. Fry on 12/05/2024. Patient postoperative orders regarding pain management, PT OT and DVT prophylaxis deferred to primary service ? 12/06/2024 postoperative day 1 patient complaining of pain did review patient pain regimen 2. Dyslipidemia ?Patient is on statin therapy, continued at home dose 3. Hypertension ? Blood pressure controlled, home medications continued with dose adjustment as needed 4. Depression ? Patient is on duloxetine discontinued 5. Allergic rhinitis ? Patient is on fluticasone did continue 6. Hypothyroidism ? Patient is on levothyroxine home dose continued 7. Class I obesity with BMI of 32.1 ? Weight loss advised 8. Anemia ? Secondary to chronic disorder monitoring H&H and transfuse if patient becomes symptomatic or hemoglobin falls below 7 9. Chronic kidney disease stage IIIa ? Patient kidney function at baseline monitoring with daily BMPs 10. Collagenous colitis ? Patient is on 1 g of colestipol twice a day did reorder 11. Leukocytosis ? Reactive no evidence of infection we will continue with monitoring 12. DVT prophylaxis ? On enoxaparin Charges/Coding Visit Charges Inpatient E&M: 04797 Subs Hosp L2
[2024-12-06] MEDS: HYDROmorphone 1 MG/ML Syringe IV ×3 (07:53→22:36)
[2024-12-06] MEDS: Potassium Chloride Oral Tablet 10 MEQ PO ×2 (08:05→17:14)
[2024-12-06] MEDS: Multivitamins,Therapeutic Tablet 1 TABLET PO (08:06)
[2024-12-06 08:16] LABS: ALB/GLOB Ratio 1.6 RATIO (0.9-2.4); AST(SGOT) 59 U/L (<=31); Alanine Aminotransfer ALT/SGPT 70 U/L (<=34); Albumin, Serum 4.1 g/dL (3.4-4.8); Alkaline Phosphatase 76 U/L (35-104); Anion Gap 13 (5-15); BUN 16 mg/dL (4-19); Calcium,Total 8.2 mg/dL (7.6-11.0); Carbon Dioxide 24.8 mmol/L (21.0-32.0); Chloride 99 mmol/L (98-108); Creatinine, Serum 1.06 mg/dL (0.70-1.20); EST Glomerular Filtration Rate 59 (>60); Estimated Creatinine Clearance 47.49 ml/min (50-250); Globulin 2.5 g/dL (2.2-4.2); Glucose 126 mg/dL (70-99); Magnesium 1.7 mg/dL (1.5-2.2); Potassium 4.4 mmol/L (3.3-5.1); Protein, Total 6.6 g/dL (5.9-8.4); Sodium Level 137 mmol/L (133-145); Total Bilirubin 0.29 mg/dL (0.00-1.30)
--- NOTE | 2024-12-06 09:29 | PN_ITS ---
Subjective Subjective Patient was seen this morning for follow up on left foot. She relates she did have pain last night, appears to be improved this morning. She is sitting up in chair with foot elevated. No fevers, no calf pain. Objective Data Objective Data Vital Signs: Vital Signs Temp Pulse Resp BP Pulse Ox O2 Del Method O2 Flow Rate 98.2 F 87 18 125/52 H 94 Room Air 2 12/06/24 06:41 12/06/24 06:41 12/06/24 06:41 12/06/24 06:41 12/06/24 07:34 12/06/24 07:34 12/05/24 13:09 Oxygen Flow Rate (L/min) 2 Oxygen Delivery Method Room Air Weight: 72 kg Body Mass Index (BMI) 32.0 Intake & Output: Intake and Output for Last 24 Hours 12/04/24 12/05/24 12/06/24 23:59 23:59 23:59 Intake Total 1100 / 1500 400 / 400 Output Total 200 / 200 Balance 900 / 1300 400 / 400 Lab / Micro Data 12/06/24 06:38 12/06/24 06:38 Labs: Laboratory Results - last 24 hr 12/05/24 21:20: Sodium 137, Potassium 4.3, Chloride 101, Carbon Dioxide 22.9, Anion Gap 14, BUN 17, Creatinine 1.03, Estim Creat Clear Calc 48.87 L, Est GFR (MDRD) Non-Af 61, BUN/Creatinine Ratio 16.0, Glucose 147 H, Calcium 8.1, Total Bilirubin 0.21, AST 88 H, ALT 87 H, Alkaline Phosphatase 79, Total Protein 6.5, Albumin 3.9, Globulin 2.6, Albumin/Globulin Ratio 1.5 12/06/24 06:38: WBC 14.8 H, RBC 3.53 L, Hgb 10.4 L, Hct 31.8 L, MCV 90.1, MCH 29.5, MCHC 32.7, RDW Std Deviation 46.0 H, RDW Coeff of Elsie 14.1, Plt Count 175, MPV 11.5, Sodium 137, Potassium 4.4, Chloride 99, Carbon Dioxide 24.8, Anion Gap 13, BUN 16, Creatinine 1.06, Estim Creat Clear Calc 47.49 L, Est GFR (MDRD) Non- Af 59 L, BUN/Creatinine Ratio 15.0, Glucose 126 H, Calcium 8.2, Magnesium 1.7, Total Bilirubin 0.29, AST 59 H, ALT 70 H, Alkaline Phosphatase 76, Total Protein 6.6, Albumin 4.1, Globulin 2.5, Albumin/Globulin Ratio 1.6 Radiography Diagnostic Testing: Radiology Impression Foot X-Ray 12/05/24 06:30 IMPRESSION: Fluoroscopy with spot images as above. May correlate with operative report for further detail. Reading Location: [id number] Foot X-Ray 12/05/24 11:45 IMPRESSION: Recent operative changes an additional description as above. Reading Location: [id number] Physical Exam Const alert, oriented x3 and no apparent distress Constitutional Narrative: Left foot dressing is clean, dry and intact. There was not a lot of dried blood on bandage, dressing was changed today left foot - incisions well coapted, no dehiscense, no cellulitis, no purulence, no visible abscess, no necrosis, no maloder, sutures are intact, CFT < 2 seconds to all toes with normal temperature, post operative alignment of toes 1,2,3,4,5 well maintained, bleeding is controlled. Assessment & Plan Assessment/Plan (1) Pain in left foot: (2) Hallux valgus of left foot: (3) Hammer toe of left foot: PLAN: Plan s/p left foot patel metatarsal head resection and hammer toe correction 2,3,4,5 toes right foot on 12/05/2024 - she has been admitted for pain management, observation and post op nursing facility placement. No weightbearing left foot, keep left foot elevated. Keep dressing left foot clean, dry and intact. Dressing was changed today - betadine soln to incision sites, applied clean and dry gauze, kerlix and brandi dressing. Pain management: Acetaminophen, Oxyir, and Dilaudid DVT Prophylaxis: Lovenox subc once a day. Chronic medical problems - Hospital Medicine consulted. Appreciate assistance. Case Management consulted. PT/OT consulted.
[2024-12-06 09:56] LABS: Phosphorus 4.7 mg/dL (2.7-4.5)
[2024-12-06] MEDS: Colestipol 1 GM TABLET PO ×2 (09:59→22:33)
[2024-12-06] MEDS: DULoxetine Hcl 30 MG Capsule PO (10:00)
[2024-12-06] MEDS: Tolterodine Tartrate 2 MG CAP.SA PO (10:01)
[2024-12-06] MEDS: Metoprolol Tartrate 25 MG Tablet PO ×2 (10:01→22:32)
[2024-12-06] MEDS: Famotidine 20 MG Tablet PO ×2 (10:01→22:32)
[2024-12-06] MEDS: DULoxetine Hcl 60 MG Capsule PO (10:01)
[2024-12-06] MEDS: Calcitriol 0.25 MCG Capsule PO ×2 (10:02→22:32)
[2024-12-06] MEDS: Enoxaparin 40 MG/0.4 ML Syringe SC (10:03)
[2024-12-06] MEDS: Lisinopril 40 MG Tablet PO (10:03)
--- NOTE | 2024-12-06 10:54 | CASEMGMT ---
Social Work SW met w/pt in room, pt's sister and brother in law also present. SW reviewed prior level of function and anticipated discharge plan. PCP: Dr. Angelo Guido Specialists: Dr. Aleman--GI, Dr. Henson--endocrinology, Dr. Fry--podiatry, Dr. Carvalho--Pulmonary Insurance: O Medicare [facility]acy: [facility] [place] LNOK: Sister, brother in law Living arrangements: Pt lives w/her brother and sister in law, one story home, two steps in with a ramp. Pt is normally independent with all ADLs. Pt cooks, cleans, organizes her own medication. Pt does not use any DME at baseline other than a CPAP for sleeping. Transportation: Pt can drive but does not since getting headaches, her family makes sure she gets to where she needs to go. LW/POA: POA on file, pt's sister Chloé is POA. Living will provision is completed in POA, does not have a separate LW on file. SNF/HHC/DME: Pt went to TCU after a similar surgery last year, and then went home w/HHC, she thinks through [facility]. Pt has a walker, cane, knee walker, shower chair, and CPAP. The CPAP is through [facility] Care Plan: SNF SW provided to pt and family a list from [facility] of assisted facilities in network w/pt's insurance, in pt's preferred geographic area, and complete w/quality and resource use data. Pt and family would like a referral sent to TCU. SW asked pt and family to choose a couple of other facilities in the event there are no beds in TCU. BRYANT did educate pt and family that insurance will also need to approve. BRYANT explained will make referral to TCU, and SW will follow up on Sunday. BRYANT did also give pt and family this SW's number along with SW on Sunday's number. SW will continue to follow. Referral made to TCU via email. KOMAL Motta
[2024-12-06] MEDS: 0.9% Normal Saline (250mL Bag) 250 ML 15 ML IV (11:18)
[2024-12-06] MEDS: Pramipexole Di-HCl 0.25 MG Tablet PO (22:32)
[2024-12-06] MEDS: Atorvastatin Calcium 20 MG Tablet PO (22:32)
[2024-12-07] VITALS (14 sets, daily range): BP systolic 72–117; BP diastolic 56–70; PULSE 74–108; RESP 16–22; TEMP 36.9–38.7; O2SAT 88–100
--- NOTE | 2024-12-07 02:41 | PCM.HOSP.N ---
Hospitalist Note Patient with hypertension, mild tachycardia, hypoxia requiring 2 L nasal cannula with T99.9. Patient status post recent operative intervention 12/05/2024 patel metatarsal head resection of 1 through 5 metatarsal heads of the left foot with arthroplasty of 1 through 5 toes to the left foot. Will initiate 30 cc/kg IV fluids, request blood culture x 2, UA, urine culture, chest x-ray.
[2024-12-07] MEDS: Acetaminophen 325 MG Tablet 650 MG PO (02:53)
[2024-12-07] MEDS: 0.9% Normal Saline (1000mL) 1,000 ML 999 ML IV (02:53)
--- NOTE | 2024-12-07 03:15 | RAD_ITS ---
PROCEDURE: CHEST 1 VIEW (PORTABLE) 12/07/2024 REASON FOR EXAM: HYPOXIA TECHNIQUE: Frontal view of the chest. COMPARISON: Chest radiographs on 12/19/2021 FINDINGS: Heart: Cardiac and mediastinal contours are stable. Lungs: Calcified granuloma at the right lung base measuring 5 mm projects over the liver shadow, unchanged. The lungs are otherwise clear. Bones: Degenerative changes are identified within the thoracic spine. RAD/Chest 1 View (Portable) IMPRESSION: No acute cardiopulmonary abnormality. Reading Location: [facility]
[2024-12-07 03:34] LABS: Hemoglobin 10.1 g/dL (12.0-15.0); Mean Corp Hgb Conc 32.6 g/dL (32-36); Mean Corpuscular Hgb 29.3 pg (27.0-32.0); Mean Corpuscular Volume 89.9 fL (81-99); Mean Platelet Vol. 11.5 fl (6.2-12.0); Platelet Count 179 K/mm3 (150-450); RBC Distribution Width CV 14.3 % (11.6-14.6); RBC Distribution Width SD 46.4 fl (35.1-43.9); Red Blood Count 3.45 M/mm3 (4.2-5.4)
[2024-12-07 04:18] LABS: ALB/GLOB Ratio 1.5 RATIO (0.9-2.4); AST(SGOT) 35 U/L (<=31); Alanine Aminotransfer ALT/SGPT 40 U/L (<=34); Albumin, Serum 3.9 g/dL (3.4-4.8); Alkaline Phosphatase 73 U/L (35-104); Anion Gap 13 (5-15); BUN 13 mg/dL (4-19); BUN/Creat Ratio 12.3 RATIO (10-20); Calcium,Total 7.8 mg/dL (7.6-11.0); Carbon Dioxide 22.8 mmol/L (21.0-32.0); Chloride 97 mmol/L (98-108); Creatinine, Serum 1.04 mg/dL (0.70-1.20); EST Glomerular Filtration Rate 60 (>60); Globulin 2.6 g/dL (2.2-4.2); Glucose 121 mg/dL (70-99); Potassium 3.8 mmol/L (3.3-5.1); Protein, Total 6.6 g/dL (5.9-8.4); Sodium Level 133 mmol/L (133-145); Total Bilirubin 0.39 mg/dL (0.00-1.30)
[2024-12-07 04:47] LABS: Bacteria 0 SEEN /hpf (None Seen); Mucous, Urine 0 SEEN /hpf (<or=2+); Red Blood Cells-Urine 0 SEEN /hpf (0-5); Squamous Epithelial Cells - UA 0 SEEN /hpf (5-10); White Blood Cells 0 SEEN /hpf (0-5)
[2024-12-07 04:51] LABS: Color, Urine Yellow (Yellow); Glucose, Dipstick Normal (Normal); Ketone-Dipstick Negative (Negative); Leukocyte Esterase-Dipstick Negative /ul (Negative); Nitrite-Dipstick Negative (Negative); Occult Blood-Urine Negative /ul (Negative); Protein-Dipstick 15 mg/dl (Negative); Urine Bilirubin Dipstick Negative (Negative); Urine Clarity Clear (Clear); Urine Urobilinogen Normal (Normal); Urine pH 6.5 (5.0 - 8.0)
[2024-12-07] MEDS: Cefazolin 1 GM/50 ML BAG IV (05:51)
[2024-12-07] MEDS: Levothyroxine 75 MCG Tablet 150 MCG PO (05:57)
[2024-12-07] MEDS: Ketorolac 15 MG/ML Vial IV (06:44)
[2024-12-07] MEDS: 0.9% Saline Lock 10 ML Syringe IV ×2 (06:44→17:35)
--- NOTE | 2024-12-07 07:28 | PCM.PN.HOSP ---
Reason for Visit Reason for Visit: Diagnoses Essential (primary) hypertension (12/05/24) Hallux valgus (acquired), left foot (12/05/24) Other hammer toe(s) (acquired), left foot (12/05/24) Pain in left foot (12/05/24) Subjective Subjective Patient was noted to have mild elevation in in her transaminases. Discussed with podiatry plan is to continue to monitor. Patient was noted to be febrile during the evening with episodes of hypotension. Did receive IV fluid resuscitation Objective Data Objective Data Vital Signs: Vital Signs Temp Pulse Resp BP Pulse Ox O2 Del Method O2 Flow Rate 100.8 F H 98 18 103/69 97 Nasal Cannula 2 12/07/24 05:46 12/07/24 05:46 12/07/24 05:46 12/07/24 05:46 12/07/24 05:46 12/07/24 05:46 12/07/24 05:46 Oxygen Flow Rate (L/min) 2 Oxygen Delivery Method Nasal Cannula Weight: 72 kg Body Mass Index (BMI) 32.0 Intake & Output: Intake and Output for Last 24 Hours 12/05/24 12/06/24 12/07/24 23:59 23:59 23:59 Intake Total 1100 / 1500 928.25 / 928.25 1350 / 1350 Output Total 200 / 200 450 / 450 Balance 900 / 1300 928.25 / 928.25 900 / 900 Lab / Micro Data 12/07/24 03:07 12/07/24 03:07 Labs: Laboratory Results - last 24 hr 12/06/24 06:38: Sodium 137, Potassium 4.4, Chloride 99, Carbon Dioxide 24.8, Anion Gap 13, BUN 16, Creatinine 1.06, Estim Creat Clear Calc 47.49 L, Est GFR (MDRD) Non-Af 59 L, BUN/Creatinine Ratio 15.0, Glucose 126 H, Calcium 8.2, Phosphorus 4.7 H, Magnesium 1.7, Total Bilirubin 0.29, AST 59 H, ALT 70 H, Alkaline Phosphatase 76, Total Protein 6.6, Albumin 4.1, Globulin 2.5, Albumin/Globulin Ratio 1.6 12/07/24 03:07: WBC 12.0 H, RBC 3.45 L, Hgb 10.1 L, Hct 31.0 L, MCV 89.9, MCH 29.3, MCHC 32.6, RDW Std Deviation 46.4 H, RDW Coeff of Elsie 14.3, Plt Count 179, MPV 11.5, Sodium 133, Potassium 3.8, Chloride 97 L, Carbon Dioxide 22.8, Anion Gap 13, BUN 13, Creatinine 1.04, Estim Creat Clear Calc 48.40 L, Est GFR (MDRD) Non-Af 60, BUN/Creatinine Ratio 12.3, Glucose 121 H, Calcium 7.8, Total Bilirubin 0.39, AST 35 H, ALT 40 H, Alkaline Phosphatase 73, Total Protein 6.6, Albumin 3.9, Globulin 2.6, Albumin/Globulin Ratio 1.5 12/07/24 04:38: Urine Color Yellow, Urine Clarity Clear, Urine pH 6.5, Ur Specific [place] 1.010, Urine Protein 15 H, Urine Glucose (UA) Normal, Urine Ketones Negative, Urine Occult Blood Negative, Urine Nitrite Negative, Urine Bilirubin Negative, Urine Urobilinogen Normal, Ur Leukocyte Esterase Negative, Urine RBC 0 SEEN, Urine WBC 0 SEEN, Ur Squamous Epith Cells 0 SEEN, Urine Bacteria 0 SEEN, Urine Mucus 0 SEEN Radiography Diagnostic Testing: Radiology Impression Chest X-Ray 12/07/24 03:15 IMPRESSION: No acute cardiopulmonary abnormality. Reading Location: [facility] Physical Exam Narrative GENERAL: cooperative HEENT: Atraumatic; normocephalic EYES; Anicteric, Normal Conjunctiva NECK; supple, normal thyroid, RESPIRATORY: Diminished to auscultation CARDIOVASCULAR: Regular S1 S2, GI: soft, normoactive bowel sounds, : No Renal angle tenderness; EXTREMITIES: Left foot in surgical dressing MUSCULOSKELETAL: no muscle wasting NEURO: Awake; no lateralizing signs. SKIN: No Rash PSYCH; Flat affect Assessment & Plan Assessment/Plan (1) Hammer toe of left foot: (2) Essential (primary) hypertension: PLAN: Plan Patient is a 64-year-old who underwent Schuler metatarsal head resection 1,2,3,4,5 metatarsal heads left foot Arthroplasy 1,2,3,4,5 toes left foot on account of Hammer toes 2,3,4,5 left Hallux valgus left foot Painful left foot by Dr. Fry on 12/05/2024. The hospitalist service was consulted to assist with management of patient medical comorbidities 1. Status post Schuler metatarsal head resection 1,2,3,4,5 metatarsal heads left foot Arthroplasy 1,2,3,4,5 toes left foot -on account of Hammer toes 2,3,4,5 left Hallux valgus left foot Painful left foot by Dr. Fry on 12/05/2024. Patient postoperative orders regarding pain management, PT OT and DVT prophylaxis deferred to primary service ? 12/06/2024 postoperative day 1 patient complaining of pain did review patient pain regimen 2. Acute febrile illness ? With patient having leukocytosis urinalysis and chest x-ray were obtained. Both came back unremarkable. Subsequently added viral respiratory panel and COVID assay. 3. Hypotension ? Patient has known history of hypertension did receive IV fluid resuscitation. Patient is on Zestril and metoprolol both held 4. Hypertension ? Blood pressure controlled, home medications continued with dose adjustment as needed ? 12/07/2024; antihypertensives held given about bradycardia 5. Allergic rhinitis ? Patient is on fluticasone did continue 6. Hypothyroidism ? Patient is on levothyroxine home dose continued 7. Class I obesity with BMI of 32.1 ? Weight loss advised 8. Anemia ? Secondary to chronic disorder monitoring H&H and transfuse if patient becomes symptomatic or hemoglobin falls below 7 9. Chronic kidney disease stage IIIa ? Patient kidney function at baseline monitoring with daily BMPs 10. Collagenous colitis ? Patient is on 1 g of colestipol twice a day did reorder 11. Leukocytosis ? Reactive no evidence of infection we will continue with monitoring 12. Physical deconditioning ? Requested for PT OT eval and social worker to assist with discharge planning 13. Acute transaminitis ? Suspected to be secondary to relative hypotension during surgery. Patient LFTs improving we will continue with monitoring 14. Dyslipidemia ?Patient is on statin therapy, continued at home dose 15. Depression ? Patient is on duloxetine discontinued 16. DVT prophylaxis ? On enoxaparin Charges/Coding Visit Charges Inpatient E&M: 64669 Subs Hosp L3
--- NOTE | 2024-12-07 08:41 | PN_ITS ---
Subjective Subjective Patient was seen today for follow up. She relates she had a rough night, had pain in her foot along with low blood pressure and a fever. Also relates she had a headache, she relates she is feeling improved this morning. She relates headache is feeling better and pain is a lot less in her foot at this time. Objective Data Objective Data Vital Signs: Vital Signs Temp Pulse Resp BP Pulse Ox O2 Del Method O2 Flow Rate 99.5 F H 87 18 85/61 L 99 Nasal Cannula 2 12/07/24 07:30 12/07/24 07:30 12/07/24 07:30 12/07/24 07:30 12/07/24 07:30 12/07/24 07:30 12/07/24 07:30 Oxygen Flow Rate (L/min) 2 Oxygen Delivery Method Nasal Cannula Weight: 72 kg Body Mass Index (BMI) 32.0 Intake & Output: Intake and Output for Last 24 Hours 12/05/24 12/06/24 12/07/24 23:59 23:59 23:59 Intake Total 1100 / 1500 928.25 / 928.25 1350 / 1350 Output Total 200 / 200 450 / 450 Balance 900 / 1300 928.25 / 928.25 900 / 900 Lab / Micro Data 12/07/24 03:07 12/07/24 03:07 Labs: Laboratory Results - last 24 hr 12/06/24 06:38: Phosphorus 4.7 H 12/07/24 03:07: WBC 12.0 H, RBC 3.45 L, Hgb 10.1 L, Hct 31.0 L, MCV 89.9, MCH 29.3, MCHC 32.6, RDW Std Deviation 46.4 H, RDW Coeff of Elsie 14.3, Plt Count 179, MPV 11.5, Sodium 133, Potassium 3.8, Chloride 97 L, Carbon Dioxide 22.8, Anion Gap 13, BUN 13, Creatinine 1.04, Estim Creat Clear Calc 48.40 L, Est GFR (MDRD) Non-Af 60, BUN/Creatinine Ratio 12.3, Glucose 121 H, Calcium 7.8, Total Bilirubin 0.39, AST 35 H, ALT 40 H, Alkaline Phosphatase 73, Total Protein 6.6, Albumin 3.9, Globulin 2.6, Albumin/Globulin Ratio 1.5 12/07/24 04:38: Urine Color Yellow, Urine Clarity Clear, Urine pH 6.5, Ur Specific [place] 1.010, Urine Protein 15 H, Urine Glucose (UA) Normal, Urine Ketones Negative, Urine Occult Blood Negative, Urine Nitrite Negative, Urine Bilirubin Negative, Urine Urobilinogen Normal, Ur Leukocyte Esterase Negative, Urine RBC 0 SEEN, Urine WBC 0 SEEN, Ur Squamous Epith Cells 0 SEEN, Urine Bacteria 0 SEEN, Urine Mucus 0 SEEN Radiography Diagnostic Testing: Radiology Impression Chest X-Ray 12/07/24 03:15 IMPRESSION: No acute cardiopulmonary abnormality. Reading Location: [facility] Physical Exam Const alert, oriented x3 and no apparent distress Constitutional Narrative: Left foot dressing is clean, dry and intact - changed dressing today, there was very minimal dried blood on bandage - incisions all well coapted, no dehiscense, no cellulitis, no purulence, no visible abscess, no necrosis, no maloder, sutures are intact, some dorsal forefoot ecchymosis c/w normal post op course, CFT < 2 seconds to all toes with normal temperature, post operative alignment of toes 1,2,3,4,5 well maintained, no bleeding. Calf is soft and supple bilateral with no pain with calf squeeze. Assessment & Plan Assessment/Plan (1) Pain in left foot: (2) Hallux valgus of left foot: (3) Hammer toe of left foot: PLAN: Plan s/p left foot patel metatarsal head resection and hammer toe correction 2,3,4,5 toes right foot on 12/05/2024 - she has been admitted for pain management, observation and post op nursing facility placement. Patient had fever, hypotension, and headache overnight. Reviewed Dr. Foley's note and discussed with him this morning, ordered further testing which includes a D-Dimer which was noted to be elevated, CT chest and LE venous doppler has been ordered and results pending. No weightbearing left foot, keep left foot elevated. Keep dressing left foot clean, dry and intact. Dressing was changed today - betadine soln to incision sites, applied clean and dry gauze, kerlix and brandi dressing. Antibiotic Prophylaxis: Completed course of Cefazolin Pain management: Acetaminophen, Oxyir, and Dilaudid DVT Prophylaxis: Lovenox subc once a day. Chronic medical problems - Hospital Medicine consulted. Appreciate assistance. Case Management consulted. PT/OT consulted.
[2024-12-07 09:34] LABS: D-Dimer Quantitative (DVT/PE) 0.69 FEU/ug/m (0.27-0.49)
--- NOTE | 2024-12-07 09:37 | CT_ITS ---
PROCEDURE: CTA CHEST W/WO CONTRAST 12/07/2024 REASON FOR EXAM: ELEVATED D-DIMER TECHNIQUE: CTA axial imaging of the chest with intravenous contrast. Multiplanar and multisequence images were obtained. PATIENT PREPARATION: Per protocol CONTRAST: Isovue 370 VOLUME: 100 mL One or more dose reduction techniques were used (e.g., Automated exposure control, adjustment of the mA and/or kV according to patient size, use of iterative reconstruction technique). RADIATION DOSE SUMMARY: CTDlvol: 20 mGy DLP: 400 mGycm COMPARISON: Same day chest radiograph. FINDINGS: Hardware: None. Lymph nodes: No thoracic lymphadenopathy. Heart: The heart is normal in size without pericardial effusion. Minimal coronary artery and thoracic aortic calcifications. The great vessels are normal in caliber. Pulmonary Vessels: Visualization is limited by patient motion. No central filling defect within the segmental or subsegmental pulmonary arteries. Lungs and Airways: Low lung volumes bilaterally. Expiratory phase imaging. The central airways are grossly patent. Bibasilar atelectasis/scarring. No pleural effusion or pneumothorax. Upper Abdomen: Small hiatal hernia. There is distention of the visualized stomach and upper abdominal bowel loops. Scattered hypodensities throughout the liver, incompletely characterized. Bones: Severe thoracic spondylosis. CT/CTA Chest W/WO Contrast IMPRESSION: 1. Visualization is limited by patient motion. No central filling defect withi n the pulmonary arteries to suggest pulmonary embolism. 2. Distention of the visualized stomach and upper abdominal loops, incompletely characterized. If clinically indicated, CT abdomen could be obtained. 3. Hepatic hypodensities, incompletely characterized. See impression #2 for re commendations. Reading Location: [id number]
--- NOTE | 2024-12-07 09:37 | VDLE_ITS ---
Reason For Study Reason For Study: Elevated D-dimer RIGHT LEFT GSV is normal. GSV is normal. CFV is compressible, spontaneous, phasic, competent CFV is compressible, spontaneous, phasic, competent, and demonstrates normal augmentation. and demonstrates normal augmentation. FV is compressible, spontaneous, phasic, competent FV is compressible, spontaneous, phasic, competent and demonstrates normal augmentation. and demonstrates normal augmentation. POP V is compressible, spontaneous, phasic, competent POP V is compressible, spontaneous, phasic, competent and demonstrates normal augmentation. and demonstrates normal augmentation. T/P Trunk is compressible. T/P Trunk is compressible. PTV is compressible. PTV is compressible. RT PerV is compressible. LT PerV is compressible. Procedure This is a venous duplex using B-mode, color flow and spectral Doppler. Exam performed portable in patient room. A preliminary report was called and/or faxed to [facility]. VL/Venous Duplex US - Raj Extrem Interpretation Summary Deep veins of the bilateral lower extremities are patent and compressible segme ntally. There is no evidence of bilateral lower extremity deep vein thrombosis. The bilateral great saphenous veins appea r patent and compressible segmentally. Ordering Physician: Dylan Foley Referring Physician: Angelo Guido MD Performed By: Samantha Rivera RVT
[2024-12-07] MEDS: Multivitamins,Therapeutic Tablet 1 TABLET PO (09:46)
[2024-12-07] MEDS: Potassium Chloride Oral Tablet 10 MEQ PO ×2 (09:46→17:33)
[2024-12-07] MEDS: DULoxetine Hcl 30 MG Capsule PO (09:47)
[2024-12-07] MEDS: Colestipol 1 GM TABLET PO ×2 (09:47→22:49)
[2024-12-07] MEDS: DULoxetine Hcl 60 MG Capsule PO (09:47)
[2024-12-07] MEDS: Tolterodine Tartrate 2 MG CAP.SA PO (09:47)
[2024-12-07] MEDS: Enoxaparin 40 MG/0.4 ML Syringe SC (09:48)
[2024-12-07] MEDS: Famotidine 20 MG Tablet PO ×2 (09:49→22:48)
[2024-12-07] MEDS: Calcitriol 0.25 MCG Capsule PO ×2 (09:49→22:48)
[2024-12-07] MEDS: Metoprolol Tartrate 25 MG Tablet PO ×2 (12:39→22:48)
[2024-12-07] MEDS: Lisinopril 40 MG Tablet PO (12:40)
[2024-12-07] MEDS: oxyCODONE 5 MG Tablet PO ×2 (12:45→17:39)
[2024-12-07] MEDS: Ondansetron 4 MG/2 ML Vial IV ×2 (12:47→18:59)
[2024-12-07] MEDS: Atorvastatin Calcium 20 MG Tablet PO (22:48)
[2024-12-07] MEDS: Pramipexole Di-HCl 0.25 MG Tablet PO (22:49)
[2024-12-08] VITALS (8 sets, daily range): BP systolic 103–115; BP diastolic 66–71; PULSE 88–100; RESP 16–18; TEMP 36.6–37; O2SAT 94–98
[2024-12-08] MEDS: Levothyroxine 75 MCG Tablet PO (06:22)
[2024-12-08 07:56] LABS: Absolute Lymphocyte Count 1.75 X10^3/uL (0.83-4.51); Absolute Neutrophil Count 4.8 X10^3/uL (2.0-7.7); Basophil# 0.04 X10^3/uL; Basophil% 0.5 % (0-1); Eosinophil# 0.45 X10^3/uL; Eosinophils% 5.6 % (0-5); Hematocrit 27.2 % (37-47); Hemoglobin 8.9 g/dL (12.0-15.0); Lymphocyte # 1.75 X10^3/ul (0.83-4.51); Lymphocyte % 21.9 % (19-41); Mean Corp Hgb Conc 32.7 g/dL (32-36); Mean Corpuscular Hgb 29.5 pg (27.0-32.0); Mean Corpuscular Volume 90.1 fL (81-99); Mean Platelet Vol. 11.6 fl (6.2-12.0); Monocyte# 0.87 X10^3/uL; Monocyte% 10.9 % (0-10); NRBC Flagged by Analyzer 0 % (0-5); Neutrophil # 4.82 X10^3/uL (2.7-7.7); Neutrophil % 60.3 % (47-70); Platelet Count 136 K/mm3 (150-450); RBC Distribution Width SD 45.6 fl (35.1-43.9); Red Blood Count 3.02 M/mm3 (4.2-5.4)
[2024-12-08] MEDS: DULoxetine Hcl 60 MG Capsule PO (08:59)
[2024-12-08] MEDS: DULoxetine Hcl 30 MG Capsule PO (08:59)
[2024-12-08] MEDS: Metoprolol Tartrate 25 MG Tablet PO ×2 (08:59→22:46)
[2024-12-08] MEDS: Lisinopril 40 MG Tablet PO (09:00)
[2024-12-08] MEDS: Colestipol 1 GM TABLET PO ×2 (09:00→22:46)
[2024-12-08] MEDS: Multivitamins,Therapeutic Tablet 1 TABLET PO (09:00)
[2024-12-08] MEDS: Enoxaparin 40 MG/0.4 ML Syringe SC (09:00)
[2024-12-08] MEDS: Tolterodine Tartrate 2 MG CAP.SA PO (09:00)
[2024-12-08] MEDS: Potassium Chloride Oral Tablet 10 MEQ PO ×2 (09:00→16:48)
[2024-12-08] MEDS: Famotidine 20 MG Tablet PO ×2 (09:00→22:46)
[2024-12-08] MEDS: Calcitriol 0.25 MCG Capsule PO ×2 (09:00→22:46)
[2024-12-08] MEDS: oxyCODONE 5 MG Tablet PO ×2 (09:50→22:46)
[2024-12-08 10:32] LABS: Anion Gap 11 (5-15); BUN 11 mg/dL (4-19); BUN/Creat Ratio 10.9 RATIO (10-20); Carbon Dioxide 23.4 mmol/L (21.0-32.0); Chloride 101 mmol/L (98-108); Cholesterol 160 mg/dL (<=200); Creatinine, Serum 0.98 mg/dL (0.70-1.20); EST Glomerular Filtration Rate 64 (>60); Estimated Creatinine Clearance 51.36 ml/min (50-250); Glucose 99 mg/dL (70-99); High Density Lipoprotein 50 mg/dL; Low Density Lipoprotein Calc. 90 mg/dL; Magnesium 1.6 mg/dL (1.5-2.2); Phosphorus 3.8 mg/dL (2.7-4.5); Potassium 3.8 mmol/L (3.3-5.1); Sodium Level 136 mmol/L (133-145); Triglycerides 101 mg/dL; Very Low Density Lipoprotein 20 mg/dL (5-40); cholesterol:hdl ratio screen 3.23
--- NOTE | 2024-12-08 11:59 | NURSING ---
Pt states feeling wheezy d/t asthma. No diagnosis for asthma in chart. Lung sounds cta, pulse ox 95% on room air. Pt states when this happens she drinks water. Will continue to monitor.
[2024-12-08] MEDS: HYDROmorphone 1 MG/ML Syringe IV (15:02)
--- NOTE | 2024-12-08 15:25 | PN_ITS ---
Subjective Subjective Patient was seen today for follow up. She relates she is feeling better today. No complaints of fevers, no calf pain either. She is resting in bed with feet up. Still has some pain to left foot though. Objective Data Objective Data Vital Signs: Vital Signs Temp Pulse Resp BP Pulse Ox O2 Del Method O2 Flow Rate 97.9 F 88 18 112/71 98 Room Air 2 12/08/24 14:53 12/08/24 14:53 12/08/24 14:53 12/08/24 14:53 12/08/24 14:53 12/08/24 14:53 12/07/24 09:58 Oxygen Flow Rate (L/min) 2 Oxygen Delivery Method Room Air Weight: 72 kg Body Mass Index (BMI) 32.0 Intake & Output: Intake and Output for Last 24 Hours 12/06/24 12/07/24 12/08/24 23:59 23:59 23:59 Intake Total 928.25 / 928.25 1350 / 1350 500 / 500 Output Total 450 / 450 Balance 928.25 / 928.25 900 / 900 500 / 500 Lab / Micro Data 12/08/24 07:00 12/08/24 07:00 Labs: Laboratory Results - last 24 hr 12/08/24 07:00: WBC 8.0, RBC 3.02 L, Hgb 8.9 L, Hct 27.2 L, MCV 90.1, MCH 29.5, MCHC 32.7, RDW Std Deviation 45.6 H, RDW Coeff of Elsie 14.0, Plt Count 136 L, MPV 11.6, Immature Gran % (Auto) 0.800, Neut % (Auto) 60.3, Lymph % (Auto) 21.9, M brittny % (Auto) 10.9 H, Eos % (Auto) 5.6 H, Baso % (Auto) 0.5, Absolute Neuts (auto) 4.8, Absolute Lymphs (auto) 1.75, Nucleated RBC % 0, Sodium 136, Potassium 3.8, Chloride 101, Carbon Dioxide 23.4, Anion Gap 11, BUN 11, Creatinine 0.98, Estim Creat Clear Calc 51.36, Est GFR (MDRD) Non-Af 64, BUN/Creatinine Ratio 10.9, Glucose 99, Calcium 8.0, Phosphorus 3.8, Magnesium 1.6, Triglycerides 101, Cholesterol 160, LDL Cholesterol, Calc 90, VLDL Cholesterol 20, HDL Cholesterol 50, Cholesterol/HDL Ratio 3.23 Micro: Microbiology 12/07/24 10:23 Mucosa - Nose Coronavirus COVID-19 PCR - Final 12/07/24 10:23 Mucosa - Nose Respiratory Panel (PCR) - Final Physical Exam Const alert, oriented x3 and no apparent distress Constitutional Narrative: Left foot dressing is clean, dry and intact - CFT < 2 seconds to all toes with intact kwires. Assessment & Plan Assessment/Plan (1) Pain in left foot: (2) Hallux valgus of left foot: (3) Hammer toe of left foot: PLAN: Plan s/p left foot patel metatarsal head resection and hammer toe correction 2,3,4,5 toes right foot on 12/05/2024 - she has been admitted for pain management, observation and post op nursing facility placement. Patient overall status improved today. WBC normal, BP and Temp normal at this time. CT chest negative for PE, patient had LE venous doppler - results pending. No weightbearing left foot, keep left foot elevated. Keep dressing left foot clean, dry and intact. Antibiotic Prophylaxis: Completed course of Cefazolin Pain management: Acetaminophen, Oxyir, and Dilaudid prn pain. DVT Prophylaxis: Lovenox subc once a day. Chronic medical problems - Hospital Medicine consulted. Appreciate assistance. Case Management consulted. Nursing facility placement approval pending. Due to extent of the patient's recent left foot surgery, she requires nursing facility care for postoperative management, mobility assistance and monitoring. Discharge to home would place her at very high risk fo complications including but not limited to wound dehiscence, infection, delayed healing, and falls due to her inability to safely ambulate (she must be strict nonweightbearing left foot) or perform necessary self care. Placement in a nursing facility is medically necessary to ensure optimal recovery and prevent significant postoperative complications. Also of note, the patient underwent nearly identical surgical procedure on her right foot in January 2024, and at that time insurance approved long-term facility placement, which contributed to an uncomplicated recovery. Given the nearly identical surgical (in fact this left foot surgery was a bit more extensive) and medical needs in this current case, nursing facility placement remains medically necessary. Denial of this level of care places the patient at significant risk for complications including but not limited to impaired wound healing, infection, falls and associated injuries from falls, and loss of surgical correction. PT/OT has been consulted.
--- NOTE | 2024-12-08 15:32 | CASEMGMT ---
Social Work- SW met with pt to discuss referral to TCu and pending precert. At this time precert remains pending. SW remains available to follow. Plan: TCU; pend precert YOSELIN Guzman
--- NOTE | 2024-12-08 16:27 | PN.HOSP_ITS ---
Reason for Visit Reason for Visit: Diagnoses Essential (primary) hypertension (12/05/24) Hallux valgus (acquired), left foot (12/05/24) Other hammer toe(s) (acquired), left foot (12/05/24) Pain in left foot (12/05/24) Subjective Subjective Having pain in left foot. Objective Data Objective Data Vital Signs: Vital Signs Temp Pulse Resp BP Pulse Ox O2 Del Method O2 Flow Rate 36.6 C 88 18 112/71 98 Room Air 2 12/08/24 14:53 12/08/24 14:53 12/08/24 14:53 12/08/24 14:53 12/08/24 14:53 12/08/24 15:54 12/07/24 09:58 Oxygen Flow Rate (L/min) 2 Oxygen Delivery Method Room Air Weight: 72 kg Body Mass Index (BMI) 32.0 Intake & Output: Intake and Output for Last 24 Hours 12/06/24 12/07/24 12/08/24 23:59 23:59 23:59 Intake Total 928.25 / 928.25 1350 / 1350 500 / 500 Output Total 450 / 450 Balance 928.25 / 928.25 900 / 900 500 / 500 Lab / Micro Data 12/08/24 07:00 12/08/24 07:00 Labs: Laboratory Results - last 24 hr 12/08/24 07:00: WBC 8.0, RBC 3.02 L, Hgb 8.9 L, Hct 27.2 L, MCV 90.1, MCH 29.5, MCHC 32.7, RDW Std Deviation 45.6 H, RDW Coeff of Elsie 14.0, Plt Count 136 L, MPV 11.6, Immature Gran % (Auto) 0.800, Neut % (Auto) 60.3, Lymph % (Auto) 21.9, M brittny % (Auto) 10.9 H, Eos % (Auto) 5.6 H, Baso % (Auto) 0.5, Absolute Neuts (auto) 4.8, Absolute Lymphs (auto) 1.75, Nucleated RBC % 0, Sodium 136, Potassium 3.8, Chloride 101, Carbon Dioxide 23.4, Anion Gap 11, BUN 11, Creatinine 0.98, Estim Creat Clear Calc 51.36, Est GFR (MDRD) Non-Af 64, BUN/Creatinine Ratio 10.9, Glucose 99, Calcium 8.0, Phosphorus 3.8, Magnesium 1.6, Triglycerides 101, Cholesterol 160, LDL Cholesterol, Calc 90, VLDL Cholesterol 20, HDL Cholesterol 50, Cholesterol/HDL Ratio 3.23 Micro: Microbiology 12/07/24 10:23 Mucosa - Nose Coronavirus COVID-19 PCR - Final 12/07/24 10:23 Mucosa - Nose Respiratory Panel (PCR) - Final Physical Exam Const alert and no apparent distress HEENT head/scalp atraumatic and moist oral mucous membranes Extremity Extremity Narrative: left foot bandaged. no edema. no calf tenderness. Assessment & Plan Assessment/Plan (1) Fever: PLAN: Resolved Work up negative. Suspect due to recent surgery no additional work up at this time. PLAN: Plan s/p Schuler metatarsal head resection 1,2,3,4,5 metatarsal heads left foot Arthroplasy 1,2,3,4,5 toes left foot: * mgmt per podiatry VTE prophylaxis: LMWH Medically stable for discharge. Medically stable for discharge. Hospitalist service will sign off. Please call with questions. Charges/Coding Visit Charges Inpatient E&M: 10676 Subs Hosp L1
[2024-12-08] MEDS: Pramipexole Di-HCl 0.25 MG Tablet PO (22:46)
[2024-12-08] MEDS: Atorvastatin Calcium 20 MG Tablet PO (22:46)
[2024-12-09] VITALS (7 sets, daily range): BP systolic 111–137; BP diastolic 64–75; PULSE 90–113; RESP 16; TEMP 36.6–36.9; O2SAT 94–97
[2024-12-09] MEDS: oxyCODONE 5 MG Tablet PO (04:10)
[2024-12-09 05:57] LABS: Absolute Neutrophil Count 4.6 X10^3/uL (2.0-7.7); Basophil# 0.03 X10^3/uL; Basophil% 0.4 % (0-1); Eosinophil# 0.64 X10^3/uL; Eosinophils% 7.9 % (0-5); Hematocrit 26.8 % (37-47); Hemoglobin 8.8 g/dL (12.0-15.0); Lymphocyte % 24.7 % (19-41); Mean Corp Hgb Conc 32.8 g/dL (32-36); Mean Corpuscular Hgb 29.4 pg (27.0-32.0); Mean Corpuscular Volume 89.6 fL (81-99); Mean Platelet Vol. 11.5 fl (6.2-12.0); Monocyte# 0.81 X10^3/uL; NRBC Flagged by Analyzer 0 % (0-5); Neutrophil # 4.55 X10^3/uL (2.7-7.7); Neutrophil % 56.1 % (47-70); Platelet Count 143 K/mm3 (150-450); RBC Distribution Width CV 13.9 % (11.6-14.6); RBC Distribution Width SD 45.7 fl (35.1-43.9); Red Blood Count 2.99 M/mm3 (4.2-5.4); White Blood Count 8.1 K/mm3 (4.4-11.0)
[2024-12-09 06:24] LABS: Alanine Aminotransfer ALT/SGPT 20 U/L (<=34); Anion Gap 12 (5-15); BUN 15 mg/dL (4-19); BUN/Creat Ratio 15.6 RATIO (10-20); Calcium,Total 8.3 mg/dL (7.6-11.0); Carbon Dioxide 23.9 mmol/L (21.0-32.0); Chloride 102 mmol/L (98-108); Creatinine, Serum 0.93 mg/dL (0.70-1.20); EST Glomerular Filtration Rate 69 (>60); Estimated Creatinine Clearance 54.12 ml/min (50-250); Glucose 109 mg/dL (70-99); Potassium 4.3 mmol/L (3.3-5.1); Sodium Level 138 mmol/L (133-145)
[2024-12-09 06:43] LABS: AST(SGOT) 25 U/L (<=31)
[2024-12-09] MEDS: Levothyroxine 75 MCG Tablet PO (06:55)
[2024-12-09] MEDS: Calcitriol 0.25 MCG Capsule PO ×2 (09:45→21:02)
[2024-12-09] MEDS: Colestipol 1 GM TABLET PO ×2 (09:45→21:00)
[2024-12-09] MEDS: Famotidine 20 MG Tablet PO ×2 (09:45→21:02)
[2024-12-09] MEDS: DULoxetine Hcl 60 MG Capsule PO (09:45)
[2024-12-09] MEDS: Lisinopril 40 MG Tablet PO (09:45)
[2024-12-09] MEDS: Multivitamins,Therapeutic Tablet 1 TABLET PO (09:45)
[2024-12-09] MEDS: Tolterodine Tartrate 2 MG CAP.SA PO (09:46)
[2024-12-09] MEDS: Potassium Chloride Oral Tablet 10 MEQ PO ×2 (09:46→16:53)
[2024-12-09] MEDS: Enoxaparin 40 MG/0.4 ML Syringe SC (09:46)
[2024-12-09] MEDS: Metoprolol Tartrate 25 MG Tablet PO ×2 (09:46→21:01)
[2024-12-09] MEDS: DULoxetine Hcl 30 MG Capsule PO (09:46)
[2024-12-09] MEDS: 0.9% Saline Lock 10 ML Syringe IV (09:47)
[2024-12-09] MEDS: HYDROmorphone 1 MG/ML Syringe IV (09:47)
[2024-12-09 11:48] LABS: Bedside Glucose 111 mg/dL (74-106)
--- NOTE | 2024-12-09 13:23 | CASEMGMT ---
Addendum entered by Nani Schofield 12/09/24 18:00: BRYANT faxed documentation to MMO to begin appeal process. YOSELIN Guzman Addendum entered by Nani Schofield 12/09/24 16:55: BRYANT met with surgeon and patient to discuss plan moving forward. Pt and surgeon request SW begin appeal process. BRYANT called MMO to verify number to fax documentation for appeal. BRYANT spoke with Mary Tia CASTELLONO appeal number [phone]. Appeal fax: [phone]. PAR form, additional clinicals, and rep form to be sent. Pt will have an expedited appeal with a decision rendered within 72 hours. The decision will be available on the [employer] portal and MMO will call as well. If the denial is upheld, the member also has two chances to appeal the decision as well. The process is different for the member appeals and staff would need to call in to receive additional instructions on how to begin that appeal process. Reference number for the phone call with Mary is: [id number]. BRYANT collaborated with surgeon. BRYANT completed forms and will fax with additional clinicals when they become available. YOSELIN Guzman Addendum entered by Nani Schofield 12/09/24 15:12: Surgeon called and reports that MMO upheld denial. BRYANT reached out to therapy to request additional OT visits to determine appropriateness of appeal, as physician expressed concerns over pt ability to self transfer, prepare scooter, and move around the home in daily functions. SW to follow up with pt. YOSELIN Guzman Original Note: Social Work- BRYANT received notice of insurance denial. BRYANT notified surgeon, whom reports that he will complete the [id number]-dden. Number to call is [phone] option1, then option 2 for a peer to peer by 12/11. BRYANT remains available to follow. YOSELIN Guzman
--- NOTE | 2024-12-09 16:17 | PCM.PROGNOTE ---
Subjective Subjective Patient was seen today for follow up on her left foot. She relates she fell yesterday while in the bathroom and landed on her left foot. Insurance company has denied approval to go to nursing facility. She relates she having pain in her left foot. Objective Data Objective Data Vital Signs: Vital Signs Temp Pulse Resp BP Pulse Ox O2 Del Method O2 Flow Rate 98.1 F 113 H 16 137/67 H 95 Room Air 2 12/09/24 09:56 12/09/24 09:56 12/09/24 09:56 12/09/24 09:56 12/09/24 09:56 12/09/24 09:59 12/07/24 09:58 Oxygen Flow Rate (L/min) 2 Oxygen Delivery Method Room Air Weight: 72 kg Body Mass Index (BMI) 32.0 Intake & Output: Intake and Output for Last 24 Hours 12/07/24 12/08/24 12/09/24 23:59 23:59 23:59 Intake Total 1350 / 1350 500 / 500 Output Total 450 / 450 Balance 900 / 900 500 / 500 Lab / Micro Data 12/09/24 05:20 12/09/24 05:20 Labs: Laboratory Results - last 24 hr 12/09/24 05:20: WBC 8.1, RBC 2.99 L, Hgb 8.8 L, Hct 26.8 L, MCV 89.6, MCH 29.4, MCHC 32.8, RDW Std Deviation 45.7 H, RDW Coeff of Elsie 13.9, Plt Count 143 L, MPV 11.5, Immature Gran % (Auto) 0.900, Neut % (Auto) 56.1, Lymph % (Auto) 24.7, Tyler % (Auto) 10.0, Eos % (Auto) 7.9 H, Baso % (Auto) 0.4, Absolute Neuts (auto) 4.6, Absolute Lymphs (auto) 2.00, Nucleated RBC % 0, Sodium 138, Potassium 4.3, Chloride 102, Carbon Dioxide 23.9, Anion Gap 12, BUN 15, Creatinine 0.93, Estim Creat Clear Calc 54.12, Est GFR (MDRD) Non-Af 69, BUN/Creatinine Ratio 15.6, Glucose 109 H, Calcium 8.3, AST 25, ALT 20 12/09/24 11:29: POC Glucose 111 H Micro: Microbiology 12/07/24 03:14 Blood Culture (Wb) - Left Hand Blood Culture - Preliminary No growth in 48 hours. 12/07/24 03:07 Blood Culture (Wb) - Anticubital Left Blood Culture - Preliminary No growth in 48 hours. 12/07/24 04:38 Urine, Clean Catch Urine Culture - Final Culture exhibits no growth. 12/07/24 10:23 Mucosa - Nose Coronavirus COVID-19 PCR - Final 12/07/24 10:23 Mucosa - Nose Respiratory Panel (PCR) - Final Radiography Diagnostic Testing: Radiology Impression Venous Doppler Study 12/07/24 09:37 Interpretation Summary Deep veins of the bilateral lower extremities are patent and compressible segmentally. There is no evidence of bilateral lower extremity deep vein thrombosis. The bilateral great saphenous veins appear patent and compressible segmentally. Ordering Physician: Dylan Foley Referring Physician: Angelo Guido MD Performed By: Samantha Rivera RVT Physical Exam Const alert, oriented x3 and no apparent distress Constitutional Narrative: Left foot dressing is clean, dry and intact - CFT < 2 seconds to all toes with intact kwires but cap of 1st toe pin is bent c/w her history of a fall. Incisions left foot are well coapted and no evidence of infection at this time, no necrosis, no cellulitis, bleeding controlled/stopped. No calf pain bilateral. Calf soft and supple bilateral. Assessment & Plan Assessment/Plan (1) Pain in left foot: (2) Hallux valgus of left foot: (3) Hammer toe of left foot: PLAN: Plan s/p left foot patel metatarsal head resection and hammer toe correction 2,3,4,5 toes right foot on 12/05/2024 - she has been admitted for pain management, observation and post op nursing facility placement. Patient had fall on left foot yesterday - will order new left foot xrays for further evaluation. No weightbearing left foot, keep left foot elevated. Keep dressing left foot clean, dry and intact. Antibiotic Prophylaxis: Completed course of Cefazolin Pain management: Acetaminophen, Oxyir, and Dilaudid prn pain. DVT Prophylaxis: Lovenox subc once a day. Chronic medical problems - Hospital Medicine consulted. Appreciate assistance. Case Management consulted. Nursing facility placement was denied by insurance. I did a peer to peer today and spoke directly with Dr. Saavedra at the patient?s insurance company to express my serious concern regarding discharging the patient to home. I explained that, due to the extent of the patient?s recent left foot surgery, custodial facility care is medically necessary for postoperative management, mobility assistance, and close monitoring. The patient is a significant fall risk and must remain strictly nonweightbearing on the left foot. Discharge to home places her at high risk for complications, including (but not limited to) wound dehiscence, infection, delayed healing, and falls due to her inability to ambulate safely or perform essential self-care. I emphasized that custodial placement is required to ensure optimal recovery and minimize the risk of serious postoperative complications. I also noted that the patient underwent a nearly identical surgical procedure on her right foot in January 2024, for which insurance approved custodial placement, contributing to an uncomplicated recovery. The current surgery is slightly more extensive, and her postoperative needs are at least equivalent, if not greater. Denying the same level of care in this instance is medically inappropriate and exposes the patient to substantial risk of harm, including impaired wound healing, infection, falls, associated injuries, and loss of surgical correction. Despite outlining these concerns, Dr. Saavedra declined to authorize nursing facility placement. It was additionally learned today that the patient fell yesterday, evidenced by a bent pin cap on the left first toe. This fall underscores the patient?s inability to safely remain at home. Furthermore, both myself and the physical therapist directly observed the patient to have poor balance and instability while attempting to replicate the motion of putting on pants. Case Management has been engaged and will assist the patient in filing an appeal. PT/OT has been consulted.
[2024-12-09] MEDS: Acetaminophen 325 MG Tablet 650 MG PO (18:45)
[2024-12-09] MEDS: Fluticasone 0.05% 1 SPRAY NASAL.SRY NASAL (20:45)
[2024-12-09] MEDS: Atorvastatin Calcium 20 MG Tablet PO (21:01)
[2024-12-09] MEDS: Pramipexole Di-HCl 0.25 MG Tablet PO (21:02)
--- NOTE | 2024-12-09 23:59 | RAD_ITS ---
EXAM: DX foot minimum three views CLINICAL HISTORY: Fall on foot COMPARISON: 12/05/2024 TECHNIQUE: Three views left foot FINDINGS: There is again note of resection of the distal aspect of the 1st through 5th metatarsals and the distal aspect of the 1st through 5th proximal phalanx with K-wires extending across the rays. There is relative decreased distance at the 2nd and 3rd between the resection and the middle phalanx and 1st through 3rd metatarsal resection and proximal phalanx however this is similar to the postoperative appearance. No definite acute fracture is identified. On the lateral view the 1st proximal phalanx appears displaced in the plantar direction in relation to its K-wire which does still overlapped the bone, clinically correlate. Soft tissue swelling about the forefoot again noted. Calcaneal enthesopathic change again seen. RAD/Foot min 3 Views IMPRESSION: There is again note of resection of the distal aspect of the 1st through 5th me tatarsals and the distal aspect of the 1st through 5th proximal phalanx with K-wires extending across the rays. There is relative decreased distance at the 2nd and 3rd between the resection a nd the middle phalanx and 1st through 3rd metatarsal resection and proximal phalanx however this is similar to the postop erative appearance. No definite acute fracture is identified. On the lateral view the 1st proximal phalanx appears displaced in the plantar d irection in relation to its K-wire which does still overlapped the bone, clinically correlate. Soft tissue swelling about the forefoot again noted. Reading Location: [id number]
[2024-12-10 02:53] VITALS: BP 117/73; PULSE 93; RESP 16; TEMP 37; O2SAT 97
[2024-12-10] MEDS: oxyCODONE 5 MG Tablet PO ×4 (02:58→21:26)
[2024-12-10] MEDS: 0.9% Saline Lock 10 ML Syringe IV ×2 (02:59→21:23)
[2024-12-10 06:02] LABS: Absolute Lymphocyte Count 1.91 X10^3/uL (0.83-4.51); Absolute Neutrophil Count 3.3 X10^3/uL (2.0-7.7); Basophil# 0.04 X10^3/uL; Basophil% 0.6 % (0-1); Eosinophil# 0.58 X10^3/uL; Eosinophils% 8.8 % (0-5); Hematocrit 28.4 % (37-47); Hemoglobin 9.4 g/dL (12.0-15.0); Lymphocyte # 1.91 X10^3/ul (0.83-4.51); Mean Corp Hgb Conc 33.1 g/dL (32-36); Mean Corpuscular Hgb 29.6 pg (27.0-32.0); Mean Corpuscular Volume 89.3 fL (81-99); Mean Platelet Vol. 11.5 fl (6.2-12.0); Monocyte% 10.6 % (0-10); NRBC Flagged by Analyzer 0 % (0-5); Neutrophil # 3.27 X10^3/uL (2.7-7.7); Neutrophil % 49.6 % (47-70); Platelet Count 148 K/mm3 (150-450); RBC Distribution Width CV 13.6 % (11.6-14.6); RBC Distribution Width SD 44.7 fl (35.1-43.9); Red Blood Count 3.18 M/mm3 (4.2-5.4); White Blood Count 6.6 K/mm3 (4.4-11.0)
[2024-12-10 06:28] LABS: Alanine Aminotransfer ALT/SGPT 18 U/L (<=34); Anion Gap 10 (5-15); BUN 19 mg/dL (4-19); BUN/Creat Ratio 19.6 RATIO (10-20); Calcium,Total 8.7 mg/dL (7.6-11.0); Carbon Dioxide 26.4 mmol/L (21.0-32.0); Chloride 102 mmol/L (98-108); Creatinine, Serum 0.96 mg/dL (0.70-1.20); EST Glomerular Filtration Rate 66 (>60); Estimated Creatinine Clearance 52.43 ml/min (50-250); Glucose 103 mg/dL (70-99); Potassium 4.8 mmol/L (3.3-5.1); Sodium Level 138 mmol/L (133-145)
[2024-12-10 06:34] LABS: AST(SGOT) 18 U/L (<=31)
[2024-12-10] MEDS: Levothyroxine 75 MCG Tablet PO (06:44)
[2024-12-10] MEDS: Acetaminophen 325 MG Tablet 650 MG PO ×3 (09:16→21:26)
[2024-12-10 09:17] VITALS: PULSE 96
[2024-12-10] MEDS: Multivitamins,Therapeutic Tablet 1 TABLET PO (09:17)
[2024-12-10] MEDS: DULoxetine Hcl 60 MG Capsule PO (09:17)
[2024-12-10] MEDS: Potassium Chloride Oral Tablet 10 MEQ PO ×2 (09:17→16:58)
[2024-12-10] MEDS: Tolterodine Tartrate 2 MG CAP.SA PO (09:17)
[2024-12-10] MEDS: Metoprolol Tartrate 25 MG Tablet PO ×2 (09:17→21:19)
[2024-12-10] MEDS: Famotidine 20 MG Tablet PO ×2 (09:17→21:19)
[2024-12-10] MEDS: Lisinopril 40 MG Tablet PO (09:17)
[2024-12-10] MEDS: Calcitriol 0.25 MCG Capsule PO ×2 (09:17→21:19)
[2024-12-10] MEDS: Colestipol 1 GM TABLET PO ×2 (09:18→21:19)
[2024-12-10] MEDS: Enoxaparin 40 MG/0.4 ML Syringe SC (09:18)
[2024-12-10] MEDS: DULoxetine Hcl 30 MG Capsule PO (09:18)
[2024-12-10 09:42] VITALS: BP 124/53; PULSE 96; RESP 16; TEMP 36.5; O2SAT 96
--- NOTE | 2024-12-10 09:48 | CASEMGMT ---
Social Work Updates sent to insurance to support appeal of SNF denial. SW notified Lucretia in TCU of appeal. SW met with pt and reviewed appeal process. Pt is understanding and agreeable to appeal. SW will await determination of appeal. Pt to remain in the hospital until appeal is determined. YOSELIN Hebert
--- NOTE | 2024-12-10 12:46 | CASEMGMT ---
Social Work- SW received a voicemail from KENDALL Bro, regarding appeal. Lyn is requesting additional clinical information including therapies and physician notes be faxed to [phone] by the end of the day. BRYANT updated BRYANT covering the floor via backline and telephone. YOSELIN Guzman
--- NOTE | 2024-12-10 12:55 | CASEMGMT ---
Social Work Per JANUARY Cardoza, a call was received from Lyn Alex with [employer] stating fax regarding appeal that was sent yesterday was not received. BRYANT refaxed clinical information to Lyn at this time [phone]. YOSELIN Hebert
[2024-12-10 16:21] VITALS: BP 106/91; PULSE 73; RESP 16; TEMP 36.6; O2SAT 98
--- NOTE | 2024-12-10 19:52 | PCM.PROGNOTE ---
Subjective Subjective Patient was seen today for follow up. She relates she continues to feel better, pain is improving left foot. Still awaiting insurance determination on appeal. Objective Data Objective Data Vital Signs: Vital Signs Temp Pulse Resp BP Pulse Ox O2 Del Method O2 Flow Rate 97.8 F 73 16 106/91 H 98 Room Air 2 12/10/24 16:21 12/10/24 16:21 12/10/24 16:21 12/10/24 16:21 12/10/24 16:21 12/10/24 16:21 12/07/24 09:58 Oxygen Flow Rate (L/min) 2 Oxygen Delivery Method Room Air Weight: 72 kg Body Mass Index (BMI) 32.0 Intake & Output: Intake and Output for Last 24 Hours 12/08/24 12/09/24 12/10/24 23:59 23:59 23:59 Intake Total 500 / 500 Balance 500 / 500 Lab / Micro Data 12/10/24 05:35 12/10/24 05:35 Labs: Laboratory Results - last 24 hr 12/10/24 05:35: WBC 6.6, RBC 3.18 L, Hgb 9.4 L, Hct 28.4 L, MCV 89.3, MCH 29.6, MCHC 33.1, RDW Std Deviation 44.7 H, RDW Coeff of Elsie 13.6, Plt Count 148 L, MPV 11.5, Immature Gran % (Auto) 1.400 H, Neut % (Auto) 49.6, Lymph % (Auto) 29.0, Arroyo % (Auto) 10.6 H, Eos % (Auto) 8.8 H, Baso % (Auto) 0.6, Absolute Neuts (auto) 3.3, Absolute Lymphs (auto) 1.91, Nucleated RBC % 0, Sodium 138, Potassium 4.8, Chloride 102, Carbon Dioxide 26.4, Anion Gap 10, BUN 19, Creatinine 0.96, Estim Creat Clear Calc 52.43, Est GFR (MDRD) Non-Af 66, BUN/Creatinine Ratio 19.6, Glucose 103 H, Calcium 8.7, AST 18, ALT 18 Micro: Microbiology 12/07/24 03:14 Blood Culture (Wb) - Left Hand Blood Culture - Preliminary No growth in 48 hours. 12/07/24 03:07 Blood Culture (Wb) - Anticubital Left Blood Culture - Preliminary No growth in 48 hours. 12/07/24 04:38 Urine, Clean Catch Urine Culture - Final Culture exhibits no growth. 12/07/24 10:23 Mucosa - Nose Coronavirus COVID-19 PCR - Final 12/07/24 10:23 Mucosa - Nose Respiratory Panel (PCR) - Final Radiography Diagnostic Testing: Radiology Impression Foot X-Ray 12/09/24 23:59 IMPRESSION: There is again note of resection of the distal aspect of the 1st through 5th metatarsals and the distal aspect of the 1st through 5th proximal phalanx with K-wires extending across the rays. There is relative decreased distance at the 2nd and 3rd between the resection and the middle phalanx and 1st through 3rd metatarsal resection and proximal phalanx however this is similar to the postoperative appearance. No definite acute fracture is identified. On the lateral view the 1st proximal phalanx appears displaced in the plantar direction in relation to its K-wire which does still overlapped the bone, clinically correlate. Soft tissue swelling about the forefoot again noted. Reading Location: [facility] Physical Exam Const alert, oriented x3 and no apparent distress Constitutional Narrative: Left foot dressing is clean, dry and intact, CFT < 2 seconds to all toes with intact kwires but cap of 1st toe pin is bent - stable. Calf soft and supple bilateral. Assessment & Plan Assessment/Plan (1) Pain in left foot: (2) Hallux valgus of left foot: (3) Hammer toe of left foot: PLAN: Plan s/p left foot patel metatarsal head resection and hammer toe correction 2,3,4,5 toes right foot on 12/05/2024 - she has been admitted for pain management, observation and post op nursing facility placement. Patient had fall on left foot - reviewed left foot xray from yesterday - no acute findings. No weightbearing left foot, keep left foot elevated. Keep dressing left foot clean, dry and intact. Antibiotic Prophylaxis: Completed course of Cefazolin Pain management: Acetaminophen, Oxyir, and Dilaudid prn pain. DVT Prophylaxis: Lovenox subc once a day. Chronic medical problems - Hospital Medicine consulted. Appreciate assistance. Case Management consulted. Nursing facility placement was denied by insurance, appeal has been submitted, see my 12/09/2024 note for further details.
[2024-12-10 21:13] VITALS: BP 129/46; PULSE 82; RESP 16; TEMP 36.8; O2SAT 96
[2024-12-10 21:19] VITALS: PULSE 82
[2024-12-10] MEDS: Pramipexole Di-HCl 0.25 MG Tablet PO (21:19)
[2024-12-10] MEDS: Atorvastatin Calcium 20 MG Tablet PO (21:20)
[2024-12-11] VITALS (8 sets, daily range): BP systolic 81–146; BP diastolic 25–77; PULSE 72–98; RESP 16; TEMP 36.7–36.9; O2SAT 92–100
[2024-12-11] MEDS: Levothyroxine 75 MCG Tablet PO (05:42)
[2024-12-11] MEDS: Acetaminophen 325 MG Tablet 650 MG PO ×2 (05:53→17:30)
[2024-12-11] MEDS: oxyCODONE 5 MG Tablet PO ×4 (05:53→22:43)
[2024-12-11] MEDS: Multivitamins,Therapeutic Tablet 1 TABLET PO (08:03)
[2024-12-11] MEDS: Potassium Chloride Oral Tablet 10 MEQ PO ×2 (08:03→16:47)
[2024-12-11] MEDS: Colestipol 1 GM TABLET PO ×2 (08:04→22:20)
[2024-12-11] MEDS: Famotidine 20 MG Tablet PO ×2 (08:04→22:21)
[2024-12-11] MEDS: Tolterodine Tartrate 2 MG CAP.SA PO (08:04)
[2024-12-11] MEDS: DULoxetine Hcl 60 MG Capsule PO (08:04)
[2024-12-11] MEDS: Calcitriol 0.25 MCG Capsule PO ×2 (08:05→22:21)
[2024-12-11] MEDS: Enoxaparin 40 MG/0.4 ML Syringe SC (08:05)
[2024-12-11] MEDS: DULoxetine Hcl 30 MG Capsule PO (08:06)
--- NOTE | 2024-12-11 16:02 | CASEMGMT ---
Social Work SW called [employer] to check on appeal. BRYANT spoke with Sophie who states that the case appears to be open and under review but is unable to provide any additional information. Sophie suggests BRYANT speak with the Medicare Advantage Review Team. Sophie was unable to give BRYANT a direct phone number, but did transfer SW to this department. SW on hold for over an hour with no one answering phone. BRYANT will continue to follow this case for appeal determination. YOSELIN Hebert
--- NOTE | 2024-12-11 19:33 | PCM.PROGNOTE ---
Subjective Subjective Patient was seen today for follow up, she relates she is doing her best to stay off her foot. She relates she loses her balance at times and puts weight on left foot. Objective Data Objective Data Vital Signs: Vital Signs Temp Pulse Resp BP Pulse Ox O2 Del Method O2 Flow Rate 98.4 F 97 16 112/76 98 Room Air 2 12/11/24 16:32 12/11/24 16:32 12/11/24 16:32 12/11/24 16:32 12/11/24 16:32 12/11/24 16:32 12/11/24 05:43 Oxygen Flow Rate (L/min) 2 Oxygen Delivery Method Room Air Weight: 72 kg Body Mass Index (BMI) 32.0 Intake & Output: Intake and Output for Last 24 Hours 12/09/24 12/10/24 12/11/24 23:59 23:59 23:59 Intake Total 1150 / 1150 Output Total 400 / 400 Balance 750 / 750 Lab / Micro Data 12/10/24 05:35 12/10/24 05:35 Micro: Microbiology 12/07/24 03:14 Blood Culture (Wb) - Left Hand Blood Culture - Preliminary No growth in 48 hours. 12/07/24 03:07 Blood Culture (Wb) - Anticubital Left Blood Culture - Preliminary No growth in 48 hours. 12/07/24 04:38 Urine, Clean Catch Urine Culture - Final Culture exhibits no growth. 12/07/24 10:23 Mucosa - Nose Coronavirus COVID-19 PCR - Final 12/07/24 10:23 Mucosa - Nose Respiratory Panel (PCR) - Final Physical Exam Const alert, oriented x3 and no apparent distress Constitutional Narrative: Left foot dressing is clean, dry and intact, dressing was changed today left foot - incisions well coapted, no dehiscense, no cellulitis, no purulence, no visible abscess, no necrosis, no maloder, sutures are intact, CFT < 2 seconds to all toes with normal temperature, post operative alignment of toes 1,2,3,4,5 maintained, no bleeding, pin cap 1st toe bent - stable. Some left foot edema c/w normal post op course, no right foot edema. Calf soft and supple with no calf pain or calf edema bilateral. Assessment & Plan Assessment/Plan (1) Pain in left foot: (2) Hallux valgus of left foot: (3) Hammer toe of left foot: PLAN: Plan s/p left foot patel metatarsal head resection and hammer toe correction 2,3,4,5 toes right foot on 12/05/2024 - she has been admitted for pain management, observation and post op nursing facility placement. Patient had fall on left foot - reviewed left foot xray - no acute findings. No weightbearing left foot, keep left foot elevated. Keep dressing left foot clean, dry and intact. Antibiotic Prophylaxis: Completed course of Cefazolin Pain management: Acetaminophen, Oxyir, and Dilaudid prn pain. DVT Prophylaxis: Lovenox subc once a day. Chronic medical problems - Hospital Medicine consulted. Appreciate recommendations. Case Management consulted. Nursing facility placement was denied by insurance, appeal has been submitted, see my 12/09/2024 note for further details.
[2024-12-11] MEDS: Pramipexole Di-HCl 0.25 MG Tablet PO (22:20)
[2024-12-11] MEDS: Atorvastatin Calcium 20 MG Tablet PO (22:20)
[2024-12-11] MEDS: Metoprolol Tartrate 25 MG Tablet PO (22:21)
[2024-12-12] MEDS: Levothyroxine 75 MCG Tablet PO (05:31)
[2024-12-12 05:32] VITALS: BP 141/85; PULSE 79; RESP 16; TEMP 36.4; O2SAT 94
[2024-12-12] MEDS: oxyCODONE 5 MG Tablet PO ×2 (05:38→11:38)
[2024-12-12] MEDS: Acetaminophen 325 MG Tablet 650 MG PO ×2 (05:38→11:39)
[2024-12-12 07:05] LABS: Absolute Lymphocyte Count 2.01 X10^3/uL (0.83-4.51); Absolute Neutrophil Count 4.1 X10^3/uL (2.0-7.7); Basophil# 0.05 X10^3/uL; Basophil% 0.7 % (0-1); Eosinophil# 0.54 X10^3/uL; Eosinophils% 7.1 % (0-5); Hematocrit 30.5 % (37-47); Hemoglobin 9.7 g/dL (12.0-15.0); Lymphocyte # 2.01 X10^3/ul (0.83-4.51); Lymphocyte % 26.3 % (19-41); Mean Corp Hgb Conc 31.8 g/dL (32-36); Mean Corpuscular Hgb 28.9 pg (27.0-32.0); Mean Corpuscular Volume 90.8 fL (81-99); Mean Platelet Vol. 11.3 fl (6.2-12.0); Monocyte# 0.84 X10^3/uL; NRBC Flagged by Analyzer 0 % (0-5); Neutrophil # 4.05 X10^3/uL (2.7-7.7); Neutrophil % 52.8 % (47-70); Platelet Count 181 K/mm3 (150-450); RBC Distribution Width CV 13.9 % (11.6-14.6); RBC Distribution Width SD 45.7 fl (35.1-43.9); Red Blood Count 3.36 M/mm3 (4.2-5.4); White Blood Count 7.7 K/mm3 (4.4-11.0)
[2024-12-12 07:37] LABS: Anion Gap 10 (5-15); BUN 18 mg/dL (4-19); BUN/Creat Ratio 18.1 RATIO (10-20); Calcium,Total 8.7 mg/dL (7.6-11.0); Chloride 100 mmol/L (98-108); Creatinine, Serum 0.97 mg/dL (0.70-1.20); EST Glomerular Filtration Rate 65 (>60); Estimated Creatinine Clearance 51.89 ml/min (50-250); Glucose 92 mg/dL (70-99); Potassium 4.1 mmol/L (3.3-5.1); Sodium Level 138 mmol/L (133-145)
[2024-12-12] MEDS: Enoxaparin 40 MG/0.4 ML Syringe SC (07:50)
[2024-12-12] MEDS: Tolterodine Tartrate 2 MG CAP.SA PO (07:50)
[2024-12-12] MEDS: Potassium Chloride Oral Tablet 10 MEQ PO (07:50)
[2024-12-12] MEDS: Colestipol 1 GM TABLET PO (07:50)
[2024-12-12] MEDS: DULoxetine Hcl 30 MG Capsule PO (07:50)
[2024-12-12] MEDS: Multivitamins,Therapeutic Tablet 1 TABLET PO (07:50)
[2024-12-12] MEDS: Famotidine 20 MG Tablet PO (07:50)
[2024-12-12] MEDS: Lisinopril 40 MG Tablet PO (07:50)
[2024-12-12] MEDS: DULoxetine Hcl 60 MG Capsule PO (07:50)
[2024-12-12 07:51] VITALS: PULSE 79
[2024-12-12] MEDS: Metoprolol Tartrate 25 MG Tablet PO (07:51)
[2024-12-12] MEDS: Calcitriol 0.25 MCG Capsule PO (07:51)
[2024-12-12 10:03] VITALS: BP 130/57; PULSE 79; RESP 18; TEMP 36.6; O2SAT 95
--- NOTE | 2024-12-12 10:56 | CASEMGMT ---
Social Work- SW received a call from Lyn Monroe at [facility] who shared that the appeal has been overturned and pt has been approved for SNF. Auth #: [id number] as of 12/11/24. BRYANT updated floor SW, who reports that she has collaborated with TCU admissions. Plan: TCU; skilled level of care YOSELIN Guzman
[2024-12-12 11:04] VITALS: BP 138/78; PULSE 74; RESP 18; TEMP 36.6; O2SAT 98
--- NOTE | 2024-12-12 11:17 | CASEMGMT ---
Addendum entered by Belkys Muro 12/12/24 14:06: Social Work Physician has completed discharge. Orders faxed to TCU and Lucretia in TCU notified that pt is ready for discharge. RN updated. YOSELIN Hebert Original Note: Social Work SW spoke with Lucretia in TCU. Pt insurance approved placement in TCU. Backline message sent to Dr. Fry and message left at his office notifying of approval for TCU placement by insurance. BRYANT met with pt and informed that insurance has now approved TCU stay. Pt is agreeable and BRYANT spoke with pt sister Jyoti and informed. Plan: TCU, when medically ready. YOSELIN Hebert
--- NOTE | 2024-12-12 12:54 | PCM.TXEXTCAR ---
Diet Diet Order/Speech Therapy: 12/05/24 12:36 Diet: Regular - General Type of Dietary Supplement:: Davis Diet Comments: davis w/ breakfast and dinner DC O2, CPAP, BIPAP needs Home O2 Discharge instructions: No Wound(s) LEFT FOOT: Wound Type: Surgical Incision (Left foot dressing - keep clean, dry and intact) Therapies Weight Bearing: Non weight bearing (No weightbearing left foot) Extremity Affected:: Left Lower (Keep left foot elevated as much as possible) Physical Therapy: Eval and Treat Occupational Therapy: Eval and Treat Problem/Diagnosis (1) Pain in left foot: Status: Acute Code(s): M79.672 - Pain in left foot (2) Hallux valgus of left foot: Status: Acute Code(s): M20.12 - Hallux valgus (acquired), left foot (3) Hammer toe of left foot: Status: Acute Code(s): M20.42 - Other hammer toe(s) (acquired), left foot Plan s/p left foot patel metatarsal head resection and hammer toe correction 2,3,4,5 toes right foot on 12/05/2024 - she has been admitted for pain management, observation and post op nursing facility placement. No weightbearing left foot, keep left foot elevated. Keep dressing left foot clean, dry and intact. Pain management: Acetaminophen and Oxyir DVT Prophylaxis: Lovenox subc once a day. Discharge to TCU long-term floor Allergies/Procedures Done in Hospital Allergies budesonide Allergy (Severe, Verified 11/20/24 09:08) Other CAUSES HIGH BP omeprazole Allergy (Intermediate, Verified 11/20/24 09:08) diarrhea sulfamethoxazole (From Bactrim) Allergy (Verified 11/20/24 09:08) Rash trimethoprim (From Bactrim) Allergy (Verified 11/20/24 09:08) Rash Type of Care/Length of Stay Estimated LOS: Convalescent Care Less Than 30 days Type of Care Needed: Skilled Rehab Potential: Good Prognosis: Good Additional Orders/Day of Discharge Day of Discharge: 12/12/24 Dietary and Speech Recommendations Dietitian Recommendations/Changes: Continue regular diet and davis BID with breakfast and dinner. Will order 240ml strawberry carnation breakfast with lunch. Will monitor weight. Follow Up Care Please Follow Up With: Gomez Fry DPM When: Next week in TCU Discharge Plan Admission Admit Date/Time: 12/05/24 11:23 Attending Provider: Gomez Fry Primary Care Provider: Angelo Guido Consulting Providers: Steven Chaudhari Discharge Orders/Prescriptions Prescriptions: New colestipol 1 gram Tablet 1 g PO BID Qty: 0 0RF enoxaparin 40 mg/0.4 mL Syringe 40 mg subcut DAILY Qty: 0 0RF acetaminophen 325 mg Tablet 650 mg PO Q6H PRN PRN (Reason: Pain Score 1-10) Qty: 0 0RF oxycodone 5 mg Tablet 5 mg PO Q6H PRN PRN (Reason: Pain Score 4-10) 5 Days Qty: 20 0RF Continued Fish Oil 300-500 mg capsule 1 cap PO DAILY potassium chloride 10 mEq capsule, extended release 10 meq PO BID lisinopril 40 mg tablet 40 mg PO DAILY ropinirole 0.25 mg tablet 0.5 mg PO QHS vitamin E (dl, acetate) 400 UNITS capsule 400 units PO QHS multivitamin with folic acid 1 TABLET tablet 1 tab PO DAILY calcium carbonate-vitamin D3 1 EACH tablet 1 ea PO BID atorvastatin 20 mg tablet 20 mg PO DAILY duloxetine 30 mg capsule,delayed release(DR/EC) 30 mg PO DAILY Patient Comments: TAKE ONE 30MG CAPSULE AND ONE 60MG CAPSULE TOGETHER ONCE DAILY FOR A TOTAL DAILY DOSE OF 90MG duloxetine 60 mg capsule,delayed release(DR/EC) 60 mg PO DAILY Patient Comments: TAKE ONE 30MG CAPSULE AND ONE 60MG CAPSULE TOGETHER ONCE DAILY FOR A TOTAL DAILY DOSE OF 90MG biotin 10,000 mcg capsule 10,000 mcg PO DAILY levothyroxine 75 mcg tablet 75 mcg PO [facility] Instructions: 75 mcg orally Mon-Sat two tabs on Sun; metoprolol tartrate 25 mg Tablet 25 mg PO BID 30 Days Qty: 60 0RF fluticasone propionate [Flonase Allergy Relief] 50 mcg/actuation spray,suspension 1 spray intranasal DAILY PRN (Reason: allergy symptoms) Rx Instructions: administer into each nostril levothyroxine 75 mcg Tablet 150 mcg PO WADE calcitriol 0.25 mcg capsule 0.25 mcg PO BID Qty: 180 1RF famotidine 20 mg tablet 20 mg PO BID Qty: 180 0RF tolterodine 2 mg capsule,extended release 24hr 2 mg PO DAILY 30 Days Qty: 90 1RF Referrals / Follow Up: Angelo Guido MD [Primary Care Provider] -
--- NOTE | 2024-12-12 12:58 | PCM.DC.SUM ---
Providers Date of Admission: 12/05/24 Primary Care Physician: Dr. Angelo Guido MD Consultations 12/05/24 11:31 Consult: Hospitalist Routine Consulting Provider: Dylan Foley Reason for Consult: TIMO and other medical problems EMERGENT Consult: No MD Notified: Yes Date Notified: 12/05/24 Time Notified: 12:25 Method of Notification: Text Reason For Visit: Patel metatarsal head resection of the first, second Diagnosis Discharge Diagnosis (1) Pain in left foot: Status: Acute Code(s): M79.672 - Pain in left foot (2) Hallux valgus of left foot: Status: Acute Code(s): M20.12 - Hallux valgus (acquired), left foot (3) Hammer toe of left foot: Status: Acute Code(s): M20.42 - Other hammer toe(s) (acquired), left foot Plan s/p left foot patel metatarsal head resection and hammer toe correction 2,3,4,5 toes right foot on 12/05/2024 - she has been admitted for pain management, observation and post op nursing facility placement. No weightbearing left foot, keep left foot elevated. Keep dressing left foot clean, dry and intact. Pain management: Acetaminophen and Oxyir DVT Prophylaxis: Lovenox subc once a day. Discharge to TCU detention floor Medications at Discharge Home Medications multivitamin with folic acid 400 mcg tablet 1 tab PO DAILY SUPPLEMENT 05/18/14 vitamin E (dl, acetate) 180 mg (400 unit) capsule 400 units PO QHS SUPPLEMENT 05/18/14 omega-3 fatty acids-fish oil 300 mg-500 mg capsule (Fish Oil) 1 cap PO DAILY SUPPLEMENT 02/17/20 calcium 500 mg (as carbonate)-vitamin D3 15 mcg (600 unit) tablet 1 ea PO BID SUPPLEMENT 02/27/20 atorvastatin 20 mg tablet 20 mg PO DAILY CHOLESTEROL 07/17/23 biotin 10,000 mcg capsule 10,000 mcg PO DAILY SUPPLEMENT 07/17/23 duloxetine 30 mg capsule,delayed release 30 mg PO DAILY DEPRESSION 07/17/23 duloxetine 60 mg capsule,delayed release 60 mg PO DAILY DEPRESSION 07/17/23 lisinopril 40 mg tablet 40 mg PO DAILY BP 09/18/23 potassium chloride 10 mEq capsule,extended release 10 meq PO BID supplement 09/18/23 ropinirole 0.25 mg tablet 0.5 mg PO QHS restless legs 09/18/23 levothyroxine 75 mcg tablet 75 mcg PO MOTUWETHFRSA THYROID 11/12/23 metoprolol tartrate 25 mg tablet 25 mg PO BID 30 days #60 tabs 01/25/24 calcitriol 0.25 mcg capsule 0.25 mcg PO BID bones #180 caps 06/30/24 famotidine 20 mg tablet 20 mg PO BID stomach #180 tabs 09/22/24 tolterodine 2 mg capsule,extended release 24 hr 2 mg PO DAILY 30 days #90 caps 10/03/24 fluticasone propionate 50 mcg/actuation nasal spray,suspension (Flonase Allergy Relief) 1 spray intranasal DAILY PRN allergy symptoms 11/20/24 levothyroxine 75 mcg tablet 150 mcg PO WADE 11/20/24 acetaminophen 325 mg tablet 650 mg (2 x 325 mg) PO Q6H PRN PRN Pain Score 1-10 #0 tabs 12/12/24 colestipol 1 gram tablet 1 g PO BID #0 tabs 12/12/24 enoxaparin 40 mg/0.4 mL subcutaneous syringe 40 mg (0.4 mL) subcut DAILY #0 mL 12/12/24 oxycodone 5 mg tablet 5 mg PO Q6H PRN PRN Pain Score 4-10 5 days #20 tabs 12/12/24 Hospital Course Summary of Care Provided Hospital Course: Patient underwent extensive left forefoot surgery on 12/05/2024, she was admitted for post operative pain and management. Pain managed with acetaminophen, oxyir and dilaudid. Post operately patient developed fever, headache and hypotension, work up completed and unremarkable, patient improved, insurance initially denied detention facility but then was over turned. She is being discharged to [facility] TCU for detention today. Weight / BMI Weight Weight: 72 kg Body Mass Index (BMI) 32.0 ABG / Lab / Microbiology Data 12/12/24 06:13 12/12/24 06:13 Laboratory: Laboratory Results - last 24 hr 12/12/24 06:13: WBC 7.7, RBC 3.36 L, Hgb 9.7 L, Hct 30.5 L, MCV 90.8, MCH 28.9, MCHC 31.8 L, RDW Std Deviation 45.7 H, RDW Coeff of Elsie 13.9, Plt Count 181, MPV 11.3, Immature Gran % (Auto) 2.100 H, Neut % (Auto) 52.8, Lymph % (Auto) 26.3, Gooding % (Auto) 11.0 H, Eos % (Auto) 7.1 H, Baso % (Auto) 0.7, Absolute Neuts (auto) 4.1, Absolute Lymphs (auto) 2.01, Nucleated RBC % 0, Sodium 138, Potassium 4.1, Chloride 100, Carbon Dioxide 28.0, Anion Gap 10, BUN 18, Creatinine 0.97, Estim Creat Clear Calc 51.89, Est GFR (MDRD) Non-Af 65, BUN/Creatinine Ratio 18.1, Glucose 92, Calcium 8.7 Microbiology: Microbiology 12/07/24 03:14 Blood Culture (Wb) - Left Hand Blood Culture - Final No growth in 5 days. 12/07/24 03:07 Blood Culture (Wb) - Anticubital Left Blood Culture - Final No growth in 5 days. 12/07/24 04:38 Urine, Clean Catch Urine Culture - Final Culture exhibits no growth. 12/07/24 10:23 Mucosa - Nose Coronavirus COVID-19 PCR - Final 12/07/24 10:23 Mucosa - Nose Respiratory Panel (PCR) - Final D/C Instructions DC O2, CPAP, BIPAP Needs Home O2 Discharge instructions: No Please Follow Up With: Gomez Fry DPM Meaningful Use Info Meaningful Use Meaningful Use Diagnoses (Choose all that apply): None applicable Ischemic Stroke Statin Dosing Therapy Reference: STATIN DOSE THERAPY REFERENCE: * Patients > 75 years receive moderate or high dose statin therapy. * Patients 75 years or YOUNGER should receive HIGH intensity statin dose unless contraindicated. You will be required to document reason for non-treatment if statin daily dose does not meet guidelines. HIGH DOSE STATIN THERAPY DAILY Atorvastatin > than or = to 40 mg Rosuvastatin > than or = to 20 mg Amlodipine + Atorvastatin > than or = to 2.5/40 mg Ezetimibe + Simvastatin 10/80 mg Simvastatin 80mg Discharge Plan Admission Admit Date/Time: 12/05/24 11:23 Attending Provider: Gomez Fry Primary Care Provider: Angelo Guido Consulting Providers: Steven Chaudhari Discharge Orders/Prescriptions Prescriptions: New colestipol 1 gram Tablet 1 g PO BID Qty: 0 0RF enoxaparin 40 mg/0.4 mL Syringe 40 mg subcut DAILY Qty: 0 0RF acetaminophen 325 mg Tablet 650 mg PO Q6H PRN PRN (Reason: Pain Score 1-10) Qty: 0 0RF oxycodone 5 mg Tablet 5 mg PO Q6H PRN PRN (Reason: Pain Score 4-10) 5 Days Qty: 20 0RF Continued Fish Oil 300-500 mg capsule 1 cap PO DAILY potassium chloride 10 mEq capsule, extended release 10 meq PO BID lisinopril 40 mg tablet 40 mg PO DAILY ropinirole 0.25 mg tablet 0.5 mg PO QHS vitamin E (dl, acetate) 400 UNITS capsule 400 units PO QHS multivitamin with folic acid 1 TABLET tablet 1 tab PO DAILY calcium carbonate-vitamin D3 1 EACH tablet 1 ea PO BID atorvastatin 20 mg tablet 20 mg PO DAILY duloxetine 30 mg capsule,delayed release(DR/EC) 30 mg PO DAILY Patient Comments: TAKE ONE 30MG CAPSULE AND ONE 60MG CAPSULE TOGETHER ONCE DAILY FOR A TOTAL DAILY DOSE OF 90MG duloxetine 60 mg capsule,delayed release(DR/EC) 60 mg PO DAILY Patient Comments: TAKE ONE 30MG CAPSULE AND ONE 60MG CAPSULE TOGETHER ONCE DAILY FOR A TOTAL DAILY DOSE OF 90MG biotin 10,000 mcg capsule 10,000 mcg PO DAILY levothyroxine 75 mcg tablet 75 mcg PO MOTUWETHFRSA Rx Instructions: 75 mcg orally Mon-Sat two tabs on Sun; metoprolol tartrate 25 mg Tablet 25 mg PO BID 30 Days Qty: 60 0RF fluticasone propionate [Flonase Allergy Relief] 50 mcg/actuation spray,suspension 1 spray intranasal DAILY PRN (Reason: allergy symptoms) Rx Instructions: administer into each nostril levothyroxine 75 mcg Tablet 150 mcg PO WADE calcitriol 0.25 mcg capsule 0.25 mcg PO BID Qty: 180 1RF famotidine 20 mg tablet 20 mg PO BID Qty: 180 0RF tolterodine 2 mg capsule,extended release 24hr 2 mg PO DAILY 30 Days Qty: 90 1RF Referrals / Follow Up: Angelo Guido MD [Primary Care Provider] - Disposition Disposition (needs filled in before D/C Order can be placed): Senior Living Facility
--- NOTE | 2024-12-12 13:17 | PHA.DC.MR.R ---
Pharmacy [place] Med Reconciliation Pharmacy Service has performed discharge medication reconciliation for this patient. The patient's discharge medication list was reviewed for discrepancies and discrepancies were resolved. Medications at Discharge Home Medications multivitamin with folic acid 400 mcg tablet 1 tab PO DAILY SUPPLEMENT 05/18/14 vitamin E (dl, acetate) 180 mg (400 unit) capsule 400 units PO QHS SUPPLEMENT 05/18/14 omega-3 fatty acids-fish oil 300 mg-500 mg capsule (Fish Oil) 1 cap PO DAILY SUPPLEMENT 02/17/20 calcium 500 mg (as carbonate)-vitamin D3 15 mcg (600 unit) tablet 1 ea PO BID SUPPLEMENT 02/27/20 atorvastatin 20 mg tablet 20 mg PO DAILY CHOLESTEROL 07/17/23 biotin 10,000 mcg capsule 10,000 mcg PO DAILY SUPPLEMENT 07/17/23 duloxetine 30 mg capsule,delayed release 30 mg PO DAILY DEPRESSION 07/17/23 duloxetine 60 mg capsule,delayed release 60 mg PO DAILY DEPRESSION 07/17/23 lisinopril 40 mg tablet 40 mg PO DAILY BP 09/18/23 potassium chloride 10 mEq capsule,extended release 10 meq PO BID supplement 09/18/23 ropinirole 0.25 mg tablet 0.5 mg PO QHS restless legs 09/18/23 levothyroxine 75 mcg tablet 75 mcg PO MOTUWETHFRSA THYROID 11/12/23 metoprolol tartrate 25 mg tablet 25 mg PO BID 30 days #60 tabs 01/25/24 calcitriol 0.25 mcg capsule 0.25 mcg PO BID bones #180 caps 06/30/24 famotidine 20 mg tablet 20 mg PO BID stomach #180 tabs 09/22/24 tolterodine 2 mg capsule,extended release 24 hr 2 mg PO DAILY 30 days #90 caps 10/03/24 fluticasone propionate 50 mcg/actuation nasal spray,suspension (Flonase Allergy Relief) 1 spray intranasal DAILY PRN allergy symptoms 11/20/24 levothyroxine 75 mcg tablet 150 mcg PO WADE 11/20/24 acetaminophen 325 mg tablet 650 mg (2 x 325 mg) PO Q6H PRN PRN Pain Score 1-10 #0 tabs 12/12/24 colestipol 1 gram tablet 1 g PO BID #0 tabs 12/12/24 enoxaparin 40 mg/0.4 mL subcutaneous syringe 40 mg (0.4 mL) subcut DAILY #0 mL 12/12/24 oxycodone 5 mg tablet 5 mg PO Q6H PRN PRN Pain Score 4-10 5 days #20 tabs 12/12/24
[2024-12-12 14:14] VITALS: BP 117/63; PULSE 70; RESP 18; TEMP 37.1; O2SAT 98
--- NOTE | 2024-12-12 14:27 | NURSING ---
Report called to Tiff on TCU she will be going to room 4.
== END 2024-12-12 15:22 | disposition skilled nursing facility (03) | DRG 505 ==
LOC: SDC 11:38 → MS3 11:38
PROVIDERS: Family Medicine; Internal Medicine; Admitting Provider Podiatrist; PCP Family Medicine; Referring Provider Podiatrist; Visit Provider Podiatrist
PROC: 0SGQ04Z Fusion of Left Toe Phalangeal Joint with Internal Fixation Device, Open Approach (ICD-10-PCS; principal; 2024-12-05 07:15)
DX: M20.42 Other hammer toe(s) (acquired), left foot (principal); D63.8 Anemia in other chronic diseases classified elsewhere; N18.31 Chronic kidney disease, stage 3a; E03.9 Hypothyroidism, unspecified; F32.A Depression, unspecified; I12.9 Hypertensive chronic kidney disease with stage 1 through stage 4 chronic kidney disease, or unspecified chronic kidney disease; G25.81 Restless legs syndrome; E66.811 Obesity, class 1; E78.5 Hyperlipidemia, unspecified; K21.9 Gastro-esophageal reflux disease without esophagitis; F41.9 Anxiety disorder, unspecified; M20.12 Hallux valgus (acquired), left foot; J30.9 Allergic rhinitis, unspecified; K52.831 Collagenous colitis; D72.829 Elevated white blood cell count, unspecified; I95.81 Postprocedural hypotension; W19.XXXA Unspecified fall, initial encounter; G89.18 Other acute postprocedural pain; R74.8 Abnormal levels of other serum enzymes; R51.9 Headache, unspecified; R50.82 Postprocedural fever; R09.02 Hypoxemia; Y92.231 Patient bathroom in hospital as the place of occurrence of the external cause; G89.29 Other chronic pain; Z68.32 Body mass index [BMI] 32.0-32.9, adult; Z86.718 Personal history of other venous thrombosis and embolism; Z79.899 Other long term (current) drug therapy; Z79.890 Hormone replacement therapy; Z87.891 Personal history of nicotine dependence
CPT/HCPCS: 36415; 71045; 71275; 73620; 73630; 76000; 80048; 80053; 80061; 81001; 82962; 83735; 84100; 84450; 84460; 85025; 85027; 85379; 87040; 87086; 87633; 87635; 88304; 88305; 88311; 93970; 94668; 97116; 97161; 97166; 97530; 97535; 97802; Q9967; A4216; C1769; J2405

== ENCOUNTER 2024-12-12 15:30 | Inpatient (IN) | payer MEDICARE, SELFPAY ==
[2024-12-12 15:52] VITALS: BP 161/61; PULSE 80; RESP 18; TEMP 36.6; O2SAT 97; BMI 31.8
[2024-12-12] MEDS: Potassium Chloride Oral Tablet 10 MEQ PO (17:04)
[2024-12-12] MEDS: Calcium Carb/Vitamin D 1 TABLET Tablet PO (17:06)
--- NOTE | 2024-12-12 18:10 | HP.PCM_ITS ---
HPI - General General Date of Admission: 12/12/24 Date of Service: 12/12/24 Chief Complaint: Here for rehabilitation. HPI Narrative BHAVNA PATEL, is a 64 Female who presents with followin12/05/2024 Admit [facility]. 12/05/2024 Dr. Fry performed patel metatarsal head resection 1, 2, 3, 4, 5. Metatarsal heads left foot arthroplasty 1, 2, 3, 4, 5 toes left foot. 12/05/2024 NWB left foot. Tylenol, Oxycodone, Dilaudid for pain control. Lovenox DVT prophylaxis 12/05/2024 Resume home medications. Transfuse if hemoglobin < 7. 12/06/2024 Significant pain, review pain medications. 12/07/2024 Fever, hypoxia, tachycardia managed with IVF bolus, blood cultures x 2, urine culture, Chest X-ray. Mildly elevated liver function tests, monitor. Check covid, respiratory panel for fever. Urinalysis negative, Chest X-ray negative. IV fluid bolus, hold Metoprolol, hold Zestril for hypotension. 12/08/2024 Left foot pain. Fever workup negative. 12/09/2024 Fell in bathroom, landed on left foot. Insurance denied SNF. PT/OT/CM, appeal SNF denial. 12/10/2024 Left foot pain improving. Insurance appeal for SNF pending. 12/11/2024 Trying to stay off left foot. Completed Cefazolin antibiotic prophylaxis. Insurance appeal for SNF pending. 12/12/2024 Patient won insurance appeal for SNF. 12/12/2024 Admit to TCU with debility, here for rehabilitation, strengthening, prior to discharge home alone. [facility] Medical History Bladder disease Stage 3a chronic kidney disease (CKD) Urinary frequency Wears hearing aid Wears dentures Wears glasses Post-menopausal Thyroid disease High cholesterol DVT (deep venous thrombosis) Restless legs Difficulty swallowing History of IBS Gastric reflux Non-smoker Shortness of breath on exertion Hx of LEEP (loop electrosurgical excision procedure) of cervix complicating History of claustrophobia Anxiety Depression CPAP (continuous positive airway pressure) dependence Hypertension Migraines CKD (chronic kidney disease) Arthritis Diarrhea Home Medications ?Medication ?Instructions ?Recorded ?Last Taken ?Type multivitamin with folic acid 400 1 tab PO DAILY SUPPLE MENT 05/18/14 12/12/24 History mcg tablet vitamin E (dl, acetate) 180 mg 400 units PO QHS SUPPLE MENT 05/18/14 12/04/24 History (400 unit) capsule omega-3 fatty acids-fish oil 300 1 cap PO DAILY SUPPLE MENT 02/17/20 12/04/24 History mg-500 mg capsule (Fish Oil) calcium 500 mg (as 1 ea PO BID SUPPLEMENT 02/2612/04/24 History carbonate)-vitamin D3 15 mcg (600 unit) tablet atorvastatin 20 mg tablet 20 mg PO DAILY CHOLESTEROL 1 09/17/22 12/11/24 History biotin 10,000 mcg capsule 10,000 mcg PO DAILY SUPPLEME NT 07/17/23 12/04/24 History duloxetine 30 mg capsule,delayed 30 mg PO DAILY DEPRES KEMAL 07/17/23 12/12/24 History release duloxetine 60 mg capsule,delayed 60 mg PO DAILY DEPRES KEMAL 07/17/23 12/12/24 History release lisinopril 40 mg tablet 40 mg PO DAILY BP 09/18/23 0 12/12/24 History potassium chloride 10 mEq 10 meq PO BID supplement 12/12/24 History capsule,extended release ropinirole 0.25 mg tablet 0.5 mg PO QHS restless legs 09/18/23 12/11/24 History levothyroxine 75 mcg tablet 75 mcg PO MOTUWETHFRSA THY ROID 11/12/23 12/12/24 History metoprolol tartrate 25 mg tablet 25 mg PO BID heart 30 days #60 tabs 01/25/24 12/12/24 Rx calcitriol 0.25 mcg capsule 0.25 mcg PO BID bones #180 caps 06/30/24 12/12/24 Rx famotidine 20 mg tablet 20 mg PO BID stomach #180 ta bs 09/22/24 12/12/24 Rx tolterodine 2 mg capsule,extended 2 mg PO DAILY bladde r 30 days #90 10/03/24 12/12/24 Rx release 24 hr caps fluticasone propionate 50 1 spray intranasal DAILY PRN 11/20/24 12/09/24 History mcg/actuation nasal allergy symptoms spray,suspension (Flonase Allergy Relief) levothyroxine 75 mcg tablet 150 mcg PO WADE thyroid 11/0412/07/24 History acetaminophen 325 mg tablet 650 mg (2 x 325 mg) PO Q6H PRN PRN 12/12/24 12/12/24 Rx Pain Score 1-10 #0 tabs colestipol 1 gram tablet 1 g PO BID ibs #0 tabs 12/1212/12/24 Rx enoxaparin 40 mg/0.4 mL 40 mg (0.4 mL) subcut DAILY blood 12/12/24 12/12/24 Rx subcutaneous syringe thinner #0 mL oxycodone 5 mg tablet 5 mg PO Q6H PRN PRN Pain Sco re 12/12/24 12/12/24 Rx 4-10 5 days #20 tabs Allergy/AdvReac Type Severity Reaction Status Date / Time budesonide Allergy Severe Other Verified 11/20/24 09:08 omeprazole Allergy Intermediate diarrhea Verified 11/20/24 09:08 sulfamethoxazole (From Allergy Rash Verified 11/20/24 09:08 Bactrim) trimethoprim (From Bactrim) Allergy Rash Verified 11/20/24 09:08 Family History Mother Arthritis Brother Cancer Diabetes Heart disease Father Diabetes Heart disease Hypertension High cholesterol Uncle Diabetes Grandfather Cancer skin cancer Surgical History History of foot surgery Hx of bilateral cataract extraction Hx of colonoscopy Social History household members: none Smoking Status: Former smoker alcohol intake: never substance use type: does not use ROS Constitutional Constitutional: Reports weakness; Denies chills, fever(s) or weight gain ENT HEENT: Denies headache(s), nasal congestion or nasal discharge Cardiovascular Cardiovascular: Denies chest pain or palpitations Respiratory/Chest Respiratory/Chest: Denies cough, excessive phlegm production or shortness of breath with exertion Gastrointestinal Gastrointestinal: Denies abdominal pain, nausea or vomiting Genitourinary Genitourinary: Denies dysuria Musculoskeletal Musculoskeletal: Denies joint pain or joint swelling Integumentary Integumentary: Denies rash or wounds Neurologic Neurologic: Denies focal weakness, numbness or tingling Psychiatric Psychiatric: Denies anxiety, auditory hallucinations, depression, homicidal ideation or suicidal ideation Vital Signs Vital Signs Vital Signs: 12/12/24 15:52 12/12/24 15:52 Temperature 97.8 F Temperature Source Temporal Pulse Rate 80 Pulse Rhythm Regular Pulse Strength Normal (2+) Respiratory Rate 18 Respiratory Effort Normal Non-Labored Respiratory Depth Normal Respiratory Pattern Normal Blood Pressure 161/61 H Blood Pressure Mean 94 Blood Pressure Source Monitor Blood Pressure Position Semi-Fowlers Blood Pressure Location Left Arm Pulse Ox 97 Oxygen Delivery Method Room Air Room Air Weight Weight: 71.412 kg Body Mass Index (BMI) 31.8 Physical Exam Const alert General Appearance: cooperative HEENT normocephalic Eyes PERRL and EOMs intact bilaterally Neck supple, no JVD and no carotid bruits Resp normal respiratory effort, normal air movement and clear to auscultation bilaterally Cardio regular rate and regular rhythm GI normal to inspection, nondistended, normoactive bowel sounds, non-tender and non-distended Extremity normal capillary refill Extremity Narrative: Left foot dressed. General Extremity: Negative for edema Skin no rashes or lesions noted General Skin Exam: no breakdown Psych affect normal Appearance: appropriate Assessment & Plan Assessment/Plan (1) Debility: (2) Hammer toe of left foot: (3) Hallux valgus of left foot: (4) Status post left foot surgery: (5) Hyperlipidemia: (6) Hyperparathyroidism: (7) Depression: (8) GERD (gastroesophageal reflux disease): QUALIFIERS: Esophagitis presence: without esophagitis Qualified Code(s): K21.9 - Gastro-esophageal reflux disease without esophagitis (9) Hypothyroidism: (10) Essential (primary) hypertension: (11) Hypokalemia: (12) Restless legs: (13) Fatty liver: PLAN: Plan 64 year old female with below past medical history of hammer toe left foot, hallux valgus left foot, underwent patel metatarsal head resection 1, 2, 3, 4, 5. Metatarsal heads left foot arthroplasty 1, 2, 3, 4, 5 toes left foot 12/05/[address] Fry, postoperative course complicated by fever, anemia, admitted to TCU with debility, here for rehabilitation, strengthening, prior to discharge home alone. * Debility - PT/OT. * Pain - Tylenol 1000mg q6 prn pain (1-3), Oxycodone 5mg q4 prn pain (4-10). * Bowel - senna/colace 2 tablets bid prn, Magnesium citrate 300mL daily prn. * Adult immunization - Administer pneumonia vaccine, covid vaccine, flu vaccine as appropriate. * DVT prophylaxis - Lovenox 40mg sc daily. * Hyperlipidemia - Atorvastatin 20mg qhs. * Hyperparathyroidism - Calcitriol 0.25mcg bid, Calcium D 1 tablet bidcm. * Collagenous colitis - Colestipol 1gm bid. * GERD - Famotidine 20mg bid. * Allergic rhinitis - Fluticasone 1 spray nasal daily prn. * Hypothyroidism - Levothyroxine 75mcg daily, 150mcg 1 day/week. * Hypertension - Metoprolol 25mg bid, Lisinopril 40mg daily * Nutrition - MVI 1 tablet daily. * Hyperlipidemia - Morgan 3 1gm daily. * Hypokalemia - KCL 20meq bidcm. * Restless leg syndrome - Mirapex 0.25mg qhs. * Overactive bladder - Tolterodine 2mg daily. * Fatty liver - Vitamin E 400iu daily.
--- NOTE | 2024-12-12 18:31 | NURSING ---
AID CAME TO THIS NURSE AND STATED PT WAS UPSET CAUSE HER PERSONAL BED SIDE COMMODE FROM HOME WAS NOT BROUGHT BACK FROM [facility]. THIS NURSE WENT AND ASKED PT AND PT STATED HER SISTER BROUGHT HER HER BED SIDE COMMODE FROM HOME TO USE. THIS NURSE CALLED [facility] AND STAFF STATED PT DID NOT HAVE HER OWN. THIS NURSE TOLD PT THAT HER COMMODE WAS NOT ON [facility]. PT STATED I KNOW IT WAS THERE. GET ME OUT OF THIS BED AND TAKE ME OVER THERE. PT STARTED TO GET ON THE SIDE OF BED. THIS NURSE STATED TO PT,LET ME CALL YOUR SISTER TO SEE IF SHE TOOK IT HOME. THIS NURSE THEN CALLED PT SISTER AND ASKED IF SHE BROUGHT IN PT OWN COMMODE. SISTER STATED SHE DOES HAVE HER OWN BED SIDE COMMODE BUT DID NOT BRING IT IN TO THE HOSPITAL ITS HERE AT HOME. THIS NURSE STATED TO PT THAT I CALLED HER SISTER AND SHE HAS HER COMMODE AT HOME. PT STATED ARE YOU SURE? AND WHOSE WAS I USING? THIS NURSE AGAIN STATED THAT I TALKED TO HER SISTER AND SHE STATED IT WAS AT HOME AND THAT EVERY FLOOR IN THE HOSPITAL HAS THERE OWN BED SIDE COMMODE IN THE ROOMS. PT STATED FINE, HERE GET RID OF THIS TRAY AND JUST LEAVE ME ALONE. ASKED PT IF SHE NEEDED ANY THING BEFORE LEAVING. PT STATED NO. RN AWARE
[2024-12-12] MEDS: oxyCODONE 5 MG Tablet PO (18:52)
[2024-12-12] MEDS: Colestipol 1 GM TABLET PO (20:42)
[2024-12-12] MEDS: Famotidine 20 MG Tablet PO (20:43)
[2024-12-12] MEDS: Vitamin E 400 UNITS Capsule PO (20:44)
[2024-12-12] MEDS: Atorvastatin Calcium 20 MG Tablet PO (20:44)
[2024-12-12 20:46] VITALS: BP 135/75; PULSE 84
[2024-12-12] MEDS: Calcitriol 0.25 MCG Capsule PO (20:46)
[2024-12-12] MEDS: Metoprolol Tartrate 25 MG Tablet PO (20:46)
[2024-12-12] MEDS: Pramipexole Di-HCl 0.25 MG Tablet PO (20:47)
[2024-12-12] MEDS: Acetaminophen 500 MG Tablet 1000 MG PO (20:51)
[2024-12-12 22:00] VITALS: RESP 16
[2024-12-13] MEDS: Acetaminophen 500 MG Tablet 1000 MG PO (05:23)
[2024-12-13] MEDS: Levothyroxine 75 MCG Tablet PO (05:23)
[2024-12-13 05:42] LABS: Absolute Lymphocyte Count 2.35 X10^3/uL (0.83-4.51); Absolute Neutrophil Count 3.5 X10^3/uL (2.0-7.7); Basophil# 0.04 X10^3/uL; Basophil% 0.5 % (0-1); Eosinophil# 0.65 X10^3/uL; Eosinophils% 8.5 % (0-5); Hematocrit 31.1 % (37-47); Hemoglobin 9.9 g/dL (12.0-15.0); Lymphocyte # 2.35 X10^3/ul (0.83-4.51); Lymphocyte % 30.8 % (19-41); Mean Corp Hgb Conc 31.8 g/dL (32-36); Mean Corpuscular Hgb 28.9 pg (27.0-32.0); Mean Corpuscular Volume 90.9 fL (81-99); Mean Platelet Vol. 10.6 fl (6.2-12.0); Monocyte# 0.89 X10^3/uL; Monocyte% 11.6 % (0-10); NRBC Flagged by Analyzer 0 % (0-5); Neutrophil # 3.52 X10^3/uL (2.7-7.7); Neutrophil % 46.1 % (47-70); Platelet Count 182 K/mm3 (150-450); RBC Distribution Width CV 13.9 % (11.6-14.6); RBC Distribution Width SD 45.5 fl (35.1-43.9); Red Blood Count 3.42 M/mm3 (4.2-5.4); White Blood Count 7.6 K/mm3 (4.4-11.0)
[2024-12-13 06:19] LABS: Anion Gap 11 (5-15); BUN 13 mg/dL (4-19); BUN/Creat Ratio 12.4 RATIO (10-20); Calcium,Total 8.7 mg/dL (7.6-11.0); Chloride 102 mmol/L (98-108); Creatinine, Serum 1.03 mg/dL (0.70-1.20); EST Glomerular Filtration Rate 61 (>60); Estimated Creatinine Clearance 48.66 ml/min (50-250); Glucose 103 mg/dL (70-99); Sodium Level 139 mmol/L (133-145)
[2024-12-13] MEDS: oxyCODONE 5 MG Tablet PO ×3 (07:48→21:02)
[2024-12-13] MEDS: Potassium Chloride Oral Tablet 10 MEQ PO ×2 (08:31→17:13)
[2024-12-13 08:32] VITALS: PULSE 80
[2024-12-13] MEDS: Colestipol 1 GM TABLET PO ×2 (08:32→21:02)
[2024-12-13] MEDS: DULoxetine Hcl 60 MG Capsule PO (08:32)
[2024-12-13] MEDS: Multivitamins,Therapeutic Tablet 1 TABLET PO (08:32)
[2024-12-13] MEDS: DULoxetine Hcl 30 MG Capsule PO (08:32)
[2024-12-13] MEDS: Tolterodine Tartrate 2 MG CAP.SA PO (08:32)
[2024-12-13] MEDS: Metoprolol Tartrate 25 MG Tablet PO ×2 (08:32→21:02)
[2024-12-13] MEDS: Calcium Carb/Vitamin D 1 TABLET Tablet PO ×2 (08:32→17:13)
[2024-12-13] MEDS: Famotidine 20 MG Tablet PO (08:33)
[2024-12-13] MEDS: Omega-3 Acid Ethyl Esters 1 GM Capsule PO (08:33)
[2024-12-13] MEDS: Lisinopril 40 MG Tablet PO (08:33)
[2024-12-13] MEDS: Calcitriol 0.25 MCG Capsule PO ×2 (08:33→21:02)
[2024-12-13] MEDS: Enoxaparin 40 MG/0.4 ML Syringe SC (08:33)
[2024-12-13 09:10] VITALS: BP 131/56; PULSE 80; RESP 18; TEMP 37.1; O2SAT 98
[2024-12-13] MEDS: Tuberculin,Purif.prot.deriv. 50 TU/ML Vial 0.1 ML ID (10:39)
--- NOTE | 2024-12-13 11:37 | PHA.CONS_ITS ---
Documented by User: Aixa Harding 12/13/24 12:45 TCU RX Drug Regimen Review Subjective/Objective Subjective/Objective Subjective: TCU Admission. 64 YOF underwent patel metatarsal head resection 1, 2, 3, 4, 5. Metatarsal heads left foot arthroplasty 1, 2, 3, 4, 5 toes left foot 12/05/[address] Fry, postoperative course complicated by fever, anemia. Admitted to TCU with debility for strengthening and rehabilitation. Objective: Allergies budesonide Allergy (Severe, Verified 11/20/24 09:08) Other CAUSES HIGH BP omeprazole Allergy (Intermediate, Verified 11/20/24 09:08) diarrhea sulfamethoxazole (From Bactrim) Allergy (Verified 11/20/24 09:08) Rash trimethoprim (From Bactrim) Allergy (Verified 11/20/24 09:08) Rash Current Medications Generic Name Dose Route Start Last Admin Trade Name Freq PRN Reason Stop Dose Admin Acetaminophen 1,000 mg 12/12/24 18:40 12/13/24 05:23 Acetaminophen 500 Mg Tablet PO 1,000 mg Q6H PRN PRN Administration Pain Score 1-3 Atorvastatin Calcium 20 mg 12/12/24 22:00 12/12/24 20:44 Atorvastatin Calcium 20 Mg Tablet PO 20 mg QHS AYAN Administration Calcitriol 0.25 mcg 12/12/24 22:00 12/13/24 08:33 Calcitriol 0.25 Mcg Capsule PO 0.25 mcg BID AYAN Administration Calcium/Vitamin D 1 tablet 12/12/24 17:00 12/13/24 08:32 Calcium Carb/Vitamin D 1 Tablet Tablet PO 1 tablet BIDCM AYAN Administration Colestipol HCl 1 gm 12/12/24 22:00 12/13/24 08:32 Colestipol 1 Gm Tablet PO 1 gm BID AYAN Administration Duloxetine HCl 30 mg 12/13/24 10:00 12/13/24 08:32 Duloxetine Hcl 30 Mg Capsule PO 30 mg DAILY AYAN Administration Duloxetine HCl 60 mg 12/13/24 10:00 12/13/24 08:32 Duloxetine Hcl 60 Mg Capsule PO 60 mg DAILY AYAN Administration Enoxaparin Sodium 40 mg 12/13/24 10:00 12/13/24 08:33 Enoxaparin 40 Mg/0.4 Ml Syringe SC 40 mg DAILY AYAN Administration Famotidine 20 mg 12/12/24 22:00 12/13/24 08:33 Famotidine 20 Mg Tablet PO 20 mg BID AYAN Administration Fluticasone Propionate 1 spray 12/12/24 15:57 Fluticasone 0.05% 1 [place] Nasal.Sry NASAL DAILY PRN allergy symptoms Levothyroxine Sodium 75 mcg 12/13/24 06:00 12/13/24 05:23 Levothyroxine 75 Mcg Tablet PO 75 mcg MoTuWeThFrSa@0600 [facility] Administration Levothyroxine Sodium 150 mcg 12/14/24 06:00 Levothyroxine 150 Mcg Tablet PO De Los Santos@0600 [facility] Lisinopril 40 mg 12/13/24 10:00 12/13/24 08:33 Lisinopril 40 Mg Tablet PO 40 mg DAILY [facility] Administration Protocol Magnesium Citrate 300 ml 12/12/24 18:39 Magnesium Citrate 300 Ml PO DAILY PRN Constipation Metoprolol Tartrate 25 mg 12/12/24 22:00 12/13/24 08:32 Metoprolol Tartrate 25 Mg Tablet PO 25 mg BID [facility] Administration Protocol Multivitamins 1 tablet 12/13/24 08:00 12/13/24 08:32 Multivitamins,Therapeutic Tablet PO 1 [facility] Administration [id number] Ethyl Esters 1 gm 12/13/24 10:00 12/13/24 08:33 [place]-3 Acid Ethyl Esters 1 Gm Capsule PO 1 gm DAILY [facility] Administration Oxycodone HCl 5 mg 12/12/24 18:41 12/13/24 07:48 Oxycodone 5 Mg Tablet PO 5 mg Q4H PRN PRN Administration Pain Score 4-10 Potassium Chloride 10 meq 12/12/24 17:00 12/13/24 08:31 Potassium Chloride Oral Tablet 10 Meq PO 10 meq BIDCM [facility] Administration Pramipexole Dihydrochloride 0.25 mg 12/12/24 22:00 12/12/24 20:47 Pramipexole Di-Hcl 0.25 Mg Tablet PO 0.25 mg QHS [facility] Administration Senna/Docusate Sodium 2 tablet 12/12/24 18:39 Senna/Docusate Sodium 1 Tablet PO BID PRN Constipation Sodium Chloride 10 - 40 ml 12/12/24 16:39 0.9% Saline Lock 10 Ml Syringe IV UD PRN SALINE FLUSH Tolterodine Tartrate 2 mg 12/13/24 10:00 12/13/24 08:32 Tolterodine Tartrate 2 Mg Cap.Sa PO 2 mg DAILY AYAN Administration Tuberculin PPD 0.1 ml 12/20/24 10:00 Tuberculin,Purif.Prot.Deriv. 50 Tu/Ml Vial ID 12/20/24 10:01 X1 ONE Vitamin E 400 units 12/12/24 22:00 12/12/24 20:44 Vitamin E 400 Units Capsule PO 400 units QHS AYAN Administration Problem List Fatty liver (Acute) Hypothyroidism (Acute) Hyperparathyroidism (Acute) Status post left foot surgery (Acute) Hammer toe of left foot (Acute) Hallux valgus of left foot (Acute) Hypokalemia (Acute) Essential (primary) hypertension (Acute) Hyperlipidemia (Acute) Debility (Acute) Restless legs (Acute) Depression (Acute) Vital Signs Temp Pulse Resp BP Pulse Ox O2 Del Method 98.7 F 80 18 131/56 H 98 Room Air 12/13/24 09:10 12/13/24 09:10 12/13/24 09:10 12/13/24 09:10 12/13/24 09:10 12/13/24 09:10 Oxygen Delivery Method Room Air Weight: 71.412 kg Body Mass Index (BMI) 31.8 Sodium 139 mmol/L (133-145) 12/13/24 05:20 Potassium 4.0 mmol/L (3.3-5.1) 12/13/24 05:20 Chloride 102 mmol/L (98-108) 12/13/24 05:20 Carbon Dioxide 27.0 mmol/L (21.0-32.0) 12/13/24 05:20 Anion Gap 11 (5-15) 12/13/24 05:20 BUN 13 mg/dL (4-19) 12/13/24 05:20 Creatinine 1.03 mg/dL (0.70-1.20) 12/13/24 05:20 Est GFR (MDRD) Non-Af 61 (>60) 12/13/24 05:20 BUN/Creatinine Ratio 12.4 RATIO (10-20) 12/13/24 05:20 Glucose 103 mg/dL (70-99) H 12/13/24 05:20 Assessment/Plan: 1. Pain: acetaminophen 1000mg PO Q6H PRN pain 1-3 and oxycodone 5mg PO Q4H PRN pain 4-10. Resident has had 2 doses of acetaminophen (pain 4 and 7 in foot/generalized) and 2 doses of oxycodone (pain 7-8 in foot/generalized). Please continue to monitor for increased pain, PRN usage, falls (BEERs), constipation, respiratory depression, LFTs. 2. Bowel: senna/docusate 2T PO BID PRN and magnesium citrate 300mL PO daily PRN constipation. No PRN doses given. Please continue to monitor for constipation and PRN usage. Last documented bowel movement was 12/12/24. 3. DVT prophylaxis: enoxaparin 40mg SC daily. Please continue to monitor for S/S of bleeding/DVT, hemoglobin (9.9g/dL), platelets (last 182,000) and renal function (CrCl 47.9mL/min). 4. Hypertension: metoprolol tartrate 25mg PO BDI and lisinopril 40mg PO daily. Please continue to monitor BP (last 131/56), HR (last 80), potassium (last 4mmol/L), renal function and cough. 5. Hyperlipidemia: atorvastatin 20mg PO QHS and omega 3 1gm PO daily. Please continue to monitor lipid panel (last 12/08/24), LFTs (last 12/10/24 WNL) and muscle pain. 6. Hypothyroidism: levothyroxine 75mcg PO daily except 150mcg on Sundays. Please continue to monitor TSH (last 11/06/24 WNL) and S/S of hypo/hyperthyroidism. 7. Hyperparathyroidism: calcitriol 0.25mcg PO BID and calcium/vitamin D 1T PO BIDCM. Please continue to monitor vitamin D (last 11/06/24 WNL) and calcium (last 8.7mg/dL). 8. Collagenous colitis: colestipol 1gm PO BID. Please continue to monitor for diarrhea/constipation. 9. GERD: famotidine 20mg PO daily. Frequency changed to daily due to CrCl of 47 mL/min. Please continue to monitor for S/S fo GERD and renal function. 10. Restless leg syndrome: pramipexole 0.25mg PO QHS. Please continue to monitor for S/S of restless legs and GI side effects. 11. Overactive bladder: tolterodine 2mg PO daily. Please continue to monitor for S/S of OAB and dementia/delirium (BEERs). 12. Hypokalemia: potassium chloride 20mEq PO BIDCM. Please continue to monitor potassium (last 4 mmol/L). 13. Allergic rhinitis: fluticasone nasal spray 0.05% 1 spray nasal daily PRN allergy symptoms. No PRN doses given. Please continue to monitor for PRN usage and allergies. 14. Nutrition/fatty liver: multivitamin 1T PO daily and vitamin E 400units PO daily. Please continue to monitor. Assessment/Plan for indications treated with psychotropic medications: 1. Depression: duloxetine 90mg PO daily. Please see physician note regarding GDR. Monitor for diarrhea, nausea, appetite/weight loss, anxiety or drowsiness, suicidal thoughts or behaviors (Boxed Warning), symptoms of bleeding, symptoms of serotonin syndrome (including agitation, confusion, hyperreflexia, rigidity/myoclonus, tremor, tachycardia, tachypnea), sodium levels (last Na = add result and date). Monitor blood pressure (last 131/56). Monitor for orthostatic hypotension, including postural dizziness, syncope or falls. Check orthostatic vital signs if suspicion of orthostasis. Monitor for hepatotoxicity (abdominal pain, nausea, jaundice, dark urine, AST/ALT as clinically indicated). AST/ALT = 18 12/10/24. Monitor for efficacy including resident symptoms, behaviors and indications of d istress. Monitor for tolerability including mental status, cognition, excessive sleepiness, withdrawal or decreased participation in activities and decline in physical functioning. Maximize use of nonpharmacologic/behavioral interventions to facilitate dose reduction or discontinuation as appropriate. Please evaluate the appropriateness of GDR unless contraindicated. If appropriate, GDR should be attempted in 2 separate quarters within the first year of use or admission to TCU. If GDR attempted, monitor resident symptoms/behaviors. Medical chart and medication regimen reviewed. The following medication irregularities or issues were identified: None Date Date of Note: 12/13/24 Documented by User: Dr. Anil Abdul MD 12/14/24 08:30 TCU RX Drug Regimen Review Provider Comments Provider responsibility Provider Comments to Recommendations by Pharmacy Agree
[2024-12-13 21:02] VITALS: BP 138/68; PULSE 83
[2024-12-13] MEDS: Vitamin E 400 UNITS Capsule PO (21:02)
[2024-12-13] MEDS: Pramipexole Di-HCl 0.25 MG Tablet PO (21:02)
[2024-12-13] MEDS: Atorvastatin Calcium 20 MG Tablet PO (21:02)
[2024-12-14] MEDS: Levothyroxine 150 MCG Tablet PO (06:27)
[2024-12-14] MEDS: Calcium Carb/Vitamin D 1 TABLET Tablet PO ×2 (08:24→16:15)
[2024-12-14] MEDS: Potassium Chloride Oral Tablet 10 MEQ PO ×2 (08:24→16:15)
[2024-12-14] MEDS: Multivitamins,Therapeutic Tablet 1 TABLET PO (08:24)
[2024-12-14] MEDS: DULoxetine Hcl 30 MG Capsule PO (08:25)
[2024-12-14] MEDS: Famotidine 20 MG Tablet PO (08:25)
[2024-12-14] MEDS: Enoxaparin 40 MG/0.4 ML Syringe SC (08:25)
[2024-12-14] MEDS: Omega-3 Acid Ethyl Esters 1 GM Capsule PO (08:25)
[2024-12-14] MEDS: Calcitriol 0.25 MCG Capsule PO ×2 (08:25→20:36)
[2024-12-14] MEDS: DULoxetine Hcl 60 MG Capsule PO (08:25)
[2024-12-14] MEDS: Lisinopril 40 MG Tablet PO (08:25)
[2024-12-14] MEDS: Tolterodine Tartrate 2 MG CAP.SA PO (08:25)
[2024-12-14] MEDS: Colestipol 1 GM TABLET PO ×2 (08:25→21:52)
[2024-12-14 08:26] VITALS: PULSE 78
[2024-12-14] MEDS: Metoprolol Tartrate 25 MG Tablet PO ×2 (08:26→20:36)
[2024-12-14 09:19] VITALS: BP 101/63; PULSE 78; RESP 18; TEMP 37.1; O2SAT 96
[2024-12-14] MEDS: oxyCODONE 5 MG Tablet PO ×2 (15:19→20:35)
[2024-12-14 20:28] VITALS: BP 142/65; PULSE 86; RESP 18; O2SAT 95
[2024-12-14] MEDS: Pramipexole Di-HCl 0.25 MG Tablet PO (20:35)
[2024-12-14 20:36] VITALS: BP 142/65; PULSE 86
[2024-12-14] MEDS: Atorvastatin Calcium 20 MG Tablet PO (20:36)
[2024-12-14] MEDS: Vitamin E 400 UNITS Capsule PO (20:37)
[2024-12-15 05:47] VITALS: PULSE 80
[2024-12-15] MEDS: Levothyroxine 75 MCG Tablet PO (05:57)
[2024-12-15] MEDS: oxyCODONE 5 MG Tablet PO ×3 (06:06→19:55)
[2024-12-15] MEDS: Calcium Carb/Vitamin D 1 TABLET Tablet PO ×2 (08:17→16:28)
[2024-12-15] MEDS: Multivitamins,Therapeutic Tablet 1 TABLET PO (08:17)
[2024-12-15] MEDS: Famotidine 20 MG Tablet PO (08:17)
[2024-12-15] MEDS: Lisinopril 40 MG Tablet PO (08:17)
[2024-12-15] MEDS: Tolterodine Tartrate 2 MG CAP.SA PO (08:17)
[2024-12-15] MEDS: Potassium Chloride Oral Tablet 10 MEQ PO ×2 (08:17→16:28)
[2024-12-15 08:18] VITALS: PULSE 74
[2024-12-15] MEDS: DULoxetine Hcl 60 MG Capsule PO (08:18)
[2024-12-15] MEDS: Enoxaparin 40 MG/0.4 ML Syringe SC (08:18)
[2024-12-15] MEDS: Metoprolol Tartrate 25 MG Tablet PO ×2 (08:18→19:55)
[2024-12-15] MEDS: Calcitriol 0.25 MCG Capsule PO ×2 (08:18→19:57)
[2024-12-15] MEDS: Colestipol 1 GM TABLET PO ×2 (08:19→19:57)
[2024-12-15] MEDS: Omega-3 Acid Ethyl Esters 1 GM Capsule PO (08:19)
[2024-12-15] MEDS: DULoxetine Hcl 30 MG Capsule PO (08:19)
--- NOTE | 2024-12-15 09:14 | NURSING ---
Offered covid vaccine, VIS provided. Resident declines at this time.
--- NOTE | 2024-12-15 09:30 | NURSING ---
Felt Hat Steamer Note; Activity Asset: Jimmie Salcido is independent in her choice of daily activities. At home she needle points and asked sister to bring it in. She watches tv, reads, works on different types of word puzzle games and trivia. She welcomes visits w/the button sewing machine operator and therapy dog when available. Staff will encourage social activities, remind her of weekly activities and respect her right to say no.
--- NOTE | 2024-12-15 09:46 | NURSING ---
Addendum entered by Lidia Martinez 12/15/24 10:48: [facility], Dr. Fry will come to TCU later this week, asked that consult be placed. Note left for Dr. Abdul to add consult. Original Note: Spoke with staff in Dr. Fry's office about follow-up. They will call back, unsure if needs appt or he will see on TCU.
[2024-12-15 09:50] VITALS: BP 110/70; PULSE 74; RESP 18; TEMP 36.6; O2SAT 98
[2024-12-15] MEDS: Acetaminophen 500 MG Tablet 1000 MG PO ×2 (09:56→19:55)
--- NOTE | 2024-12-15 11:54 | CASEMGMT ---
Social Work SW met with patient to complete initial assessment. Introduced self and role. Verified/updated contacts. Patient confirmed code status as full code. Pt does not have living will completed. SW educated to the purpose of the document and offered to complete during stay. Pt to discuss with sister and notify this worker. SW educated to [facility] insurance, review process and continued stay is not guaranteed. Pt's goal is to return home living with sister and ARABELLA. SW will continue to follow for DC planning assistance. Va Glaser ACTING INSTRUCTOR ACCOUNT CLERK
[2024-12-15] MEDS: Pramipexole Di-HCl 0.25 MG Tablet PO (19:54)
[2024-12-15 19:55] VITALS: PULSE 75
[2024-12-15] MEDS: Atorvastatin Calcium 20 MG Tablet PO (19:57)
[2024-12-15] MEDS: Vitamin E 400 UNITS Capsule PO (19:58)
[2024-12-16] MEDS: oxyCODONE 5 MG Tablet PO ×3 (03:54→18:37)
[2024-12-16] MEDS: Levothyroxine 75 MCG Tablet PO (03:55)
[2024-12-16] MEDS: Potassium Chloride Oral Tablet 10 MEQ PO ×2 (08:56→16:16)
[2024-12-16] MEDS: Colestipol 1 GM TABLET PO ×2 (08:56→20:49)
[2024-12-16] MEDS: Multivitamins,Therapeutic Tablet 1 TABLET PO (08:56)
[2024-12-16] MEDS: Calcium Carb/Vitamin D 1 TABLET Tablet PO ×2 (08:56→16:16)
[2024-12-16 08:57] VITALS: BP 118/60; PULSE 89
[2024-12-16] MEDS: Tolterodine Tartrate 2 MG CAP.SA PO (08:57)
[2024-12-16] MEDS: DULoxetine Hcl 60 MG Capsule PO (08:57)
[2024-12-16] MEDS: DULoxetine Hcl 30 MG Capsule PO (08:57)
[2024-12-16] MEDS: Metoprolol Tartrate 25 MG Tablet PO ×2 (08:57→20:49)
[2024-12-16] MEDS: Famotidine 20 MG Tablet PO (08:58)
[2024-12-16] MEDS: Omega-3 Acid Ethyl Esters 1 GM Capsule PO (08:58)
[2024-12-16] MEDS: Calcitriol 0.25 MCG Capsule PO ×2 (08:58→20:51)
[2024-12-16] MEDS: Enoxaparin 40 MG/0.4 ML Syringe SC (08:59)
[2024-12-16] MEDS: Lisinopril 40 MG Tablet PO (08:59)
[2024-12-16 09:13] VITALS: BP 118/60; PULSE 89; RESP 18; TEMP 36.8; O2SAT 93
[2024-12-16 13:42] VITALS: BMI 31.6
--- NOTE | 2024-12-16 15:11 | CHAPLAIN ---
Type of Pastoral Visit _x__ Initial Visit ___ Follow-up Visit ___ On-call Visit ___ General Patient Visit ___ Spiritual Assessment ___ Family Conference ___ Bereavement ___ Rapid Response ___ Code Blue ___ Other (describe below) Pastoral Care Referral From _x__ Patient ___ Family ___ Nurse ___ Physician ___ Campus Recruiting Coordinator ___ Mall Plant Caretaker ___ Other (describe below) Sacrament/Intervention _x__ Active listening ___ Anointing ___ Taoist ___ Bereavement ___ Communion ___ Sakshi exploration ___ ___ Life review _x__ Prayer ___ Reconciliation ___ Sacrament of Sick _x__ Supportive presence ___ Wedding ___ Other (describe below) Pastoral Comments patient explains her surgery and the current feelings in the foot; pt states that she is just waiting for healing; pt has a buddhism community that is supportive and a few relatives; pt has hobbies but did not plan to do that while in TCU; pt does not engage much in conversation but welcomes a prayer and the visit for today
[2024-12-16 20:49] VITALS: BP 131/61; PULSE 83
[2024-12-16] MEDS: Atorvastatin Calcium 20 MG Tablet PO (20:49)
[2024-12-16] MEDS: Vitamin E 400 UNITS Capsule PO (20:51)
[2024-12-16] MEDS: Pramipexole Di-HCl 0.25 MG Tablet PO (20:51)
[2024-12-16] MEDS: Acetaminophen 500 MG Tablet 1000 MG PO (20:58)
[2024-12-17] MEDS: Levothyroxine 75 MCG Tablet PO (05:23)
[2024-12-17 05:30] VITALS: PULSE 60
[2024-12-17] MEDS: oxyCODONE 5 MG Tablet PO ×4 (05:43→20:28)
[2024-12-17 09:04] VITALS: BP 115/61; PULSE 88; RESP 18; O2SAT 96
[2024-12-17 09:07] VITALS: PULSE 88
[2024-12-17] MEDS: Metoprolol Tartrate 25 MG Tablet PO ×2 (09:07→20:21)
[2024-12-17] MEDS: DULoxetine Hcl 60 MG Capsule PO (09:07)
[2024-12-17] MEDS: Lisinopril 40 MG Tablet PO (09:08)
[2024-12-17] MEDS: Calcium Carb/Vitamin D 1 TABLET Tablet PO ×2 (09:08→16:18)
[2024-12-17] MEDS: Colestipol 1 GM TABLET PO ×2 (09:08→20:21)
[2024-12-17] MEDS: DULoxetine Hcl 30 MG Capsule PO (09:08)
[2024-12-17] MEDS: Omega-3 Acid Ethyl Esters 1 GM Capsule PO (09:08)
[2024-12-17] MEDS: Potassium Chloride Oral Tablet 10 MEQ PO ×2 (09:09→18:31)
[2024-12-17] MEDS: Calcitriol 0.25 MCG Capsule PO ×2 (09:09→20:21)
[2024-12-17] MEDS: Famotidine 20 MG Tablet PO (09:09)
[2024-12-17] MEDS: Enoxaparin 40 MG/0.4 ML Syringe SC (09:09)
[2024-12-17] MEDS: Multivitamins,Therapeutic Tablet 1 TABLET PO (09:09)
[2024-12-17] MEDS: Tolterodine Tartrate 2 MG CAP.SA PO (09:09)
--- NOTE | 2024-12-17 10:43 | CASEMGMT ---
Social Work IDT met with patient, sister and ARABELLA for care plan meeting. Discussed patient's progress in PT/OT/SN. Educated to [facility] insurance with NRD 12/17 and continued stay is not guaranteed with each review; 3-day notice is given. Provided pt/family with written communication of insurance process and copay coverage during stay. Pt is using personal knee scooter and DC plans are to return home living with sister and ARABELLA. SW to coordinate skilled HHC or any needs at [place]. When community relations coordinator provided update, offered yarn for pt to have in room as pt requested to [facility] yesterday. Immediately, sister raised voice and became upset with pt wanting to use the yarn. Sister expressed that at home, pt would spend all day with that yarn. She wouldn't get up and move, and she is obese. SW conferred with Dietitian and pt is not obese. Explained pt has a healthy BMI, with no concerns for obesity. SW explored further reasons sister has against pt sewing with yarn. Sister continued with harsh, derogatory tone on her dissatisfaction of pt's activity choices at home. SW explored what sister's preferences would be for pt. Sister stated she wants pt to help with more boat washer, walk around the home acreage and be more physically active, and socialize when guests are over the house. SW provided active listening. Discussed to participate in tasks/activities in moderation for appropriate balance. Noted pt is on her second surgery and the first surgery reportedly took a year to heal, starting with NWB and progressing to full weight bearing, thus walking around the property would be limiting. Discussed pt's preferences and sister's preferences can differ, and that is okay. Pt has the right to make her own decisions and choose how she prefers to spend her time. Discussed mental health is as important as physical health, and if pt is interested in doing activities with her yarn, word searches, etc, during the day, that promotes improved mood and brain stimulation. SW offered for pt to participate on those activities during stay, as pt is not allowed to be about her room or unit without staff assistance, which can lead to more mundane days, which yarn and word puzzles would fill that time in a healthy way. Dietary will continue monitoring pt's weight and intake and pt will continue with PT/OT for ongoing physical activity. SW redirected conversation back to finalizing DC plans once insurance issued DC date. No other questions asked. BRYANT will continue to follow. Va Glaser MSW CARPENTRY SUPERVISOR
[2024-12-17] MEDS: Acetaminophen 500 MG Tablet 1000 MG PO (11:31)
[2024-12-17 20:21] VITALS: PULSE 86
[2024-12-17] MEDS: Pramipexole Di-HCl 0.25 MG Tablet PO (20:21)
[2024-12-17] MEDS: Vitamin E 400 UNITS Capsule PO (20:21)
[2024-12-17] MEDS: Atorvastatin Calcium 20 MG Tablet PO (20:21)
[2024-12-17 20:24] VITALS: BP 143/70; PULSE 86
[2024-12-18] MEDS: Levothyroxine 75 MCG Tablet PO (05:09)
[2024-12-18] MEDS: oxyCODONE 5 MG Tablet PO ×2 (08:28→14:25)
[2024-12-18] MEDS: Potassium Chloride Oral Tablet 10 MEQ PO ×2 (08:28→18:03)
[2024-12-18] MEDS: Acetaminophen 500 MG Tablet 1000 MG PO ×2 (08:28→22:24)
[2024-12-18] MEDS: Tolterodine Tartrate 2 MG CAP.SA PO (08:29)
[2024-12-18] MEDS: Lisinopril 40 MG Tablet PO (08:29)
[2024-12-18] MEDS: Omega-3 Acid Ethyl Esters 1 GM Capsule PO (08:29)
[2024-12-18] MEDS: Calcitriol 0.25 MCG Capsule PO ×2 (08:29→22:19)
[2024-12-18] MEDS: Calcium Carb/Vitamin D 1 TABLET Tablet PO ×2 (08:29→18:03)
[2024-12-18] MEDS: Multivitamins,Therapeutic Tablet 1 TABLET PO (08:29)
[2024-12-18] MEDS: Famotidine 20 MG Tablet PO (08:29)
[2024-12-18] MEDS: DULoxetine Hcl 30 MG Capsule PO (08:29)
[2024-12-18] MEDS: DULoxetine Hcl 60 MG Capsule PO (08:29)
[2024-12-18 08:30] VITALS: PULSE 77
[2024-12-18] MEDS: Colestipol 1 GM TABLET PO ×2 (08:30→22:17)
[2024-12-18] MEDS: Enoxaparin 40 MG/0.4 ML Syringe SC (08:30)
[2024-12-18] MEDS: Metoprolol Tartrate 25 MG Tablet PO ×2 (08:30→22:18)
[2024-12-18 10:00] VITALS: PULSE 70
--- NOTE | 2024-12-18 13:10 | MDS.RN ---
Pain assessment for MDS complete.
[2024-12-18 15:32] VITALS: BP 140/68; PULSE 77; RESP 16; TEMP 36.8; O2SAT 96
[2024-12-18] MEDS: traMADol 50 MG Tablet PO (19:48)
[2024-12-18 22:15] VITALS: BP 136/71; PULSE 77
[2024-12-18 22:18] VITALS: BP 136/71; PULSE 77
[2024-12-18] MEDS: Atorvastatin Calcium 20 MG Tablet PO (22:18)
[2024-12-18] MEDS: Vitamin E 400 UNITS Capsule PO (22:19)
[2024-12-18] MEDS: Pramipexole Di-HCl 0.25 MG Tablet PO (22:19)
[2024-12-19] MEDS: Levothyroxine 75 MCG Tablet PO (05:14)
[2024-12-19 05:53] LABS: Absolute Neutrophil Count 5.2 X10^3/uL (2.0-7.7); Basophil# 0.08 X10^3/uL; Basophil% 0.8 % (0-1); Eosinophil# 0.84 X10^3/uL; Eosinophils% 8.1 % (0-5); Hematocrit 32.7 % (37-47); Hemoglobin 10.6 g/dL (12.0-15.0); Lymphocyte % 30.9 % (19-41); Mean Corp Hgb Conc 32.4 g/dL (32-36); Mean Corpuscular Hgb 29.7 pg (27.0-32.0); Mean Corpuscular Volume 91.6 fL (81-99); Monocyte% 8.7 % (0-10); NRBC Flagged by Analyzer 0 % (0-5); Neutrophil # 5.19 X10^3/uL (2.7-7.7); Neutrophil % 50.1 % (47-70); Platelet Count 198 K/mm3 (150-450); RBC Distribution Width CV 14.2 % (11.6-14.6); RBC Distribution Width SD 46.7 fl (35.1-43.9); Red Blood Count 3.57 M/mm3 (4.2-5.4); White Blood Count 10.4 K/mm3 (4.4-11.0)
[2024-12-19 08:25] VITALS: BP 101/66; PULSE 75; RESP 17; TEMP 36.7; O2SAT 99
[2024-12-19] MEDS: Multivitamins,Therapeutic Tablet 1 TABLET PO (08:32)
[2024-12-19] MEDS: Calcium Carb/Vitamin D 1 TABLET Tablet PO ×2 (08:32→16:43)
[2024-12-19] MEDS: Potassium Chloride Oral Tablet 10 MEQ PO ×2 (08:32→16:43)
[2024-12-19] MEDS: Calcitriol 0.25 MCG Capsule PO ×2 (08:32→20:00)
[2024-12-19 08:33] VITALS: PULSE 75
[2024-12-19] MEDS: Tolterodine Tartrate 2 MG CAP.SA PO (08:33)
[2024-12-19] MEDS: Colestipol 1 GM TABLET PO ×2 (08:33→20:00)
[2024-12-19] MEDS: DULoxetine Hcl 30 MG Capsule PO (08:33)
[2024-12-19] MEDS: Metoprolol Tartrate 25 MG Tablet PO ×2 (08:33→20:01)
[2024-12-19] MEDS: DULoxetine Hcl 60 MG Capsule PO (08:33)
[2024-12-19] MEDS: Omega-3 Acid Ethyl Esters 1 GM Capsule PO (08:34)
[2024-12-19] MEDS: Lisinopril 40 MG Tablet PO (08:34)
[2024-12-19] MEDS: Famotidine 20 MG Tablet PO (08:34)
[2024-12-19] MEDS: Enoxaparin 40 MG/0.4 ML Syringe SC (08:34)
[2024-12-19] MEDS: traMADol 50 MG Tablet PO ×3 (08:35→21:29)
--- NOTE | 2024-12-19 08:45 | NURSING ---
Police [employer]inct Note; MDS for 12/19/2024 Complete
--- NOTE | 2024-12-19 09:27 | PCM.CONS.GEN ---
Assessment & Plan Assessment/Plan (1) Pain in left foot: PLAN: Plan s/p left foot patel metatarsal head resection and hammer toe correction 2,3,4,5 toes right foot on 12/05/2024. No weightbearing left foot, keep left foot elevated. Keep dressing left foot clean, dry and intact. DVT Prophylaxis: Lovenox subc once a day. Pain management: Acetaminophen and Tramadol Recommend continued nursing facility placement. Patient had extensive left foot surgery and continued senior living facility care is medically necessary for continued postoperative management, mobility assistance, and close monitoring. The patient is still a significant fall risk and must remain strictly nonweightbearing on the left foot. She is still at high risk for complications if she were to be discharged home, including (but not limited to) pin tract infection, delayed healing, and falls due to her inability to ambulate safely or perform essential self-care. residential placement is still required to ensure optimal recovery and minimize the risk of serious postoperative complications. It is also important to note that the patient underwent a nearly identical surgical procedure on her right foot in January 2024, for which insurance approved senior living placement, contributing to an uncomplicated recovery. The current surgery is slightly more extensive, and her postoperative needs are at least equivalent, if not greater. Denying the same level of care in this instance is medically inappropriate and exposes the patient to substantial risk of harm, including impaired wound healing, infection, falls, associated injuries, and loss of surgical correction. HPI Consult Data Date of Consult: 12/19/24 HPI Narrative Reason for Consultation: Left foot HPI Narrative: BHAVNA PATEL, is a 64 F was seen today for follow up on left foot. She relates there is pain to foot but relates Tramadol does help. She is resting sitting up in chair with foot elevated. She has been receiving therapy. [facility] Medical History Bladder disease Stage 3a chronic kidney disease (CKD) Urinary frequency Wears hearing aid Wears dentures Wears glasses Post-menopausal Thyroid disease High cholesterol DVT (deep venous thrombosis) Restless legs Difficulty swallowing History of IBS Gastric reflux Non-smoker Shortness of breath on exertion Hx of LEEP (loop electrosurgical excision procedure) of cervix complicating History of claustrophobia Anxiety Depression CPAP (continuous positive airway pressure) dependence Hypertension Migraines CKD (chronic kidney disease) Arthritis Diarrhea Home Medications ?Medication ?Instructions ?Recorded ?Last Taken ?Type multivitamin with folic acid 400 1 tab PO DAILY SUPPLEMENT 05/18/14 12/12/24 History mcg tablet vitamin E (dl, acetate) 180 mg 400 units PO QHS SUPPLEMENT 05/18/14 12/04/24 History (400 unit) capsule omega-3 fatty acids-fish oil 300 1 cap PO DAILY SUPPLEMENT 02/17/20 12/04/24 History mg-500 mg capsule (Fish Oil) calcium 500 mg (as 1 ea PO BID SUPPLEMENT 02/27/20 12/04/24 History carbonate)-vitamin D3 15 mcg (600 unit) tablet atorvastatin 20 mg tablet 20 mg PO DAILY CHOLESTEROL 07/17/23 12/11/24 History biotin 10,000 mcg capsule 10,000 mcg PO DAILY SUPPLEMENT 07/17/23 12/04/24 History duloxetine 30 mg capsule,delayed 30 mg PO DAILY DEPRESSION 07/17/23 12/12/24 History release duloxetine 60 mg capsule,delayed 60 mg PO DAILY DEPRESSION 07/17/23 12/12/24 History release lisinopril 40 mg tablet 40 mg PO DAILY BP 09/18/23 12/12/24 History potassium chloride 10 mEq 10 meq PO BID supplement 09/18/23 12/12/24 History capsule,extended release ropinirole 0.25 mg tablet 0.5 mg PO QHS restless legs 09/18/23 12/11/24 History levothyroxine 75 mcg tablet 75 mcg PO MOTUWETHFRSA THYROID 11/12/23 12/12/24 History metoprolol tartrate 25 mg tablet 25 mg PO BID heart 30 days #60 tabs 01/25/24 12/12/24 Rx calcitriol 0.25 mcg capsule 0.25 mcg PO BID bones #180 caps 06/30/24 12/12/24 Rx famotidine 20 mg tablet 20 mg PO BID stomach #180 tabs 09/22/24 12/12/24 Rx tolterodine 2 mg capsule,extended 2 mg PO DAILY bladder 30 days #90 10/03/24 12/12/24 Rx release 24 hr caps fluticasone propionate 50 1 spray intranasal DAILY PRN 11/20/24 12/09/24 History mcg/actuation nasal allergy symptoms spray,suspension (Flonase Allergy Relief) levothyroxine 75 mcg tablet 150 mcg PO WADE thyroid 11/20/24 12/07/24 History acetaminophen 325 mg tablet 650 mg (2 x 325 mg) PO Q6H PRN PRN 12/12/24 12/12/24 Rx Pain Score 1-10 #0 tabs colestipol 1 gram tablet 1 g PO BID ibs #0 tabs 12/12/24 12/12/24 Rx enoxaparin 40 mg/0.4 mL 40 mg (0.4 mL) subcut DAILY blood 12/12/24 12/12/24 Rx subcutaneous syringe thinner #0 mL oxycodone 5 mg tablet 5 mg PO Q6H PRN PRN Pain Score 12/12/24 12/12/24 Rx 4-10 5 days #20 tabs Allergy/AdvReac Type Severity Reaction Status Date / Time budesonide Allergy Severe Other Verified 11/20/24 09:08 omeprazole Allergy Intermediate diarrhea Verified 11/20/24 09:08 sulfamethoxazole (From Allergy Rash Verified 11/20/24 09:08 Bactrim) trimethoprim (From Bactrim) Allergy Rash Verified 11/20/24 09:08 Family History Mother Arthritis Brother Cancer Diabetes Heart disease Father Diabetes Heart disease Hypertension High cholesterol Uncle Diabetes Grandfather Cancer skin cancer Surgical History History of foot surgery Hx of bilateral cataract extraction Hx of colonoscopy Social History household members: none Smoking Status: Former smoker alcohol intake: never substance use type: does not use Physical Exam Const alert, oriented x3 and no apparent distress Constitutional Narrative: Dressing was changed today left foot - incisions well coapted, no dehiscense, no cellulitis, no purulence, no visible abscess, no necrosis, no maloder, sutures are intact, CFT < 2 seconds to all toes with normal temperature, post operative alignment of toes 1,2,3,4,5 maintained, no bleeding, pin cap 1st toe bent - stable. Some left foot edema c/w normal post op course - improved, no right foot edema. Calf soft and supple with no calf pain or calf edema bilateral. Lab / Micro Data 12/19/24 05:08 12/13/24 05:20 Labs: Laboratory Results - last 24 hr 12/19/24 05:08: WBC 10.4, RBC 3.57 L, Hgb 10.6 L, Hct 32.7 L, MCV 91.6, MCH 29.7, MCHC 32.4, RDW Std Deviation 46.7 H, RDW Coeff of Elsie 14.2, Plt Count 198, MPV 11.0, Immature Gran % (Auto) 1.400 H, Neut % (Auto) 50.1, Lymph % (Auto) 30.9, [place]ton % (Auto) 8.7, Eos % (Auto) 8.1 H, Baso % (Auto) 0.8, Absolute Neuts (auto) 5.2, Absolute Lymphs (auto) 3.20, Nucleated RBC % 0
[2024-12-19] MEDS: Acetaminophen 500 MG Tablet 1000 MG PO ×2 (12:55→19:58)
--- NOTE | 2024-12-19 13:16 | CASEMGMT ---
Social Work SW completed BIMS () and PHQ-2 () for MDS assessment. SW also spoke with pt about POC meeting and relationship with sister. Pt did not share excessive details or feelings. Pt's demeanor was nonchalant and stated it is what it is. Pt acknowledged sister prefers to be outdoors and pt prefers to remain indoors. SW shared education that regardless of sister's opinions, which is her right, she does not have the right to belittle pt or speak down to pt, and make decisions for pt. SW discussed that pt can make her own decisions and advocate for her preference in hobbies and activities, especially since those hobbies are not harming self or others. SW educated that sister's derogatory remarks can become verbal abuse and pt should be subjected to that environment. Pt stated, well it's her house and I get she likes things a certain way. Pt confirmed she has been living in sister's home for 15 years and pays sister rent monthly. SW stated legally pt has established residence in that home and pt has the right to be live in a peaceful, calm, healthy environment, regardless if her name is on the house. Pt expressed understanding. SW observed pt was not open to continuing conversation and did not probe further. SW assured pt this worker advocates for pt's rights and well-being, and is available to speak to further throughout stay if pt wishes. Pt appreciative. SW will continue to monitor. Va Glaser STEM THRESHING MACHINE OPERATOR SIGNAL TOWER DIRECTOR
[2024-12-19 19:51] VITALS: BP 146/60; PULSE 87
[2024-12-19 20:01] VITALS: PULSE 87
[2024-12-19] MEDS: Vitamin E 400 UNITS Capsule PO (20:01)
[2024-12-19] MEDS: Atorvastatin Calcium 20 MG Tablet PO (20:01)
[2024-12-19] MEDS: Pramipexole Di-HCl 0.25 MG Tablet PO (20:02)
[2024-12-20] MEDS: Levothyroxine 75 MCG Tablet PO (06:01)
[2024-12-20] MEDS: traMADol 50 MG Tablet PO ×2 (06:08→13:55)
[2024-12-20] MEDS: Potassium Chloride Oral Tablet 10 MEQ PO ×2 (07:56→16:10)
[2024-12-20] MEDS: Multivitamins,Therapeutic Tablet 1 TABLET PO (07:56)
[2024-12-20] MEDS: DULoxetine Hcl 60 MG Capsule PO (07:57)
[2024-12-20] MEDS: Calcium Carb/Vitamin D 1 TABLET Tablet PO ×2 (07:57→16:10)
[2024-12-20] MEDS: Colestipol 1 GM TABLET PO ×2 (07:57→20:09)
[2024-12-20] MEDS: DULoxetine Hcl 30 MG Capsule PO (07:57)
[2024-12-20] MEDS: Omega-3 Acid Ethyl Esters 1 GM Capsule PO (07:58)
[2024-12-20] MEDS: Calcitriol 0.25 MCG Capsule PO ×2 (07:58→20:10)
[2024-12-20] MEDS: Lisinopril 40 MG Tablet PO (07:58)
[2024-12-20] MEDS: Famotidine 20 MG Tablet PO (07:58)
[2024-12-20] MEDS: Tolterodine Tartrate 2 MG CAP.SA PO (07:58)
[2024-12-20 08:00] VITALS: PULSE 87
[2024-12-20] MEDS: Enoxaparin 40 MG/0.4 ML Syringe SC (08:00)
[2024-12-20] MEDS: Metoprolol Tartrate 25 MG Tablet PO ×2 (08:00→20:09)
[2024-12-20 08:03] VITALS: BP 133/63; PULSE 89; RESP 17; TEMP 36.3; O2SAT 96
[2024-12-20] MEDS: Tuberculin,Purif.prot.deriv. 50 TU/ML Vial 0.1 ML ID (11:12)
[2024-12-20 20:09] VITALS: BP 138/66; PULSE 79
[2024-12-20] MEDS: Atorvastatin Calcium 20 MG Tablet PO (20:09)
[2024-12-20] MEDS: Pramipexole Di-HCl 0.25 MG Tablet PO (20:10)
[2024-12-20] MEDS: Vitamin E 400 UNITS Capsule PO (20:10)
[2024-12-21] MEDS: Levothyroxine 150 MCG Tablet PO (05:52)
[2024-12-21 09:02] VITALS: BP 100/97; PULSE 110
[2024-12-21] MEDS: Colestipol 1 GM TABLET PO ×2 (09:02→21:42)
[2024-12-21] MEDS: Metoprolol Tartrate 25 MG Tablet PO ×2 (09:02→21:42)
[2024-12-21] MEDS: Potassium Chloride Oral Tablet 10 MEQ PO ×2 (09:02→16:22)
[2024-12-21] MEDS: DULoxetine Hcl 30 MG Capsule PO (09:03)
[2024-12-21] MEDS: Tolterodine Tartrate 2 MG CAP.SA PO (09:03)
[2024-12-21] MEDS: Omega-3 Acid Ethyl Esters 1 GM Capsule PO (09:03)
[2024-12-21] MEDS: Calcium Carb/Vitamin D 1 TABLET Tablet PO ×2 (09:04→16:22)
[2024-12-21] MEDS: Multivitamins,Therapeutic Tablet 1 TABLET PO (09:05)
[2024-12-21] MEDS: DULoxetine Hcl 60 MG Capsule PO (09:06)
[2024-12-21] MEDS: Enoxaparin 40 MG/0.4 ML Syringe SC (09:07)
[2024-12-21] MEDS: Calcitriol 0.25 MCG Capsule PO ×2 (09:08→21:42)
[2024-12-21] MEDS: Famotidine 20 MG Tablet PO (09:08)
[2024-12-21] MEDS: Lisinopril 40 MG Tablet PO (09:09)
[2024-12-21] MEDS: traMADol 50 MG Tablet PO ×2 (09:12→16:23)
[2024-12-21 09:14] VITALS: BP 100/62; PULSE 99; RESP 18; TEMP 36.7; O2SAT 97
[2024-12-21 10:00] VITALS: PULSE 99; RESP 18; O2SAT 97
--- NOTE | 2024-12-21 10:57 | NURSING ---
PT REFUSED TO WASH UP BUT DID DO MOUTH CARE. AND CHANGED CLOTHES.
[2024-12-21] MEDS: Acetaminophen 500 MG Tablet 1000 MG PO (11:36)
[2024-12-21 21:42] VITALS: BP 129/74; PULSE 79
[2024-12-21] MEDS: Pramipexole Di-HCl 0.25 MG Tablet PO (21:42)
[2024-12-21] MEDS: Vitamin E 400 UNITS Capsule PO (21:42)
[2024-12-21] MEDS: Atorvastatin Calcium 20 MG Tablet PO (21:42)
[2024-12-21] MEDS: Nystatin Powder 15gm Bottle 1 APPLIC TOPICAL (21:52)
[2024-12-22] MEDS: Levothyroxine 75 MCG Tablet PO (05:31)
[2024-12-22] MEDS: traMADol 50 MG Tablet PO ×2 (05:47→21:41)
[2024-12-22 08:19] VITALS: BP 133/69; PULSE 85; RESP 16; TEMP 36.5; O2SAT 95
[2024-12-22] MEDS: Enoxaparin 40 MG/0.4 ML Syringe SC (08:19)
[2024-12-22] MEDS: DULoxetine Hcl 30 MG Capsule PO (08:20)
[2024-12-22 08:21] VITALS: BP 133/69; PULSE 85
[2024-12-22] MEDS: Famotidine 20 MG Tablet PO (08:21)
[2024-12-22] MEDS: Colestipol 1 GM TABLET PO ×2 (08:21→21:35)
[2024-12-22] MEDS: Metoprolol Tartrate 25 MG Tablet PO ×2 (08:21→21:35)
[2024-12-22] MEDS: Calcitriol 0.25 MCG Capsule PO ×2 (08:21→21:37)
[2024-12-22] MEDS: Lisinopril 40 MG Tablet PO (08:21)
[2024-12-22] MEDS: Omega-3 Acid Ethyl Esters 1 GM Capsule PO (08:21)
[2024-12-22] MEDS: Calcium Carb/Vitamin D 1 TABLET Tablet PO ×2 (08:21→16:13)
[2024-12-22] MEDS: Tolterodine Tartrate 2 MG CAP.SA PO (08:21)
[2024-12-22] MEDS: DULoxetine Hcl 60 MG Capsule PO (08:21)
[2024-12-22] MEDS: Nystatin Powder 15gm Bottle 1 APPLIC TOPICAL ×2 (08:22→21:38)
[2024-12-22] MEDS: Potassium Chloride Oral Tablet 10 MEQ PO ×2 (08:22→16:13)
[2024-12-22] MEDS: Multivitamins,Therapeutic Tablet 1 TABLET PO (08:22)
[2024-12-22] MEDS: Acetaminophen 500 MG Tablet 1000 MG PO ×2 (08:24→16:14)
[2024-12-22 21:33] VITALS: BP 123/67; PULSE 80; O2SAT 97
[2024-12-22 21:35] VITALS: BP 123/67; PULSE 80
[2024-12-22] MEDS: Atorvastatin Calcium 20 MG Tablet PO (21:35)
[2024-12-22] MEDS: Pramipexole Di-HCl 0.25 MG Tablet PO (21:37)
[2024-12-22] MEDS: Vitamin E 400 UNITS Capsule PO (21:37)
[2024-12-23] MEDS: Levothyroxine 75 MCG Tablet PO (05:59)
[2024-12-23] MEDS: traMADol 50 MG Tablet PO ×2 (09:42→19:43)
[2024-12-23] MEDS: Colestipol 1 GM TABLET PO ×2 (09:44→19:42)
[2024-12-23] MEDS: DULoxetine Hcl 30 MG Capsule PO (09:44)
[2024-12-23] MEDS: Multivitamins,Therapeutic Tablet 1 TABLET PO (09:44)
[2024-12-23] MEDS: Calcium Carb/Vitamin D 1 TABLET Tablet PO ×2 (09:44→17:26)
[2024-12-23] MEDS: Potassium Chloride Oral Tablet 10 MEQ PO ×2 (09:44→17:26)
[2024-12-23 09:45] VITALS: PULSE 96
[2024-12-23] MEDS: Omega-3 Acid Ethyl Esters 1 GM Capsule PO (09:45)
[2024-12-23] MEDS: Calcitriol 0.25 MCG Capsule PO ×2 (09:45→19:44)
[2024-12-23] MEDS: Famotidine 20 MG Tablet PO (09:45)
[2024-12-23] MEDS: Enoxaparin 40 MG/0.4 ML Syringe SC (09:45)
[2024-12-23] MEDS: Nystatin Powder 15gm Bottle 1 APPLIC TOPICAL ×2 (09:45→19:45)
[2024-12-23] MEDS: Tolterodine Tartrate 2 MG CAP.SA PO (09:45)
[2024-12-23] MEDS: Metoprolol Tartrate 25 MG Tablet PO ×2 (09:45→19:44)
[2024-12-23] MEDS: Lisinopril 40 MG Tablet PO (09:45)
[2024-12-23] MEDS: DULoxetine Hcl 60 MG Capsule PO (09:45)
[2024-12-23 09:51] VITALS: BMI 31.4
[2024-12-23 10:09] VITALS: BP 134/61; PULSE 96; RESP 18; TEMP 36.4; O2SAT 96
[2024-12-23] MEDS: Acetaminophen 500 MG Tablet 1000 MG PO (11:53)
--- NOTE | 2024-12-23 15:03 | CASEMGMT ---
Social Work Insurance issued LCD 12/25, DC 12/26. SW spoke with pt at bedside to notify of DC date. Provided NOM[facility] and explained appeal rights. Pt stated, here, I'll call my sister. SW spoke with sister on the phone to explain DC date and appeal rights. Sister denied appeal and agreeable to DC. SW offered skilled HHC and sister agreed. SW provided list of skilled HHC agencies within geographical area, [place] with insurance, that include quality and resource data via [employer] guide. Sister recalls using [facility] in the past and pt/sister agreeable to use again. Pt/sister denied DME needs. Sister to transport at DC. Both appreciative. - SW phoned referral to [facility] for PT/OT/SN - SW secure texted Dr. Fry to notify of DC. Plan: DC home with sister and ARABELLA 12/26, [facility] PT/OT/SN Va Glaesr FISHING LINE WINDING MACHINE OPERATOR CONSULTING SALES EXECUTIVE
--- NOTE | 2024-12-23 17:48 | DS.PCM_ITS ---
Providers Date of Admission: 12/12/24 Primary Care Physician: Dr. Angelo Guido MD Consultations 12/15/24 17:31 Consult: Podiatry Routine Consulting Provider: Gomez Fry Reason for Consult: s/p foot surgery. EMERGENT Consult: No MD Notified: Yes Date Notified: 12/16/24 Time Notified: 07:00 Method of Notification: Text Reason For Visit: METATARSAL RESECTION L FOOT Diagnosis Discharge Diagnosis (1) Pain in left foot: Status: Acute Code(s): M79.672 - Pain in left foot Plan 64 year old female with below past medical history of hammer toe left foot, hallux valgus left foot, underwent patel metatarsal head resection 1, 2, 3, 4, 5. Metatarsal heads left foot arthroplasty 1, 2, 3, 4, 5 toes left foot 12/05/[address] Fry, postoperative course complicated by fever, anemia, admitted to TCU with debility, here for rehabilitation, strengthening, prior to discharge home alone. * Debility - PT/OT. * Pain - Tylenol 1000mg q6 prn pain (1-3), Oxycodone 5mg q4 prn pain (4-10). * Bowel - senna/colace 2 tablets bid prn, Magnesium citrate 300mL daily prn. * Adult immunization - Administer pneumonia vaccine, covid vaccine, flu vaccine as appropriate. * DVT prophylaxis - Lovenox 40mg sc daily. * Hyperlipidemia - Atorvastatin 20mg qhs. * Hyperparathyroidism - Calcitriol 0.25mcg bid, Calcium D 1 tablet bidcm. * Collagenous colitis - Colestipol 1gm bid. * GERD - Famotidine 20mg bid. * Allergic rhinitis - Fluticasone 1 spray nasal daily prn. * Hypothyroidism - Levothyroxine 75mcg daily, 150mcg 1 day/week. * Hypertension - Metoprolol 25mg bid, Lisinopril 40mg daily * Nutrition - MVI 1 tablet daily. * Hyperlipidemia - Pierre 3 1gm daily. * Hypokalemia - KCL 20meq bidcm. * Restless leg syndrome - Mirapex 0.25mg qhs. * Overactive bladder - Tolterodine 2mg daily. * Fatty liver - Vitamin E 400iu daily. Medications at Discharge Home Medications multivitamin with folic acid 400 mcg tablet 1 tab PO DAILY SUPPLEMENT 05/18/14 vitamin E (dl, acetate) 180 mg (400 unit) capsule 400 units PO QHS SUPPLEMENT 05/18/14 omega-3 fatty acids-fish oil 300 mg-500 mg capsule (Fish Oil) 1 cap PO DAILY SUPPLEMENT 02/17/20 calcium 500 mg (as carbonate)-vitamin D3 15 mcg (600 unit) tablet 1 ea PO BID SUPPLEMENT 02/27/20 atorvastatin 20 mg tablet 20 mg PO DAILY CHOLESTEROL 07/17/23 biotin 10,000 mcg capsule 10,000 mcg PO DAILY SUPPLEMENT 07/17/23 duloxetine 30 mg capsule,delayed release 30 mg PO DAILY DEPRESSION 07/17/23 duloxetine 60 mg capsule,delayed release 60 mg PO DAILY DEPRESSION 07/17/23 lisinopril 40 mg tablet 40 mg PO DAILY BP 09/18/23 potassium chloride 10 mEq capsule,extended release 10 meq PO BID supplement 09/18/23 ropinirole 0.25 mg tablet 0.5 mg PO QHS restless legs 09/18/23 levothyroxine 75 mcg tablet 75 mcg PO MOTUWETHFRSA THYROID 11/12/23 metoprolol tartrate 25 mg tablet 25 mg PO BID heart 30 days #60 tabs 01/25/24 calcitriol 0.25 mcg capsule 0.25 mcg PO BID bones #180 caps 06/30/24 famotidine 20 mg tablet 20 mg PO BID stomach #180 tabs 09/22/24 tolterodine 2 mg capsule,extended release 24 hr 2 mg PO DAILY bladder 30 days #90 caps 10/03/24 fluticasone propionate 50 mcg/actuation nasal spray,suspension (Flonase Allergy Relief) 1 spray intranasal DAILY PRN allergy symptoms 11/20/24 levothyroxine 75 mcg tablet 150 mcg PO WADE thyroid 11/20/24 colestipol 1 gram tablet 1 g PO BID ibs #0 tabs 12/12/24 acetaminophen 500 mg tablet 1,000 mg (2 x 500 mg) PO Q6H PRN PRN Pain Score 1-3 #0 tabs 12/23/24 tramadol 50 mg tablet 50 mg PO Q6H PRN PRN Pain Score 4-10 Or Pre Pt/Ot 7 days #28 tabs 12/23/24 Hospital Course Operations - (See below.) Procedures None Summary of Care Provided Minutes Spent on Discharge: 35 Hospital Course: 64 year old female with below past medical history of hammer toe left foot, hallux valgus left foot, underwent patel metatarsal head resection 1, 2, 3, 4, 5. Metatarsal heads left foot arthroplasty 1, 2, 3, 4, 5 toes left foot 12/05/[address] Fry, postoperative course complicated by fever, anemia, admitted to TCU with debility, here for rehabilitation, strengthening, prior to discharge home alone. Discharge home with sister and brother in law 12/26/2024, [facility] PT/OT/SN. Physical Exam Const alert General Appearance: cooperative HEENT normocephalic Eyes PERRL and EOMs intact bilaterally Neck supple, no JVD and no carotid bruits Resp normal respiratory effort, normal air movement and clear to auscultation bilaterally Cardio regular rate and regular rhythm GI normal to inspection, nondistended, normoactive bowel sounds, non-tender and non-distended Extremity normal capillary refill Extremity Narrative: Left foot dressed. General Extremity: Negative for edema Skin no rashes or lesions noted General Skin Exam: no breakdown Psych affect normal Appearance: appropriate Weight / BMI Weight Weight: 70.534 kg Body Mass Index (BMI) 31.4 ABG / Lab / Microbiology Data 12/19/24 05:08 12/13/24 05:20 D/C Instructions Discharge Diet: No restrictions Discharge Activity: Return to Normal Activity Weight Bearing Status: No weight bearing (LLE.) Call your doctor if you observe: Fever of 101 or Higher, Inability to urinate, Inability to have a bowel movement, Shortness of breath, Dizziness, Fainting spells, Swelling in the ankles, Chest pain and Uncontrolled pain DC O2, CPAP, BIPAP Needs Home O2 Discharge instructions: No Additional Instructions: Discharge home with sister and brother in law 12/26/2024, [facility] PT/OT/SN. Please Follow Up With: Dr. Fry When: As scheduled. Meaningful Use Info Meaningful Use Meaningful Use Diagnoses (Choose all that apply): None applicable Ischemic Stroke Statin Dosing Therapy Reference: STATIN DOSE THERAPY REFERENCE: * Patients > 75 years receive moderate or high dose statin therapy. * Patients 75 years or YOUNGER should receive HIGH intensity statin dose unless contraindicated. You will be required to document reason for non-treatment if statin daily dose does not meet guidelines. HIGH DOSE STATIN THERAPY DAILY Atorvastatin > than or = to 40 mg Rosuvastatin > than or = to 20 mg Amlodipine + Atorvastatin > than or = to 2.5/40 mg Ezetimibe + Simvastatin 10/80 mg Simvastatin 80mg Discharge Plan Admission Admit Date/Time: 12/12/24 15:30 Primary Reason for Your Visit: Debility. Attending Provider: Anil Abdul Chi Primary Care Provider: Angelo Guido Consulting Providers: Gomez Fry Instructions Additional Instructions / Restrictions: Discharge home with sister and brother in law 12/26/2024, [facility] PT/OT/SN. Discharge Orders/Prescriptions Prescriptions: New tramadol 50 mg Tablet 50 mg PO Q6H PRN PRN (Reason: Pain Score 4-10 Or Pre Pt/Ot) 7 Days Qty: 28 0RF acetaminophen 500 mg Tablet 1,000 mg PO Q6H PRN PRN (Reason: Pain Score 1-3) Qty: 0 0RF Continued Fish Oil 300-500 mg capsule 1 cap PO DAILY potassium chloride 10 mEq capsule, extended release 10 meq PO BID lisinopril 40 mg tablet 40 mg PO DAILY ropinirole 0.25 mg tablet 0.5 mg PO QHS vitamin E (dl, acetate) 400 UNITS capsule 400 units PO QHS multivitamin with folic acid 1 TABLET tablet 1 tab PO DAILY calcium carbonate-vitamin D3 1 EACH tablet 1 ea PO BID atorvastatin 20 mg tablet 20 mg PO DAILY duloxetine 30 mg capsule,delayed release(DR/EC) 30 mg PO DAILY Patient Comments: TAKE ONE 30MG CAPSULE AND ONE 60MG CAPSULE TOGETHER ONCE DAILY FOR A TOTAL DAILY DOSE OF 90MG duloxetine 60 mg capsule,delayed release(DR/EC) 60 mg PO DAILY Patient Comments: TAKE ONE 30MG CAPSULE AND ONE 60MG CAPSULE TOGETHER ONCE DAILY FOR A TOTAL DAILY DOSE OF 90MG biotin 10,000 mcg capsule 10,000 mcg PO DAILY levothyroxine 75 mcg tablet 75 mcg PO MOTUWETHFRSA Rx Instructions: 75 mcg orally Mon-Sat two tabs on Sun; metoprolol tartrate 25 mg Tablet 25 mg PO BID 30 Days Qty: 60 0RF fluticasone propionate [Flonase Allergy Relief] 50 mcg/actuation spray,suspension 1 spray intranasal DAILY PRN (Reason: allergy symptoms) Rx Instructions: administer into each nostril levothyroxine 75 mcg Tablet 150 mcg PO WADE colestipol 1 gram Tablet 1 g PO BID Qty: 0 0RF calcitriol 0.25 mcg capsule 0.25 mcg PO BID Qty: 180 1RF famotidine 20 mg tablet 20 mg PO BID Qty: 180 0RF tolterodine 2 mg capsule,extended release 24hr 2 mg PO DAILY 30 Days Qty: 90 1RF Discontinued enoxaparin 40 mg/0.4 mL Syringe 40 mg subcut DAILY Qty: 0 0RF acetaminophen 325 mg Tablet 650 mg PO Q6H PRN PRN (Reason: Pain Score 1-10) Qty: 0 0RF oxycodone 5 mg Tablet 5 mg PO Q6H PRN PRN (Reason: Pain Score 4-10) 5 Days Qty: 20 0RF Referrals / Follow Up: Angelo Guido MD [Primary Care Provider] - 12/30/24 2:40 pm Gomez Fry DPM [Med Staff - Active Staff] - 01/01/25 10:45 am () Disposition Disposition (needs filled in before D/C Order can be placed): Home Health Service
[2024-12-23] MEDS: Pramipexole Di-HCl 0.25 MG Tablet PO (19:43)
[2024-12-23 19:44] VITALS: PULSE 82
[2024-12-23] MEDS: Vitamin E 400 UNITS Capsule PO (19:44)
[2024-12-23] MEDS: Atorvastatin Calcium 20 MG Tablet PO (19:44)
[2024-12-24] MEDS: Levothyroxine 75 MCG Tablet PO (04:36)
--- NOTE | 2024-12-24 08:33 | MDS.RN ---
Information for the MDS was obtained from review of the clinical record, interview of resident, staff, and direct observation of resident?s care.
[2024-12-24 09:17] VITALS: BP 137/45; PULSE 96
[2024-12-24] MEDS: Metoprolol Tartrate 25 MG Tablet PO ×2 (09:17→21:56)
[2024-12-24] MEDS: Lisinopril 40 MG Tablet PO (09:18)
[2024-12-24] MEDS: Calcitriol 0.25 MCG Capsule PO ×2 (09:18→21:57)
[2024-12-24] MEDS: Colestipol 1 GM TABLET PO ×2 (09:18→21:56)
[2024-12-24] MEDS: DULoxetine Hcl 60 MG Capsule PO (09:18)
[2024-12-24] MEDS: Famotidine 20 MG Tablet PO (09:18)
[2024-12-24] MEDS: Omega-3 Acid Ethyl Esters 1 GM Capsule PO (09:18)
[2024-12-24] MEDS: traMADol 50 MG Tablet PO ×2 (09:19→22:00)
[2024-12-24] MEDS: Calcium Carb/Vitamin D 1 TABLET Tablet PO ×2 (09:19→16:34)
[2024-12-24] MEDS: Tolterodine Tartrate 2 MG CAP.SA PO (09:19)
[2024-12-24] MEDS: Potassium Chloride Oral Tablet 10 MEQ PO ×2 (09:19→16:34)
[2024-12-24] MEDS: DULoxetine Hcl 30 MG Capsule PO (09:19)
[2024-12-24] MEDS: Multivitamins,Therapeutic Tablet 1 TABLET PO (09:19)
[2024-12-24] MEDS: Enoxaparin 40 MG/0.4 ML Syringe SC (09:20)
[2024-12-24] MEDS: Nystatin Powder 15gm Bottle 1 APPLIC TOPICAL ×2 (09:23→21:57)
[2024-12-24 09:28] VITALS: BP 137/45; PULSE 96; RESP 18; TEMP 36.3; O2SAT 96
[2024-12-24] MEDS: Acetaminophen 500 MG Tablet 1000 MG PO ×2 (13:39→22:00)
[2024-12-24 21:56] VITALS: PULSE 86
[2024-12-24] MEDS: Vitamin E 400 UNITS Capsule PO (21:56)
[2024-12-24] MEDS: Pramipexole Di-HCl 0.25 MG Tablet PO (21:56)
[2024-12-24] MEDS: Atorvastatin Calcium 20 MG Tablet PO (21:57)
[2024-12-25] MEDS: Levothyroxine 75 MCG Tablet PO (05:38)
[2024-12-25] MEDS: traMADol 50 MG Tablet PO ×3 (05:48→19:42)
[2024-12-25] MEDS: Acetaminophen 500 MG Tablet 1000 MG PO ×3 (05:49→21:47)
[2024-12-25] MEDS: Multivitamins,Therapeutic Tablet 1 TABLET PO (08:08)
[2024-12-25] MEDS: Potassium Chloride Oral Tablet 10 MEQ PO ×2 (08:08→16:49)
[2024-12-25] MEDS: Calcium Carb/Vitamin D 1 TABLET Tablet PO ×2 (08:08→16:49)
[2024-12-25] MEDS: Colestipol 1 GM TABLET PO ×2 (08:08→21:41)
[2024-12-25] MEDS: DULoxetine Hcl 60 MG Capsule PO (08:09)
[2024-12-25] MEDS: DULoxetine Hcl 30 MG Capsule PO (08:09)
[2024-12-25 08:10] VITALS: BP 117/49; PULSE 81
[2024-12-25] MEDS: Nystatin Powder 15gm Bottle 1 APPLIC TOPICAL ×2 (08:10→21:44)
[2024-12-25] MEDS: Metoprolol Tartrate 25 MG Tablet PO ×2 (08:10→21:42)
[2024-12-25] MEDS: Omega-3 Acid Ethyl Esters 1 GM Capsule PO (08:10)
[2024-12-25] MEDS: Tolterodine Tartrate 2 MG CAP.SA PO (08:10)
[2024-12-25] MEDS: Famotidine 20 MG Tablet PO (08:11)
[2024-12-25] MEDS: Calcitriol 0.25 MCG Capsule PO ×2 (08:11→21:42)
[2024-12-25] MEDS: Lisinopril 40 MG Tablet PO (08:11)
[2024-12-25] MEDS: Enoxaparin 40 MG/0.4 ML Syringe SC (08:12)
[2024-12-25 08:16] VITALS: BP 117/49; PULSE 81; RESP 16; TEMP 36.6; O2SAT 95
--- NOTE | 2024-12-25 09:46 | MDS.RN ---
Pain assessment for MDS complete.
--- NOTE | 2024-12-25 15:36 | NURSING ---
IN TO CHANGED PT DRESSING TO LEFT FOOT.
--- NOTE | 2024-12-25 15:59 | PCM.PROGNOTE ---
Subjective Subjective Patient was seen today for follow up on her left foot. She takes Acetaminophen and Tramadol for pain. Appears pain is well controlled at this time. Insurance will not cover further nursing facility placement and patient has to go home tomorrow. She has no new complaints. Objective Data Objective Data Vital Signs: Vital Signs Temp Pulse Resp BP Pulse Ox O2 Del Method 97.8 F 81 16 117/49 L 95 Room Air 12/25/24 08:16 12/25/24 08:16 12/25/24 08:16 12/25/24 08:16 12/25/24 08:16 12/25/24 08:16 Oxygen Delivery Method Room Air Weight: 70.534 kg Body Mass Index (BMI) 31.4 Intake & Output: Intake and Output for Last 24 Hours 12/23/24 12/24/24 12/25/24 23:59 23:59 23:59 Intake Total 480 / 480 600 / 600 480 / 480 Balance 480 / 480 600 / 600 480 / 480 Lab / Micro Data 12/19/24 05:08 12/13/24 05:20 Physical Exam Const alert, oriented x3 and no apparent distress Constitutional Narrative: Dressing was changed today left foot - incisions well coapted and healed, no dehiscense, no cellulitis, no purulence, no visible abscess, no necrosis, no maloder, no tissue break down, CFT < 2 seconds to all toes with normal temperature, post operative alignment of toes 1,2,3,4,5 maintained, no bleeding, kwires exiting 1,2,3,4,5 toes left foot with pin cap 1st toe bent - stable. Some left foot edema c/w normal post op course - overall improved, no right foot edema. Calf soft and supple with no calf pain or calf edema bilateral. Assessment & Plan Assessment/Plan (1) Pain in left foot: PLAN: Plan s/p left foot patel metatarsal head resection and hammer toe correction 2,3,4,5 toes right foot on 12/05/2024. Foot healing appropriately at this time. No weightbearing left foot, keep left foot elevated. Keep dressing left foot clean, dry and intact. DVT Prophylaxis: Lovenox subc once a day. Pain management: Acetaminophen and Tramadol Recommend continued nursing facility placement. Patient had extensive left foot surgery and continued [facility] facility care is medically necessary for continued postoperative management, mobility assistance, and close monitoring. The patient is still a significant fall risk and must remain strictly nonweightbearing on the left foot. She is still at high risk for complications if she were to be discharged home, including (but not limited to) pin tract infection, delayed healing, and falls due to her inability to ambulate safely or perform essential self-care. Foot has been healing appropriately and nursing placement has played a big contributing factor towards this. I have recommended that penitentiary placement is still required to ensure optimal recovery and minimize the risk of serious postoperative complications. It is also important to note that the patient underwent a nearly identical surgical procedure on her right foot in January 2024, for which insurance approved penitentiary placement, contributing to an uncomplicated recovery. The current surgery is slightly more extensive, and her postoperative needs are at least equivalent, if not greater. Denying the same level of care in this instance is medically inappropriate and exposes the patient to substantial risk of harm, including impaired wound healing, infection, falls, associated injuries, and loss of surgical correction. Despite this insurance has denied further nursing facility placement and patient plans to be discharged home tomorrow.
[2024-12-25 21:00] VITALS: PULSE 88; O2SAT 96
[2024-12-25 21:35] VITALS: BP 102/65; PULSE 88; O2SAT 96
[2024-12-25] MEDS: Atorvastatin Calcium 20 MG Tablet PO (21:41)
[2024-12-25 21:42] VITALS: BP 102/65; PULSE 88
[2024-12-25] MEDS: Pramipexole Di-HCl 0.25 MG Tablet PO (21:43)
[2024-12-25] MEDS: Vitamin E 400 UNITS Capsule PO (21:43)
[2024-12-26] MEDS: Levothyroxine 75 MCG Tablet PO (05:42)
[2024-12-26 06:02] LABS: Absolute Lymphocyte Count 3.74 X10^3/uL (0.83-4.51); Absolute Neutrophil Count 3.3 X10^3/uL (2.0-7.7); Basophil# 0.12 X10^3/uL; Basophil% 1.3 % (0-1); Eosinophil# 0.78 X10^3/uL; Eosinophils% 8.6 % (0-5); Hematocrit 34.9 % (37-47); Hemoglobin 11.3 g/dL (12.0-15.0); Lymphocyte # 3.74 X10^3/ul (0.83-4.51); Lymphocyte % 41.1 % (19-41); Mean Corp Hgb Conc 32.4 g/dL (32-36); Mean Corpuscular Hgb 29.6 pg (27.0-32.0); Mean Corpuscular Volume 91.4 fL (81-99); Monocyte# 1.06 X10^3/uL; Monocyte% 11.6 % (0-10); NRBC Flagged by Analyzer 0 % (0-5); Neutrophil # 3.34 X10^3/uL (2.7-7.7); Neutrophil % 36.7 % (47-70); Platelet Count 220 K/mm3 (150-450); RBC Distribution Width CV 14.1 % (11.6-14.6); RBC Distribution Width SD 46.8 fl (35.1-43.9); Red Blood Count 3.82 M/mm3 (4.2-5.4); White Blood Count 9.1 K/mm3 (4.4-11.0)
[2024-12-26 06:27] VITALS: PULSE 90; O2SAT 97
[2024-12-26 06:28] LABS: Anion Gap 15 (5-15); BUN 27 mg/dL (4-19); BUN/Creat Ratio 22.4 RATIO (10-20); Carbon Dioxide 20.5 mmol/L (21.0-32.0); Chloride 101 mmol/L (98-108); Creatinine, Serum 1.21 mg/dL (0.70-1.20); EST Glomerular Filtration Rate 50 (>60); Estimated Creatinine Clearance 41.16 ml/min (50-250); Glucose 90 mg/dL (70-99); Potassium 4.5 mmol/L (3.3-5.1); Sodium Level 137 mmol/L (133-145)
[2024-12-26] MEDS: DULoxetine Hcl 60 MG Capsule PO (08:21)
[2024-12-26] MEDS: Colestipol 1 GM TABLET PO (08:21)
[2024-12-26] MEDS: Multivitamins,Therapeutic Tablet 1 TABLET PO (08:21)
[2024-12-26] MEDS: Potassium Chloride Oral Tablet 10 MEQ PO (08:21)
[2024-12-26] MEDS: Calcium Carb/Vitamin D 1 TABLET Tablet PO (08:21)
[2024-12-26] MEDS: DULoxetine Hcl 30 MG Capsule PO (08:22)
[2024-12-26 08:23] VITALS: BP 115/61; PULSE 90
[2024-12-26] MEDS: Metoprolol Tartrate 25 MG Tablet PO (08:23)
[2024-12-26] MEDS: Tolterodine Tartrate 2 MG CAP.SA PO (08:23)
[2024-12-26] MEDS: Omega-3 Acid Ethyl Esters 1 GM Capsule PO (08:23)
[2024-12-26] MEDS: Enoxaparin 40 MG/0.4 ML Syringe SC (08:23)
[2024-12-26] MEDS: Famotidine 20 MG Tablet PO (08:24)
[2024-12-26] MEDS: Calcitriol 0.25 MCG Capsule PO (08:24)
[2024-12-26] MEDS: Lisinopril 40 MG Tablet PO (08:24)
[2024-12-26] MEDS: Nystatin Powder 15gm Bottle 1 APPLIC TOPICAL (08:25)
[2024-12-26] MEDS: traMADol 50 MG Tablet PO (08:29)
--- NOTE | 2024-12-26 10:37 | CASEMGMT ---
Social Work SW completed BIMS () and PHQ-2 () for MDS assessment. Va Glaser [employer]
[2024-12-26 11:12] VITALS: BP 149/60; PULSE 90; RESP 16; TEMP 36.9; O2SAT 95
== END 2024-12-26 11:25 | disposition home health service (06) | DRG 561 ==
PROVIDERS: Admitting Provider Family Medicine Geriatric Medicine; PCP Family Medicine; Visit Provider Family Medicine Geriatric Medicine
DX: Z47.1 Aftercare following joint replacement surgery (principal); E03.9 Hypothyroidism, unspecified; N18.31 Chronic kidney disease, stage 3a; F32.9 Major depressive disorder, single episode, unspecified; G25.81 Restless legs syndrome; K76.0 Fatty (change of) liver, not elsewhere classified; I12.9 Hypertensive chronic kidney disease with stage 1 through stage 4 chronic kidney disease, or unspecified chronic kidney disease; E87.6 Hypokalemia; K52.831 Collagenous colitis; J30.9 Allergic rhinitis, unspecified; K21.9 Gastro-esophageal reflux disease without esophagitis; M20.12 Hallux valgus (acquired), left foot; E78.00 Pure hypercholesterolemia, unspecified; E21.3 Hyperparathyroidism, unspecified; M20.42 Other hammer toe(s) (acquired), left foot; F41.9 Anxiety disorder, unspecified; Z79.890 Hormone replacement therapy; N32.81 Overactive bladder; Z87.891 Personal history of nicotine dependence; Z96.698 Presence of other orthopedic joint implants; Z79.899 Other long term (current) drug therapy; Z91.81 History of falling; Z86.718 Personal history of other venous thrombosis and embolism
CPT/HCPCS: 36415; 80048; 85025; 97110; 97116; 97162; 97166; 97530; 97535

== ENCOUNTER → 2025-02-05 | Outpatient (CLI) | payer MEDICARE, SELFPAY ==
--- NOTE | 2025-02-05 10:58 | VDLE_ITS ---
Reason For Study Reason For Study: Left leg swelling RIGHT LEFT CFV is compressible, spontaneous, phasic, competent GSV is normal. and demonstrates normal augmentation. CFV is compressible, spontaneous, phasic, competent, Procedure and demonstrates normal augmentation. This is a venous duplex using B-mode, color flow and FV is compressible, spontaneous, phasic, competent spectral Doppler. and demonstrates normal augmentation. Exam performed in department. POP V is compressible, spontaneous, phasic, competent A preliminary report was called and/or faxed to and demonstrates normal augmentation. Ang. T/P Trunk is compressible. PTV is compressible. LT PerV is compressible. VL/Venous Duplex US, Unilateral Interpretation Summary Deep veins of the left lower extremity are patent and compressible segmentally. There is no evidence of left lower extremity deep vein thrombosis. The left great saphenous vein appears patent an d compressible segmentally. Ordering Physician: Gomez Fry Referring Physician: Angelo Guido MD Performed By: Samantha Rivera RVT
--- NOTE | 2025-02-05 10:58 | VDLE_ITS ---
Reason For Study Reason For Study: Left leg swelling RIGHT LEFT CFV is compressible, spontaneous, phasic, competent GSV is normal. and demonstrates normal augmentation. CFV is compressible, spontaneous, phasic, competent, Procedure and demonstrates normal augmentation. This is a venous duplex using B-mode, color flow and FV is compressible, spontaneous, phasic, competent spectral Doppler. and demonstrates normal augmentation. Exam performed in department. POP V is compressible, spontaneous, phasic, competent A preliminary report was called and/or faxed to and demonstrates normal augmentation. Ang. T/P Trunk is compressible. PTV is compressible. LT PerV is compressible. VL/Venous Duplex US, Unilateral Interpretation Summary Deep veins of the left lower extremity are patent and compressible segmentally. There is no evidence of left lower extremity deep vein thrombosis. The left great saphenous vein appears patent an d compressible segmentally. Ordering Physician: Gomez Fry Referring Physician: Angelo Guido MD Performed By: Samantha Rivera RVT
== END | disposition home or self-care (01) ==
PROVIDERS: PCP Family Medicine; Referring Provider Podiatrist; Visit Provider Podiatrist
DX: M79.662 Pain in left lower leg (principal); M79.89 Other specified soft tissue disorders
CPT/HCPCS: 93971

== ENCOUNTER → 2025-05-15 | Outpatient (CLI) | payer MEDICARE, SELFPAY | END | disposition home or self-care (01) | LOC: OPBI 13:34 | PROVIDERS: PCP Family Medicine | DX: Z12.31 Encounter for screening mammogram for malignant neoplasm of breast (principal) | CPT/HCPCS: 77063; 77067 ==

== ENCOUNTER → 2025-05-19 | Outpatient (CLI) | payer MEDICARE, SELFPAY ==
[2025-05-19 14:22] LABS: AST(SGOT) 10 U/L (<=31); Alanine Aminotransfer ALT/SGPT 17 U/L (<=34); Albumin, Serum 4.2 g/dL (3.4-4.8); Alkaline Phosphatase 83 U/L (35-104); Anion Gap 11 (5-15); BUN 19 mg/dL (4-19); BUN/Creat Ratio 18.3 RATIO (10-20); Calcium,Total 8.3 mg/dL (7.6-11.0); Carbon Dioxide 29.7 mmol/L (21.0-32.0); Chloride 101 mmol/L (98-108); Globulin 2.8 g/dL (2.2-4.2); Glucose 93 mg/dL (70-99); Potassium 4.4 mmol/L (3.3-5.1)
== END | disposition home or self-care (01) ==
LOC: LAB 12:00
PROVIDERS: PCP Family Medicine; Referring Provider Internal Medicine Endocrinology, Diabetes & Metabolism; Visit Provider Internal Medicine Endocrinology, Diabetes & Metabolism
DX: E03.9 Hypothyroidism, unspecified (principal); E20.819 Hypoparathyroidism due to impaired parathyroid hormone secretion, unspecified; E06.3 Autoimmune thyroiditis
CPT/HCPCS: 36415; 80053; 84443

== ENCOUNTER → 2025-06-04 | Outpatient (CLI) | payer MEDICARE, SELFPAY ==
[2025-06-04 14:05] LABS: Ferritin 21 ng/mL (22-378); Iron 43 ug/dL (50-170); Iron Binding Capacity,Total 311 ug/dL (250-450); Iron Binding Capacity,Unsat 268 ug/dL (228-428)
== END | disposition home or self-care (01) ==
LOC: MTLAB 09:49
PROVIDERS: PCP Family Medicine; Referring Provider Internal Medicine Pulmonary Disease; Visit Provider Internal Medicine Pulmonary Disease
DX: G25.81 Restless legs syndrome (principal)
CPT/HCPCS: 36415; 82728; 83540; 83550